=== PATIENT | male | born 1965 | race Caucasian/White ===

== ENCOUNTER 2018-03-02 22:14 | Emergency (ER) | payer OTHER ==
[~2018-03-02] VITALS: Ht 167.6 cm; Wt 72.7 kg
[~2018-03-02 22:14] MED LIST: BENZ1TAB10 PO; DIVA500T35 PO; GABA-533 PO; LEVO50 PO; RISPC50 IM
[2018-03-02] MEDS ORDERED: CALC-1035 PO (23:08)
[2018-03-02] MEDS ORDERED: BUSP15 PO (23:08)
[2018-03-02] MEDS ORDERED: DIVA500T52 PO (23:08)
[2018-03-02] MEDS ORDERED: ESCI10TA PO (23:12)
[2018-03-02] MEDS ORDERED: MELA3TAB66 PO (23:12)
[2018-03-02] MEDS ORDERED: QUET200T PO (23:12)
[2018-03-02] MEDS ORDERED: PROP20TA18 PO (23:12)
[2018-03-02] MEDS ORDERED: NALT50TA6 PO (23:12)
[2018-03-02] MEDS ORDERED: LAMO100 PO (23:12)
[2018-03-02] MEDS ORDERED: TRIH2TAB3 PO (23:13)
[2018-03-02] MEDS ORDERED: LEVO150 PO (23:13)
[2018-03-02] MEDS ORDERED: TRAZ-147 PO (23:13)
[2018-03-02 23:34] LABS: BASOPHILS % (AUTO) 0.9 % (0.0-2.0); HEMATOCRIT 43.6 % (41-53); HEMOGLOBIN 15.5 g/dL (13.5-17.5); LYMPHOCYTES # (AUTO) 1.4 K/uL (1.0-4.8); LYMPHOCYTES % (AUTO) 40.3 % (22.0-44.0); MEAN CORPUSCULAR HEMOGLOBIN 34.1 pg (26.0-34.0); MEAN CORPUSCULAR HGB CONC 35.5 G/dL (31.0-37.0); MEAN CORPUSCULAR VOLUME 96 fL (80-100); MONOCYTES # (AUTO) 0.5 K/uL (0.1-1.0); NEUTROPHILS # (AUTO) 1.4 K/uL (1.8-7.7); NEUTROPHILS % (AUTO) 39.8 % (40.0-70.0); PLATELET COUNT (AUTO) 136 K/uL (150-450); RED BLOOD CELL COUNT(AUTO) 4.55 MIL/uL (4.50-5.90); RED CELL DISTRIBUTION WIDTH 13.7 % (11.5-14.5)
[2018-03-02 23:47] LABS: ANION GAP 3 mmol/L (8-16); CALCIUM, TOTAL 8.6 mg/dL (8.8-10.5); CARBON DIOXIDE 32 mmol/L (22-29); CHLORIDE 104 mmol/L (98-107); CREATININE 0.89 mg/dL (0.60-1.30); GLOMERULAR FILTR. RATE CALC > 60 mL/min (>60); GLUCOSE,RANDOM 120 mg/dL (70-110); POTASSIUM 4.2 mmol/L (3.5-5.1); SODIUM SERUM 139 mmol/L (136-145); UREA NITROGEN, BLOOD 19 mg/dL (7-18)
[2018-03-02 23:52] LABS: ALANINE AMINOTRANSFERASE 23 U/L (12-78); ALBUMIN 3.2 g/dL (3.4-5.0); ALKALINE PHOSPHATASE 56 U/L (46-116); ASPARTATE AMINOTRANSFERASE 18 U/L (15-37); BILIRUBIN,TOTAL 0.3 mg/dL (0.1-1.0); TOTAL PROTEIN, SERUM 6.6 g/dL (6.4-8.2)
[2018-03-03 02:10] VITALS: BP 96/67
== END 2018-03-03 04:58 | disposition home or self-care (01) ==
LOC: EMS 22:15
DX: F25.9 Schizoaffective disorder, unspecified (principal); F31.9 Bipolar disorder, unspecified; E03.9 Hypothyroidism, unspecified
CPT/HCPCS: 36415; 80053; 85025; 99284; G0480

== ENCOUNTER 2018-12-11 20:35 | Emergency (ER) | payer OTHER ==
[~2018-12-11] VITALS: Ht 175.3 cm; Wt 72.7 kg
[~2018-12-11 20:35] MED LIST changes: -BENZ1TAB10 PO; +BUSP15 PO; +CALC-1035 PO; -DIVA500T35 PO; +DIVA500T52 PO; +ESCI10TA PO; -GABA-533 PO; +LAMO100 PO; +LEVO150 PO; -LEVO50 PO; +MELA3TAB66 PO; +NALT50TA6 PO; +PROP20TA18 PO; +QUET200T PO; -RISPC50 IM; +TRAZ-220 PO; +TRIH2TAB3 PO
[2018-12-11 21:26] LABS: EOSINOPHILS % (AUTO) 2.7 % (1.0-6.0); HEMATOCRIT 44.8 % (41-53); HEMOGLOBIN 15.3 g/dL (13.5-17.5); LYMPHOCYTES # (AUTO) 1.2 K/uL (1.0-4.8); LYMPHOCYTES % (AUTO) 33.1 % (22.0-44.0); MEAN CORPUSCULAR HEMOGLOBIN 33.2 pg (26.0-34.0); MEAN CORPUSCULAR HGB CONC 34.2 G/dL (31.0-37.0); MEAN CORPUSCULAR VOLUME 97 fL (80-100); MONOCYTES # (AUTO) 0.6 K/uL (0.1-1.0); MONOCYTES % (AUTO) 16.4 % (2.0-9.0); NEUTROPHILS # (AUTO) 1.7 K/uL (1.8-7.7); NEUTROPHILS % (AUTO) 46.8 % (40.0-70.0); PLATELET COUNT (AUTO) 141 K/uL (150-450); RED BLOOD CELL COUNT(AUTO) 4.62 MIL/uL (4.50-5.90)
[2018-12-11 21:33] LABS: APPEARANCE,URINE CLEAR (CLEAR); BILIRUBIN,URINE NEGATIVE (NEGATIVE); GLUCOSE, URINE (UA) NEGATIVE (NEGATIVE); KETONES,URINE NEGATIVE (NEGATIVE); LEUKOCYTE ESTERASE ,URINE NEGATIVE (NEGATIVE); NITRATE,URINE NEGATIVE (NEGATIVE); OCCULT BLOOD,URINE NEGATIVE (NEGATIVE); PROTEIN,URINE NEGATIVE (NEGATIVE); UROBILINOGEN,URINE 0.2 mg/dL (<=1.0)
[2018-12-11 21:35] LABS: ANION GAP 6 mmol/L (8-16); CALCIUM, TOTAL 8.7 mg/dL (8.8-10.5); CARBON DIOXIDE 30 mmol/L (22-29); CHLORIDE 105 mmol/L (98-107); CREATININE 0.84 mg/dL (0.60-1.30); GLOMERULAR FILTR. RATE CALC > 60 mL/min (>60); GLUCOSE,RANDOM 84 mg/dL (70-110); POTASSIUM 4.1 mmol/L (3.5-5.1); SODIUM SERUM 141 mmol/L (136-145); UREA NITROGEN, BLOOD 20 mg/dL (7-18)
[2018-12-11 21:41] LABS: ALANINE AMINOTRANSFERASE 22 U/L (12-78); ALBUMIN 3.5 g/dL (3.4-5.0); ALKALINE PHOSPHATASE 46 U/L (46-116); ASPARTATE AMINOTRANSFERASE 21 U/L (15-37); BILIRUBIN,TOTAL 0.3 mg/dL (0.1-1.0); TOTAL PROTEIN, SERUM 6.7 g/dL (6.4-8.2)
[2018-12-11 22:11] LABS: AMPHET/METH SCREEN,URINE NEGATIVE (NEGATIVE); BARBITURATE SCREEN, URINE NEGATIVE (NEGATIVE); BENZODIAZEPINES SCREEN,URINE NEGATIVE (NEGATIVE); CANNABINOID SCREEN,URINE NEGATIVE (NEGATIVE); COCAINE SCREEN,URINE NEGATIVE (NEGATIVE); METHADONE SCREEN, URINE NEGATIVE (NEGATIVE); OPIATE SCREEN,URINE NEGATIVE (NEGATIVE)
[2018-12-11 22:13] LABS: PHENCYCLIDINE SCREEN,URINE NEGATIVE (NEGATIVE)
[2018-12-11 23:48] VITALS: BP 102/61
== END 2018-12-11 23:49 | disposition home or self-care (01) ==
LOC: EMS 20:36
DX: F60.3 Borderline personality disorder (principal); F91.9 Conduct disorder, unspecified; F31.9 Bipolar disorder, unspecified; E03.9 Hypothyroidism, unspecified; Z79.899 Other long term (current) drug therapy
CPT/HCPCS: 36415; 80053; 80307; 81003; 85025; 99284; G0480

== ENCOUNTER 2019-02-11 20:12 | Emergency (ER) | payer OTHER ==
[~2019-02-11] VITALS: Ht 167.6 cm; Wt 72.7 kg
[2019-02-11] MEDS ORDERED: CHLO100T24 PO (22:19)
[2019-02-11] MEDS ORDERED: ZOLP5 PO (22:19)
[2019-02-11] MEDS ORDERED: LORA1TAB3 PO (22:19)
[2019-02-11 22:23] LABS: AMPHET/METH SCREEN,URINE NEGATIVE (NEGATIVE); BARBITURATE SCREEN, URINE NEGATIVE (NEGATIVE); BENZODIAZEPINES SCREEN,URINE NEGATIVE (NEGATIVE); CANNABINOID SCREEN,URINE NEGATIVE (NEGATIVE); METHADONE SCREEN, URINE NEGATIVE (NEGATIVE); OPIATE SCREEN,URINE NEGATIVE (NEGATIVE); PHENCYCLIDINE SCREEN,URINE NEGATIVE (NEGATIVE)
[2019-02-11 22:33] LABS: COCAINE SCREEN,URINE NEGATIVE (NEGATIVE)
[2019-02-11 23:03] LABS: EOSINOPHILS % (AUTO) 2.1 % (1.0-6.0); HEMATOCRIT 42.2 % (41-53); HEMOGLOBIN 14.4 g/dL (13.5-17.5); LYMPHOCYTES # (AUTO) 1.1 K/uL (1.0-4.8); LYMPHOCYTES % (AUTO) 29.4 % (22.0-44.0); MEAN CORPUSCULAR VOLUME 97 fL (80-100); MONOCYTES # (AUTO) 0.6 K/uL (0.1-1.0); MONOCYTES % (AUTO) 14.8 % (2.0-9.0); NEUTROPHILS % (AUTO) 52.7 % (40.0-70.0); PLATELET COUNT (AUTO) 126 K/uL (150-450); RED BLOOD CELL COUNT(AUTO) 4.36 MIL/uL (4.50-5.90); RED CELL DISTRIBUTION WIDTH 13.8 % (11.5-14.5)
[2019-02-11 23:13] LABS: ANION GAP 3 mmol/L (8-16); CALCIUM, TOTAL 8.8 mg/dL (8.8-10.5); CARBON DIOXIDE 35 mmol/L (22-29); CHLORIDE 107 mmol/L (98-107); CREATININE 0.98 mg/dL (0.60-1.30); GLOMERULAR FILTR. RATE CALC > 60 mL/min (>60); GLUCOSE,RANDOM 86 mg/dL (70-110); POTASSIUM 4.6 mmol/L (3.5-5.1); SODIUM SERUM 145 mmol/L (136-145); UREA NITROGEN, BLOOD 17 mg/dL (7-18)
[2019-02-11 23:19] LABS: ALANINE AMINOTRANSFERASE 24 U/L (12-78); ALBUMIN 3.1 g/dL (3.4-5.0); ALKALINE PHOSPHATASE 41 U/L (46-116); ASPARTATE AMINOTRANSFERASE 20 U/L (15-37); BILIRUBIN,TOTAL 0.3 mg/dL (0.1-1.0); TOTAL PROTEIN, SERUM 6.4 g/dL (6.4-8.2)
[2019-02-12 00:16] VITALS: BP 121/71
== END 2019-02-12 00:49 | disposition home or self-care (01) ==
LOC: EMS 20:14
DX: F91.8 Other conduct disorders (principal); F31.9 Bipolar disorder, unspecified; E03.9 Hypothyroidism, unspecified; Z88.8 Allergy status to other drugs, medicaments and biological substances; Z79.899 Other long term (current) drug therapy
CPT/HCPCS: 36415; 80053; 80307; 85025; 99284; G0480

== ENCOUNTER 2019-06-15 16:48 | Inpatient (IN) | payer OTHER, MEDICAID ==
[~2019-06-15] VITALS: Ht 167.6 cm; Wt 67.6 kg
[~2019-06-15 16:48] MED LIST changes: +CHLO100T24 PO; +LORA1TAB3 PO; +ZOLP5 PO
[2019-06-15 20:54] VITALS: BP 137/83
[2019-06-16] MEDS ORDERED: LEVOTHYROXINE SODIUM 100 MCG TABLET PO SCH (06:30)
[2019-06-16 06:45] VITALS: BP 128/79
[2019-06-16] MEDS: LORazepam 2 MG TABLET PO PRN ×3 (06:45→20:35)
[2019-06-16 08:00] VITALS: BP 131/70
[2019-06-16 08:06] LABS: BASOPHILS % (AUTO) 0.7 % (0.0-2.0); EOSINOPHILS % (AUTO) 4.3 % (1.0-6.0); HEMATOCRIT 43.9 % (41-53); HEMOGLOBIN 14.9 g/dL (13.5-17.5); LYMPHOCYTES # (AUTO) 1.3 K/uL (1.0-4.8); LYMPHOCYTES % (AUTO) 31.5 % (22.0-44.0); MEAN CORPUSCULAR HEMOGLOBIN 33.7 pg (26.0-34.0); MEAN CORPUSCULAR HGB CONC 33.9 G/dL (31.0-37.0); MEAN CORPUSCULAR VOLUME 100 fL (80-100); MONOCYTES # (AUTO) 0.7 K/uL (0.1-1.0); MONOCYTES % (AUTO) 16.6 % (2.0-9.0); NEUTROPHILS # (AUTO) 1.9 K/uL (1.8-7.7); NEUTROPHILS % (AUTO) 46.9 % (40.0-70.0); PLATELET COUNT (AUTO) 161 K/uL (150-450); RED BLOOD CELL COUNT(AUTO) 4.41 MIL/uL (4.50-5.90); RED CELL DISTRIBUTION WIDTH 13.6 % (11.5-14.5)
[2019-06-16 08:23] LABS: HEMOGLOBIN A1C 5.3 % (4.5-6.2)
[2019-06-16 08:37] LABS: ALANINE AMINOTRANSFERASE 26 U/L (12-78); ALBUMIN 3.1 g/dL (3.4-5.0); ALKALINE PHOSPHATASE 39 U/L (46-116); ANION GAP 6 mmol/L (8-16); ASPARTATE AMINOTRANSFERASE 29 U/L (15-37); BILIRUBIN,TOTAL 0.4 mg/dL (0.1-1.0); CALCIUM, TOTAL 9.1 mg/dL (8.8-10.5); CARBON DIOXIDE 31 mmol/L (22-29); CHLORIDE 110 mmol/L (98-107); CHOL/HDL RATIO 3.5 (4.2-7.3); CHOLESTEROL 198 mg/dL (131-200); CREATININE 0.84 mg/dL (0.60-1.30); FREE T4 (FREE THYROXINE) 0.93 ng/dL (0.76-1.46); GLOMERULAR FILTR. RATE CALC > 60 mL/min (>60); GLUCOSE,RANDOM 85 mg/dL (70-110); HDL CHOLESTEROL 57 mg/dL (40-60); LDL CHOL (CALC.) 125 mg/dL (0-130); POTASSIUM 4.5 mmol/L (3.5-5.1); SODIUM SERUM 147 mmol/L (136-145); THYROID STIMULATING HORMONE 0.98 uIU/mL (0.36-3.74); TOTAL PROTEIN, SERUM 5.8 g/dL (6.4-8.2); TRIGLYCERIDES 78 mg/dL (15-150); UREA NITROGEN, BLOOD -3 mg/dL (7-18)
[2019-06-16 16:03] VITALS: BP 119/75
[2019-06-16] MEDS: BusPIRone HCL 15 MG TABLET PO SCH (16:21)
[2019-06-16] MEDS: HALOPERIDOL 5 MG TABLET PO PRN (17:48)
[2019-06-16] MEDS: DIVALPROEX SODIUM 500 MG ER TABLET PO SCH (20:35)
[2019-06-16] MEDS: ZOLPIDEM TARTRATE 10 MG TABLET PO PRN (20:35)
[2019-06-16] MEDS: QUEtiapine FUMARATE 300 MG TABLET PO SCH (20:35)
[2019-06-17] MEDS: LEVOTHYROXINE SODIUM 125 MCG TABLET PO SCH (06:22)
[2019-06-17 06:23] VITALS: BP 115/78
[2019-06-17 08:22] VITALS: BP 118/74
[2019-06-17] MEDS: QUEtiapine FUMARATE 100 MG TABLET PO SCH (08:52)
[2019-06-17] MEDS: BusPIRone HCL 15 MG TABLET PO SCH ×3 (08:52→16:50)
[2019-06-17] MEDS: ESCITALOPRAM OXALATE 20 MG TABLET PO SCH (08:53)
[2019-06-17] MEDS: LORazepam 2 MG TABLET PO PRN ×3 (12:35→16:50)
[2019-06-17 16:10] VITALS: BP 121/78
[2019-06-17] MEDS: ChlorproMAZINE HCL 100 MG TABLET PO PRN (16:50)
[2019-06-17] MEDS: DIVALPROEX SODIUM 500 MG ER TABLET PO SCH (20:30)
[2019-06-17] MEDS: QUEtiapine FUMARATE 300 MG TABLET PO SCH (20:31)
[2019-06-17] MEDS: ZOLPIDEM TARTRATE 10 MG TABLET PO PRN (20:31)
[2019-06-18] MEDS: LEVOTHYROXINE SODIUM 125 MCG TABLET PO SCH (06:34)
[2019-06-18 06:54] VITALS: BP 105/66
[2019-06-18 08:00] VITALS: BP 112/60
[2019-06-18] MEDS: ESCITALOPRAM OXALATE 20 MG TABLET PO SCH (08:30)
[2019-06-18] MEDS: BusPIRone HCL 15 MG TABLET PO SCH ×3 (08:31→16:56)
[2019-06-18] MEDS: QUEtiapine FUMARATE 100 MG TABLET PO SCH (08:31)
[2019-06-18] MEDS: DOCUSATE SODIUM 250 MG CAPSULE PO SCH (10:41)
[2019-06-18] MEDS: ChlorproMAZINE HCL 100 MG TABLET PO PRN ×2 (12:21→20:33)
[2019-06-18 16:10] VITALS: BP 110/66
[2019-06-18] MEDS: DIVALPROEX SODIUM 500 MG ER TABLET PO SCH (20:33)
[2019-06-18] MEDS: QUEtiapine FUMARATE 200 MG TABLET PO SCH (20:33)
[2019-06-18] MEDS: ZOLPIDEM TARTRATE 10 MG TABLET PO PRN (20:33)
[2019-06-18] MEDS: LORazepam 2 MG TABLET PO PRN (21:59)
[2019-06-18] MEDS: HALOPERIDOL 5 MG TABLET PO PRN (21:59)
[2019-06-19 06:25] VITALS: BP 117/72
[2019-06-19] MEDS: LEVOTHYROXINE SODIUM 125 MCG TABLET PO SCH (06:56)
[2019-06-19] MEDS: ESCITALOPRAM OXALATE 20 MG TABLET PO SCH (08:26)
[2019-06-19] MEDS: DOCUSATE SODIUM 250 MG CAPSULE PO SCH (08:26)
[2019-06-19] MEDS: QUEtiapine FUMARATE 200 MG TABLET PO SCH ×2 (08:27→20:36)
[2019-06-19] MEDS: BusPIRone HCL 15 MG TABLET PO SCH ×3 (08:27→16:46)
[2019-06-19] MEDS: LORazepam 2 MG TABLET PO PRN (16:46)
[2019-06-19] MEDS: ChlorproMAZINE HCL 100 MG TABLET PO PRN (16:46)
[2019-06-19 17:14] VITALS: BP 108/68
[2019-06-19] MEDS: DIVALPROEX SODIUM 500 MG ER TABLET PO SCH (20:36)
[2019-06-19] MEDS: ZOLPIDEM TARTRATE 10 MG TABLET PO PRN (20:36)
[2019-06-20] MEDS: LEVOTHYROXINE SODIUM 125 MCG TABLET PO SCH (06:18)
[2019-06-20] MEDS: ESCITALOPRAM OXALATE 20 MG TABLET PO SCH (08:48)
[2019-06-20] MEDS: BusPIRone HCL 15 MG TABLET PO SCH ×3 (08:48→16:31)
[2019-06-20] MEDS: DOCUSATE SODIUM 250 MG CAPSULE PO SCH (08:48)
[2019-06-20] MEDS: QUEtiapine FUMARATE 200 MG TABLET PO SCH ×2 (08:49→20:56)
[2019-06-20 10:58] VITALS: BP 104/68
[2019-06-20] MEDS ORDERED: TUBERCULIN, PURIFIED PROTEIN DERIVATIVE 5 TU/0.1 ML SYRINGE ID ONE (13:30)
[2019-06-20 16:02] VITALS: BP 134/69
[2019-06-20] MEDS: ChlorproMAZINE HCL 100 MG TABLET PO PRN (16:31)
[2019-06-20] MEDS: LORazepam 2 MG TABLET PO PRN (16:31)
[2019-06-20] MEDS ORDERED: QUET200T PO (18:45)
[2019-06-20] MEDS ORDERED: ESCI20TA PO (18:45)
[2019-06-20] MEDS ORDERED: DOCU250C91 PO (18:47)
[2019-06-20] MEDS ORDERED: LEVO125 PO (18:47)
[2019-06-20] MEDS: DIVALPROEX SODIUM 500 MG ER TABLET PO SCH (20:56)
[2019-06-20] MEDS: HALOPERIDOL 5 MG TABLET PO PRN (21:15)
== END 2019-06-20 23:04 | disposition home or self-care (01) | DRG 885 ==
LOC: B3A 20:21
PROVIDERS: ADMIT Psychiatry & Neurology Psychiatry; ATTEND Psychiatry & Neurology Psychiatry
DX: F33.2 Major depressive disorder, recurrent severe without psychotic features (principal); R45.851 Suicidal ideations; F60.3 Borderline personality disorder; R45.87 Impulsiveness; F43.10 Post-traumatic stress disorder, unspecified; E03.9 Hypothyroidism, unspecified; Z79.899 Other long term (current) drug therapy; Z91.5 Personal history of self-harm
CPT/HCPCS: 83036; 84439; 84443

== ENCOUNTER 2019-06-24 08:10 | Inpatient (IN) | payer OTHER, MEDICAID ==
[~2019-06-24] VITALS: Ht 170.2 cm; Wt 79.6 kg
[~2019-06-24 08:10] MED LIST changes: -CALC-1035 PO; -CHLO100T24 PO; +DOCU-342 PO; -ESCI10TA PO; +ESCI20TA PO; -LAMO100 PO; +LEVO125 PO; -LEVO150 PO; -LORA1TAB3 PO; -MELA3TAB66 PO; -NALT50TA6 PO; -PROP20TA18 PO; -TRAZ-220 PO; -TRIH2TAB3 PO; -ZOLP5 PO
[2019-06-24] MEDS ORDERED: TRIH2TAB3 PO (08:34)
[2019-06-24] MEDS ORDERED: CHOL100018 PO (08:34)
[2019-06-24] MEDS ORDERED: SIME80 PO (08:34)
[2019-06-24] MEDS ORDERED: TRAZ150 PO (08:34)
[2019-06-24] MEDS ORDERED: MOM30 PO (08:34)
[2019-06-24] MEDS ORDERED: PSYL1PAC11 PO (08:34)
[2019-06-24] MEDS ORDERED: LAMO100 PO (08:34)
[2019-06-24 09:07] LABS: BASOPHILS % (AUTO) 0.9 % (0.0-2.0); EOSINOPHILS % (AUTO) 3.3 % (1.0-6.0); HEMATOCRIT 44.1 % (41-53); HEMOGLOBIN 15.1 g/dL (13.5-17.5); LYMPHOCYTES # (AUTO) 0.7 K/uL (1.0-4.8); LYMPHOCYTES % (AUTO) 17.1 % (22.0-44.0); MEAN CORPUSCULAR HEMOGLOBIN 33.4 pg (26.0-34.0); MEAN CORPUSCULAR HGB CONC 34.3 G/dL (31.0-37.0); MEAN CORPUSCULAR VOLUME 98 fL (80-100); MONOCYTES # (AUTO) 0.8 K/uL (0.1-1.0); MONOCYTES % (AUTO) 18.5 % (2.0-9.0); NEUTROPHILS # (AUTO) 2.6 K/uL (1.8-7.7); NEUTROPHILS % (AUTO) 60.2 % (40.0-70.0); PLATELET COUNT (AUTO) 185 K/uL (150-450); RED BLOOD CELL COUNT(AUTO) 4.52 MIL/uL (4.50-5.90); RED CELL DISTRIBUTION WIDTH 13.5 % (11.5-14.5)
[2019-06-24] MEDS ORDERED: LORazepam 2 MG TABLET PO ONE (09:15)
[2019-06-24 09:16] LABS: ANION GAP 4 mmol/L (8-16); CARBON DIOXIDE 35 mmol/L (22-29); CHLORIDE 101 mmol/L (98-107); CREATININE 0.89 mg/dL (0.60-1.30); GLUCOSE,RANDOM 80 mg/dL (70-110); SODIUM SERUM 140 mmol/L (136-145); UREA NITROGEN, BLOOD 16 mg/dL (7-18)
[2019-06-24 09:17] LABS: CALCIUM, TOTAL 9.1 mg/dL (8.8-10.5); GLOMERULAR FILTR. RATE CALC > 60 mL/min (>60)
[2019-06-24 09:23] LABS: ALANINE AMINOTRANSFERASE 28 U/L (12-78); ALBUMIN 3.6 g/dL (3.4-5.0); ALKALINE PHOSPHATASE 43 U/L (46-116); ASPARTATE AMINOTRANSFERASE 26 U/L (15-37); BILIRUBIN,TOTAL 0.3 mg/dL (0.1-1.0); TOTAL PROTEIN, SERUM 6.8 g/dL (6.4-8.2); VALPROIC ACID 85 mcg/mL (50-100)
[2019-06-24 09:28] LABS: AMPHET/METH SCREEN,URINE NEGATIVE (NEGATIVE); BARBITURATE SCREEN, URINE NEGATIVE (NEGATIVE); BENZODIAZEPINES SCREEN,URINE NEGATIVE (NEGATIVE); CANNABINOID SCREEN,URINE NEGATIVE (NEGATIVE); COCAINE SCREEN,URINE NEGATIVE (NEGATIVE); METHADONE SCREEN, URINE NEGATIVE (NEGATIVE); OPIATE SCREEN,URINE NEGATIVE (NEGATIVE)
[2019-06-24 09:30] LABS: PHENCYCLIDINE SCREEN,URINE NEGATIVE (NEGATIVE)
[2019-06-24] MEDS ORDERED: QUEtiapine FUMARATE 100 MG TABLET PO ONE (10:00)
[2019-06-24 13:15] VITALS: BP 121/74
[2019-06-24] MEDS ORDERED: INFLUENZA VIRUS VACCINE QVS 2019-20 (3YR+)/PF 60 MCG/0.5 ML SYRINGE IM ONE (13:15)
[2019-06-24] MEDS: BusPIRone HCL 15 MG TABLET PO SCH ×2 (14:45→16:05)
[2019-06-24] MEDS ORDERED: BusPIRone HCL 15 MG TABLET PO SCH (16:00)
[2019-06-24] MEDS ORDERED: HALOPERIDOL LACTATE 5 MG/ML VIAL IM ONE (16:45)
[2019-06-24] MEDS ORDERED: LORazepam 2 MG/ML VIAL IM ONE (16:45)
[2019-06-24] MEDS ORDERED: DiphenhydrAMINE HCL 50 MG/ML VIAL IM ONE (16:45)
[2019-06-24] MEDS ORDERED: LORazepam 2 MG/ML VIAL ONE (16:48)
[2019-06-24] MEDS ORDERED: DiphenhydrAMINE HCL 50 MG/ML VIAL ONE (16:48)
[2019-06-24] MEDS ORDERED: HALOPERIDOL LACTATE 5 MG/ML VIAL ONE (16:48)
[2019-06-24 17:30] VITALS: BP 108/65
[2019-06-24] MEDS ORDERED: DIVALPROEX SODIUM 500 MG ER TABLET PO SCH (21:00)
[2019-06-24] MEDS ORDERED: QUEtiapine FUMARATE 200 MG TABLET PO SCH ×2 (21:00)
[2019-06-24] MEDS: QUEtiapine FUMARATE 300 MG TABLET PO SCH (21:03)
[2019-06-24] MEDS: DIVALPROEX SODIUM 500 MG ER TABLET PO SCH (21:04)
[2019-06-25] MEDS: BusPIRone HCL 15 MG TABLET PO SCH ×3 (08:40→16:47)
[2019-06-25] MEDS: QUEtiapine FUMARATE 200 MG TABLET PO SCH (08:40)
[2019-06-25] MEDS: ESCITALOPRAM OXALATE 20 MG TABLET PO SCH (08:40)
[2019-06-25 09:00] VITALS: BP 105/61
[2019-06-25] MEDS ORDERED: QUEtiapine FUMARATE 200 MG TABLET PO SCH (09:00)
[2019-06-25] MEDS ORDERED: ESCITALOPRAM OXALATE 20 MG TABLET PO SCH (09:00)
[2019-06-25] MEDS: LamoTRIgine 25 MG TABLET PO SCH (14:57)
[2019-06-25 19:52] VITALS: BP 127/76
[2019-06-25] MEDS: ZOLPIDEM TARTRATE 10 MG TABLET PO PRN (20:43)
[2019-06-25] MEDS: DIVALPROEX SODIUM 500 MG ER TABLET PO SCH (20:43)
[2019-06-25] MEDS: QUEtiapine FUMARATE 300 MG TABLET PO SCH (20:43)
[2019-06-26] MEDS: LORazepam 2 MG TABLET PO PRN ×2 (03:55→20:03)
[2019-06-26] MEDS: BusPIRone HCL 15 MG TABLET PO SCH ×3 (09:04→17:04)
[2019-06-26] MEDS: QUEtiapine FUMARATE 200 MG TABLET PO SCH (09:04)
[2019-06-26] MEDS: LamoTRIgine 25 MG TABLET PO SCH (09:05)
[2019-06-26] MEDS: ESCITALOPRAM OXALATE 20 MG TABLET PO SCH (09:05)
[2019-06-26 09:06] VITALS: BP 120/75
[2019-06-26 16:11] VITALS: BP 120/78
[2019-06-26] MEDS: QUEtiapine FUMARATE 300 MG TABLET PO SCH (21:02)
[2019-06-26] MEDS: ZOLPIDEM TARTRATE 10 MG TABLET PO PRN (21:02)
[2019-06-26] MEDS: DIVALPROEX SODIUM 500 MG ER TABLET PO SCH (21:02)
[2019-06-27] MEDS: LEVOTHYROXINE SODIUM 125 MCG TABLET PO SCH (06:27)
[2019-06-27] MEDS ORDERED: DiphenhydrAMINE HCL 50 MG/ML VIAL ONE (09:03)
[2019-06-27] MEDS ORDERED: LORazepam 2 MG/ML VIAL ONE (09:03)
[2019-06-27] MEDS ORDERED: HALOPERIDOL LACTATE 5 MG/ML VIAL ONE (09:03)
[2019-06-27] MEDS: BusPIRone HCL 15 MG TABLET PO SCH ×3 (09:28→16:20)
[2019-06-27] MEDS: CHOLECALCIFEROL (VIT D3) 1,000 UNITS TABLET PO SCH (09:29)
[2019-06-27] MEDS: PSYLLIUM SEED ORANGE SF 5.8 GM/PACKET PO SCH ×2 (09:29→16:20)
[2019-06-27] MEDS: LamoTRIgine 25 MG TABLET PO SCH (09:29)
[2019-06-27] MEDS: ESCITALOPRAM OXALATE 20 MG TABLET PO SCH (09:29)
[2019-06-27] MEDS: QUEtiapine FUMARATE 200 MG TABLET PO SCH (09:29)
[2019-06-27] MEDS: DOCUSATE SODIUM 250 MG CAPSULE PO SCH (09:30)
[2019-06-27 13:13] VITALS: BP 122/79
[2019-06-27 16:30] VITALS: BP 111/77
[2019-06-27] MEDS: QUEtiapine FUMARATE 300 MG TABLET PO SCH (20:28)
[2019-06-27] MEDS: DIVALPROEX SODIUM 500 MG ER TABLET PO SCH (20:28)
[2019-06-28] MEDS: LORazepam 2 MG TABLET PO PRN ×3 (01:09→23:53)
[2019-06-28 01:10] VITALS: BP 105/65
[2019-06-28] MEDS: LEVOTHYROXINE SODIUM 125 MCG TABLET PO SCH (06:38)
[2019-06-28] MEDS: ESCITALOPRAM OXALATE 20 MG TABLET PO SCH (08:14)
[2019-06-28] MEDS: PSYLLIUM SEED ORANGE SF 5.8 GM/PACKET PO SCH ×2 (08:14→16:25)
[2019-06-28] MEDS: LamoTRIgine 25 MG TABLET PO SCH (08:14)
[2019-06-28] MEDS: QUEtiapine FUMARATE 200 MG TABLET PO SCH (08:15)
[2019-06-28] MEDS: BISACODYL 5 MG EC TABLET PO PRN (08:15)
[2019-06-28] MEDS: CHOLECALCIFEROL (VIT D3) 1,000 UNITS TABLET PO SCH (08:15)
[2019-06-28] MEDS: DOCUSATE SODIUM 250 MG CAPSULE PO SCH (08:15)
[2019-06-28] MEDS: BusPIRone HCL 15 MG TABLET PO SCH ×3 (08:15→16:24)
[2019-06-28 09:15] VITALS: BP 114/71
[2019-06-28 16:30] VITALS: BP 110/69
[2019-06-28] MEDS: DIVALPROEX SODIUM 500 MG ER TABLET PO SCH (20:24)
[2019-06-28] MEDS: QUEtiapine FUMARATE 300 MG TABLET PO SCH (20:24)
[2019-06-28] MEDS: ZOLPIDEM TARTRATE 10 MG TABLET PO PRN (20:24)
[2019-06-29] MEDS: LEVOTHYROXINE SODIUM 125 MCG TABLET PO SCH (06:58)
[2019-06-29 08:22] VITALS: BP 119/77
[2019-06-29] MEDS: LamoTRIgine 25 MG TABLET PO SCH (08:31)
[2019-06-29] MEDS: ESCITALOPRAM OXALATE 20 MG TABLET PO SCH (08:32)
[2019-06-29] MEDS: PSYLLIUM SEED ORANGE SF 5.8 GM/PACKET PO SCH ×2 (08:32→16:53)
[2019-06-29] MEDS: CHOLECALCIFEROL (VIT D3) 1,000 UNITS TABLET PO SCH (08:34)
[2019-06-29] MEDS: BusPIRone HCL 15 MG TABLET PO SCH ×3 (08:35→16:53)
[2019-06-29] MEDS: QUEtiapine FUMARATE 200 MG TABLET PO SCH (08:35)
[2019-06-29] MEDS: DOCUSATE SODIUM 250 MG CAPSULE PO SCH (08:35)
[2019-06-29] MEDS: LORazepam 2 MG TABLET PO PRN ×2 (09:42→23:41)
[2019-06-29] MEDS: BISACODYL 5 MG EC TABLET PO PRN (18:51)
[2019-06-29] MEDS: DIVALPROEX SODIUM 500 MG ER TABLET PO SCH (20:05)
[2019-06-29] MEDS: QUEtiapine FUMARATE 300 MG TABLET PO SCH (20:05)
[2019-06-29] MEDS: ZOLPIDEM TARTRATE 10 MG TABLET PO PRN (20:11)
[2019-06-29 20:29] VITALS: BP 116/79
[2019-06-30] MEDS: LEVOTHYROXINE SODIUM 125 MCG TABLET PO SCH (06:52)
[2019-06-30 08:00] VITALS: BP 138/76
[2019-06-30] MEDS: QUEtiapine FUMARATE 200 MG TABLET PO SCH (08:35)
[2019-06-30] MEDS: ESCITALOPRAM OXALATE 20 MG TABLET PO SCH (08:35)
[2019-06-30] MEDS: CHOLECALCIFEROL (VIT D3) 1,000 UNITS TABLET PO SCH (08:35)
[2019-06-30] MEDS: BusPIRone HCL 15 MG TABLET PO SCH ×3 (08:35→15:56)
[2019-06-30] MEDS: DOCUSATE SODIUM 250 MG CAPSULE PO SCH (08:35)
[2019-06-30] MEDS: LamoTRIgine 25 MG TABLET PO SCH (08:35)
[2019-06-30] MEDS: PSYLLIUM SEED ORANGE SF 5.8 GM/PACKET PO SCH ×2 (08:36→15:55)
[2019-06-30] MEDS: HALOPERIDOL 5 MG TABLET PO PRN (16:03)
[2019-06-30 20:06] VITALS: BP 125/78
[2019-06-30] MEDS: DIVALPROEX SODIUM 500 MG ER TABLET PO SCH (20:55)
[2019-06-30] MEDS: QUEtiapine FUMARATE 300 MG TABLET PO SCH (20:56)
[2019-06-30] MEDS: ZOLPIDEM TARTRATE 10 MG TABLET PO PRN (21:40)
[2019-07-01] MEDS: LEVOTHYROXINE SODIUM 125 MCG TABLET PO SCH (06:47)
[2019-07-01] MEDS: CHOLECALCIFEROL (VIT D3) 1,000 UNITS TABLET PO SCH (08:21)
[2019-07-01] MEDS: LamoTRIgine 25 MG TABLET PO SCH (08:21)
[2019-07-01] MEDS: BusPIRone HCL 15 MG TABLET PO SCH ×3 (08:21→16:18)
[2019-07-01] MEDS: ESCITALOPRAM OXALATE 20 MG TABLET PO SCH (08:22)
[2019-07-01] MEDS: QUEtiapine FUMARATE 200 MG TABLET PO SCH (08:22)
[2019-07-01] MEDS: DOCUSATE SODIUM 250 MG CAPSULE PO SCH (08:22)
[2019-07-01] MEDS: PSYLLIUM SEED ORANGE SF 5.8 GM/PACKET PO SCH ×2 (08:32→16:17)
[2019-07-01] MEDS ORDERED: TUBERCULIN, PURIFIED PROTEIN DERIVATIVE 5 TU/0.1 ML SYRINGE ID ONE (13:45)
[2019-07-01 17:14] VITALS: BP 122/74
[2019-07-01] MEDS: HALOPERIDOL 5 MG TABLET PO PRN (18:34)
[2019-07-01] MEDS: DIVALPROEX SODIUM 500 MG ER TABLET PO SCH (20:29)
[2019-07-01] MEDS: QUEtiapine FUMARATE 300 MG TABLET PO SCH (20:31)
[2019-07-01] MEDS: ZOLPIDEM TARTRATE 10 MG TABLET PO PRN (23:56)
[2019-07-02] MEDS: LEVOTHYROXINE SODIUM 125 MCG TABLET PO SCH (06:36)
[2019-07-02] MEDS: PSYLLIUM SEED ORANGE SF 5.8 GM/PACKET PO SCH ×2 (08:42→16:36)
[2019-07-02] MEDS: DOCUSATE SODIUM 250 MG CAPSULE PO SCH (08:42)
[2019-07-02] MEDS: BusPIRone HCL 15 MG TABLET PO SCH ×3 (08:42→16:36)
[2019-07-02] MEDS: QUEtiapine FUMARATE 200 MG TABLET PO SCH (08:42)
[2019-07-02] MEDS: LamoTRIgine 25 MG TABLET PO SCH (08:43)
[2019-07-02] MEDS: ESCITALOPRAM OXALATE 20 MG TABLET PO SCH (08:43)
[2019-07-02] MEDS: CHOLECALCIFEROL (VIT D3) 1,000 UNITS TABLET PO SCH (08:43)
[2019-07-02 08:53] VITALS: BP 114/63
[2019-07-02 16:55] VITALS: BP 119/77
[2019-07-02] MEDS: DIVALPROEX SODIUM 500 MG ER TABLET PO SCH (20:14)
[2019-07-02] MEDS: QUEtiapine FUMARATE 300 MG TABLET PO SCH (20:14)
[2019-07-02] MEDS: HALOPERIDOL 5 MG TABLET PO PRN (21:36)
[2019-07-02] MEDS: ZOLPIDEM TARTRATE 10 MG TABLET PO PRN (23:01)
[2019-07-03] MEDS: LORazepam 2 MG TABLET PO PRN (05:58)
[2019-07-03] MEDS: LEVOTHYROXINE SODIUM 125 MCG TABLET PO SCH (06:42)
[2019-07-03] MEDS: CHOLECALCIFEROL (VIT D3) 1,000 UNITS TABLET PO SCH (08:57)
[2019-07-03] MEDS: DOCUSATE SODIUM 250 MG CAPSULE PO SCH (08:57)
[2019-07-03] MEDS: BusPIRone HCL 15 MG TABLET PO SCH ×3 (08:57→16:21)
[2019-07-03] MEDS: QUEtiapine FUMARATE 200 MG TABLET PO SCH (08:57)
[2019-07-03 09:00] VITALS: BP 103/63
[2019-07-03] MEDS: ESCITALOPRAM OXALATE 20 MG TABLET PO SCH (09:02)
[2019-07-03] MEDS: LamoTRIgine 25 MG TABLET PO SCH (09:02)
[2019-07-03] MEDS: PSYLLIUM SEED ORANGE SF 5.8 GM/PACKET PO SCH ×2 (09:02→16:21)
[2019-07-03] MEDS: MAG HYDROX/AL HYDROX/SIMETH 30 ML SUSP UDCUP PO PRN (09:04)
[2019-07-03 16:30] VITALS: BP 115/71
[2019-07-03] MEDS: QUEtiapine FUMARATE 300 MG TABLET PO SCH (20:02)
[2019-07-03] MEDS: DIVALPROEX SODIUM 500 MG ER TABLET PO SCH (20:02)
[2019-07-04] MEDS: LEVOTHYROXINE SODIUM 125 MCG TABLET PO SCH (06:46)
[2019-07-04] MEDS: HALOPERIDOL 5 MG TABLET PO PRN (08:19)
[2019-07-04] MEDS: DOCUSATE SODIUM 250 MG CAPSULE PO SCH (08:20)
[2019-07-04] MEDS: CHOLECALCIFEROL (VIT D3) 1,000 UNITS TABLET PO SCH (08:20)
[2019-07-04] MEDS: QUEtiapine FUMARATE 200 MG TABLET PO SCH (08:20)
[2019-07-04] MEDS: LORazepam 2 MG TABLET PO PRN (08:21)
[2019-07-04] MEDS: BusPIRone HCL 15 MG TABLET PO SCH ×3 (08:21→16:40)
[2019-07-04] MEDS: ESCITALOPRAM OXALATE 20 MG TABLET PO SCH (09:41)
[2019-07-04] MEDS: LamoTRIgine 25 MG TABLET PO SCH (09:41)
[2019-07-04] MEDS: PSYLLIUM SEED ORANGE SF 5.8 GM/PACKET PO SCH ×2 (09:42→16:40)
[2019-07-04 11:53] VITALS: BP 114/79
[2019-07-04 16:00] VITALS: BP 121/78
[2019-07-04] MEDS: DIVALPROEX SODIUM 500 MG ER TABLET PO SCH (20:58)
[2019-07-04] MEDS: QUEtiapine FUMARATE 300 MG TABLET PO SCH (20:58)
[2019-07-05] MEDS: LEVOTHYROXINE SODIUM 125 MCG TABLET PO SCH (06:40)
[2019-07-05 08:23] VITALS: BP 100/63
[2019-07-05] MEDS: DOCUSATE SODIUM 250 MG CAPSULE PO SCH (08:46)
[2019-07-05] MEDS: BusPIRone HCL 15 MG TABLET PO SCH ×3 (08:46→16:22)
[2019-07-05] MEDS: CHOLECALCIFEROL (VIT D3) 1,000 UNITS TABLET PO SCH (08:46)
[2019-07-05] MEDS: LamoTRIgine 25 MG TABLET PO SCH (08:46)
[2019-07-05] MEDS: ESCITALOPRAM OXALATE 20 MG TABLET PO SCH (08:46)
[2019-07-05] MEDS: QUEtiapine FUMARATE 200 MG TABLET PO SCH (08:46)
[2019-07-05] MEDS: PSYLLIUM SEED ORANGE SF 5.8 GM/PACKET PO SCH ×2 (08:49→16:21)
[2019-07-05] MEDS: HALOPERIDOL 5 MG TABLET PO PRN ×2 (16:22→21:15)
[2019-07-05 19:02] VITALS: BP 110/78
[2019-07-05] MEDS: QUEtiapine FUMARATE 300 MG TABLET PO SCH (19:59)
[2019-07-05] MEDS: DIVALPROEX SODIUM 500 MG ER TABLET PO SCH (19:59)
[2019-07-06] MEDS: ZOLPIDEM TARTRATE 10 MG TABLET PO PRN ×2 (00:38→22:34)
[2019-07-06] MEDS: LORazepam 2 MG TABLET PO PRN ×2 (00:39→08:20)
[2019-07-06 00:40] VITALS: BP 109/78
[2019-07-06] MEDS: LEVOTHYROXINE SODIUM 125 MCG TABLET PO SCH (06:49)
[2019-07-06 08:00] VITALS: BP 147/84
[2019-07-06] MEDS: HALOPERIDOL 5 MG TABLET PO PRN ×2 (08:20→09:15)
[2019-07-06] MEDS: CHOLECALCIFEROL (VIT D3) 1,000 UNITS TABLET PO SCH (09:15)
[2019-07-06] MEDS: LamoTRIgine 25 MG TABLET PO SCH (09:15)
[2019-07-06] MEDS: ESCITALOPRAM OXALATE 20 MG TABLET PO SCH (09:16)
[2019-07-06] MEDS: PSYLLIUM SEED ORANGE SF 5.8 GM/PACKET PO SCH ×2 (09:16→17:48)
[2019-07-06] MEDS: QUEtiapine FUMARATE 200 MG TABLET PO SCH (09:16)
[2019-07-06] MEDS: DOCUSATE SODIUM 250 MG CAPSULE PO SCH (09:17)
[2019-07-06] MEDS: BusPIRone HCL 15 MG TABLET PO SCH ×3 (09:18→17:48)
[2019-07-06] MEDS: QUEtiapine FUMARATE 300 MG TABLET PO SCH (20:39)
[2019-07-06] MEDS: DIVALPROEX SODIUM 500 MG ER TABLET PO SCH (20:40)
[2019-07-07 01:24] VITALS: BP 117/80
[2019-07-07] MEDS: LEVOTHYROXINE SODIUM 125 MCG TABLET PO SCH (06:58)
[2019-07-07 08:00] VITALS: BP 117/82
[2019-07-07] MEDS: BusPIRone HCL 15 MG TABLET PO SCH ×3 (08:57→16:20)
[2019-07-07] MEDS: DOCUSATE SODIUM 250 MG CAPSULE PO SCH (08:57)
[2019-07-07] MEDS: QUEtiapine FUMARATE 200 MG TABLET PO SCH (08:58)
[2019-07-07] MEDS: CHOLECALCIFEROL (VIT D3) 1,000 UNITS TABLET PO SCH (08:59)
[2019-07-07] MEDS: PSYLLIUM SEED ORANGE SF 5.8 GM/PACKET PO SCH ×2 (08:59→16:20)
[2019-07-07] MEDS: ESCITALOPRAM OXALATE 20 MG TABLET PO SCH (09:00)
[2019-07-07] MEDS: LamoTRIgine 25 MG TABLET PO SCH (09:02)
[2019-07-07] MEDS: LORazepam 2 MG TABLET PO PRN (09:03)
[2019-07-07] MEDS: HALOPERIDOL 5 MG TABLET PO PRN (09:04)
[2019-07-07 16:30] VITALS: BP 98/64
[2019-07-07] MEDS: DIVALPROEX SODIUM 500 MG ER TABLET PO SCH (20:15)
[2019-07-07] MEDS: QUEtiapine FUMARATE 300 MG TABLET PO SCH (20:15)
[2019-07-07] MEDS: ZOLPIDEM TARTRATE 10 MG TABLET PO PRN (22:07)
[2019-07-08] MEDS: LEVOTHYROXINE SODIUM 125 MCG TABLET PO SCH (06:50)
[2019-07-08] MEDS: QUEtiapine FUMARATE 200 MG TABLET PO SCH (07:39)
[2019-07-08] MEDS: ESCITALOPRAM OXALATE 20 MG TABLET PO SCH (07:39)
[2019-07-08] MEDS: PSYLLIUM SEED ORANGE SF 5.8 GM/PACKET PO SCH ×2 (07:39→16:34)
[2019-07-08] MEDS: HALOPERIDOL 5 MG TABLET PO PRN (07:39)
[2019-07-08] MEDS: LamoTRIgine 25 MG TABLET PO SCH (07:39)
[2019-07-08] MEDS: CHOLECALCIFEROL (VIT D3) 1,000 UNITS TABLET PO SCH (07:39)
[2019-07-08] MEDS: BusPIRone HCL 15 MG TABLET PO SCH ×3 (07:39→16:32)
[2019-07-08] MEDS: DOCUSATE SODIUM 250 MG CAPSULE PO SCH (07:39)
[2019-07-08] MEDS: LORazepam 2 MG TABLET PO PRN (07:39)
[2019-07-08 10:03] VITALS: BP 111/53
[2019-07-08 16:00] VITALS: BP 108/69
[2019-07-08] MEDS: DIVALPROEX SODIUM 500 MG ER TABLET PO SCH (20:12)
[2019-07-08] MEDS: QUEtiapine FUMARATE 300 MG TABLET PO SCH (20:12)
[2019-07-08] MEDS: ZOLPIDEM TARTRATE 10 MG TABLET PO PRN (21:58)
[2019-07-09] MEDS: LORazepam 2 MG TABLET PO PRN ×3 (00:34→16:43)
[2019-07-09] MEDS: HALOPERIDOL 5 MG TABLET PO PRN ×3 (02:20→16:43)
[2019-07-09] MEDS: LEVOTHYROXINE SODIUM 125 MCG TABLET PO SCH (06:31)
[2019-07-09] MEDS: CHOLECALCIFEROL (VIT D3) 1,000 UNITS TABLET PO SCH (08:18)
[2019-07-09] MEDS: ESCITALOPRAM OXALATE 20 MG TABLET PO SCH (08:18)
[2019-07-09] MEDS: LamoTRIgine 25 MG TABLET PO SCH (08:18)
[2019-07-09] MEDS: PSYLLIUM SEED ORANGE SF 5.8 GM/PACKET PO SCH ×2 (08:18→16:43)
[2019-07-09] MEDS: QUEtiapine FUMARATE 200 MG TABLET PO SCH (08:19)
[2019-07-09] MEDS: DOCUSATE SODIUM 250 MG CAPSULE PO SCH (08:19)
[2019-07-09] MEDS: BusPIRone HCL 15 MG TABLET PO SCH ×3 (08:19→16:43)
[2019-07-09 09:52] VITALS: BP 135/71
[2019-07-09] MEDS: DIVALPROEX SODIUM 500 MG ER TABLET PO SCH (20:18)
[2019-07-09] MEDS: ZOLPIDEM TARTRATE 10 MG TABLET PO PRN (20:20)
[2019-07-09] MEDS: QUEtiapine FUMARATE 300 MG TABLET PO SCH (20:20)
[2019-07-10] MEDS: LEVOTHYROXINE SODIUM 125 MCG TABLET PO SCH (06:41)
[2019-07-10 08:00] VITALS: BP 129/78
[2019-07-10] MEDS: CHOLECALCIFEROL (VIT D3) 1,000 UNITS TABLET PO SCH (08:58)
[2019-07-10] MEDS: ESCITALOPRAM OXALATE 20 MG TABLET PO SCH (08:58)
[2019-07-10] MEDS: BusPIRone HCL 15 MG TABLET PO SCH ×3 (08:58→17:11)
[2019-07-10] MEDS: QUEtiapine FUMARATE 200 MG TABLET PO SCH (08:58)
[2019-07-10] MEDS: LamoTRIgine 25 MG TABLET PO SCH (08:58)
[2019-07-10] MEDS: DOCUSATE SODIUM 250 MG CAPSULE PO SCH (08:59)
[2019-07-10] MEDS: PSYLLIUM SEED ORANGE SF 5.8 GM/PACKET PO SCH ×2 (08:59→17:11)
[2019-07-10 16:05] VITALS: BP 115/77
[2019-07-10] MEDS: DIVALPROEX SODIUM 500 MG ER TABLET PO SCH (21:16)
[2019-07-10] MEDS: ZOLPIDEM TARTRATE 10 MG TABLET PO PRN (21:16)
[2019-07-10] MEDS: QUEtiapine FUMARATE 300 MG TABLET PO SCH (21:16)
[2019-07-10] MEDS: LORazepam 2 MG TABLET PO PRN (22:15)
[2019-07-10] MEDS: HALOPERIDOL 5 MG TABLET PO PRN (22:15)
[2019-07-11] MEDS: LEVOTHYROXINE SODIUM 125 MCG TABLET PO SCH (07:07)
[2019-07-11] MEDS: DOCUSATE SODIUM 250 MG CAPSULE PO SCH (07:55)
[2019-07-11] MEDS: ESCITALOPRAM OXALATE 20 MG TABLET PO SCH (07:55)
[2019-07-11] MEDS: PSYLLIUM SEED ORANGE SF 5.8 GM/PACKET PO SCH ×2 (07:55→17:08)
[2019-07-11] MEDS: BusPIRone HCL 15 MG TABLET PO SCH ×3 (07:55→17:08)
[2019-07-11] MEDS: QUEtiapine FUMARATE 200 MG TABLET PO SCH (07:55)
[2019-07-11] MEDS: CHOLECALCIFEROL (VIT D3) 1,000 UNITS TABLET PO SCH (07:55)
[2019-07-11] MEDS: LamoTRIgine 25 MG TABLET PO SCH (07:55)
[2019-07-11 08:55] VITALS: BP 120/86
[2019-07-11] MEDS: MAG HYDROX/AL HYDROX/SIMETH 30 ML SUSP UDCUP PO PRN (09:10)
[2019-07-11] MEDS: DIVALPROEX SODIUM 500 MG ER TABLET PO SCH (20:13)
[2019-07-11] MEDS: QUEtiapine FUMARATE 300 MG TABLET PO SCH (20:13)
[2019-07-11] MEDS: ZOLPIDEM TARTRATE 10 MG TABLET PO PRN (20:17)
[2019-07-11] MEDS: LORazepam 2 MG TABLET PO PRN (22:10)
[2019-07-11] MEDS: HALOPERIDOL 5 MG TABLET PO PRN (22:10)
[2019-07-12 00:40] VITALS: BP 106/76
[2019-07-12] MEDS: LEVOTHYROXINE SODIUM 125 MCG TABLET PO SCH (06:58)
[2019-07-12] MEDS: ESCITALOPRAM OXALATE 20 MG TABLET PO SCH (08:07)
[2019-07-12] MEDS: CHOLECALCIFEROL (VIT D3) 1,000 UNITS TABLET PO SCH (08:07)
[2019-07-12] MEDS: BusPIRone HCL 15 MG TABLET PO SCH ×3 (08:07→17:19)
[2019-07-12] MEDS: DOCUSATE SODIUM 250 MG CAPSULE PO SCH (08:08)
[2019-07-12] MEDS: QUEtiapine FUMARATE 200 MG TABLET PO SCH (08:08)
[2019-07-12] MEDS: PSYLLIUM SEED ORANGE SF 5.8 GM/PACKET PO SCH ×2 (08:08→17:19)
[2019-07-12] MEDS: LamoTRIgine 25 MG TABLET PO SCH (08:08)
[2019-07-12] MEDS: MAG HYDROX/AL HYDROX/SIMETH 30 ML SUSP UDCUP PO PRN (10:14)
[2019-07-12 10:32] VITALS: BP 127/76
[2019-07-12 16:30] VITALS: BP 116/72
[2019-07-12] MEDS: ZOLPIDEM TARTRATE 10 MG TABLET PO PRN (20:16)
[2019-07-12] MEDS: QUEtiapine FUMARATE 300 MG TABLET PO SCH (20:16)
[2019-07-12] MEDS: DIVALPROEX SODIUM 500 MG ER TABLET PO SCH (20:16)
[2019-07-12] MEDS: LORazepam 2 MG TABLET PO PRN (22:09)
[2019-07-12] MEDS: HALOPERIDOL 5 MG TABLET PO PRN (22:09)
[2019-07-13] MEDS: LEVOTHYROXINE SODIUM 125 MCG TABLET PO SCH (06:58)
[2019-07-13 08:07] VITALS: BP 114/79
[2019-07-13] MEDS: DOCUSATE SODIUM 250 MG CAPSULE PO SCH (08:22)
[2019-07-13] MEDS: ESCITALOPRAM OXALATE 20 MG TABLET PO SCH (08:22)
[2019-07-13] MEDS: QUEtiapine FUMARATE 200 MG TABLET PO SCH (08:22)
[2019-07-13] MEDS: BusPIRone HCL 15 MG TABLET PO SCH ×3 (08:22→16:20)
[2019-07-13] MEDS: CHOLECALCIFEROL (VIT D3) 1,000 UNITS TABLET PO SCH (08:22)
[2019-07-13] MEDS: LamoTRIgine 25 MG TABLET PO SCH (08:23)
[2019-07-13] MEDS: PSYLLIUM SEED ORANGE SF 5.8 GM/PACKET PO SCH ×2 (08:23→16:21)
[2019-07-13] MEDS: MAG HYDROX/AL HYDROX/SIMETH 30 ML SUSP UDCUP PO PRN (10:20)
[2019-07-13] MEDS: QUEtiapine FUMARATE 300 MG TABLET PO SCH (20:50)
[2019-07-13] MEDS: ZOLPIDEM TARTRATE 10 MG TABLET PO PRN (20:50)
[2019-07-13] MEDS: DIVALPROEX SODIUM 500 MG ER TABLET PO SCH (20:50)
[2019-07-14] MEDS: LORazepam 2 MG TABLET PO PRN ×2 (04:54→22:08)
[2019-07-14] MEDS: HALOPERIDOL 5 MG TABLET PO PRN ×2 (04:54→22:08)
[2019-07-14] MEDS: LEVOTHYROXINE SODIUM 125 MCG TABLET PO SCH (06:32)
[2019-07-14 09:23] VITALS: BP 140/78
[2019-07-14] MEDS: ESCITALOPRAM OXALATE 20 MG TABLET PO SCH (09:32)
[2019-07-14] MEDS: BusPIRone HCL 15 MG TABLET PO SCH ×3 (09:32→17:42)
[2019-07-14] MEDS: QUEtiapine FUMARATE 200 MG TABLET PO SCH (09:33)
[2019-07-14] MEDS: CHOLECALCIFEROL (VIT D3) 1,000 UNITS TABLET PO SCH (09:33)
[2019-07-14] MEDS: DOCUSATE SODIUM 250 MG CAPSULE PO SCH (09:33)
[2019-07-14] MEDS: LamoTRIgine 25 MG TABLET PO SCH (09:33)
[2019-07-14] MEDS: PSYLLIUM SEED ORANGE SF 5.8 GM/PACKET PO SCH ×2 (09:34→17:42)
[2019-07-14 16:30] VITALS: BP 104/70
[2019-07-14] MEDS: QUEtiapine FUMARATE 300 MG TABLET PO SCH (20:43)
[2019-07-14] MEDS: DIVALPROEX SODIUM 500 MG ER TABLET PO SCH (20:44)
[2019-07-15] MEDS: ZOLPIDEM TARTRATE 10 MG TABLET PO PRN ×2 (00:40→20:32)
[2019-07-15] MEDS: LEVOTHYROXINE SODIUM 125 MCG TABLET PO SCH (06:37)
[2019-07-15 08:00] VITALS: BP 132/73
[2019-07-15] MEDS: QUEtiapine FUMARATE 200 MG TABLET PO SCH (08:16)
[2019-07-15] MEDS: DOCUSATE SODIUM 250 MG CAPSULE PO SCH (08:16)
[2019-07-15] MEDS: CHOLECALCIFEROL (VIT D3) 1,000 UNITS TABLET PO SCH (08:16)
[2019-07-15] MEDS: PSYLLIUM SEED ORANGE SF 5.8 GM/PACKET PO SCH ×2 (08:16→16:48)
[2019-07-15] MEDS: BusPIRone HCL 15 MG TABLET PO SCH ×3 (08:17→16:47)
[2019-07-15] MEDS: LamoTRIgine 25 MG TABLET PO SCH (08:17)
[2019-07-15] MEDS: ESCITALOPRAM OXALATE 20 MG TABLET PO SCH (08:17)
[2019-07-15] MEDS: MAG HYDROX/AL HYDROX/SIMETH 30 ML SUSP UDCUP PO PRN (09:39)
[2019-07-15] MEDS: BISACODYL 5 MG EC TABLET PO PRN (11:51)
[2019-07-15 16:00] VITALS: BP 128/74
[2019-07-15] MEDS: DIVALPROEX SODIUM 500 MG ER TABLET PO SCH (20:32)
[2019-07-15] MEDS: QUEtiapine FUMARATE 300 MG TABLET PO SCH (20:32)
[2019-07-15] MEDS: LORazepam 2 MG TABLET PO PRN (23:43)
[2019-07-15] MEDS: HALOPERIDOL 5 MG TABLET PO PRN (23:43)
[2019-07-16] MEDS: LEVOTHYROXINE SODIUM 125 MCG TABLET PO SCH (06:49)
[2019-07-16] MEDS: QUEtiapine FUMARATE 200 MG TABLET PO SCH (08:10)
[2019-07-16] MEDS: DOCUSATE SODIUM 250 MG CAPSULE PO SCH (08:10)
[2019-07-16] MEDS: ESCITALOPRAM OXALATE 20 MG TABLET PO SCH (08:10)
[2019-07-16] MEDS: BusPIRone HCL 15 MG TABLET PO SCH ×3 (08:10→16:21)
[2019-07-16] MEDS: LamoTRIgine 25 MG TABLET PO SCH (08:10)
[2019-07-16] MEDS: PSYLLIUM SEED ORANGE SF 5.8 GM/PACKET PO SCH ×2 (08:10→16:21)
[2019-07-16] MEDS: CHOLECALCIFEROL (VIT D3) 1,000 UNITS TABLET PO SCH (08:10)
[2019-07-16 09:21] VITALS: BP 121/76
[2019-07-16 16:44] VITALS: BP 118/64
[2019-07-16] MEDS: DIVALPROEX SODIUM 500 MG ER TABLET PO SCH (20:13)
[2019-07-16] MEDS: QUEtiapine FUMARATE 300 MG TABLET PO SCH (20:14)
[2019-07-16] MEDS: ZOLPIDEM TARTRATE 10 MG TABLET PO PRN (21:10)
[2019-07-16] MEDS: HALOPERIDOL 5 MG TABLET PO PRN (22:48)
[2019-07-16] MEDS: LORazepam 2 MG TABLET PO PRN (22:48)
[2019-07-17 04:55] VITALS: BP 110/77
[2019-07-17] MEDS: LORazepam 2 MG TABLET PO PRN (04:57)
[2019-07-17] MEDS: LEVOTHYROXINE SODIUM 125 MCG TABLET PO SCH (07:06)
[2019-07-17] MEDS: CHOLECALCIFEROL (VIT D3) 1,000 UNITS TABLET PO SCH (08:38)
[2019-07-17] MEDS: ESCITALOPRAM OXALATE 20 MG TABLET PO SCH (08:38)
[2019-07-17] MEDS: BusPIRone HCL 15 MG TABLET PO SCH ×3 (08:38→17:34)
[2019-07-17] MEDS: QUEtiapine FUMARATE 200 MG TABLET PO SCH (08:38)
[2019-07-17] MEDS: DOCUSATE SODIUM 250 MG CAPSULE PO SCH (08:38)
[2019-07-17] MEDS: PSYLLIUM SEED ORANGE SF 5.8 GM/PACKET PO SCH ×2 (08:39→17:39)
[2019-07-17] MEDS: LamoTRIgine 25 MG TABLET PO SCH (08:39)
[2019-07-17] MEDS: DIVALPROEX SODIUM 500 MG ER TABLET PO SCH (20:13)
[2019-07-17] MEDS: QUEtiapine FUMARATE 300 MG TABLET PO SCH (20:14)
[2019-07-17] MEDS: ZOLPIDEM TARTRATE 10 MG TABLET PO PRN (20:18)
[2019-07-18 01:22] VITALS: BP 112/71
[2019-07-18] MEDS: LORazepam 2 MG TABLET PO PRN (01:26)
[2019-07-18] MEDS: HALOPERIDOL 5 MG TABLET PO PRN (01:26)
[2019-07-18] MEDS: LEVOTHYROXINE SODIUM 125 MCG TABLET PO SCH (07:08)
[2019-07-18] MEDS: BusPIRone HCL 15 MG TABLET PO SCH ×3 (08:52→17:00)
[2019-07-18] MEDS: QUEtiapine FUMARATE 200 MG TABLET PO SCH (08:52)
[2019-07-18] MEDS: CHOLECALCIFEROL (VIT D3) 1,000 UNITS TABLET PO SCH (08:52)
[2019-07-18] MEDS: DOCUSATE SODIUM 250 MG CAPSULE PO SCH (08:52)
[2019-07-18] MEDS: LamoTRIgine 25 MG TABLET PO SCH (08:53)
[2019-07-18] MEDS: PSYLLIUM SEED ORANGE SF 5.8 GM/PACKET PO SCH ×2 (08:53→17:00)
[2019-07-18] MEDS: ESCITALOPRAM OXALATE 20 MG TABLET PO SCH (08:53)
[2019-07-18 09:00] VITALS: BP 101/78
[2019-07-18 18:06] VITALS: BP 108/72
[2019-07-18] MEDS: QUEtiapine FUMARATE 300 MG TABLET PO SCH (20:35)
[2019-07-18] MEDS: DIVALPROEX SODIUM 500 MG ER TABLET PO SCH (20:35)
[2019-07-18] MEDS: ZOLPIDEM TARTRATE 10 MG TABLET PO PRN (20:35)
[2019-07-19 00:05] VITALS: BP 111/82
[2019-07-19] MEDS: LORazepam 2 MG TABLET PO PRN ×2 (00:10→13:24)
[2019-07-19] MEDS: HALOPERIDOL 5 MG TABLET PO PRN (00:32)
[2019-07-19] MEDS: LEVOTHYROXINE SODIUM 125 MCG TABLET PO SCH (06:46)
[2019-07-19] MEDS: CHOLECALCIFEROL (VIT D3) 1,000 UNITS TABLET PO SCH (07:57)
[2019-07-19] MEDS: QUEtiapine FUMARATE 200 MG TABLET PO SCH (07:57)
[2019-07-19] MEDS: BusPIRone HCL 15 MG TABLET PO SCH ×3 (07:57→16:24)
[2019-07-19] MEDS: DOCUSATE SODIUM 250 MG CAPSULE PO SCH (07:57)
[2019-07-19] MEDS: PSYLLIUM SEED ORANGE SF 5.8 GM/PACKET PO SCH ×2 (07:58→16:23)
[2019-07-19] MEDS: ESCITALOPRAM OXALATE 20 MG TABLET PO SCH (07:58)
[2019-07-19] MEDS: LamoTRIgine 25 MG TABLET PO SCH (07:58)
[2019-07-19 08:45] VITALS: BP 100/65
[2019-07-19] MEDS: QUEtiapine FUMARATE 300 MG TABLET PO SCH (20:50)
[2019-07-19] MEDS: ZOLPIDEM TARTRATE 10 MG TABLET PO PRN (20:50)
[2019-07-19] MEDS: DIVALPROEX SODIUM 500 MG ER TABLET PO SCH (20:50)
[2019-07-20 00:15] VITALS: BP 112/75
[2019-07-20] MEDS: LORazepam 2 MG TABLET PO PRN ×3 (00:21→22:51)
[2019-07-20] MEDS: HALOPERIDOL 5 MG TABLET PO PRN ×2 (00:45→22:51)
[2019-07-20] MEDS: LEVOTHYROXINE SODIUM 125 MCG TABLET PO SCH (06:55)
[2019-07-20] MEDS: BusPIRone HCL 15 MG TABLET PO SCH ×3 (08:30→17:01)
[2019-07-20] MEDS: LamoTRIgine 25 MG TABLET PO SCH (08:30)
[2019-07-20] MEDS: DOCUSATE SODIUM 250 MG CAPSULE PO SCH (08:30)
[2019-07-20] MEDS: CHOLECALCIFEROL (VIT D3) 1,000 UNITS TABLET PO SCH (08:31)
[2019-07-20] MEDS: ESCITALOPRAM OXALATE 20 MG TABLET PO SCH (08:31)
[2019-07-20] MEDS: PSYLLIUM SEED ORANGE SF 5.8 GM/PACKET PO SCH ×2 (08:31→17:01)
[2019-07-20] MEDS: QUEtiapine FUMARATE 200 MG TABLET PO SCH (08:31)
[2019-07-20 08:54] VITALS: BP 106/72
[2019-07-20] MEDS: MAG HYDROX/AL HYDROX/SIMETH 30 ML SUSP UDCUP PO PRN (15:57)
[2019-07-20 18:05] VITALS: BP 128/78
[2019-07-20] MEDS: ZOLPIDEM TARTRATE 10 MG TABLET PO PRN (21:30)
[2019-07-20] MEDS: QUEtiapine FUMARATE 300 MG TABLET PO SCH (21:30)
[2019-07-20] MEDS: DIVALPROEX SODIUM 500 MG ER TABLET PO SCH (21:30)
[2019-07-21] MEDS: LEVOTHYROXINE SODIUM 125 MCG TABLET PO SCH (07:01)
[2019-07-21] MEDS: CHOLECALCIFEROL (VIT D3) 1,000 UNITS TABLET PO SCH (08:25)
[2019-07-21] MEDS: DOCUSATE SODIUM 250 MG CAPSULE PO SCH (08:26)
[2019-07-21] MEDS: QUEtiapine FUMARATE 200 MG TABLET PO SCH (08:26)
[2019-07-21] MEDS: BusPIRone HCL 15 MG TABLET PO SCH ×3 (08:26→16:09)
[2019-07-21] MEDS: LamoTRIgine 25 MG TABLET PO SCH (08:28)
[2019-07-21] MEDS: ESCITALOPRAM OXALATE 20 MG TABLET PO SCH (08:29)
[2019-07-21] MEDS: PSYLLIUM SEED ORANGE SF 5.8 GM/PACKET PO SCH ×2 (08:29→16:09)
[2019-07-21 10:00] VITALS: BP 114/74
[2019-07-21] MEDS: MAG HYDROX/AL HYDROX/SIMETH 30 ML SUSP UDCUP PO PRN (11:08)
[2019-07-21] MEDS: LORazepam 2 MG TABLET PO PRN ×2 (12:01→23:09)
[2019-07-21 16:37] VITALS: BP 114/76
[2019-07-21] MEDS: DIVALPROEX SODIUM 500 MG ER TABLET PO SCH (22:23)
[2019-07-21] MEDS: QUEtiapine FUMARATE 300 MG TABLET PO SCH (22:23)
[2019-07-21] MEDS: HALOPERIDOL 5 MG TABLET PO PRN (23:09)
[2019-07-22] MEDS: LEVOTHYROXINE SODIUM 125 MCG TABLET PO SCH (07:01)
[2019-07-22 08:10] VITALS: BP 103/64
[2019-07-22] MEDS: PSYLLIUM SEED ORANGE SF 5.8 GM/PACKET PO SCH ×2 (08:21→16:32)
[2019-07-22] MEDS: ESCITALOPRAM OXALATE 20 MG TABLET PO SCH (08:21)
[2019-07-22] MEDS: CHOLECALCIFEROL (VIT D3) 1,000 UNITS TABLET PO SCH (08:21)
[2019-07-22] MEDS: QUEtiapine FUMARATE 200 MG TABLET PO SCH (08:21)
[2019-07-22] MEDS: DOCUSATE SODIUM 250 MG CAPSULE PO SCH (08:21)
[2019-07-22] MEDS: BusPIRone HCL 15 MG TABLET PO SCH ×3 (08:21→16:33)
[2019-07-22] MEDS: LamoTRIgine 25 MG TABLET PO SCH (08:21)
[2019-07-22] MEDS: MAG HYDROX/AL HYDROX/SIMETH 30 ML SUSP UDCUP PO PRN (09:31)
[2019-07-22] MEDS: PANTOPRAZOLE SODIUM 40 MG DR TABLET PO SCH (10:38)
[2019-07-22 16:45] VITALS: BP 121/74
[2019-07-22] MEDS: HALOPERIDOL 5 MG TABLET PO PRN (18:02)
[2019-07-22] MEDS: LORazepam 2 MG TABLET PO PRN (18:02)
[2019-07-22] MEDS: DIVALPROEX SODIUM 500 MG ER TABLET PO SCH (20:38)
[2019-07-22] MEDS: ZOLPIDEM TARTRATE 10 MG TABLET PO PRN (20:38)
[2019-07-22] MEDS: QUEtiapine FUMARATE 300 MG TABLET PO SCH (20:38)
[2019-07-23] MEDS: LEVOTHYROXINE SODIUM 125 MCG TABLET PO SCH (06:37)
[2019-07-23] MEDS: DOCUSATE SODIUM 250 MG CAPSULE PO SCH (08:16)
[2019-07-23] MEDS: QUEtiapine FUMARATE 200 MG TABLET PO SCH (08:16)
[2019-07-23] MEDS: BusPIRone HCL 15 MG TABLET PO SCH ×3 (08:16→16:16)
[2019-07-23] MEDS: CHOLECALCIFEROL (VIT D3) 1,000 UNITS TABLET PO SCH (08:16)
[2019-07-23] MEDS: PANTOPRAZOLE SODIUM 40 MG DR TABLET PO SCH (08:16)
[2019-07-23] MEDS: ESCITALOPRAM OXALATE 20 MG TABLET PO SCH (08:17)
[2019-07-23] MEDS: LamoTRIgine 25 MG TABLET PO SCH (08:17)
[2019-07-23] MEDS: PSYLLIUM SEED ORANGE SF 5.8 GM/PACKET PO SCH ×2 (08:17→16:16)
[2019-07-23 09:37] VITALS: BP 115/84
[2019-07-23 16:24] VITALS: BP 119/72
[2019-07-23] MEDS: HALOPERIDOL 5 MG TABLET PO PRN (17:39)
[2019-07-23] MEDS: LORazepam 2 MG TABLET PO PRN (17:39)
[2019-07-23] MEDS: DIVALPROEX SODIUM 500 MG ER TABLET PO SCH (20:45)
[2019-07-23] MEDS: QUEtiapine FUMARATE 300 MG TABLET PO SCH (20:45)
[2019-07-23] MEDS: ZOLPIDEM TARTRATE 10 MG TABLET PO PRN (20:46)
[2019-07-24] MEDS: LEVOTHYROXINE SODIUM 125 MCG TABLET PO SCH (07:00)
[2019-07-24 08:15] VITALS: BP 114/93
[2019-07-24] MEDS: QUEtiapine FUMARATE 200 MG TABLET PO SCH (09:03)
[2019-07-24] MEDS: LamoTRIgine 25 MG TABLET PO SCH (09:03)
[2019-07-24] MEDS: PANTOPRAZOLE SODIUM 40 MG DR TABLET PO SCH (09:03)
[2019-07-24] MEDS: ESCITALOPRAM OXALATE 20 MG TABLET PO SCH (09:03)
[2019-07-24] MEDS: DOCUSATE SODIUM 250 MG CAPSULE PO SCH (09:03)
[2019-07-24] MEDS: BusPIRone HCL 15 MG TABLET PO SCH ×3 (09:03→16:03)
[2019-07-24] MEDS: CHOLECALCIFEROL (VIT D3) 1,000 UNITS TABLET PO SCH (09:04)
[2019-07-24] MEDS: PSYLLIUM SEED ORANGE SF 5.8 GM/PACKET PO SCH ×2 (09:04→16:03)
[2019-07-24 16:00] VITALS: BP 103/73
[2019-07-24] MEDS: QUEtiapine FUMARATE 300 MG TABLET PO SCH (20:12)
[2019-07-24] MEDS: ZOLPIDEM TARTRATE 10 MG TABLET PO PRN (20:12)
[2019-07-24] MEDS: DIVALPROEX SODIUM 500 MG ER TABLET PO SCH (20:12)
[2019-07-24] MEDS: LORazepam 2 MG TABLET PO PRN (21:52)
[2019-07-24] MEDS: HALOPERIDOL 5 MG TABLET PO PRN (21:52)
[2019-07-25] MEDS: BISACODYL 5 MG EC TABLET PO PRN (06:29)
[2019-07-25] MEDS: LEVOTHYROXINE SODIUM 125 MCG TABLET PO SCH (06:52)
[2019-07-25 08:38] VITALS: BP 125/86
[2019-07-25] MEDS: LORazepam 2 MG TABLET PO PRN (08:49)
[2019-07-25] MEDS: PANTOPRAZOLE SODIUM 40 MG DR TABLET PO SCH (08:49)
[2019-07-25] MEDS: LamoTRIgine 25 MG TABLET PO SCH (08:49)
[2019-07-25] MEDS: QUEtiapine FUMARATE 200 MG TABLET PO SCH (08:49)
[2019-07-25] MEDS: DOCUSATE SODIUM 250 MG CAPSULE PO SCH (08:49)
[2019-07-25] MEDS: CHOLECALCIFEROL (VIT D3) 1,000 UNITS TABLET PO SCH (08:49)
[2019-07-25] MEDS: ESCITALOPRAM OXALATE 20 MG TABLET PO SCH (08:49)
[2019-07-25] MEDS: BusPIRone HCL 15 MG TABLET PO SCH ×3 (08:49→16:23)
[2019-07-25] MEDS: HALOPERIDOL 5 MG TABLET PO PRN (08:49)
[2019-07-25] MEDS: PSYLLIUM SEED ORANGE SF 5.8 GM/PACKET PO SCH ×2 (08:50→16:23)
[2019-07-25] MEDS: ZOLPIDEM TARTRATE 10 MG TABLET PO PRN (20:02)
[2019-07-25] MEDS: DIVALPROEX SODIUM 500 MG ER TABLET PO SCH (20:02)
[2019-07-25] MEDS: QUEtiapine FUMARATE 300 MG TABLET PO SCH (20:02)
[2019-07-26] MEDS: LEVOTHYROXINE SODIUM 125 MCG TABLET PO SCH (06:44)
[2019-07-26] MEDS: LamoTRIgine 25 MG TABLET PO SCH (09:02)
[2019-07-26] MEDS: ESCITALOPRAM OXALATE 20 MG TABLET PO SCH (09:02)
[2019-07-26] MEDS: PSYLLIUM SEED ORANGE SF 5.8 GM/PACKET PO SCH ×2 (09:02→17:17)
[2019-07-26] MEDS: BusPIRone HCL 15 MG TABLET PO SCH ×3 (09:06→17:17)
[2019-07-26] MEDS: PANTOPRAZOLE SODIUM 40 MG DR TABLET PO SCH (09:06)
[2019-07-26] MEDS: CHOLECALCIFEROL (VIT D3) 1,000 UNITS TABLET PO SCH (09:06)
[2019-07-26] MEDS: DOCUSATE SODIUM 250 MG CAPSULE PO SCH (09:06)
[2019-07-26] MEDS: QUEtiapine FUMARATE 200 MG TABLET PO SCH (09:06)
[2019-07-26 09:33] VITALS: BP 120/82
[2019-07-26] MEDS: LORazepam 2 MG TABLET PO PRN (14:32)
[2019-07-26] MEDS: HALOPERIDOL 5 MG TABLET PO PRN (14:32)
[2019-07-26 16:49] VITALS: BP 104/81
[2019-07-26] MEDS: DIVALPROEX SODIUM 500 MG ER TABLET PO SCH (20:08)
[2019-07-26] MEDS: QUEtiapine FUMARATE 300 MG TABLET PO SCH (20:08)
[2019-07-26] MEDS: ZOLPIDEM TARTRATE 10 MG TABLET PO PRN (20:28)
[2019-07-27] MEDS: LORazepam 2 MG TABLET PO PRN ×2 (02:51→21:16)
[2019-07-27] MEDS: HALOPERIDOL 5 MG TABLET PO PRN ×2 (02:51→21:16)
[2019-07-27] MEDS: LEVOTHYROXINE SODIUM 125 MCG TABLET PO SCH (06:38)
[2019-07-27] MEDS: ESCITALOPRAM OXALATE 20 MG TABLET PO SCH (09:48)
[2019-07-27] MEDS: QUEtiapine FUMARATE 200 MG TABLET PO SCH (09:48)
[2019-07-27] MEDS: LamoTRIgine 25 MG TABLET PO SCH (09:48)
[2019-07-27] MEDS: BusPIRone HCL 15 MG TABLET PO SCH ×4 (09:48→17:04)
[2019-07-27] MEDS: PANTOPRAZOLE SODIUM 40 MG DR TABLET PO SCH (09:48)
[2019-07-27] MEDS: DOCUSATE SODIUM 250 MG CAPSULE PO SCH (09:48)
[2019-07-27] MEDS: PSYLLIUM SEED ORANGE SF 5.8 GM/PACKET PO SCH ×2 (09:48→17:04)
[2019-07-27] MEDS: CHOLECALCIFEROL (VIT D3) 1,000 UNITS TABLET PO SCH (09:49)
[2019-07-27 10:25] VITALS: BP 119/77
[2019-07-27 16:00] VITALS: BP 111/60
[2019-07-27] MEDS: QUEtiapine FUMARATE 300 MG TABLET PO SCH (20:32)
[2019-07-27] MEDS: DIVALPROEX SODIUM 500 MG ER TABLET PO SCH (20:32)
[2019-07-27] MEDS: ZOLPIDEM TARTRATE 10 MG TABLET PO PRN (20:32)
[2019-07-28] MEDS: LORazepam 2 MG TABLET PO PRN ×2 (02:39→17:51)
[2019-07-28] MEDS: HALOPERIDOL 5 MG TABLET PO PRN ×2 (02:40→17:51)
[2019-07-28] MEDS: LEVOTHYROXINE SODIUM 125 MCG TABLET PO SCH (06:58)
[2019-07-28 08:00] VITALS: BP 109/63
[2019-07-28] MEDS: ESCITALOPRAM OXALATE 20 MG TABLET PO SCH (09:06)
[2019-07-28] MEDS: BusPIRone HCL 15 MG TABLET PO SCH ×3 (09:06→16:05)
[2019-07-28] MEDS: PANTOPRAZOLE SODIUM 40 MG DR TABLET PO SCH (09:06)
[2019-07-28] MEDS: DOCUSATE SODIUM 250 MG CAPSULE PO SCH (09:06)
[2019-07-28] MEDS: QUEtiapine FUMARATE 200 MG TABLET PO SCH (09:06)
[2019-07-28] MEDS: CHOLECALCIFEROL (VIT D3) 1,000 UNITS TABLET PO SCH (09:06)
[2019-07-28] MEDS: PSYLLIUM SEED ORANGE SF 5.8 GM/PACKET PO SCH ×2 (09:06→16:05)
[2019-07-28] MEDS: LamoTRIgine 25 MG TABLET PO SCH (09:06)
[2019-07-28] MEDS: QUEtiapine FUMARATE 300 MG TABLET PO SCH (20:04)
[2019-07-28] MEDS: ZOLPIDEM TARTRATE 10 MG TABLET PO PRN (20:04)
[2019-07-28] MEDS: DIVALPROEX SODIUM 500 MG ER TABLET PO SCH (20:04)
[2019-07-28 20:56] VITALS: BP 146/75
[2019-07-29] MEDS: LEVOTHYROXINE SODIUM 125 MCG TABLET PO SCH (06:36)
[2019-07-29] MEDS: DOCUSATE SODIUM 250 MG CAPSULE PO SCH (08:15)
[2019-07-29] MEDS: BusPIRone HCL 15 MG TABLET PO SCH ×3 (08:15→15:58)
[2019-07-29] MEDS: PANTOPRAZOLE SODIUM 40 MG DR TABLET PO SCH (08:15)
[2019-07-29] MEDS: PSYLLIUM SEED ORANGE SF 5.8 GM/PACKET PO SCH ×2 (08:15→15:58)
[2019-07-29] MEDS: ESCITALOPRAM OXALATE 20 MG TABLET PO SCH (08:15)
[2019-07-29] MEDS: CHOLECALCIFEROL (VIT D3) 1,000 UNITS TABLET PO SCH (08:15)
[2019-07-29] MEDS: QUEtiapine FUMARATE 200 MG TABLET PO SCH (08:15)
[2019-07-29] MEDS: LamoTRIgine 25 MG TABLET PO SCH (08:16)
[2019-07-29 13:28] VITALS: BP 113/92
[2019-07-29] MEDS: BISACODYL 5 MG EC TABLET PO PRN (16:13)
[2019-07-29 16:14] VITALS: BP 123/78
[2019-07-29] MEDS: HALOPERIDOL 5 MG TABLET PO PRN (16:54)
[2019-07-29] MEDS: LORazepam 2 MG TABLET PO PRN (16:54)
[2019-07-29] MEDS: QUEtiapine FUMARATE 300 MG TABLET PO SCH (20:17)
[2019-07-29] MEDS: DIVALPROEX SODIUM 500 MG ER TABLET PO SCH (20:17)
[2019-07-29] MEDS: ZOLPIDEM TARTRATE 10 MG TABLET PO PRN (20:26)
[2019-07-30] MEDS: LEVOTHYROXINE SODIUM 125 MCG TABLET PO SCH (06:46)
[2019-07-30] MEDS: PANTOPRAZOLE SODIUM 40 MG DR TABLET PO SCH (08:02)
[2019-07-30] MEDS: QUEtiapine FUMARATE 200 MG TABLET PO SCH (08:02)
[2019-07-30] MEDS: CHOLECALCIFEROL (VIT D3) 1,000 UNITS TABLET PO SCH (08:02)
[2019-07-30] MEDS: ESCITALOPRAM OXALATE 20 MG TABLET PO SCH (08:02)
[2019-07-30] MEDS: BusPIRone HCL 15 MG TABLET PO SCH ×3 (08:02→16:35)
[2019-07-30] MEDS: DOCUSATE SODIUM 250 MG CAPSULE PO SCH (08:02)
[2019-07-30] MEDS: PSYLLIUM SEED ORANGE SF 5.8 GM/PACKET PO SCH ×2 (08:02→16:35)
[2019-07-30] MEDS: LamoTRIgine 25 MG TABLET PO SCH (08:03)
[2019-07-30 08:26] VITALS: BP 108/73
[2019-07-30 17:00] VITALS: BP 110/77
[2019-07-30] MEDS: QUEtiapine FUMARATE 300 MG TABLET PO SCH (20:18)
[2019-07-30] MEDS: DIVALPROEX SODIUM 500 MG ER TABLET PO SCH (20:18)
[2019-07-30] MEDS: ZOLPIDEM TARTRATE 10 MG TABLET PO PRN (22:07)
[2019-07-31] MEDS: LORazepam 2 MG TABLET PO PRN (03:59)
[2019-07-31] MEDS: HALOPERIDOL 5 MG TABLET PO PRN (04:00)
[2019-07-31] MEDS: LEVOTHYROXINE SODIUM 125 MCG TABLET PO SCH (06:56)
[2019-07-31 08:00] VITALS: BP 126/81
[2019-07-31] MEDS: CHOLECALCIFEROL (VIT D3) 1,000 UNITS TABLET PO SCH (09:14)
[2019-07-31] MEDS: LamoTRIgine 25 MG TABLET PO SCH (09:14)
[2019-07-31] MEDS: QUEtiapine FUMARATE 200 MG TABLET PO SCH (09:14)
[2019-07-31] MEDS: ESCITALOPRAM OXALATE 20 MG TABLET PO SCH (09:14)
[2019-07-31] MEDS: PSYLLIUM SEED ORANGE SF 5.8 GM/PACKET PO SCH ×2 (09:14→16:34)
[2019-07-31] MEDS: BusPIRone HCL 15 MG TABLET PO SCH ×3 (09:15→16:34)
[2019-07-31] MEDS: DOCUSATE SODIUM 250 MG CAPSULE PO SCH (09:15)
[2019-07-31] MEDS: PANTOPRAZOLE SODIUM 40 MG DR TABLET PO SCH (09:15)
[2019-07-31 19:00] VITALS: BP 121/73
[2019-07-31] MEDS: QUEtiapine FUMARATE 300 MG TABLET PO SCH (20:26)
[2019-07-31] MEDS: DIVALPROEX SODIUM 500 MG ER TABLET PO SCH (20:26)
[2019-07-31] MEDS: ZOLPIDEM TARTRATE 10 MG TABLET PO PRN (22:06)
[2019-08-01] MEDS: LORazepam 2 MG TABLET PO PRN ×2 (01:41→22:15)
[2019-08-01] MEDS: HALOPERIDOL 5 MG TABLET PO PRN ×2 (01:41→22:15)
[2019-08-01] MEDS: LEVOTHYROXINE SODIUM 125 MCG TABLET PO SCH (06:49)
[2019-08-01 10:40] VITALS: BP 114/81
[2019-08-01] MEDS: DOCUSATE SODIUM 250 MG CAPSULE PO SCH (10:50)
[2019-08-01] MEDS: CHOLECALCIFEROL (VIT D3) 1,000 UNITS TABLET PO SCH (10:50)
[2019-08-01] MEDS: ESCITALOPRAM OXALATE 20 MG TABLET PO SCH (10:50)
[2019-08-01] MEDS: PANTOPRAZOLE SODIUM 40 MG DR TABLET PO SCH (10:50)
[2019-08-01] MEDS: PSYLLIUM SEED ORANGE SF 5.8 GM/PACKET PO SCH ×2 (10:50→17:42)
[2019-08-01] MEDS: QUEtiapine FUMARATE 200 MG TABLET PO SCH (10:50)
[2019-08-01] MEDS: LamoTRIgine 25 MG TABLET PO SCH (10:50)
[2019-08-01] MEDS: BusPIRone HCL 15 MG TABLET PO SCH ×3 (10:50→17:42)
[2019-08-01] MEDS: DIVALPROEX SODIUM 500 MG ER TABLET PO SCH (20:09)
[2019-08-01] MEDS: QUEtiapine FUMARATE 300 MG TABLET PO SCH (20:09)
[2019-08-01] MEDS: ZOLPIDEM TARTRATE 10 MG TABLET PO PRN (20:10)
[2019-08-02] MEDS: LEVOTHYROXINE SODIUM 125 MCG TABLET PO SCH (06:38)
[2019-08-02 08:00] VITALS: BP 129/73
[2019-08-02] MEDS: DOCUSATE SODIUM 250 MG CAPSULE PO SCH (08:28)
[2019-08-02] MEDS: QUEtiapine FUMARATE 200 MG TABLET PO SCH (08:29)
[2019-08-02] MEDS: LamoTRIgine 25 MG TABLET PO SCH (08:29)
[2019-08-02] MEDS: BusPIRone HCL 15 MG TABLET PO SCH ×3 (08:29→17:10)
[2019-08-02] MEDS: CHOLECALCIFEROL (VIT D3) 1,000 UNITS TABLET PO SCH (08:29)
[2019-08-02] MEDS: ESCITALOPRAM OXALATE 20 MG TABLET PO SCH (08:29)
[2019-08-02] MEDS: PANTOPRAZOLE SODIUM 40 MG DR TABLET PO SCH (08:29)
[2019-08-02] MEDS: PSYLLIUM SEED ORANGE SF 5.8 GM/PACKET PO SCH ×2 (08:29→17:10)
[2019-08-02] MEDS: ZOLPIDEM TARTRATE 10 MG TABLET PO PRN (20:35)
[2019-08-02] MEDS: QUEtiapine FUMARATE 300 MG TABLET PO SCH (20:35)
[2019-08-02] MEDS: DIVALPROEX SODIUM 500 MG ER TABLET PO SCH (20:35)
[2019-08-02] MEDS: HALOPERIDOL 5 MG TABLET PO PRN (21:30)
[2019-08-02] MEDS: LORazepam 2 MG TABLET PO PRN (21:30)
[2019-08-03] MEDS: LEVOTHYROXINE SODIUM 125 MCG TABLET PO SCH (07:02)
[2019-08-03 08:10] VITALS: BP 197/82
[2019-08-03] MEDS: PANTOPRAZOLE SODIUM 40 MG DR TABLET PO SCH (08:26)
[2019-08-03] MEDS: LamoTRIgine 25 MG TABLET PO SCH (08:26)
[2019-08-03] MEDS: ESCITALOPRAM OXALATE 20 MG TABLET PO SCH (08:26)
[2019-08-03] MEDS: PSYLLIUM SEED ORANGE SF 5.8 GM/PACKET PO SCH ×2 (08:26→16:28)
[2019-08-03] MEDS: CHOLECALCIFEROL (VIT D3) 1,000 UNITS TABLET PO SCH (08:26)
[2019-08-03] MEDS: DOCUSATE SODIUM 250 MG CAPSULE PO SCH (08:26)
[2019-08-03] MEDS: BusPIRone HCL 15 MG TABLET PO SCH ×3 (08:26→16:28)
[2019-08-03] MEDS: QUEtiapine FUMARATE 200 MG TABLET PO SCH (08:26)
[2019-08-03 17:12] VITALS: BP 127/93
[2019-08-03] MEDS: DIVALPROEX SODIUM 500 MG ER TABLET PO SCH (20:06)
[2019-08-03] MEDS: QUEtiapine FUMARATE 300 MG TABLET PO SCH (20:07)
[2019-08-03] MEDS: ZOLPIDEM TARTRATE 10 MG TABLET PO PRN (21:53)
[2019-08-04 00:08] VITALS: BP 122/85
[2019-08-04] MEDS: LORazepam 2 MG TABLET PO PRN ×2 (00:09→22:20)
[2019-08-04] MEDS: HALOPERIDOL 5 MG TABLET PO PRN ×2 (00:10→22:21)
[2019-08-04] MEDS: LEVOTHYROXINE SODIUM 125 MCG TABLET PO SCH (06:53)
[2019-08-04] MEDS: PSYLLIUM SEED ORANGE SF 5.8 GM/PACKET PO SCH ×2 (09:32→16:45)
[2019-08-04] MEDS: LamoTRIgine 25 MG TABLET PO SCH (09:32)
[2019-08-04] MEDS: ESCITALOPRAM OXALATE 20 MG TABLET PO SCH (09:32)
[2019-08-04] MEDS: QUEtiapine FUMARATE 200 MG TABLET PO SCH (09:35)
[2019-08-04] MEDS: BusPIRone HCL 15 MG TABLET PO SCH ×3 (09:35→16:44)
[2019-08-04] MEDS: CHOLECALCIFEROL (VIT D3) 1,000 UNITS TABLET PO SCH (09:35)
[2019-08-04] MEDS: PANTOPRAZOLE SODIUM 40 MG DR TABLET PO SCH (09:35)
[2019-08-04] MEDS: DOCUSATE SODIUM 250 MG CAPSULE PO SCH (09:35)
[2019-08-04 16:43] VITALS: BP 116/88
[2019-08-04] MEDS: DIVALPROEX SODIUM 500 MG ER TABLET PO SCH (20:11)
[2019-08-04] MEDS: ZOLPIDEM TARTRATE 10 MG TABLET PO PRN (20:11)
[2019-08-04] MEDS: QUEtiapine FUMARATE 300 MG TABLET PO SCH (20:11)
[2019-08-05] MEDS: LEVOTHYROXINE SODIUM 125 MCG TABLET PO SCH (06:33)
[2019-08-05 08:00] VITALS: BP 116/96
[2019-08-05] MEDS: LamoTRIgine 25 MG TABLET PO SCH (08:05)
[2019-08-05] MEDS: BusPIRone HCL 15 MG TABLET PO SCH ×3 (08:05→17:06)
[2019-08-05] MEDS: DOCUSATE SODIUM 250 MG CAPSULE PO SCH (08:05)
[2019-08-05] MEDS: CHOLECALCIFEROL (VIT D3) 1,000 UNITS TABLET PO SCH (08:05)
[2019-08-05] MEDS: ESCITALOPRAM OXALATE 20 MG TABLET PO SCH (08:05)
[2019-08-05] MEDS: QUEtiapine FUMARATE 200 MG TABLET PO SCH (08:05)
[2019-08-05] MEDS: PANTOPRAZOLE SODIUM 40 MG DR TABLET PO SCH (08:05)
[2019-08-05] MEDS: PSYLLIUM SEED ORANGE SF 5.8 GM/PACKET PO SCH ×2 (08:06→17:06)
[2019-08-05 16:00] VITALS: BP 104/85
[2019-08-05] MEDS: HALOPERIDOL 5 MG TABLET PO PRN (20:06)
[2019-08-05] MEDS: LORazepam 2 MG TABLET PO PRN (20:06)
[2019-08-05] MEDS: QUEtiapine FUMARATE 300 MG TABLET PO SCH (20:37)
[2019-08-05] MEDS: DIVALPROEX SODIUM 500 MG ER TABLET PO SCH (20:37)
[2019-08-05] MEDS: ZOLPIDEM TARTRATE 10 MG TABLET PO PRN (20:37)
[2019-08-06] MEDS: LEVOTHYROXINE SODIUM 125 MCG TABLET PO SCH (07:07)
[2019-08-06 08:51] VITALS: BP 120/83
[2019-08-06] MEDS: CHOLECALCIFEROL (VIT D3) 1,000 UNITS TABLET PO SCH (08:53)
[2019-08-06] MEDS: PSYLLIUM SEED ORANGE SF 5.8 GM/PACKET PO SCH ×2 (08:53→16:54)
[2019-08-06] MEDS: ESCITALOPRAM OXALATE 20 MG TABLET PO SCH (08:54)
[2019-08-06] MEDS: LamoTRIgine 25 MG TABLET PO SCH (08:54)
[2019-08-06] MEDS: DOCUSATE SODIUM 250 MG CAPSULE PO SCH (08:54)
[2019-08-06] MEDS: PANTOPRAZOLE SODIUM 40 MG DR TABLET PO SCH (08:54)
[2019-08-06] MEDS: QUEtiapine FUMARATE 200 MG TABLET PO SCH (08:54)
[2019-08-06] MEDS: BusPIRone HCL 15 MG TABLET PO SCH ×3 (08:54→16:54)
[2019-08-06 16:00] VITALS: BP 133/75
[2019-08-06] MEDS: ZOLPIDEM TARTRATE 10 MG TABLET PO PRN (20:30)
[2019-08-06] MEDS: DIVALPROEX SODIUM 500 MG ER TABLET PO SCH (20:30)
[2019-08-06] MEDS: QUEtiapine FUMARATE 300 MG TABLET PO SCH (20:30)
[2019-08-06] MEDS: LORazepam 2 MG TABLET PO PRN (21:35)
[2019-08-06] MEDS: HALOPERIDOL 5 MG TABLET PO PRN (21:35)
[2019-08-07] MEDS: LEVOTHYROXINE SODIUM 125 MCG TABLET PO SCH (06:29)
[2019-08-07 08:00] VITALS: BP 121/91
[2019-08-07] MEDS: LamoTRIgine 25 MG TABLET PO SCH (09:23)
[2019-08-07] MEDS: PSYLLIUM SEED ORANGE SF 5.8 GM/PACKET PO SCH ×2 (09:23→16:39)
[2019-08-07] MEDS: DOCUSATE SODIUM 250 MG CAPSULE PO SCH (09:23)
[2019-08-07] MEDS: PANTOPRAZOLE SODIUM 40 MG DR TABLET PO SCH (09:23)
[2019-08-07] MEDS: ESCITALOPRAM OXALATE 20 MG TABLET PO SCH (09:23)
[2019-08-07] MEDS: BusPIRone HCL 15 MG TABLET PO SCH ×3 (09:23→16:39)
[2019-08-07] MEDS: QUEtiapine FUMARATE 200 MG TABLET PO SCH (09:23)
[2019-08-07] MEDS: CHOLECALCIFEROL (VIT D3) 1,000 UNITS TABLET PO SCH (09:24)
[2019-08-07 18:10] VITALS: BP 124/82
[2019-08-07] MEDS: DIVALPROEX SODIUM 500 MG ER TABLET PO SCH (20:30)
[2019-08-07] MEDS: QUEtiapine FUMARATE 300 MG TABLET PO SCH (20:30)
[2019-08-07] MEDS: ZOLPIDEM TARTRATE 10 MG TABLET PO PRN (20:30)
[2019-08-07] MEDS: LORazepam 2 MG TABLET PO PRN (21:30)
[2019-08-07] MEDS: HALOPERIDOL 5 MG TABLET PO PRN (21:30)
[2019-08-08] MEDS: LEVOTHYROXINE SODIUM 125 MCG TABLET PO SCH (07:04)
[2019-08-08 08:00] VITALS: BP 133/76
[2019-08-08] MEDS: ESCITALOPRAM OXALATE 20 MG TABLET PO SCH (10:04)
[2019-08-08] MEDS: LamoTRIgine 25 MG TABLET PO SCH (10:04)
[2019-08-08] MEDS: CHOLECALCIFEROL (VIT D3) 1,000 UNITS TABLET PO SCH (10:06)
[2019-08-08] MEDS: PANTOPRAZOLE SODIUM 40 MG DR TABLET PO SCH (10:06)
[2019-08-08] MEDS: DOCUSATE SODIUM 250 MG CAPSULE PO SCH (10:06)
[2019-08-08] MEDS: QUEtiapine FUMARATE 200 MG TABLET PO SCH (10:06)
[2019-08-08] MEDS: BusPIRone HCL 15 MG TABLET PO SCH ×3 (10:06→17:44)
[2019-08-08] MEDS: PSYLLIUM SEED ORANGE SF 5.8 GM/PACKET PO SCH ×2 (10:07→17:44)
[2019-08-08 16:00] VITALS: BP 109/82
[2019-08-08] MEDS: ZOLPIDEM TARTRATE 10 MG TABLET PO PRN (20:25)
[2019-08-08] MEDS: DIVALPROEX SODIUM 500 MG ER TABLET PO SCH (20:25)
[2019-08-08] MEDS: QUEtiapine FUMARATE 300 MG TABLET PO SCH (20:25)
[2019-08-08] MEDS: HALOPERIDOL 5 MG TABLET PO PRN (21:50)
[2019-08-08] MEDS: LORazepam 2 MG TABLET PO PRN (21:50)
[2019-08-09] MEDS: LEVOTHYROXINE SODIUM 125 MCG TABLET PO SCH (07:07)
[2019-08-09 08:00] VITALS: BP 119/75
[2019-08-09] MEDS: PSYLLIUM SEED ORANGE SF 5.8 GM/PACKET PO SCH ×2 (08:57→16:25)
[2019-08-09] MEDS: LamoTRIgine 25 MG TABLET PO SCH (08:58)
[2019-08-09] MEDS: ESCITALOPRAM OXALATE 20 MG TABLET PO SCH (08:58)
[2019-08-09] MEDS: DOCUSATE SODIUM 250 MG CAPSULE PO SCH (09:00)
[2019-08-09] MEDS: PANTOPRAZOLE SODIUM 40 MG DR TABLET PO SCH (09:00)
[2019-08-09] MEDS: QUEtiapine FUMARATE 200 MG TABLET PO SCH (09:00)
[2019-08-09] MEDS: BusPIRone HCL 15 MG TABLET PO SCH ×3 (09:00→16:25)
[2019-08-09] MEDS: CHOLECALCIFEROL (VIT D3) 1,000 UNITS TABLET PO SCH (09:01)
[2019-08-09] MEDS: QUEtiapine FUMARATE 300 MG TABLET PO SCH (20:30)
[2019-08-09] MEDS: ZOLPIDEM TARTRATE 10 MG TABLET PO PRN (20:30)
[2019-08-09] MEDS: DIVALPROEX SODIUM 500 MG ER TABLET PO SCH (20:30)
[2019-08-09] MEDS: HALOPERIDOL 5 MG TABLET PO PRN (21:45)
[2019-08-09] MEDS: LORazepam 2 MG TABLET PO PRN (21:45)
[2019-08-10] MEDS: LEVOTHYROXINE SODIUM 125 MCG TABLET PO SCH (06:51)
[2019-08-10 08:00] VITALS: BP 115/72
[2019-08-10] MEDS: QUEtiapine FUMARATE 200 MG TABLET PO SCH (08:51)
[2019-08-10] MEDS: BusPIRone HCL 15 MG TABLET PO SCH ×3 (08:51→16:19)
[2019-08-10] MEDS: PSYLLIUM SEED ORANGE SF 5.8 GM/PACKET PO SCH ×2 (08:51→16:52)
[2019-08-10] MEDS: LamoTRIgine 100 MG TABLET PO SCH (08:51)
[2019-08-10] MEDS: PANTOPRAZOLE SODIUM 40 MG DR TABLET PO SCH (08:51)
[2019-08-10] MEDS: ESCITALOPRAM OXALATE 20 MG TABLET PO SCH (08:51)
[2019-08-10] MEDS: CHOLECALCIFEROL (VIT D3) 1,000 UNITS TABLET PO SCH (08:51)
[2019-08-10] MEDS: DOCUSATE SODIUM 250 MG CAPSULE PO SCH (08:51)
[2019-08-10] MEDS: HALOPERIDOL 5 MG TABLET PO PRN (16:54)
[2019-08-10] MEDS: LORazepam 2 MG TABLET PO PRN (16:54)
[2019-08-10] MEDS: DIVALPROEX SODIUM 500 MG ER TABLET PO SCH (19:54)
[2019-08-10] MEDS: QUEtiapine FUMARATE 300 MG TABLET PO SCH (19:54)
[2019-08-11] MEDS: LORazepam 2 MG TABLET PO PRN ×2 (02:22→21:07)
[2019-08-11] MEDS: ZOLPIDEM TARTRATE 10 MG TABLET PO PRN (02:22)
[2019-08-11] MEDS: LEVOTHYROXINE SODIUM 125 MCG TABLET PO SCH (06:45)
[2019-08-11 08:38] VITALS: BP 120/91
[2019-08-11] MEDS: BusPIRone HCL 15 MG TABLET PO SCH ×3 (09:16→16:42)
[2019-08-11] MEDS: PSYLLIUM SEED ORANGE SF 5.8 GM/PACKET PO SCH ×2 (09:16→16:43)
[2019-08-11] MEDS: ESCITALOPRAM OXALATE 20 MG TABLET PO SCH (09:16)
[2019-08-11] MEDS: QUEtiapine FUMARATE 200 MG TABLET PO SCH (09:16)
[2019-08-11] MEDS: LamoTRIgine 100 MG TABLET PO SCH (09:16)
[2019-08-11] MEDS: PANTOPRAZOLE SODIUM 40 MG DR TABLET PO SCH (09:16)
[2019-08-11] MEDS: CHOLECALCIFEROL (VIT D3) 1,000 UNITS TABLET PO SCH (09:16)
[2019-08-11] MEDS: DOCUSATE SODIUM 250 MG CAPSULE PO SCH (09:17)
[2019-08-11 16:22] VITALS: BP 135/81
[2019-08-11] MEDS: QUEtiapine FUMARATE 300 MG TABLET PO SCH (20:07)
[2019-08-11] MEDS: DIVALPROEX SODIUM 500 MG ER TABLET PO SCH (20:07)
[2019-08-11] MEDS: HALOPERIDOL 5 MG TABLET PO PRN (21:07)
[2019-08-12] MEDS: LEVOTHYROXINE SODIUM 125 MCG TABLET PO SCH (06:55)
[2019-08-12] MEDS: PANTOPRAZOLE SODIUM 40 MG DR TABLET PO SCH (08:23)
[2019-08-12] MEDS: PSYLLIUM SEED ORANGE SF 5.8 GM/PACKET PO SCH ×2 (08:23→17:02)
[2019-08-12] MEDS: QUEtiapine FUMARATE 200 MG TABLET PO SCH (08:23)
[2019-08-12] MEDS: BusPIRone HCL 15 MG TABLET PO SCH ×3 (08:23→17:02)
[2019-08-12] MEDS: ESCITALOPRAM OXALATE 20 MG TABLET PO SCH (08:23)
[2019-08-12] MEDS: DOCUSATE SODIUM 250 MG CAPSULE PO SCH (08:23)
[2019-08-12] MEDS: LamoTRIgine 100 MG TABLET PO SCH (08:24)
[2019-08-12] MEDS: CHOLECALCIFEROL (VIT D3) 1,000 UNITS TABLET PO SCH (08:25)
[2019-08-12 10:16] VITALS: BP 118/79
[2019-08-12 16:36] VITALS: BP 125/78
[2019-08-12] MEDS: DIVALPROEX SODIUM 500 MG ER TABLET PO SCH (20:30)
[2019-08-12] MEDS: QUEtiapine FUMARATE 300 MG TABLET PO SCH (20:30)
[2019-08-12] MEDS: LORazepam 2 MG TABLET PO PRN (20:51)
[2019-08-12] MEDS: HALOPERIDOL 5 MG TABLET PO PRN (20:51)
[2019-08-13] MEDS: LEVOTHYROXINE SODIUM 125 MCG TABLET PO SCH (07:05)
[2019-08-13 08:00] VITALS: BP 112/79
[2019-08-13] MEDS: DOCUSATE SODIUM 250 MG CAPSULE PO SCH (08:32)
[2019-08-13] MEDS: BusPIRone HCL 15 MG TABLET PO SCH ×3 (08:32→17:10)
[2019-08-13] MEDS: PSYLLIUM SEED ORANGE SF 5.8 GM/PACKET PO SCH ×2 (08:32→17:10)
[2019-08-13] MEDS: CHOLECALCIFEROL (VIT D3) 1,000 UNITS TABLET PO SCH (08:33)
[2019-08-13] MEDS: PANTOPRAZOLE SODIUM 40 MG DR TABLET PO SCH (08:43)
[2019-08-13] MEDS: ESCITALOPRAM OXALATE 20 MG TABLET PO SCH (08:44)
[2019-08-13] MEDS: LamoTRIgine 100 MG TABLET PO SCH (08:44)
[2019-08-13] MEDS: QUEtiapine FUMARATE 200 MG TABLET PO SCH (08:44)
[2019-08-13 16:10] VITALS: BP 114/75
[2019-08-13 16:28] VITALS: BP 114/75
[2019-08-13] MEDS: HALOPERIDOL 5 MG TABLET PO PRN (20:44)
[2019-08-13] MEDS: LORazepam 2 MG TABLET PO PRN (20:44)
[2019-08-13] MEDS: QUEtiapine FUMARATE 300 MG TABLET PO SCH (20:45)
[2019-08-13] MEDS: DIVALPROEX SODIUM 500 MG ER TABLET PO SCH (20:45)
[2019-08-14] MEDS: LORazepam 2 MG TABLET PO PRN ×2 (04:24→21:04)
[2019-08-14] MEDS: HALOPERIDOL 5 MG TABLET PO PRN ×2 (04:24→21:04)
[2019-08-14 05:14] VITALS: BP 130/82
[2019-08-14] MEDS: LEVOTHYROXINE SODIUM 125 MCG TABLET PO SCH (06:52)
[2019-08-14 08:00] VITALS: BP 143/92
[2019-08-14] MEDS: BusPIRone HCL 15 MG TABLET PO SCH ×3 (08:00→16:22)
[2019-08-14] MEDS: DOCUSATE SODIUM 250 MG CAPSULE PO SCH (08:00)
[2019-08-14] MEDS: PSYLLIUM SEED ORANGE SF 5.8 GM/PACKET PO SCH ×2 (08:01→16:22)
[2019-08-14] MEDS: LamoTRIgine 100 MG TABLET PO SCH (08:01)
[2019-08-14] MEDS: PANTOPRAZOLE SODIUM 40 MG DR TABLET PO SCH (08:01)
[2019-08-14] MEDS: CHOLECALCIFEROL (VIT D3) 1,000 UNITS TABLET PO SCH (08:01)
[2019-08-14] MEDS: ESCITALOPRAM OXALATE 20 MG TABLET PO SCH (08:01)
[2019-08-14] MEDS: QUEtiapine FUMARATE 200 MG TABLET PO SCH (08:01)
[2019-08-14 16:00] VITALS: BP 110/45
[2019-08-14] MEDS: MAG HYDROX/AL HYDROX/SIMETH 30 ML SUSP UDCUP PO PRN (18:00)
[2019-08-14] MEDS: QUEtiapine FUMARATE 300 MG TABLET PO SCH (20:05)
[2019-08-14] MEDS: DIVALPROEX SODIUM 500 MG ER TABLET PO SCH (20:05)
[2019-08-15] MEDS: ZOLPIDEM TARTRATE 10 MG TABLET PO PRN ×2 (02:31→23:57)
[2019-08-15] MEDS: LEVOTHYROXINE SODIUM 125 MCG TABLET PO SCH (06:36)
[2019-08-15 07:55] VITALS: BP 130/84
[2019-08-15] MEDS: DOCUSATE SODIUM 250 MG CAPSULE PO SCH (08:37)
[2019-08-15] MEDS: BusPIRone HCL 15 MG TABLET PO SCH ×3 (08:37→16:29)
[2019-08-15] MEDS: QUEtiapine FUMARATE 200 MG TABLET PO SCH (08:37)
[2019-08-15] MEDS: ESCITALOPRAM OXALATE 20 MG TABLET PO SCH (08:38)
[2019-08-15] MEDS: PANTOPRAZOLE SODIUM 40 MG DR TABLET PO SCH (08:38)
[2019-08-15] MEDS: CHOLECALCIFEROL (VIT D3) 1,000 UNITS TABLET PO SCH (08:38)
[2019-08-15] MEDS: PSYLLIUM SEED ORANGE SF 5.8 GM/PACKET PO SCH ×2 (08:38→16:29)
[2019-08-15] MEDS: LamoTRIgine 100 MG TABLET PO SCH (08:38)
[2019-08-15 13:53] VITALS: BP 130/84
[2019-08-15 16:00] VITALS: BP 124/77
[2019-08-15] MEDS: QUEtiapine FUMARATE 300 MG TABLET PO SCH (20:29)
[2019-08-15] MEDS: DIVALPROEX SODIUM 500 MG ER TABLET PO SCH (20:29)
[2019-08-15] MEDS: HALOPERIDOL 5 MG TABLET PO PRN (20:29)
[2019-08-15] MEDS: LORazepam 2 MG TABLET PO PRN (21:55)
[2019-08-16] MEDS: HALOPERIDOL 5 MG TABLET PO PRN ×2 (02:17→20:20)
[2019-08-16] MEDS: LORazepam 2 MG TABLET PO PRN (02:17)
[2019-08-16 03:11] VITALS: BP 114/83
[2019-08-16] MEDS: LEVOTHYROXINE SODIUM 125 MCG TABLET PO SCH (06:34)
[2019-08-16 08:00] VITALS: BP 115/79
[2019-08-16] MEDS: DOCUSATE SODIUM 250 MG CAPSULE PO SCH (08:24)
[2019-08-16] MEDS: LamoTRIgine 100 MG TABLET PO SCH (08:24)
[2019-08-16] MEDS: ESCITALOPRAM OXALATE 20 MG TABLET PO SCH (08:24)
[2019-08-16] MEDS: PANTOPRAZOLE SODIUM 40 MG DR TABLET PO SCH (08:24)
[2019-08-16] MEDS: PSYLLIUM SEED ORANGE SF 5.8 GM/PACKET PO SCH ×2 (08:24→17:34)
[2019-08-16] MEDS: CHOLECALCIFEROL (VIT D3) 1,000 UNITS TABLET PO SCH (08:24)
[2019-08-16] MEDS: BusPIRone HCL 15 MG TABLET PO SCH ×3 (08:24→17:34)
[2019-08-16] MEDS: QUEtiapine FUMARATE 200 MG TABLET PO SCH (08:24)
[2019-08-16 16:55] VITALS: BP 110/82
[2019-08-16] MEDS: DIVALPROEX SODIUM 500 MG ER TABLET PO SCH (20:18)
[2019-08-16] MEDS: QUEtiapine FUMARATE 300 MG TABLET PO SCH (20:19)
[2019-08-16] MEDS: BISACODYL 5 MG EC TABLET PO PRN (20:23)
[2019-08-17] MEDS: LEVOTHYROXINE SODIUM 125 MCG TABLET PO SCH (06:46)
[2019-08-17 08:00] VITALS: BP 127/87
[2019-08-17] MEDS: BusPIRone HCL 15 MG TABLET PO SCH ×3 (08:09→16:47)
[2019-08-17] MEDS: DOCUSATE SODIUM 250 MG CAPSULE PO SCH (08:09)
[2019-08-17] MEDS: QUEtiapine FUMARATE 200 MG TABLET PO SCH (08:09)
[2019-08-17] MEDS: PSYLLIUM SEED ORANGE SF 5.8 GM/PACKET PO SCH ×2 (08:09→16:47)
[2019-08-17] MEDS: PANTOPRAZOLE SODIUM 40 MG DR TABLET PO SCH (08:09)
[2019-08-17] MEDS: LamoTRIgine 100 MG TABLET PO SCH (08:09)
[2019-08-17] MEDS: CHOLECALCIFEROL (VIT D3) 1,000 UNITS TABLET PO SCH (08:09)
[2019-08-17] MEDS: ESCITALOPRAM OXALATE 20 MG TABLET PO SCH (08:09)
[2019-08-17] MEDS: HALOPERIDOL 5 MG TABLET PO PRN ×2 (15:05→20:41)
[2019-08-17] MEDS: LORazepam 2 MG TABLET PO PRN ×2 (15:05→20:41)
[2019-08-17 16:05] VITALS: BP 116/81
[2019-08-17] MEDS: DIVALPROEX SODIUM 500 MG ER TABLET PO SCH (20:41)
[2019-08-17] MEDS: QUEtiapine FUMARATE 300 MG TABLET PO SCH (20:41)
[2019-08-18] MEDS: LEVOTHYROXINE SODIUM 125 MCG TABLET PO SCH (06:42)
[2019-08-18 09:06] VITALS: BP 128/66
[2019-08-18] MEDS: CHOLECALCIFEROL (VIT D3) 1,000 UNITS TABLET PO SCH (10:40)
[2019-08-18] MEDS: QUEtiapine FUMARATE 200 MG TABLET PO SCH (10:40)
[2019-08-18] MEDS: BusPIRone HCL 15 MG TABLET PO SCH ×3 (10:40→16:53)
[2019-08-18] MEDS: LamoTRIgine 100 MG TABLET PO SCH (10:41)
[2019-08-18] MEDS: PSYLLIUM SEED ORANGE SF 5.8 GM/PACKET PO SCH ×2 (10:41→16:53)
[2019-08-18] MEDS: ESCITALOPRAM OXALATE 20 MG TABLET PO SCH (10:41)
[2019-08-18] MEDS: DOCUSATE SODIUM 250 MG CAPSULE PO SCH (10:41)
[2019-08-18] MEDS: PANTOPRAZOLE SODIUM 40 MG DR TABLET PO SCH (10:42)
[2019-08-18] MEDS ORDERED: ACETAMINOPHEN 325 MG TABLET PO PRN (13:15)
[2019-08-18] MEDS ORDERED: IBUPROFEN 600 MG TABLET PO PRN (13:15)
[2019-08-18 16:56] VITALS: BP 122/74
[2019-08-18 19:30] VITALS: BP 128/68
[2019-08-18] MEDS: HALOPERIDOL 5 MG TABLET PO PRN (19:47)
[2019-08-18] MEDS: QUEtiapine FUMARATE 300 MG TABLET PO SCH (20:11)
[2019-08-18] MEDS: DIVALPROEX SODIUM 500 MG ER TABLET PO SCH (20:11)
[2019-08-18] MEDS: LORazepam 2 MG TABLET PO PRN (20:42)
[2019-08-19] MEDS: ZOLPIDEM TARTRATE 10 MG TABLET PO PRN (03:02)
[2019-08-19] MEDS: LORazepam 2 MG TABLET PO PRN ×2 (03:02→20:46)
[2019-08-19] MEDS: LEVOTHYROXINE SODIUM 125 MCG TABLET PO SCH (06:37)
[2019-08-19] MEDS: QUEtiapine FUMARATE 200 MG TABLET PO SCH (09:04)
[2019-08-19] MEDS: PSYLLIUM SEED ORANGE SF 5.8 GM/PACKET PO SCH ×2 (09:04→16:43)
[2019-08-19] MEDS: CHOLECALCIFEROL (VIT D3) 1,000 UNITS TABLET PO SCH (09:04)
[2019-08-19] MEDS: DOCUSATE SODIUM 250 MG CAPSULE PO SCH (09:04)
[2019-08-19] MEDS: PANTOPRAZOLE SODIUM 40 MG DR TABLET PO SCH (09:04)
[2019-08-19] MEDS: BusPIRone HCL 15 MG TABLET PO SCH ×3 (09:04→16:43)
[2019-08-19] MEDS: ESCITALOPRAM OXALATE 20 MG TABLET PO SCH (09:04)
[2019-08-19] MEDS: LamoTRIgine 100 MG TABLET PO SCH (09:05)
[2019-08-19 09:09] VITALS: BP 129/80
[2019-08-19 16:00] VITALS: BP_SYST 124; BP_SYST 129; BP_DIAS 76; BP_DIAS 80
[2019-08-19] MEDS: QUEtiapine FUMARATE 300 MG TABLET PO SCH (20:37)
[2019-08-19] MEDS: DIVALPROEX SODIUM 500 MG ER TABLET PO SCH (20:37)
[2019-08-19] MEDS: HALOPERIDOL 5 MG TABLET PO PRN (20:46)
[2019-08-20] MEDS: ZOLPIDEM TARTRATE 10 MG TABLET PO PRN (00:44)
[2019-08-20] MEDS: HALOPERIDOL 5 MG TABLET PO PRN ×2 (02:28→20:22)
[2019-08-20] MEDS: LORazepam 2 MG TABLET PO PRN ×2 (02:28→20:22)
[2019-08-20] MEDS: LEVOTHYROXINE SODIUM 125 MCG TABLET PO SCH (06:43)
[2019-08-20 08:00] VITALS: BP 129/81
[2019-08-20] MEDS: CHOLECALCIFEROL (VIT D3) 1,000 UNITS TABLET PO SCH (09:34)
[2019-08-20] MEDS: BusPIRone HCL 15 MG TABLET PO SCH ×3 (09:34→17:03)
[2019-08-20] MEDS: PANTOPRAZOLE SODIUM 40 MG DR TABLET PO SCH (09:34)
[2019-08-20] MEDS: ESCITALOPRAM OXALATE 20 MG TABLET PO SCH (09:34)
[2019-08-20] MEDS: LamoTRIgine 100 MG TABLET PO SCH (09:34)
[2019-08-20] MEDS: PSYLLIUM SEED ORANGE SF 5.8 GM/PACKET PO SCH ×2 (09:34→17:03)
[2019-08-20] MEDS: QUEtiapine FUMARATE 200 MG TABLET PO SCH (09:35)
[2019-08-20] MEDS: DOCUSATE SODIUM 250 MG CAPSULE PO SCH (09:35)
[2019-08-20 16:16] VITALS: BP 118/73
[2019-08-20] MEDS: QUEtiapine FUMARATE 300 MG TABLET PO SCH (20:18)
[2019-08-20] MEDS: DIVALPROEX SODIUM 500 MG ER TABLET PO SCH (20:18)
[2019-08-21] MEDS: LORazepam 2 MG TABLET PO PRN ×2 (02:03→21:34)
[2019-08-21] MEDS: HALOPERIDOL 5 MG TABLET PO PRN ×2 (02:04→21:34)
[2019-08-21] MEDS: LEVOTHYROXINE SODIUM 125 MCG TABLET PO SCH (06:06)
[2019-08-21] MEDS: PSYLLIUM SEED ORANGE SF 5.8 GM/PACKET PO SCH ×2 (08:05→17:27)
[2019-08-21] MEDS: BusPIRone HCL 15 MG TABLET PO SCH ×3 (08:05→17:27)
[2019-08-21] MEDS: LamoTRIgine 100 MG TABLET PO SCH (08:05)
[2019-08-21] MEDS: CHOLECALCIFEROL (VIT D3) 1,000 UNITS TABLET PO SCH (08:05)
[2019-08-21] MEDS: PANTOPRAZOLE SODIUM 40 MG DR TABLET PO SCH (08:05)
[2019-08-21] MEDS: DOCUSATE SODIUM 250 MG CAPSULE PO SCH (08:05)
[2019-08-21] MEDS: QUEtiapine FUMARATE 200 MG TABLET PO SCH (08:05)
[2019-08-21] MEDS: ESCITALOPRAM OXALATE 20 MG TABLET PO SCH (08:06)
[2019-08-21 08:37] VITALS: BP 125/83
[2019-08-21 17:01] VITALS: BP 117/85
[2019-08-21] MEDS: DIVALPROEX SODIUM 500 MG ER TABLET PO SCH (20:25)
[2019-08-21] MEDS: QUEtiapine FUMARATE 300 MG TABLET PO SCH (20:26)
[2019-08-21 21:33] VITALS: BP 134/76
[2019-08-22] MEDS: ZOLPIDEM TARTRATE 10 MG TABLET PO PRN (02:07)
[2019-08-22] MEDS: HALOPERIDOL 5 MG TABLET PO PRN ×2 (02:07→20:31)
[2019-08-22] MEDS: LEVOTHYROXINE SODIUM 125 MCG TABLET PO SCH (06:41)
[2019-08-22 08:29] VITALS: BP 153/72
[2019-08-22] MEDS: PSYLLIUM SEED ORANGE SF 5.8 GM/PACKET PO SCH ×2 (09:34→17:35)
[2019-08-22] MEDS: CHOLECALCIFEROL (VIT D3) 1,000 UNITS TABLET PO SCH (09:34)
[2019-08-22] MEDS: LamoTRIgine 100 MG TABLET PO SCH (09:34)
[2019-08-22] MEDS: QUEtiapine FUMARATE 200 MG TABLET PO SCH (09:34)
[2019-08-22] MEDS: PANTOPRAZOLE SODIUM 40 MG DR TABLET PO SCH (09:34)
[2019-08-22] MEDS: BusPIRone HCL 15 MG TABLET PO SCH ×3 (09:34→17:35)
[2019-08-22] MEDS: DOCUSATE SODIUM 250 MG CAPSULE PO SCH (09:34)
[2019-08-22] MEDS: ESCITALOPRAM OXALATE 20 MG TABLET PO SCH (09:35)
[2019-08-22 16:31] VITALS: BP 137/88
[2019-08-22] MEDS: QUEtiapine FUMARATE 300 MG TABLET PO SCH (20:29)
[2019-08-22] MEDS: DIVALPROEX SODIUM 500 MG ER TABLET PO SCH (20:29)
[2019-08-22] MEDS: LORazepam 2 MG TABLET PO PRN (20:31)
[2019-08-23] MEDS: LEVOTHYROXINE SODIUM 125 MCG TABLET PO SCH (06:44)
[2019-08-23 08:09] VITALS: BP 114/77
[2019-08-23] MEDS: DOCUSATE SODIUM 250 MG CAPSULE PO SCH (08:43)
[2019-08-23] MEDS: QUEtiapine FUMARATE 200 MG TABLET PO SCH (08:44)
[2019-08-23] MEDS: BusPIRone HCL 15 MG TABLET PO SCH ×3 (08:44→17:51)
[2019-08-23] MEDS: PANTOPRAZOLE SODIUM 40 MG DR TABLET PO SCH (08:44)
[2019-08-23] MEDS: LamoTRIgine 100 MG TABLET PO SCH (08:45)
[2019-08-23] MEDS: ESCITALOPRAM OXALATE 20 MG TABLET PO SCH (08:45)
[2019-08-23] MEDS: PSYLLIUM SEED ORANGE SF 5.8 GM/PACKET PO SCH ×2 (08:45→17:51)
[2019-08-23] MEDS: CHOLECALCIFEROL (VIT D3) 1,000 UNITS TABLET PO SCH (08:45)
[2019-08-23 16:35] VITALS: BP 137/87
[2019-08-23] MEDS: QUEtiapine FUMARATE 300 MG TABLET PO SCH (20:02)
[2019-08-23] MEDS: DIVALPROEX SODIUM 500 MG ER TABLET PO SCH (20:02)
[2019-08-23] MEDS: HALOPERIDOL 5 MG TABLET PO PRN (20:02)
[2019-08-23] MEDS: LORazepam 2 MG TABLET PO PRN (20:03)
[2019-08-23 20:13] VITALS: BP 137/83
[2019-08-24] MEDS: LEVOTHYROXINE SODIUM 125 MCG TABLET PO SCH (06:38)
[2019-08-24] MEDS: PANTOPRAZOLE SODIUM 40 MG DR TABLET PO SCH (09:21)
[2019-08-24] MEDS: CHOLECALCIFEROL (VIT D3) 1,000 UNITS TABLET PO SCH (09:21)
[2019-08-24] MEDS: PSYLLIUM SEED ORANGE SF 5.8 GM/PACKET PO SCH ×2 (09:21→17:11)
[2019-08-24] MEDS: QUEtiapine FUMARATE 200 MG TABLET PO SCH (09:21)
[2019-08-24] MEDS: DOCUSATE SODIUM 250 MG CAPSULE PO SCH (09:21)
[2019-08-24] MEDS: LamoTRIgine 100 MG TABLET PO SCH (09:21)
[2019-08-24] MEDS: ESCITALOPRAM OXALATE 20 MG TABLET PO SCH (09:21)
[2019-08-24] MEDS: BusPIRone HCL 15 MG TABLET PO SCH ×3 (09:21→17:11)
[2019-08-24 10:18] VITALS: BP 129/93
[2019-08-24 16:20] VITALS: BP 120/70
[2019-08-24] MEDS: DIVALPROEX SODIUM 500 MG ER TABLET PO SCH (20:20)
[2019-08-24] MEDS: QUEtiapine FUMARATE 300 MG TABLET PO SCH (20:20)
[2019-08-24] MEDS: LORazepam 2 MG TABLET PO PRN (21:22)
[2019-08-24] MEDS: HALOPERIDOL 5 MG TABLET PO PRN (21:22)
[2019-08-25] MEDS: LEVOTHYROXINE SODIUM 125 MCG TABLET PO SCH (06:35)
[2019-08-25] MEDS: LamoTRIgine 100 MG TABLET PO SCH (07:56)
[2019-08-25] MEDS: DOCUSATE SODIUM 250 MG CAPSULE PO SCH (07:57)
[2019-08-25] MEDS: PANTOPRAZOLE SODIUM 40 MG DR TABLET PO SCH (07:57)
[2019-08-25] MEDS: BusPIRone HCL 15 MG TABLET PO SCH ×3 (07:57→16:26)
[2019-08-25] MEDS: PSYLLIUM SEED ORANGE SF 5.8 GM/PACKET PO SCH ×2 (07:57→16:27)
[2019-08-25] MEDS: QUEtiapine FUMARATE 200 MG TABLET PO SCH (07:57)
[2019-08-25] MEDS: ESCITALOPRAM OXALATE 20 MG TABLET PO SCH (07:57)
[2019-08-25] MEDS: CHOLECALCIFEROL (VIT D3) 1,000 UNITS TABLET PO SCH (07:57)
[2019-08-25 08:00] VITALS: BP 134/77
[2019-08-25 16:08] VITALS: BP 110/77
[2019-08-25] MEDS: QUEtiapine FUMARATE 300 MG TABLET PO SCH (20:10)
[2019-08-25] MEDS: DIVALPROEX SODIUM 500 MG ER TABLET PO SCH (20:10)
[2019-08-25] MEDS: LORazepam 2 MG TABLET PO PRN (21:00)
[2019-08-25] MEDS: HALOPERIDOL 5 MG TABLET PO PRN (21:00)
[2019-08-26] MEDS: LEVOTHYROXINE SODIUM 125 MCG TABLET PO SCH (06:30)
[2019-08-26] MEDS: PSYLLIUM SEED ORANGE SF 5.8 GM/PACKET PO SCH ×2 (07:55→16:11)
[2019-08-26] MEDS: PANTOPRAZOLE SODIUM 40 MG DR TABLET PO SCH (07:55)
[2019-08-26] MEDS: DOCUSATE SODIUM 250 MG CAPSULE PO SCH (07:55)
[2019-08-26] MEDS: CHOLECALCIFEROL (VIT D3) 1,000 UNITS TABLET PO SCH (07:55)
[2019-08-26] MEDS: QUEtiapine FUMARATE 200 MG TABLET PO SCH (07:55)
[2019-08-26] MEDS: BusPIRone HCL 15 MG TABLET PO SCH ×3 (07:55→16:11)
[2019-08-26] MEDS: ESCITALOPRAM OXALATE 20 MG TABLET PO SCH (07:56)
[2019-08-26] MEDS: LamoTRIgine 100 MG TABLET PO SCH (07:56)
[2019-08-26 08:01] VITALS: BP 123/66
[2019-08-26 16:51] VITALS: BP 110/82
[2019-08-26] MEDS: DIVALPROEX SODIUM 500 MG ER TABLET PO SCH (20:10)
[2019-08-26] MEDS: QUEtiapine FUMARATE 300 MG TABLET PO SCH (20:11)
[2019-08-26] MEDS: LORazepam 2 MG TABLET PO PRN (20:14)
[2019-08-26] MEDS: HALOPERIDOL 5 MG TABLET PO PRN (20:14)
[2019-08-26] MEDS: ZOLPIDEM TARTRATE 10 MG TABLET PO PRN (22:05)
[2019-08-27] MEDS: LEVOTHYROXINE SODIUM 125 MCG TABLET PO SCH (06:42)
[2019-08-27] MEDS: PANTOPRAZOLE SODIUM 40 MG DR TABLET PO SCH (08:00)
[2019-08-27] MEDS: BusPIRone HCL 15 MG TABLET PO SCH ×3 (08:01→16:55)
[2019-08-27] MEDS: PSYLLIUM SEED ORANGE SF 5.8 GM/PACKET PO SCH ×2 (08:01→16:54)
[2019-08-27] MEDS: ESCITALOPRAM OXALATE 20 MG TABLET PO SCH (08:01)
[2019-08-27] MEDS: CHOLECALCIFEROL (VIT D3) 1,000 UNITS TABLET PO SCH (08:01)
[2019-08-27] MEDS: DOCUSATE SODIUM 250 MG CAPSULE PO SCH (08:01)
[2019-08-27] MEDS: QUEtiapine FUMARATE 200 MG TABLET PO SCH (08:01)
[2019-08-27] MEDS: LamoTRIgine 100 MG TABLET PO SCH (08:01)
[2019-08-27 08:05] VITALS: BP 113/74
[2019-08-27] MEDS: LORazepam 2 MG TABLET PO PRN ×2 (09:29→22:00)
[2019-08-27] MEDS: HALOPERIDOL 5 MG TABLET PO PRN ×2 (09:29→22:00)
[2019-08-27 17:20] VITALS: BP 114/76
[2019-08-27] MEDS: QUEtiapine FUMARATE 300 MG TABLET PO SCH (20:01)
[2019-08-27] MEDS: DIVALPROEX SODIUM 500 MG ER TABLET PO SCH (20:01)
[2019-08-27] MEDS: ZOLPIDEM TARTRATE 10 MG TABLET PO PRN (20:47)
[2019-08-27 21:39] VITALS: BP 114/77
[2019-08-28] MEDS: LEVOTHYROXINE SODIUM 125 MCG TABLET PO SCH (06:57)
[2019-08-28] MEDS: PSYLLIUM SEED ORANGE SF 5.8 GM/PACKET PO SCH ×2 (07:46→17:35)
[2019-08-28] MEDS: BusPIRone HCL 15 MG TABLET PO SCH ×3 (07:46→17:35)
[2019-08-28] MEDS: CHOLECALCIFEROL (VIT D3) 1,000 UNITS TABLET PO SCH (07:46)
[2019-08-28] MEDS: ESCITALOPRAM OXALATE 20 MG TABLET PO SCH (07:46)
[2019-08-28] MEDS: QUEtiapine FUMARATE 200 MG TABLET PO SCH (07:46)
[2019-08-28] MEDS: DOCUSATE SODIUM 250 MG CAPSULE PO SCH (07:46)
[2019-08-28] MEDS: LamoTRIgine 100 MG TABLET PO SCH (07:46)
[2019-08-28] MEDS: PANTOPRAZOLE SODIUM 40 MG DR TABLET PO SCH (07:47)
[2019-08-28 08:00] VITALS: BP 109/74
[2019-08-28] MEDS: LORazepam 2 MG TABLET PO PRN ×2 (15:38→20:51)
[2019-08-28] MEDS: HALOPERIDOL 5 MG TABLET PO PRN ×2 (15:38→20:51)
[2019-08-28 16:36] VITALS: BP 126/76
[2019-08-28] MEDS: DIVALPROEX SODIUM 500 MG ER TABLET PO SCH (20:04)
[2019-08-28] MEDS: QUEtiapine FUMARATE 300 MG TABLET PO SCH (20:05)
[2019-08-28] MEDS: ZOLPIDEM TARTRATE 10 MG TABLET PO PRN (23:07)
[2019-08-29 02:14] VITALS: BP 125/87
[2019-08-29] MEDS: LEVOTHYROXINE SODIUM 125 MCG TABLET PO SCH (07:14)
[2019-08-29] MEDS: CHOLECALCIFEROL (VIT D3) 1,000 UNITS TABLET PO SCH (08:31)
[2019-08-29] MEDS: QUEtiapine FUMARATE 200 MG TABLET PO SCH (08:31)
[2019-08-29] MEDS: ESCITALOPRAM OXALATE 20 MG TABLET PO SCH (08:31)
[2019-08-29] MEDS: PANTOPRAZOLE SODIUM 40 MG DR TABLET PO SCH (08:31)
[2019-08-29] MEDS: BusPIRone HCL 15 MG TABLET PO SCH ×3 (08:31→17:06)
[2019-08-29] MEDS: DOCUSATE SODIUM 250 MG CAPSULE PO SCH (08:31)
[2019-08-29] MEDS: LamoTRIgine 100 MG TABLET PO SCH (08:35)
[2019-08-29] MEDS: PSYLLIUM SEED ORANGE SF 5.8 GM/PACKET PO SCH ×2 (08:35→17:06)
[2019-08-29 09:13] VITALS: BP 140/90
[2019-08-29 09:19] VITALS: BP 140/92
[2019-08-29 17:20] VITALS: BP 115/72
[2019-08-29] MEDS: QUEtiapine FUMARATE 300 MG TABLET PO SCH (20:13)
[2019-08-29] MEDS: LORazepam 2 MG TABLET PO PRN (20:14)
[2019-08-29] MEDS: HALOPERIDOL 5 MG TABLET PO PRN (20:14)
[2019-08-29] MEDS: DIVALPROEX SODIUM 500 MG ER TABLET PO SCH (20:14)
[2019-08-29] MEDS: ZOLPIDEM TARTRATE 10 MG TABLET PO PRN (21:48)
[2019-08-30] MEDS: LEVOTHYROXINE SODIUM 125 MCG TABLET PO SCH (07:00)
[2019-08-30 08:05] VITALS: BP 118/80
[2019-08-30] MEDS: LamoTRIgine 100 MG TABLET PO SCH (08:11)
[2019-08-30] MEDS: QUEtiapine FUMARATE 200 MG TABLET PO SCH (08:11)
[2019-08-30] MEDS: PSYLLIUM SEED ORANGE SF 5.8 GM/PACKET PO SCH ×2 (08:11→16:05)
[2019-08-30] MEDS: BusPIRone HCL 15 MG TABLET PO SCH ×3 (08:11→16:05)
[2019-08-30] MEDS: CHOLECALCIFEROL (VIT D3) 1,000 UNITS TABLET PO SCH (08:11)
[2019-08-30] MEDS: PANTOPRAZOLE SODIUM 40 MG DR TABLET PO SCH (08:11)
[2019-08-30] MEDS: DOCUSATE SODIUM 250 MG CAPSULE PO SCH (08:11)
[2019-08-30] MEDS: ESCITALOPRAM OXALATE 20 MG TABLET PO SCH (08:11)
[2019-08-30] MEDS: LORazepam 2 MG TABLET PO PRN ×2 (09:52→19:12)
[2019-08-30] MEDS: HALOPERIDOL 5 MG TABLET PO PRN ×2 (09:52→19:12)
[2019-08-30 16:19] VITALS: BP 130/90
[2019-08-30] MEDS: DIVALPROEX SODIUM 500 MG ER TABLET PO SCH (19:57)
[2019-08-30] MEDS: QUEtiapine FUMARATE 300 MG TABLET PO SCH (19:57)
[2019-08-30] MEDS: ZOLPIDEM TARTRATE 10 MG TABLET PO PRN (20:36)
[2019-08-31] MEDS: LEVOTHYROXINE SODIUM 125 MCG TABLET PO SCH (07:07)
[2019-08-31 08:08] VITALS: BP 136/84
[2019-08-31] MEDS: ESCITALOPRAM OXALATE 20 MG TABLET PO SCH (09:03)
[2019-08-31] MEDS: BusPIRone HCL 15 MG TABLET PO SCH ×3 (09:03→18:03)
[2019-08-31] MEDS: QUEtiapine FUMARATE 200 MG TABLET PO SCH (09:03)
[2019-08-31] MEDS: CHOLECALCIFEROL (VIT D3) 1,000 UNITS TABLET PO SCH (09:03)
[2019-08-31] MEDS: PANTOPRAZOLE SODIUM 40 MG DR TABLET PO SCH (09:03)
[2019-08-31] MEDS: DOCUSATE SODIUM 250 MG CAPSULE PO SCH (09:03)
[2019-08-31] MEDS: PSYLLIUM SEED ORANGE SF 5.8 GM/PACKET PO SCH ×2 (09:04→18:03)
[2019-08-31] MEDS: LamoTRIgine 100 MG TABLET PO SCH (09:04)
[2019-08-31 17:26] VITALS: BP 109/71
[2019-08-31 19:40] VITALS: BP 124/88
[2019-08-31] MEDS: LORazepam 2 MG TABLET PO PRN (19:41)
[2019-08-31] MEDS: HALOPERIDOL 5 MG TABLET PO PRN (19:41)
[2019-08-31] MEDS: DIVALPROEX SODIUM 500 MG ER TABLET PO SCH (20:47)
[2019-08-31] MEDS: QUEtiapine FUMARATE 300 MG TABLET PO SCH (20:47)
[2019-09-01] MEDS: LORazepam 2 MG TABLET PO PRN ×2 (04:19→21:08)
[2019-09-01 04:23] VITALS: BP 123/88
[2019-09-01] MEDS: LEVOTHYROXINE SODIUM 125 MCG TABLET PO SCH (06:51)
[2019-09-01 08:10] VITALS: BP 128/64
[2019-09-01] MEDS: LamoTRIgine 100 MG TABLET PO SCH (08:24)
[2019-09-01] MEDS: DOCUSATE SODIUM 250 MG CAPSULE PO SCH (08:25)
[2019-09-01] MEDS: QUEtiapine FUMARATE 200 MG TABLET PO SCH (08:25)
[2019-09-01] MEDS: BusPIRone HCL 15 MG TABLET PO SCH ×3 (08:25→17:19)
[2019-09-01] MEDS: ESCITALOPRAM OXALATE 20 MG TABLET PO SCH (08:25)
[2019-09-01] MEDS: PSYLLIUM SEED ORANGE SF 5.8 GM/PACKET PO SCH ×2 (08:25→17:19)
[2019-09-01] MEDS: CHOLECALCIFEROL (VIT D3) 1,000 UNITS TABLET PO SCH (08:25)
[2019-09-01] MEDS: PANTOPRAZOLE SODIUM 40 MG DR TABLET PO SCH (08:25)
[2019-09-01 18:01] VITALS: BP 122/78
[2019-09-01] MEDS: QUEtiapine FUMARATE 300 MG TABLET PO SCH (21:08)
[2019-09-01] MEDS: HALOPERIDOL 5 MG TABLET PO PRN (21:08)
[2019-09-01] MEDS: DIVALPROEX SODIUM 500 MG ER TABLET PO SCH (21:09)
[2019-09-01] MEDS: ZOLPIDEM TARTRATE 10 MG TABLET PO PRN (22:25)
[2019-09-02] MEDS: LEVOTHYROXINE SODIUM 125 MCG TABLET PO SCH (06:52)
[2019-09-02 08:40] VITALS: BP 124/69
[2019-09-02] MEDS: QUEtiapine FUMARATE 200 MG TABLET PO SCH (09:18)
[2019-09-02] MEDS: CHOLECALCIFEROL (VIT D3) 1,000 UNITS TABLET PO SCH (09:18)
[2019-09-02] MEDS: PSYLLIUM SEED ORANGE SF 5.8 GM/PACKET PO SCH ×2 (09:18→16:10)
[2019-09-02] MEDS: DOCUSATE SODIUM 250 MG CAPSULE PO SCH (09:18)
[2019-09-02] MEDS: BusPIRone HCL 15 MG TABLET PO SCH ×3 (09:18→16:10)
[2019-09-02] MEDS: PANTOPRAZOLE SODIUM 40 MG DR TABLET PO SCH (09:18)
[2019-09-02] MEDS: LamoTRIgine 100 MG TABLET PO SCH (09:20)
[2019-09-02] MEDS: ESCITALOPRAM OXALATE 20 MG TABLET PO SCH (09:20)
[2019-09-02] MEDS: LORazepam 2 MG TABLET PO PRN (16:10)
[2019-09-02] MEDS: HALOPERIDOL 5 MG TABLET PO PRN ×2 (16:11→22:06)
[2019-09-02 19:42] VITALS: BP 134/79
[2019-09-02] MEDS: DIVALPROEX SODIUM 500 MG ER TABLET PO SCH (20:54)
[2019-09-02] MEDS: QUEtiapine FUMARATE 300 MG TABLET PO SCH (20:55)
[2019-09-02] MEDS: ZOLPIDEM TARTRATE 10 MG TABLET PO PRN (22:06)
[2019-09-03] MEDS: LORazepam 2 MG TABLET PO PRN ×2 (00:03→21:05)
[2019-09-03] MEDS: HALOPERIDOL 5 MG TABLET PO PRN ×2 (02:28→21:05)
[2019-09-03] MEDS: LEVOTHYROXINE SODIUM 125 MCG TABLET PO SCH (06:50)
[2019-09-03] MEDS: PANTOPRAZOLE SODIUM 40 MG DR TABLET PO SCH (07:50)
[2019-09-03] MEDS: QUEtiapine FUMARATE 200 MG TABLET PO SCH (07:50)
[2019-09-03] MEDS: CHOLECALCIFEROL (VIT D3) 1,000 UNITS TABLET PO SCH (07:51)
[2019-09-03] MEDS: PSYLLIUM SEED ORANGE SF 5.8 GM/PACKET PO SCH ×2 (07:51→16:18)
[2019-09-03] MEDS: LamoTRIgine 100 MG TABLET PO SCH (07:51)
[2019-09-03] MEDS: DOCUSATE SODIUM 250 MG CAPSULE PO SCH (07:51)
[2019-09-03] MEDS: ESCITALOPRAM OXALATE 20 MG TABLET PO SCH (07:55)
[2019-09-03] MEDS: BusPIRone HCL 15 MG TABLET PO SCH ×3 (07:56→16:18)
[2019-09-03 08:00] VITALS: BP 113/75
[2019-09-03 16:00] VITALS: BP 123/82
[2019-09-03] MEDS: DIVALPROEX SODIUM 500 MG ER TABLET PO SCH (21:05)
[2019-09-03] MEDS: QUEtiapine FUMARATE 300 MG TABLET PO SCH (21:05)
[2019-09-03] MEDS: ZOLPIDEM TARTRATE 10 MG TABLET PO PRN (22:30)
[2019-09-04] MEDS: LEVOTHYROXINE SODIUM 125 MCG TABLET PO SCH (06:44)
[2019-09-04] MEDS: CHOLECALCIFEROL (VIT D3) 1,000 UNITS TABLET PO SCH (09:24)
[2019-09-04] MEDS: QUEtiapine FUMARATE 200 MG TABLET PO SCH (09:24)
[2019-09-04] MEDS: ESCITALOPRAM OXALATE 20 MG TABLET PO SCH (09:24)
[2019-09-04] MEDS: DOCUSATE SODIUM 250 MG CAPSULE PO SCH (09:24)
[2019-09-04] MEDS: BusPIRone HCL 15 MG TABLET PO SCH ×3 (09:24→17:29)
[2019-09-04] MEDS: PSYLLIUM SEED ORANGE SF 5.8 GM/PACKET PO SCH ×2 (09:24→17:30)
[2019-09-04] MEDS: PANTOPRAZOLE SODIUM 40 MG DR TABLET PO SCH (09:24)
[2019-09-04] MEDS: LamoTRIgine 100 MG TABLET PO SCH (09:24)
[2019-09-04 10:22] VITALS: BP 118/77
[2019-09-04 16:39] VITALS: BP 128/84
[2019-09-04] MEDS: HALOPERIDOL 5 MG TABLET PO PRN (17:31)
[2019-09-04] MEDS: LORazepam 2 MG TABLET PO PRN (17:31)
[2019-09-04] MEDS: DIVALPROEX SODIUM 500 MG ER TABLET PO SCH (21:15)
[2019-09-04] MEDS: QUEtiapine FUMARATE 300 MG TABLET PO SCH (21:15)
[2019-09-04] MEDS: ZOLPIDEM TARTRATE 10 MG TABLET PO PRN (23:04)
[2019-09-05 04:29] VITALS: BP 124/88
[2019-09-05] MEDS: HALOPERIDOL 5 MG TABLET PO PRN ×3 (04:31→23:14)
[2019-09-05] MEDS: LORazepam 2 MG TABLET PO PRN ×3 (04:31→23:14)
[2019-09-05] MEDS: LEVOTHYROXINE SODIUM 125 MCG TABLET PO SCH (06:55)
[2019-09-05] MEDS: DOCUSATE SODIUM 250 MG CAPSULE PO SCH (07:59)
[2019-09-05] MEDS: PSYLLIUM SEED ORANGE SF 5.8 GM/PACKET PO SCH ×2 (07:59→17:41)
[2019-09-05] MEDS: CHOLECALCIFEROL (VIT D3) 1,000 UNITS TABLET PO SCH (07:59)
[2019-09-05] MEDS: PANTOPRAZOLE SODIUM 40 MG DR TABLET PO SCH (07:59)
[2019-09-05] MEDS: BusPIRone HCL 15 MG TABLET PO SCH ×3 (07:59→17:41)
[2019-09-05] MEDS: QUEtiapine FUMARATE 200 MG TABLET PO SCH (07:59)
[2019-09-05] MEDS: ESCITALOPRAM OXALATE 20 MG TABLET PO SCH (08:00)
[2019-09-05] MEDS: LamoTRIgine 100 MG TABLET PO SCH (08:00)
[2019-09-05 08:05] VITALS: BP 104/86
[2019-09-05 17:23] VITALS: BP 120/91
[2019-09-05] MEDS: DIVALPROEX SODIUM 500 MG ER TABLET PO SCH (21:06)
[2019-09-05] MEDS: QUEtiapine FUMARATE 300 MG TABLET PO SCH (21:07)
[2019-09-05 23:14] VITALS: BP 120/74
[2019-09-06 00:20] VITALS: BP 126/80
[2019-09-06] MEDS: ZOLPIDEM TARTRATE 10 MG TABLET PO PRN ×2 (00:23→21:50)
[2019-09-06] MEDS: LEVOTHYROXINE SODIUM 125 MCG TABLET PO SCH (06:50)
[2019-09-06 08:05] VITALS: BP 113/85
[2019-09-06] MEDS: DOCUSATE SODIUM 250 MG CAPSULE PO SCH (08:07)
[2019-09-06] MEDS: LamoTRIgine 100 MG TABLET PO SCH (08:07)
[2019-09-06] MEDS: ESCITALOPRAM OXALATE 20 MG TABLET PO SCH (08:07)
[2019-09-06] MEDS: PANTOPRAZOLE SODIUM 40 MG DR TABLET PO SCH (08:07)
[2019-09-06] MEDS: CHOLECALCIFEROL (VIT D3) 1,000 UNITS TABLET PO SCH (08:07)
[2019-09-06] MEDS: QUEtiapine FUMARATE 200 MG TABLET PO SCH (08:07)
[2019-09-06] MEDS: BusPIRone HCL 15 MG TABLET PO SCH ×3 (08:07→16:17)
[2019-09-06] MEDS: PSYLLIUM SEED ORANGE SF 5.8 GM/PACKET PO SCH ×2 (08:08→16:17)
[2019-09-06] MEDS ORDERED: LACTULOSE 20 GM/30 ML SOLUTION UDCUP PO PRN (12:00)
[2019-09-06 17:28] VITALS: BP 122/82
[2019-09-06] MEDS: DIVALPROEX SODIUM 500 MG ER TABLET PO SCH (20:04)
[2019-09-06] MEDS: QUEtiapine FUMARATE 300 MG TABLET PO SCH (20:04)
[2019-09-06] MEDS: LORazepam 2 MG TABLET PO PRN (21:20)
[2019-09-06] MEDS: HALOPERIDOL 5 MG TABLET PO PRN (21:20)
[2019-09-07] MEDS: LORazepam 2 MG TABLET PO PRN ×2 (02:52→23:30)
[2019-09-07] MEDS: HALOPERIDOL 5 MG TABLET PO PRN ×2 (02:52→23:30)
[2019-09-07] MEDS: LEVOTHYROXINE SODIUM 125 MCG TABLET PO SCH (06:51)
[2019-09-07 07:18] LABS: HEMATOCRIT 44.5 % (41-53); HEMOGLOBIN 15.4 g/dL (13.5-17.5); MEAN CORPUSCULAR HEMOGLOBIN 33.2 pg (26.0-34.0); MEAN CORPUSCULAR HGB CONC 34.7 G/dL (31.0-37.0); MEAN CORPUSCULAR VOLUME 96 fL (80-100); PLATELET COUNT (AUTO) 161 K/uL (150-450); RED BLOOD CELL COUNT(AUTO) 4.64 MIL/uL (4.50-5.90); RED CELL DISTRIBUTION WIDTH 13.9 % (11.5-14.5)
[2019-09-07 07:30] LABS: BAND NEUTROPHILS % (MANUAL) 0 % (0-5)
[2019-09-07 07:58] LABS: EOSINOPHILS % (MANUAL) 2 % (1-6); LYMPHOCYTES % (MANUAL) 60 % (22-44); MONOCYTES % (MANUAL) 10 % (2-9); SEGMENTED NEUTROPHILS % 28 % (40-70)
[2019-09-07 08:06] VITALS: BP 124/68
[2019-09-07 08:16] LABS: ALANINE AMINOTRANSFERASE 14 U/L (12-78); ALBUMIN 2.9 g/dL (3.4-5.0); ALKALINE PHOSPHATASE 44 U/L (46-116); ANION GAP 4 mmol/L (8-16); ASPARTATE AMINOTRANSFERASE 13 U/L (15-37); BILIRUBIN,TOTAL 0.2 mg/dL (0.1-1.0); CALCIUM, TOTAL 8.5 mg/dL (8.8-10.5); CARBON DIOXIDE 31 mmol/L (22-29); CHLORIDE 106 mmol/L (98-107); CHOL/HDL RATIO 5.1 (4.2-7.3); CHOLESTEROL 193 mg/dL (131-200); CREATINE KINASE, TOTAL ONLY 49 U/L (39-308); CREATININE 1.14 mg/dL (0.60-1.30); FREE T4 (FREE THYROXINE) 0.66 ng/dL (0.76-1.46); GLOMERULAR FILTR. RATE CALC > 60 mL/min (>60); GLUCOSE,RANDOM 84 mg/dL (70-110); HDL CHOLESTEROL 38 mg/dL (40-60); LDL CHOL (CALC.) 130 mg/dL (0-130); POTASSIUM 4.2 mmol/L (3.5-5.1); SODIUM SERUM 141 mmol/L (136-145); THYROID STIMULATING HORMONE 9.89 uIU/mL (0.36-3.74); TOTAL PROTEIN, SERUM 6.1 g/dL (6.4-8.2); TRIGLYCERIDES 124 mg/dL (15-150); UREA NITROGEN, BLOOD 17 mg/dL (7-18)
[2019-09-07] MEDS: BusPIRone HCL 15 MG TABLET PO SCH ×3 (09:13→17:59)
[2019-09-07] MEDS: QUEtiapine FUMARATE 200 MG TABLET PO SCH (09:13)
[2019-09-07] MEDS: PANTOPRAZOLE SODIUM 40 MG DR TABLET PO SCH (09:14)
[2019-09-07] MEDS: DOCUSATE SODIUM 250 MG CAPSULE PO SCH (09:14)
[2019-09-07] MEDS: PSYLLIUM SEED ORANGE SF 5.8 GM/PACKET PO SCH ×2 (09:14→17:59)
[2019-09-07] MEDS: ESCITALOPRAM OXALATE 20 MG TABLET PO SCH (09:14)
[2019-09-07] MEDS: CHOLECALCIFEROL (VIT D3) 1,000 UNITS TABLET PO SCH (09:14)
[2019-09-07] MEDS: LamoTRIgine 100 MG TABLET PO SCH (09:41)
[2019-09-07 16:15] VITALS: BP 122/69
[2019-09-07] MEDS: QUEtiapine FUMARATE 300 MG TABLET PO SCH (21:04)
[2019-09-07] MEDS: DIVALPROEX SODIUM 500 MG ER TABLET PO SCH (21:04)
[2019-09-07] MEDS: ZOLPIDEM TARTRATE 10 MG TABLET PO PRN (22:07)
[2019-09-08] MEDS: HALOPERIDOL 5 MG TABLET PO PRN ×2 (04:56→20:44)
[2019-09-08] MEDS: LORazepam 2 MG TABLET PO PRN ×2 (04:56→20:44)
[2019-09-08] MEDS: LEVOTHYROXINE SODIUM 125 MCG TABLET PO SCH (06:45)
[2019-09-08 07:29] LABS: BASOPHILS % (AUTO) 1.1 % (0.0-2.0); EOSINOPHILS % (AUTO) 6.2 % (1.0-6.0); HEMATOCRIT 46.9 % (41-53); LYMPHOCYTES # (AUTO) 1.6 K/uL (1.0-4.8); LYMPHOCYTES % (AUTO) 47.3 % (22.0-44.0); MEAN CORPUSCULAR HEMOGLOBIN 33.1 pg (26.0-34.0); MEAN CORPUSCULAR VOLUME 97 fL (80-100); MONOCYTES # (AUTO) 0.7 K/uL (0.1-1.0); MONOCYTES % (AUTO) 19.3 % (2.0-9.0); NEUTROPHILS # (AUTO) 0.9 K/uL (1.8-7.7); NEUTROPHILS % (AUTO) 26.1 % (40.0-70.0); PLATELET COUNT (AUTO) 163 K/uL (150-450); RED BLOOD CELL COUNT(AUTO) 4.82 MIL/uL (4.50-5.90); RED CELL DISTRIBUTION WIDTH 13.6 % (11.5-14.5)
[2019-09-08] MEDS: MAGNESIUM OXIDE 400 MG TABLET PO SCH (08:23)
[2019-09-08] MEDS: BusPIRone HCL 15 MG TABLET PO SCH ×3 (08:23→16:11)
[2019-09-08] MEDS: PANTOPRAZOLE SODIUM 40 MG DR TABLET PO SCH (08:23)
[2019-09-08] MEDS: QUEtiapine FUMARATE 200 MG TABLET PO SCH (08:23)
[2019-09-08] MEDS: DOCUSATE SODIUM 250 MG CAPSULE PO SCH (08:23)
[2019-09-08] MEDS: SENNA 187 MG TABLET PO SCH (08:24)
[2019-09-08] MEDS: CHOLECALCIFEROL (VIT D3) 1,000 UNITS TABLET PO SCH (08:24)
[2019-09-08] MEDS: PSYLLIUM SEED ORANGE SF 5.8 GM/PACKET PO SCH ×2 (08:25→16:11)
[2019-09-08] MEDS: LamoTRIgine 100 MG TABLET PO SCH (08:25)
[2019-09-08] MEDS: ESCITALOPRAM OXALATE 20 MG TABLET PO SCH (08:25)
[2019-09-08] MEDS: LACTULOSE 20 GM/30 ML SOLUTION UDCUP PO SCH (08:33)
[2019-09-08 08:45] VITALS: BP 115/79
[2019-09-08 18:39] VITALS: BP 124/78
[2019-09-08] MEDS: DIVALPROEX SODIUM 500 MG ER TABLET PO SCH (20:18)
[2019-09-08] MEDS: QUEtiapine FUMARATE 300 MG TABLET PO SCH (20:18)
[2019-09-08] MEDS: ZOLPIDEM TARTRATE 10 MG TABLET PO PRN (22:15)
[2019-09-09] MEDS: LEVOTHYROXINE SODIUM 150 MCG TABLET PO SCH (06:50)
[2019-09-09 08:02] VITALS: BP 117/67
[2019-09-09] MEDS: LACTULOSE 20 GM/30 ML SOLUTION UDCUP PO SCH (08:04)
[2019-09-09] MEDS: PSYLLIUM SEED ORANGE SF 5.8 GM/PACKET PO SCH ×2 (08:05→17:05)
[2019-09-09] MEDS: CHOLECALCIFEROL (VIT D3) 1,000 UNITS TABLET PO SCH (08:05)
[2019-09-09] MEDS: PANTOPRAZOLE SODIUM 40 MG DR TABLET PO SCH (08:05)
[2019-09-09] MEDS: LamoTRIgine 100 MG TABLET PO SCH (08:06)
[2019-09-09] MEDS: MAGNESIUM OXIDE 400 MG TABLET PO SCH (08:06)
[2019-09-09] MEDS: ESCITALOPRAM OXALATE 20 MG TABLET PO SCH (08:06)
[2019-09-09] MEDS: BusPIRone HCL 15 MG TABLET PO SCH (08:07)
[2019-09-09] MEDS: QUEtiapine FUMARATE 200 MG TABLET PO SCH (08:07)
[2019-09-09] MEDS: SENNA 187 MG TABLET PO SCH (08:08)
[2019-09-09] MEDS: DOCUSATE SODIUM 250 MG CAPSULE PO SCH (09:00)
[2019-09-09] MEDS: HALOPERIDOL 5 MG TABLET PO PRN ×2 (10:47→22:38)
[2019-09-09] MEDS: LORazepam 2 MG TABLET PO PRN ×2 (10:47→22:38)
[2019-09-09 11:04] LABS: BASOPHILS % (AUTO) 1.5 % (0.0-2.0); EOSINOPHILS % (AUTO) 6.4 % (1.0-6.0); HEMATOCRIT 47.1 % (41-53); HEMOGLOBIN 16.1 g/dL (13.5-17.5); LYMPHOCYTES # (AUTO) 1.1 K/uL (1.0-4.8); LYMPHOCYTES % (AUTO) 34.9 % (22.0-44.0); MEAN CORPUSCULAR HEMOGLOBIN 32.8 pg (26.0-34.0); MEAN CORPUSCULAR HGB CONC 34.1 G/dL (31.0-37.0); MEAN CORPUSCULAR VOLUME 96 fL (80-100); MONOCYTES # (AUTO) 0.7 K/uL (0.1-1.0); MONOCYTES % (AUTO) 22.6 % (2.0-9.0); NEUTROPHILS # (AUTO) 1.1 K/uL (1.8-7.7); NEUTROPHILS % (AUTO) 34.6 % (40.0-70.0); PLATELET COUNT (AUTO) 148 K/uL (150-450); RED CELL DISTRIBUTION WIDTH 13.8 % (11.5-14.5)
[2019-09-09] MEDS: BusPIRone HCL 10 MG TABLET PO SCH ×2 (13:06→17:05)
[2019-09-09 16:12] VITALS: BP 121/82
[2019-09-09] MEDS: DIVALPROEX SODIUM 500 MG ER TABLET PO SCH (21:27)
[2019-09-09] MEDS: QUEtiapine FUMARATE 300 MG TABLET PO SCH (21:28)
[2019-09-09 22:33] VITALS: BP 122/78
[2019-09-10 00:02] VITALS: BP 148/98
[2019-09-10] MEDS: ZOLPIDEM TARTRATE 10 MG TABLET PO PRN (00:04)
[2019-09-10] MEDS: LEVOTHYROXINE SODIUM 150 MCG TABLET PO SCH (06:24)
[2019-09-10 08:10] VITALS: BP 124/76
[2019-09-10] MEDS: DOCUSATE SODIUM 250 MG CAPSULE PO SCH (08:15)
[2019-09-10] MEDS: PANTOPRAZOLE SODIUM 40 MG DR TABLET PO SCH (08:15)
[2019-09-10] MEDS: CHOLECALCIFEROL (VIT D3) 1,000 UNITS TABLET PO SCH (08:15)
[2019-09-10] MEDS: PSYLLIUM SEED ORANGE SF 5.8 GM/PACKET PO SCH ×2 (08:15→16:44)
[2019-09-10] MEDS: LACTULOSE 20 GM/30 ML SOLUTION UDCUP PO SCH (08:15)
[2019-09-10] MEDS: MAGNESIUM OXIDE 400 MG TABLET PO SCH (08:15)
[2019-09-10] MEDS: BusPIRone HCL 10 MG TABLET PO SCH ×3 (08:15→16:44)
[2019-09-10] MEDS: QUEtiapine FUMARATE 200 MG TABLET PO SCH (08:15)
[2019-09-10] MEDS: LamoTRIgine 100 MG TABLET PO SCH (08:16)
[2019-09-10] MEDS: SENNA 187 MG TABLET PO SCH (08:16)
[2019-09-10] MEDS: ESCITALOPRAM OXALATE 20 MG TABLET PO SCH (08:16)
[2019-09-10 17:14] VITALS: BP 109/83
[2019-09-10] MEDS: DIVALPROEX SODIUM 500 MG ER TABLET PO SCH (20:32)
[2019-09-10] MEDS: QUEtiapine FUMARATE 300 MG TABLET PO SCH (20:32)
[2019-09-11] MEDS: LORazepam 2 MG TABLET PO PRN ×3 (00:13→20:26)
[2019-09-11] MEDS: HALOPERIDOL 5 MG TABLET PO PRN ×3 (00:13→20:26)
[2019-09-11] MEDS: LEVOTHYROXINE SODIUM 150 MCG TABLET PO SCH (06:21)
[2019-09-11 08:05] LABS: ALANINE AMINOTRANSFERASE 18 U/L (12-78); ALKALINE PHOSPHATASE 45 U/L (46-116); ANION GAP 7 mmol/L (8-16); ASPARTATE AMINOTRANSFERASE 14 U/L (15-37); BILIRUBIN,TOTAL 0.3 mg/dL (0.1-1.0); CALCIUM, TOTAL 8.7 mg/dL (8.8-10.5); CARBON DIOXIDE 29 mmol/L (22-29); CHLORIDE 104 mmol/L (98-107); CREATININE 1.12 mg/dL (0.60-1.30); GLOMERULAR FILTR. RATE CALC > 60 mL/min (>60); GLUCOSE,RANDOM 87 mg/dL (70-110); POTASSIUM 4.2 mmol/L (3.5-5.1); SODIUM SERUM 140 mmol/L (136-145); TOTAL PROTEIN, SERUM 6.3 g/dL (6.4-8.2); UREA NITROGEN, BLOOD 15 mg/dL (7-18)
[2019-09-11] MEDS: BusPIRone HCL 10 MG TABLET PO SCH ×3 (08:28→16:05)
[2019-09-11] MEDS: QUEtiapine FUMARATE 200 MG TABLET PO SCH (08:28)
[2019-09-11] MEDS: CHOLECALCIFEROL (VIT D3) 1,000 UNITS TABLET PO SCH (08:28)
[2019-09-11] MEDS: MAGNESIUM OXIDE 400 MG TABLET PO SCH ×2 (08:28→16:05)
[2019-09-11] MEDS: LamoTRIgine 100 MG TABLET PO SCH (08:28)
[2019-09-11] MEDS: DOCUSATE SODIUM 250 MG CAPSULE PO SCH (08:28)
[2019-09-11] MEDS: ESCITALOPRAM OXALATE 20 MG TABLET PO SCH (08:28)
[2019-09-11] MEDS: PSYLLIUM SEED ORANGE SF 5.8 GM/PACKET PO SCH ×2 (08:28→16:06)
[2019-09-11] MEDS: LACTULOSE 20 GM/30 ML SOLUTION UDCUP PO SCH (08:29)
[2019-09-11] MEDS: SENNA 187 MG TABLET PO SCH (08:31)
[2019-09-11] MEDS: PANTOPRAZOLE SODIUM 40 MG DR TABLET PO SCH (08:32)
[2019-09-11 10:02] VITALS: BP 121/79
[2019-09-11 17:03] VITALS: BP 125/91
[2019-09-11] MEDS: QUEtiapine FUMARATE 300 MG TABLET PO SCH (20:23)
[2019-09-11] MEDS: DIVALPROEX SODIUM 500 MG ER TABLET PO SCH (20:23)
[2019-09-11] MEDS: ZOLPIDEM TARTRATE 10 MG TABLET PO PRN (22:07)
[2019-09-12] MEDS: LEVOTHYROXINE SODIUM 150 MCG TABLET PO SCH (06:39)
[2019-09-12 08:27] VITALS: BP 121/64
[2019-09-12] MEDS: CHOLECALCIFEROL (VIT D3) 1,000 UNITS TABLET PO SCH (09:25)
[2019-09-12] MEDS: PANTOPRAZOLE SODIUM 40 MG DR TABLET PO SCH (09:26)
[2019-09-12] MEDS: QUEtiapine FUMARATE 200 MG TABLET PO SCH (09:26)
[2019-09-12] MEDS: MAGNESIUM OXIDE 400 MG TABLET PO SCH ×2 (09:26→16:28)
[2019-09-12] MEDS: BusPIRone HCL 10 MG TABLET PO SCH ×3 (09:26→16:28)
[2019-09-12] MEDS: PSYLLIUM SEED ORANGE SF 5.8 GM/PACKET PO SCH ×2 (09:27→16:28)
[2019-09-12] MEDS: SENNA 187 MG TABLET PO SCH (09:27)
[2019-09-12] MEDS: LamoTRIgine 100 MG TABLET PO SCH (09:28)
[2019-09-12] MEDS: ESCITALOPRAM OXALATE 20 MG TABLET PO SCH (09:28)
[2019-09-12] MEDS: DOCUSATE SODIUM 250 MG CAPSULE PO SCH (09:31)
[2019-09-12] MEDS: LACTULOSE 20 GM/30 ML SOLUTION UDCUP PO SCH (09:31)
[2019-09-12 18:40] VITALS: BP 119/78
[2019-09-12] MEDS: QUEtiapine FUMARATE 300 MG TABLET PO SCH (21:02)
[2019-09-12] MEDS: DIVALPROEX SODIUM 500 MG ER TABLET PO SCH (21:02)
[2019-09-12 21:46] VITALS: BP 143/99
[2019-09-12] MEDS: HALOPERIDOL 5 MG TABLET PO PRN (22:10)
[2019-09-12] MEDS: LORazepam 2 MG TABLET PO PRN (22:10)
[2019-09-13] MEDS: LEVOTHYROXINE SODIUM 150 MCG TABLET PO SCH (06:26)
[2019-09-13] MEDS: PSYLLIUM SEED ORANGE SF 5.8 GM/PACKET PO SCH ×2 (09:09→16:16)
[2019-09-13] MEDS: CHOLECALCIFEROL (VIT D3) 1,000 UNITS TABLET PO SCH (09:09)
[2019-09-13] MEDS: QUEtiapine FUMARATE 200 MG TABLET PO SCH (09:10)
[2019-09-13] MEDS: SENNA 187 MG TABLET PO SCH (09:10)
[2019-09-13] MEDS: LamoTRIgine 100 MG TABLET PO SCH (09:10)
[2019-09-13] MEDS: ESCITALOPRAM OXALATE 20 MG TABLET PO SCH (09:10)
[2019-09-13] MEDS: PANTOPRAZOLE SODIUM 40 MG DR TABLET PO SCH (09:10)
[2019-09-13] MEDS: BusPIRone HCL 10 MG TABLET PO SCH ×3 (09:10→16:16)
[2019-09-13] MEDS: DOCUSATE SODIUM 250 MG CAPSULE PO SCH (09:10)
[2019-09-13] MEDS: MAGNESIUM OXIDE 400 MG TABLET PO SCH ×2 (09:10→16:16)
[2019-09-13] MEDS: LACTULOSE 20 GM/30 ML SOLUTION UDCUP PO SCH (09:10)
[2019-09-13 10:51] VITALS: BP 138/76
[2019-09-13 16:16] VITALS: BP 134/74
[2019-09-13] MEDS: QUEtiapine FUMARATE 300 MG TABLET PO SCH (20:14)
[2019-09-13] MEDS: DIVALPROEX SODIUM 500 MG ER TABLET PO SCH (20:15)
[2019-09-13] MEDS: LORazepam 2 MG TABLET PO PRN (21:00)
[2019-09-13] MEDS: HALOPERIDOL 5 MG TABLET PO PRN (21:00)
[2019-09-13] MEDS: ZOLPIDEM TARTRATE 10 MG TABLET PO PRN ×2 (22:12→22:13)
[2019-09-14] MEDS: LEVOTHYROXINE SODIUM 150 MCG TABLET PO SCH (06:51)
[2019-09-14 09:25] VITALS: BP 121/76
[2019-09-14] MEDS: PSYLLIUM SEED ORANGE SF 5.8 GM/PACKET PO SCH ×2 (09:46→16:39)
[2019-09-14] MEDS: LACTULOSE 20 GM/30 ML SOLUTION UDCUP PO SCH (09:48)
[2019-09-14] MEDS: SENNA 187 MG TABLET PO SCH (09:48)
[2019-09-14] MEDS: QUEtiapine FUMARATE 200 MG TABLET PO SCH (09:48)
[2019-09-14] MEDS: LamoTRIgine 100 MG TABLET PO SCH (09:48)
[2019-09-14] MEDS: CHOLECALCIFEROL (VIT D3) 1,000 UNITS TABLET PO SCH (09:48)
[2019-09-14] MEDS: DOCUSATE SODIUM 250 MG CAPSULE PO SCH (09:48)
[2019-09-14] MEDS: ESCITALOPRAM OXALATE 20 MG TABLET PO SCH (09:48)
[2019-09-14] MEDS: BusPIRone HCL 10 MG TABLET PO SCH ×3 (09:48→16:40)
[2019-09-14] MEDS: MAGNESIUM OXIDE 400 MG TABLET PO SCH ×2 (09:48→16:40)
[2019-09-14] MEDS: PANTOPRAZOLE SODIUM 40 MG DR TABLET PO SCH (09:48)
[2019-09-14] MEDS ORDERED: HYPROMELLOSE 0.5% 15 ML OPHTHALMIC SOLUTION OU PRN (15:45)
[2019-09-14 16:49] VITALS: BP 130/87
[2019-09-14] MEDS: QUEtiapine FUMARATE 300 MG TABLET PO SCH (20:29)
[2019-09-14] MEDS: DIVALPROEX SODIUM 500 MG ER TABLET PO SCH (20:29)
[2019-09-14] MEDS: HALOPERIDOL 5 MG TABLET PO PRN (20:53)
[2019-09-14] MEDS: LORazepam 2 MG TABLET PO PRN (20:53)
[2019-09-14] MEDS: ZOLPIDEM TARTRATE 10 MG TABLET PO PRN (22:04)
[2019-09-15] MEDS: LEVOTHYROXINE SODIUM 150 MCG TABLET PO SCH (06:59)
[2019-09-15 08:07] LABS: ALANINE AMINOTRANSFERASE 21 U/L (12-78); ALBUMIN 3.5 g/dL (3.4-5.0); ALKALINE PHOSPHATASE 53 U/L (46-116); ANION GAP 3 mmol/L (8-16); ASPARTATE AMINOTRANSFERASE 19 U/L (15-37); BILIRUBIN,TOTAL 0.3 mg/dL (0.1-1.0); CALCIUM, TOTAL 8.7 mg/dL (8.8-10.5); CARBON DIOXIDE 34 mmol/L (22-29); CHLORIDE 103 mmol/L (98-107); CREATINE KINASE, TOTAL ONLY 108 U/L (39-308); CREATININE 1.16 mg/dL (0.60-1.30); GLOMERULAR FILTR. RATE CALC > 60 mL/min (>60); GLUCOSE,RANDOM 82 mg/dL (70-110); POTASSIUM 3.8 mmol/L (3.5-5.1); SODIUM SERUM 140 mmol/L (136-145); UREA NITROGEN, BLOOD 15 mg/dL (7-18)
[2019-09-15 08:30] VITALS: BP 108/73
[2019-09-15] MEDS: PANTOPRAZOLE SODIUM 40 MG DR TABLET PO SCH (08:42)
[2019-09-15] MEDS: CHOLECALCIFEROL (VIT D3) 1,000 UNITS TABLET PO SCH (08:42)
[2019-09-15] MEDS: QUEtiapine FUMARATE 200 MG TABLET PO SCH (08:42)
[2019-09-15] MEDS: BusPIRone HCL 10 MG TABLET PO SCH ×3 (08:43→16:28)
[2019-09-15] MEDS: DOCUSATE SODIUM 250 MG CAPSULE PO SCH (08:43)
[2019-09-15] MEDS: SENNA 187 MG TABLET PO SCH (08:43)
[2019-09-15] MEDS: ESCITALOPRAM OXALATE 20 MG TABLET PO SCH (08:44)
[2019-09-15] MEDS: MAGNESIUM OXIDE 400 MG TABLET PO SCH ×2 (08:44→16:28)
[2019-09-15] MEDS: LamoTRIgine 100 MG TABLET PO SCH (08:44)
[2019-09-15] MEDS: LACTULOSE 20 GM/30 ML SOLUTION UDCUP PO SCH (08:44)
[2019-09-15] MEDS: PSYLLIUM SEED ORANGE SF 5.8 GM/PACKET PO SCH ×2 (08:45→16:27)
[2019-09-15 17:03] VITALS: BP 120/82
[2019-09-15] MEDS: DIVALPROEX SODIUM 500 MG ER TABLET PO SCH (20:20)
[2019-09-15] MEDS: QUEtiapine FUMARATE 300 MG TABLET PO SCH (20:20)
[2019-09-15 21:19] VITALS: BP 139/88
[2019-09-15] MEDS: LORazepam 2 MG TABLET PO PRN (21:20)
[2019-09-15] MEDS: HALOPERIDOL 5 MG TABLET PO PRN (21:20)
[2019-09-16 06:00] VITALS: BP 111/82
[2019-09-16] MEDS: HALOPERIDOL 5 MG TABLET PO PRN ×2 (06:07→21:20)
[2019-09-16] MEDS: LORazepam 2 MG TABLET PO PRN ×2 (06:07→21:20)
[2019-09-16] MEDS: LEVOTHYROXINE SODIUM 150 MCG TABLET PO SCH (06:52)
[2019-09-16 08:26] VITALS: BP 121/75
[2019-09-16] MEDS: BusPIRone HCL 10 MG TABLET PO SCH ×3 (08:52→16:51)
[2019-09-16] MEDS: QUEtiapine FUMARATE 200 MG TABLET PO SCH (08:52)
[2019-09-16] MEDS: CHOLECALCIFEROL (VIT D3) 1,000 UNITS TABLET PO SCH (08:52)
[2019-09-16] MEDS: DOCUSATE SODIUM 250 MG CAPSULE PO SCH (08:52)
[2019-09-16] MEDS: SENNA 187 MG TABLET PO SCH (08:53)
[2019-09-16] MEDS: PANTOPRAZOLE SODIUM 40 MG DR TABLET PO SCH (08:53)
[2019-09-16] MEDS: ESCITALOPRAM OXALATE 20 MG TABLET PO SCH (08:53)
[2019-09-16] MEDS: MAGNESIUM OXIDE 400 MG TABLET PO SCH ×2 (08:53→16:53)
[2019-09-16] MEDS: LamoTRIgine 100 MG TABLET PO SCH (08:54)
[2019-09-16] MEDS: PSYLLIUM SEED ORANGE SF 5.8 GM/PACKET PO SCH ×2 (08:54→16:52)
[2019-09-16] MEDS: MAG HYDROX/AL HYDROX/SIMETH 30 ML SUSP UDCUP PO PRN (08:55)
[2019-09-16] MEDS: LACTULOSE 20 GM/30 ML SOLUTION UDCUP PO SCH (08:57)
[2019-09-16 18:24] VITALS: BP 125/81
[2019-09-16] MEDS: DIVALPROEX SODIUM 500 MG ER TABLET PO SCH (20:21)
[2019-09-16] MEDS: QUEtiapine FUMARATE 300 MG TABLET PO SCH (20:21)
[2019-09-16 21:15] VITALS: BP 130/85
[2019-09-16 21:17] VITALS: BP 130/85
[2019-09-16] MEDS: ZOLPIDEM TARTRATE 10 MG TABLET PO PRN (22:58)
[2019-09-17 04:26] VITALS: BP 117/78
[2019-09-17] MEDS: HALOPERIDOL 5 MG TABLET PO PRN ×2 (04:26→21:36)
[2019-09-17] MEDS: LEVOTHYROXINE SODIUM 150 MCG TABLET PO SCH (06:58)
[2019-09-17 08:20] VITALS: BP 112/82
[2019-09-17] MEDS: ESCITALOPRAM OXALATE 20 MG TABLET PO SCH (09:53)
[2019-09-17] MEDS: PSYLLIUM SEED ORANGE SF 5.8 GM/PACKET PO SCH ×2 (09:53→16:23)
[2019-09-17] MEDS: LamoTRIgine 100 MG TABLET PO SCH (09:53)
[2019-09-17] MEDS: LACTULOSE 20 GM/30 ML SOLUTION UDCUP PO SCH (09:53)
[2019-09-17] MEDS: CHOLECALCIFEROL (VIT D3) 1,000 UNITS TABLET PO SCH (09:53)
[2019-09-17] MEDS: PANTOPRAZOLE SODIUM 40 MG DR TABLET PO SCH (09:54)
[2019-09-17] MEDS: QUEtiapine FUMARATE 200 MG TABLET PO SCH (09:54)
[2019-09-17] MEDS: SENNA 187 MG TABLET PO SCH (09:54)
[2019-09-17] MEDS: BusPIRone HCL 10 MG TABLET PO SCH ×3 (09:54→16:23)
[2019-09-17] MEDS: MAGNESIUM OXIDE 400 MG TABLET PO SCH ×2 (09:54→16:23)
[2019-09-17] MEDS: DOCUSATE SODIUM 250 MG CAPSULE PO SCH (09:55)
[2019-09-17 19:24] VITALS: BP 128/98
[2019-09-17] MEDS: QUEtiapine FUMARATE 300 MG TABLET PO SCH (20:32)
[2019-09-17] MEDS: DIVALPROEX SODIUM 500 MG ER TABLET PO SCH (20:33)
[2019-09-17] MEDS: LORazepam 2 MG TABLET PO PRN (21:36)
[2019-09-17] MEDS: ZOLPIDEM TARTRATE 10 MG TABLET PO PRN (22:42)
[2019-09-18] MEDS: LEVOTHYROXINE SODIUM 150 MCG TABLET PO SCH (06:28)
[2019-09-18 07:47] LABS: ALANINE AMINOTRANSFERASE 16 U/L (12-78); ALBUMIN 3.1 g/dL (3.4-5.0); ALKALINE PHOSPHATASE 45 U/L (46-116); ANION GAP 2 mmol/L (8-16); ASPARTATE AMINOTRANSFERASE 17 U/L (15-37); BILIRUBIN,TOTAL 0.3 mg/dL (0.1-1.0); CARBON DIOXIDE 34 mmol/L (22-29); CHLORIDE 104 mmol/L (98-107); CREATININE 1.09 mg/dL (0.60-1.30); GLOMERULAR FILTR. RATE CALC > 60 mL/min (>60); GLUCOSE,RANDOM 83 mg/dL (70-110); POTASSIUM 4.5 mmol/L (3.5-5.1); SODIUM SERUM 140 mmol/L (136-145); TOTAL PROTEIN, SERUM 6.5 g/dL (6.4-8.2); UREA NITROGEN, BLOOD 17 mg/dL (7-18)
[2019-09-18 08:00] VITALS: BP 134/94
[2019-09-18 08:15] LABS: CREATINE KINASE, TOTAL ONLY 70 U/L (39-308)
[2019-09-18] MEDS: MAGNESIUM OXIDE 400 MG TABLET PO SCH ×2 (09:06→16:46)
[2019-09-18] MEDS: LamoTRIgine 100 MG TABLET PO SCH (09:06)
[2019-09-18] MEDS: CHOLECALCIFEROL (VIT D3) 1,000 UNITS TABLET PO SCH (09:06)
[2019-09-18] MEDS: DOCUSATE SODIUM 250 MG CAPSULE PO SCH (09:06)
[2019-09-18] MEDS: PANTOPRAZOLE SODIUM 40 MG DR TABLET PO SCH (09:06)
[2019-09-18] MEDS: QUEtiapine FUMARATE 200 MG TABLET PO SCH (09:06)
[2019-09-18] MEDS: ESCITALOPRAM OXALATE 20 MG TABLET PO SCH (09:06)
[2019-09-18] MEDS: BusPIRone HCL 10 MG TABLET PO SCH ×3 (09:06→16:47)
[2019-09-18] MEDS: SENNA 187 MG TABLET PO SCH (09:06)
[2019-09-18] MEDS: PSYLLIUM SEED ORANGE SF 5.8 GM/PACKET PO SCH ×2 (09:07→16:47)
[2019-09-18] MEDS: LACTULOSE 20 GM/30 ML SOLUTION UDCUP PO SCH (09:08)
[2019-09-18 16:00] VITALS: BP 99/75
[2019-09-18 17:14] VITALS: BP 99/75
[2019-09-18] MEDS: HALOPERIDOL 5 MG TABLET PO PRN (20:45)
[2019-09-18] MEDS: QUEtiapine FUMARATE 300 MG TABLET PO SCH (20:45)
[2019-09-18] MEDS: LORazepam 2 MG TABLET PO PRN (20:45)
[2019-09-18] MEDS: DIVALPROEX SODIUM 500 MG ER TABLET PO SCH (20:45)
[2019-09-18] MEDS: ZOLPIDEM TARTRATE 10 MG TABLET PO PRN (21:33)
[2019-09-19] MEDS: LEVOTHYROXINE SODIUM 150 MCG TABLET PO SCH (07:09)
[2019-09-19 08:42] VITALS: BP 150/77
[2019-09-19 08:45] VITALS: BP 116/71
[2019-09-19] MEDS: PSYLLIUM SEED ORANGE SF 5.8 GM/PACKET PO SCH ×2 (08:59→16:39)
[2019-09-19] MEDS: LamoTRIgine 100 MG TABLET PO SCH (08:59)
[2019-09-19] MEDS: BusPIRone HCL 10 MG TABLET PO SCH ×3 (08:59→12:41)
[2019-09-19] MEDS: SENNA 187 MG TABLET PO SCH (08:59)
[2019-09-19] MEDS: PANTOPRAZOLE SODIUM 40 MG DR TABLET PO SCH (08:59)
[2019-09-19] MEDS: DOCUSATE SODIUM 250 MG CAPSULE PO SCH (08:59)
[2019-09-19] MEDS: MAGNESIUM OXIDE 400 MG TABLET PO SCH ×2 (08:59→16:39)
[2019-09-19] MEDS: CHOLECALCIFEROL (VIT D3) 1,000 UNITS TABLET PO SCH (08:59)
[2019-09-19] MEDS: QUEtiapine FUMARATE 200 MG TABLET PO SCH (08:59)
[2019-09-19] MEDS: ESCITALOPRAM OXALATE 20 MG TABLET PO SCH (08:59)
[2019-09-19] MEDS: LACTULOSE 20 GM/30 ML SOLUTION UDCUP PO SCH (09:00)
[2019-09-19] MEDS: MAG HYDROX/AL HYDROX/SIMETH 30 ML SUSP UDCUP PO PRN (09:30)
[2019-09-19 17:06] VITALS: BP 110/83
[2019-09-19] MEDS: DIVALPROEX SODIUM 500 MG ER TABLET PO SCH (20:34)
[2019-09-19] MEDS: QUEtiapine FUMARATE 300 MG TABLET PO SCH (20:34)
[2019-09-19] MEDS: HALOPERIDOL 5 MG TABLET PO PRN (21:30)
[2019-09-19] MEDS: LORazepam 2 MG TABLET PO PRN (21:30)
[2019-09-20] MEDS: LEVOTHYROXINE SODIUM 150 MCG TABLET PO SCH (07:02)
[2019-09-20 08:15] VITALS: BP 126/72
[2019-09-20] MEDS: PANTOPRAZOLE SODIUM 40 MG DR TABLET PO SCH (08:26)
[2019-09-20] MEDS: DOCUSATE SODIUM 250 MG CAPSULE PO SCH (08:26)
[2019-09-20] MEDS: QUEtiapine FUMARATE 200 MG TABLET PO SCH (08:27)
[2019-09-20] MEDS: BusPIRone HCL 10 MG TABLET PO SCH ×3 (08:27→16:31)
[2019-09-20] MEDS: CHOLECALCIFEROL (VIT D3) 1,000 UNITS TABLET PO SCH (08:28)
[2019-09-20] MEDS: MAGNESIUM OXIDE 400 MG TABLET PO SCH ×2 (08:29→16:32)
[2019-09-20] MEDS: LACTULOSE 20 GM/30 ML SOLUTION UDCUP PO SCH (08:30)
[2019-09-20] MEDS: SENNA 187 MG TABLET PO SCH (08:38)
[2019-09-20] MEDS: ESCITALOPRAM OXALATE 20 MG TABLET PO SCH (08:50)
[2019-09-20] MEDS: LamoTRIgine 100 MG TABLET PO SCH (08:50)
[2019-09-20] MEDS: PSYLLIUM SEED ORANGE SF 5.8 GM/PACKET PO SCH ×2 (08:53→16:32)
[2019-09-20 16:50] VITALS: BP 134/75
[2019-09-20] MEDS: QUEtiapine FUMARATE 300 MG TABLET PO SCH (20:15)
[2019-09-20] MEDS: DIVALPROEX SODIUM 500 MG ER TABLET PO SCH (20:15)
[2019-09-20 21:16] VITALS: BP 118/82
[2019-09-20] MEDS: LORazepam 2 MG TABLET PO PRN (21:21)
[2019-09-20] MEDS: HALOPERIDOL 5 MG TABLET PO PRN (21:21)
[2019-09-20] MEDS: ZOLPIDEM TARTRATE 10 MG TABLET PO PRN (22:23)
[2019-09-21] MEDS: LEVOTHYROXINE SODIUM 150 MCG TABLET PO SCH (07:01)
[2019-09-21 07:47] LABS: ALANINE AMINOTRANSFERASE 18 U/L (12-78); ALBUMIN 2.9 g/dL (3.4-5.0); ALKALINE PHOSPHATASE 47 U/L (46-116); ANION GAP 3 mmol/L (8-16); ASPARTATE AMINOTRANSFERASE 14 U/L (15-37); BILIRUBIN,TOTAL 0.2 mg/dL (0.1-1.0); CALCIUM, TOTAL 8.7 mg/dL (8.8-10.5); CARBON DIOXIDE 32 mmol/L (22-29); CHLORIDE 104 mmol/L (98-107); CREATININE 1.08 mg/dL (0.60-1.30); GLOMERULAR FILTR. RATE CALC > 60 mL/min (>60); GLUCOSE,RANDOM 85 mg/dL (70-110); POTASSIUM 3.9 mmol/L (3.5-5.1); SODIUM SERUM 139 mmol/L (136-145); TOTAL PROTEIN, SERUM 6.1 g/dL (6.4-8.2); UREA NITROGEN, BLOOD 20 mg/dL (7-18)
[2019-09-21 08:15] LABS: CREATINE KINASE, TOTAL ONLY 73 U/L (39-308)
[2019-09-21 08:17] VITALS: BP 113/79
[2019-09-21] MEDS: QUEtiapine FUMARATE 200 MG TABLET PO SCH (09:09)
[2019-09-21] MEDS: PANTOPRAZOLE SODIUM 40 MG DR TABLET PO SCH (09:09)
[2019-09-21] MEDS: DOCUSATE SODIUM 250 MG CAPSULE PO SCH (09:09)
[2019-09-21] MEDS: BusPIRone HCL 10 MG TABLET PO SCH ×3 (09:09→16:52)
[2019-09-21] MEDS: MAGNESIUM OXIDE 400 MG TABLET PO SCH ×2 (09:10→16:52)
[2019-09-21] MEDS: CHOLECALCIFEROL (VIT D3) 1,000 UNITS TABLET PO SCH (09:11)
[2019-09-21] MEDS: LamoTRIgine 100 MG TABLET PO SCH (09:11)
[2019-09-21] MEDS: ESCITALOPRAM OXALATE 20 MG TABLET PO SCH (09:11)
[2019-09-21] MEDS: LACTULOSE 20 GM/30 ML SOLUTION UDCUP PO SCH (09:11)
[2019-09-21] MEDS: PSYLLIUM SEED ORANGE SF 5.8 GM/PACKET PO SCH ×2 (09:12→16:52)
[2019-09-21] MEDS: SENNA 187 MG TABLET PO SCH (09:12)
[2019-09-21 16:00] VITALS: BP 106/74
[2019-09-21] MEDS: DIVALPROEX SODIUM 500 MG ER TABLET PO SCH (20:21)
[2019-09-21] MEDS: QUEtiapine FUMARATE 300 MG TABLET PO SCH (20:22)
[2019-09-21 21:45] VITALS: BP 133/78
[2019-09-21] MEDS: LORazepam 2 MG TABLET PO PRN (21:46)
[2019-09-21] MEDS: HALOPERIDOL 5 MG TABLET PO PRN (21:46)
[2019-09-21] MEDS: ZOLPIDEM TARTRATE 10 MG TABLET PO PRN (23:24)
[2019-09-22] MEDS: LEVOTHYROXINE SODIUM 150 MCG TABLET PO SCH (06:57)
[2019-09-22 08:06] VITALS: BP 126/90
[2019-09-22] MEDS: QUEtiapine FUMARATE 200 MG TABLET PO SCH (08:28)
[2019-09-22] MEDS: BusPIRone HCL 10 MG TABLET PO SCH ×3 (08:28→16:33)
[2019-09-22] MEDS: DOCUSATE SODIUM 250 MG CAPSULE PO SCH (08:29)
[2019-09-22] MEDS: ESCITALOPRAM OXALATE 20 MG TABLET PO SCH (08:29)
[2019-09-22] MEDS: PANTOPRAZOLE SODIUM 40 MG DR TABLET PO SCH (08:29)
[2019-09-22] MEDS: MAGNESIUM OXIDE 400 MG TABLET PO SCH ×2 (08:29→16:33)
[2019-09-22] MEDS: PSYLLIUM SEED ORANGE SF 5.8 GM/PACKET PO SCH ×2 (08:29→16:33)
[2019-09-22] MEDS: LamoTRIgine 100 MG TABLET PO SCH (08:29)
[2019-09-22] MEDS: SENNA 187 MG TABLET PO SCH (08:29)
[2019-09-22] MEDS: CHOLECALCIFEROL (VIT D3) 1,000 UNITS TABLET PO SCH (08:29)
[2019-09-22] MEDS: LACTULOSE 20 GM/30 ML SOLUTION UDCUP PO PRN (08:35)
[2019-09-22 16:14] VITALS: BP 123/69
[2019-09-22] MEDS: QUEtiapine FUMARATE 300 MG TABLET PO SCH (20:08)
[2019-09-22] MEDS: DIVALPROEX SODIUM 500 MG ER TABLET PO SCH (20:08)
[2019-09-22] MEDS: HALOPERIDOL 5 MG TABLET PO PRN (21:01)
[2019-09-22] MEDS: LORazepam 2 MG TABLET PO PRN (21:01)
[2019-09-22] MEDS: ZOLPIDEM TARTRATE 10 MG TABLET PO PRN (22:01)
[2019-09-23] MEDS: LEVOTHYROXINE SODIUM 150 MCG TABLET PO SCH (07:06)
[2019-09-23 08:34] VITALS: BP 120/60
[2019-09-23] MEDS: DOCUSATE SODIUM 250 MG CAPSULE PO SCH (08:47)
[2019-09-23] MEDS: LACTULOSE 20 GM/30 ML SOLUTION UDCUP PO PRN ×2 (08:47→12:13)
[2019-09-23] MEDS: CHOLECALCIFEROL (VIT D3) 1,000 UNITS TABLET PO SCH (08:48)
[2019-09-23] MEDS: SENNA 187 MG TABLET PO SCH (08:48)
[2019-09-23] MEDS: BusPIRone HCL 10 MG TABLET PO SCH ×3 (08:48→17:04)
[2019-09-23] MEDS: QUEtiapine FUMARATE 200 MG TABLET PO SCH (08:48)
[2019-09-23] MEDS: LamoTRIgine 100 MG TABLET PO SCH (08:48)
[2019-09-23] MEDS: PANTOPRAZOLE SODIUM 40 MG DR TABLET PO SCH (08:48)
[2019-09-23] MEDS: MAGNESIUM OXIDE 400 MG TABLET PO SCH ×2 (08:48→17:04)
[2019-09-23] MEDS: PSYLLIUM SEED ORANGE SF 5.8 GM/PACKET PO SCH ×2 (08:49→17:03)
[2019-09-23] MEDS: ESCITALOPRAM OXALATE 20 MG TABLET PO SCH (08:49)
[2019-09-23 16:22] VITALS: BP 113/74
[2019-09-23] MEDS: DIVALPROEX SODIUM 500 MG ER TABLET PO SCH (20:46)
[2019-09-23] MEDS: QUEtiapine FUMARATE 300 MG TABLET PO SCH (20:46)
[2019-09-23] MEDS: LORazepam 2 MG TABLET PO PRN (21:33)
[2019-09-23] MEDS: HALOPERIDOL 5 MG TABLET PO PRN (21:33)
[2019-09-23] MEDS: ZOLPIDEM TARTRATE 10 MG TABLET PO PRN (22:50)
[2019-09-24] MEDS: LEVOTHYROXINE SODIUM 150 MCG TABLET PO SCH (07:04)
[2019-09-24] MEDS: MAGNESIUM OXIDE 400 MG TABLET PO SCH ×2 (08:29→16:35)
[2019-09-24] MEDS: CHOLECALCIFEROL (VIT D3) 1,000 UNITS TABLET PO SCH (08:29)
[2019-09-24] MEDS: PANTOPRAZOLE SODIUM 40 MG DR TABLET PO SCH (08:29)
[2019-09-24] MEDS: BusPIRone HCL 10 MG TABLET PO SCH ×3 (08:30→16:34)
[2019-09-24] MEDS: QUEtiapine FUMARATE 200 MG TABLET PO SCH (08:30)
[2019-09-24] MEDS: DOCUSATE SODIUM 250 MG CAPSULE PO SCH (08:30)
[2019-09-24] MEDS: LamoTRIgine 100 MG TABLET PO SCH (08:30)
[2019-09-24] MEDS: PSYLLIUM SEED ORANGE SF 5.8 GM/PACKET PO SCH ×2 (08:31→16:35)
[2019-09-24] MEDS: ESCITALOPRAM OXALATE 20 MG TABLET PO SCH (08:31)
[2019-09-24] MEDS: SENNA 187 MG TABLET PO SCH (08:31)
[2019-09-24 08:53] VITALS: BP 122/66
[2019-09-24] MEDS: LACTULOSE 20 GM/30 ML SOLUTION UDCUP PO PRN (11:54)
[2019-09-24 16:12] VITALS: BP 118/68
[2019-09-24] MEDS: QUEtiapine FUMARATE 300 MG TABLET PO SCH (20:29)
[2019-09-24] MEDS: DIVALPROEX SODIUM 500 MG ER TABLET PO SCH (20:29)
[2019-09-24] MEDS: LORazepam 2 MG TABLET PO PRN (22:20)
[2019-09-24] MEDS: HALOPERIDOL 5 MG TABLET PO PRN (22:20)
[2019-09-25] MEDS: LORazepam 2 MG TABLET PO PRN ×2 (03:29→22:42)
[2019-09-25 03:47] VITALS: BP 121/74
[2019-09-25] MEDS: LEVOTHYROXINE SODIUM 150 MCG TABLET PO SCH (06:38)
[2019-09-25 07:43] LABS: ALANINE AMINOTRANSFERASE 15 U/L (12-78); ALKALINE PHOSPHATASE 47 U/L (46-116); ANION GAP 1 mmol/L (8-16); ASPARTATE AMINOTRANSFERASE 16 U/L (15-37); BILIRUBIN,TOTAL 0.3 mg/dL (0.1-1.0); CALCIUM, TOTAL 8.9 mg/dL (8.8-10.5); CARBON DIOXIDE 35 mmol/L (22-29); CHLORIDE 103 mmol/L (98-107); CREATINE KINASE, TOTAL ONLY 302 U/L (39-308); CREATININE 1.17 mg/dL (0.60-1.30); GLOMERULAR FILTR. RATE CALC > 60 mL/min (>60); GLUCOSE,RANDOM 85 mg/dL (70-110); POTASSIUM 4.2 mmol/L (3.5-5.1); SODIUM SERUM 139 mmol/L (136-145); TOTAL PROTEIN, SERUM 6.4 g/dL (6.4-8.2); UREA NITROGEN, BLOOD 16 mg/dL (7-18)
[2019-09-25] MEDS: QUEtiapine FUMARATE 200 MG TABLET PO SCH (08:49)
[2019-09-25] MEDS: PANTOPRAZOLE SODIUM 40 MG DR TABLET PO SCH (08:49)
[2019-09-25] MEDS: DOCUSATE SODIUM 250 MG CAPSULE PO SCH (08:49)
[2019-09-25] MEDS: BusPIRone HCL 10 MG TABLET PO SCH ×3 (08:50→16:32)
[2019-09-25] MEDS: LamoTRIgine 100 MG TABLET PO SCH (08:50)
[2019-09-25] MEDS: CHOLECALCIFEROL (VIT D3) 1,000 UNITS TABLET PO SCH (08:50)
[2019-09-25] MEDS: PSYLLIUM SEED ORANGE SF 5.8 GM/PACKET PO SCH ×2 (08:50→16:31)
[2019-09-25] MEDS: SENNA 187 MG TABLET PO SCH (08:50)
[2019-09-25] MEDS: ESCITALOPRAM OXALATE 20 MG TABLET PO SCH (08:50)
[2019-09-25] MEDS: MAGNESIUM OXIDE 400 MG TABLET PO SCH ×2 (08:50→16:32)
[2019-09-25 09:41] VITALS: BP 131/89
[2019-09-25] MEDS: LACTULOSE 20 GM/30 ML SOLUTION UDCUP PO PRN (12:26)
[2019-09-25 16:34] VITALS: BP 130/73
[2019-09-25] MEDS: DIVALPROEX SODIUM 500 MG ER TABLET PO SCH (20:47)
[2019-09-25] MEDS: DiphenhydrAMINE HCL 25 MG CAPSULE PO SCH (20:48)
[2019-09-25] MEDS: QUEtiapine FUMARATE 300 MG TABLET PO SCH (20:48)
[2019-09-25] MEDS: HALOPERIDOL 5 MG TABLET PO PRN (22:42)
[2019-09-25] MEDS: ZOLPIDEM TARTRATE 10 MG TABLET PO PRN (23:49)
[2019-09-26] MEDS: LEVOTHYROXINE SODIUM 150 MCG TABLET PO SCH (07:16)
[2019-09-26 08:30] VITALS: BP 103/77
[2019-09-26] MEDS: ESCITALOPRAM OXALATE 20 MG TABLET PO SCH (09:07)
[2019-09-26] MEDS: DOCUSATE SODIUM 250 MG CAPSULE PO SCH (09:07)
[2019-09-26] MEDS: SENNA 187 MG TABLET PO SCH (09:07)
[2019-09-26] MEDS: QUEtiapine FUMARATE 200 MG TABLET PO SCH (09:07)
[2019-09-26] MEDS: LamoTRIgine 100 MG TABLET PO SCH (09:07)
[2019-09-26] MEDS: CHOLECALCIFEROL (VIT D3) 1,000 UNITS TABLET PO SCH (09:07)
[2019-09-26] MEDS: BusPIRone HCL 10 MG TABLET PO SCH ×3 (09:07→17:11)
[2019-09-26] MEDS: MAGNESIUM OXIDE 400 MG TABLET PO SCH ×2 (09:07→17:11)
[2019-09-26] MEDS: PANTOPRAZOLE SODIUM 40 MG DR TABLET PO SCH (09:07)
[2019-09-26] MEDS: PSYLLIUM SEED ORANGE SF 5.8 GM/PACKET PO SCH ×2 (09:08→17:11)
[2019-09-26] MEDS: LACTULOSE 20 GM/30 ML SOLUTION UDCUP PO PRN (11:33)
[2019-09-26 16:00] VITALS: BP 105/68
[2019-09-26] MEDS: DIVALPROEX SODIUM 500 MG ER TABLET PO SCH (20:22)
[2019-09-26] MEDS: DiphenhydrAMINE HCL 25 MG CAPSULE PO SCH (20:23)
[2019-09-26] MEDS: QUEtiapine FUMARATE 300 MG TABLET PO SCH (20:23)
[2019-09-26] MEDS: LORazepam 2 MG TABLET PO PRN (21:20)
[2019-09-26] MEDS: HALOPERIDOL 5 MG TABLET PO PRN (21:20)
[2019-09-26] MEDS: ZOLPIDEM TARTRATE 10 MG TABLET PO PRN (22:58)
[2019-09-27] MEDS: LEVOTHYROXINE SODIUM 150 MCG TABLET PO SCH (06:57)
[2019-09-27 08:00] VITALS: BP 115/67
[2019-09-27] MEDS: CHOLECALCIFEROL (VIT D3) 1,000 UNITS TABLET PO SCH (09:37)
[2019-09-27] MEDS: ESCITALOPRAM OXALATE 20 MG TABLET PO SCH (09:37)
[2019-09-27] MEDS: PANTOPRAZOLE SODIUM 40 MG DR TABLET PO SCH (09:37)
[2019-09-27] MEDS: PSYLLIUM SEED ORANGE SF 5.8 GM/PACKET PO SCH ×2 (09:37→16:33)
[2019-09-27] MEDS: QUEtiapine FUMARATE 200 MG TABLET PO SCH (09:37)
[2019-09-27] MEDS: SENNA 187 MG TABLET PO SCH (09:37)
[2019-09-27] MEDS: LamoTRIgine 100 MG TABLET PO SCH (09:38)
[2019-09-27] MEDS: DOCUSATE SODIUM 250 MG CAPSULE PO SCH (09:38)
[2019-09-27] MEDS: BusPIRone HCL 10 MG TABLET PO SCH ×3 (09:38→16:32)
[2019-09-27] MEDS: MAGNESIUM OXIDE 400 MG TABLET PO SCH ×2 (09:39→16:32)
[2019-09-27] MEDS: LACTULOSE 20 GM/30 ML SOLUTION UDCUP PO PRN (10:58)
[2019-09-27 16:34] VITALS: BP 125/76
[2019-09-27 16:35] VITALS: BP 125/76
[2019-09-27] MEDS: DiphenhydrAMINE HCL 25 MG CAPSULE PO SCH (20:12)
[2019-09-27] MEDS: QUEtiapine FUMARATE 300 MG TABLET PO SCH (20:12)
[2019-09-27] MEDS: DIVALPROEX SODIUM 500 MG ER TABLET PO SCH (20:12)
[2019-09-27] MEDS: HALOPERIDOL 5 MG TABLET PO PRN (21:38)
[2019-09-27] MEDS: LORazepam 2 MG TABLET PO PRN (21:38)
[2019-09-27] MEDS: ZOLPIDEM TARTRATE 10 MG TABLET PO PRN (22:18)
[2019-09-28] MEDS: LEVOTHYROXINE SODIUM 150 MCG TABLET PO SCH (06:46)
[2019-09-28] MEDS: MAGNESIUM OXIDE 400 MG TABLET PO SCH ×2 (09:07→16:33)
[2019-09-28] MEDS: PANTOPRAZOLE SODIUM 40 MG DR TABLET PO SCH (09:07)
[2019-09-28] MEDS: BusPIRone HCL 10 MG TABLET PO SCH ×3 (09:07→16:33)
[2019-09-28] MEDS: ESCITALOPRAM OXALATE 20 MG TABLET PO SCH (09:07)
[2019-09-28] MEDS: PSYLLIUM SEED ORANGE SF 5.8 GM/PACKET PO SCH ×2 (09:07→16:33)
[2019-09-28] MEDS: QUEtiapine FUMARATE 200 MG TABLET PO SCH (09:08)
[2019-09-28] MEDS: DOCUSATE SODIUM 250 MG CAPSULE PO SCH (09:08)
[2019-09-28] MEDS: SENNA 187 MG TABLET PO SCH (09:08)
[2019-09-28] MEDS: CHOLECALCIFEROL (VIT D3) 1,000 UNITS TABLET PO SCH (09:08)
[2019-09-28] MEDS: LamoTRIgine 100 MG TABLET PO SCH (09:08)
[2019-09-28 09:52] VITALS: BP 101/60
[2019-09-28] MEDS: LACTULOSE 20 GM/30 ML SOLUTION UDCUP PO PRN (16:03)
[2019-09-28 16:51] VITALS: BP 137/79
[2019-09-28] MEDS: QUEtiapine FUMARATE 300 MG TABLET PO SCH (20:33)
[2019-09-28] MEDS: DiphenhydrAMINE HCL 25 MG CAPSULE PO SCH (20:33)
[2019-09-28] MEDS: DIVALPROEX SODIUM 500 MG ER TABLET PO SCH (20:33)
[2019-09-28] MEDS: HALOPERIDOL 5 MG TABLET PO PRN (21:14)
[2019-09-28] MEDS: LORazepam 2 MG TABLET PO PRN (21:14)
[2019-09-28] MEDS: ZOLPIDEM TARTRATE 10 MG TABLET PO PRN (23:37)
[2019-09-29] MEDS: LEVOTHYROXINE SODIUM 150 MCG TABLET PO SCH (06:49)
[2019-09-29 08:00] VITALS: BP 120/79
[2019-09-29] MEDS: LACTULOSE 20 GM/30 ML SOLUTION UDCUP PO PRN (09:32)
[2019-09-29] MEDS: PSYLLIUM SEED ORANGE SF 5.8 GM/PACKET PO SCH ×2 (09:33→16:04)
[2019-09-29] MEDS: PANTOPRAZOLE SODIUM 40 MG DR TABLET PO SCH (09:33)
[2019-09-29] MEDS: SENNA 187 MG TABLET PO SCH (09:33)
[2019-09-29] MEDS: BusPIRone HCL 10 MG TABLET PO SCH ×3 (09:33→16:03)
[2019-09-29] MEDS: CHOLECALCIFEROL (VIT D3) 1,000 UNITS TABLET PO SCH (09:33)
[2019-09-29] MEDS: LamoTRIgine 100 MG TABLET PO SCH (09:33)
[2019-09-29] MEDS: DOCUSATE SODIUM 250 MG CAPSULE PO SCH (09:34)
[2019-09-29] MEDS: ESCITALOPRAM OXALATE 20 MG TABLET PO SCH (09:34)
[2019-09-29] MEDS: QUEtiapine FUMARATE 200 MG TABLET PO SCH (09:34)
[2019-09-29] MEDS: MAGNESIUM OXIDE 400 MG TABLET PO SCH ×2 (09:34→16:03)
[2019-09-29 16:52] VITALS: BP 133/84
[2019-09-29] MEDS: QUEtiapine FUMARATE 300 MG TABLET PO SCH (20:06)
[2019-09-29] MEDS: DiphenhydrAMINE HCL 25 MG CAPSULE PO SCH (20:06)
[2019-09-29] MEDS: DIVALPROEX SODIUM 500 MG ER TABLET PO SCH (20:06)
[2019-09-29] MEDS: HALOPERIDOL 5 MG TABLET PO PRN (20:59)
[2019-09-29] MEDS: LORazepam 2 MG TABLET PO PRN (20:59)
[2019-09-29] MEDS: ZOLPIDEM TARTRATE 10 MG TABLET PO PRN (21:45)
[2019-09-30] MEDS: LEVOTHYROXINE SODIUM 150 MCG TABLET PO SCH (06:50)
[2019-09-30 08:00] VITALS: BP 119/85
[2019-09-30] MEDS: CHOLECALCIFEROL (VIT D3) 1,000 UNITS TABLET PO SCH (08:25)
[2019-09-30] MEDS: PANTOPRAZOLE SODIUM 40 MG DR TABLET PO SCH (08:25)
[2019-09-30] MEDS: SENNA 187 MG TABLET PO SCH (08:25)
[2019-09-30] MEDS: QUEtiapine FUMARATE 200 MG TABLET PO SCH (08:25)
[2019-09-30] MEDS: MAGNESIUM OXIDE 400 MG TABLET PO SCH ×2 (08:25→16:59)
[2019-09-30] MEDS: LamoTRIgine 100 MG TABLET PO SCH (08:25)
[2019-09-30] MEDS: ESCITALOPRAM OXALATE 20 MG TABLET PO SCH (08:25)
[2019-09-30] MEDS: PSYLLIUM SEED ORANGE SF 5.8 GM/PACKET PO SCH ×2 (08:25→16:58)
[2019-09-30] MEDS: BusPIRone HCL 10 MG TABLET PO SCH ×3 (08:25→16:59)
[2019-09-30] MEDS: DOCUSATE SODIUM 250 MG CAPSULE PO SCH (08:41)
[2019-09-30] MEDS: LACTULOSE 20 GM/30 ML SOLUTION UDCUP PO PRN (10:37)
[2019-09-30 18:12] VITALS: BP 124/74
[2019-09-30] MEDS: DiphenhydrAMINE HCL 25 MG CAPSULE PO SCH (20:22)
[2019-09-30] MEDS: QUEtiapine FUMARATE 300 MG TABLET PO SCH (20:23)
[2019-09-30] MEDS: DIVALPROEX SODIUM 500 MG ER TABLET PO SCH (20:23)
[2019-09-30] MEDS: LORazepam 2 MG TABLET PO PRN (21:11)
[2019-09-30] MEDS: HALOPERIDOL 5 MG TABLET PO PRN (21:11)
[2019-10-01] MEDS: LEVOTHYROXINE SODIUM 150 MCG TABLET PO SCH (06:55)
[2019-10-01 08:00] VITALS: BP 125/80
[2019-10-01] MEDS: QUEtiapine FUMARATE 200 MG TABLET PO SCH (09:00)
[2019-10-01] MEDS: BusPIRone HCL 10 MG TABLET PO SCH ×3 (09:00→16:39)
[2019-10-01] MEDS: ESCITALOPRAM OXALATE 20 MG TABLET PO SCH (09:00)
[2019-10-01] MEDS: LamoTRIgine 100 MG TABLET PO SCH (09:00)
[2019-10-01] MEDS: PANTOPRAZOLE SODIUM 40 MG DR TABLET PO SCH (09:00)
[2019-10-01] MEDS: CHOLECALCIFEROL (VIT D3) 1,000 UNITS TABLET PO SCH (09:00)
[2019-10-01] MEDS: SENNA 187 MG TABLET PO SCH (09:00)
[2019-10-01] MEDS: MAGNESIUM OXIDE 400 MG TABLET PO SCH ×2 (09:00→16:39)
[2019-10-01] MEDS: DOCUSATE SODIUM 250 MG CAPSULE PO SCH (09:00)
[2019-10-01] MEDS: PSYLLIUM SEED ORANGE SF 5.8 GM/PACKET PO SCH ×2 (09:01→16:39)
[2019-10-01] MEDS: LACTULOSE 20 GM/30 ML SOLUTION UDCUP PO PRN (11:27)
[2019-10-01 16:13] VITALS: BP 128/77
[2019-10-01] MEDS: QUEtiapine FUMARATE 300 MG TABLET PO SCH (20:35)
[2019-10-01] MEDS: DiphenhydrAMINE HCL 25 MG CAPSULE PO SCH (20:35)
[2019-10-01] MEDS: DIVALPROEX SODIUM 500 MG ER TABLET PO SCH (20:35)
[2019-10-01] MEDS: HALOPERIDOL 5 MG TABLET PO PRN (20:36)
[2019-10-01] MEDS: LORazepam 2 MG TABLET PO PRN (20:36)
[2019-10-02] MEDS: LEVOTHYROXINE SODIUM 150 MCG TABLET PO SCH (07:04)
[2019-10-02 08:00] VITALS: BP 124/78
[2019-10-02] MEDS: ESCITALOPRAM OXALATE 20 MG TABLET PO SCH (08:13)
[2019-10-02] MEDS: CHOLECALCIFEROL (VIT D3) 1,000 UNITS TABLET PO SCH (08:13)
[2019-10-02] MEDS: PANTOPRAZOLE SODIUM 40 MG DR TABLET PO SCH (08:13)
[2019-10-02] MEDS: PSYLLIUM SEED ORANGE SF 5.8 GM/PACKET PO SCH ×2 (08:13→16:56)
[2019-10-02] MEDS: QUEtiapine FUMARATE 200 MG TABLET PO SCH (08:13)
[2019-10-02] MEDS: LamoTRIgine 100 MG TABLET PO SCH (08:14)
[2019-10-02] MEDS: MAGNESIUM OXIDE 400 MG TABLET PO SCH ×2 (08:14→16:55)
[2019-10-02] MEDS: SENNA 187 MG TABLET PO SCH (08:14)
[2019-10-02] MEDS: DOCUSATE SODIUM 250 MG CAPSULE PO SCH (08:14)
[2019-10-02] MEDS: BusPIRone HCL 10 MG TABLET PO SCH ×3 (08:14→16:55)
[2019-10-02] MEDS: LORazepam 2 MG TABLET PO PRN ×2 (12:14→21:38)
[2019-10-02] MEDS: HALOPERIDOL 5 MG TABLET PO PRN ×2 (12:14→21:38)
[2019-10-02 17:52] VITALS: BP 155/95
[2019-10-02] MEDS: DIVALPROEX SODIUM 500 MG ER TABLET PO SCH (20:30)
[2019-10-02] MEDS: QUEtiapine FUMARATE 300 MG TABLET PO SCH (20:31)
[2019-10-02] MEDS: DiphenhydrAMINE HCL 25 MG CAPSULE PO SCH (20:31)
[2019-10-03] MEDS: LEVOTHYROXINE SODIUM 150 MCG TABLET PO SCH (06:42)
[2019-10-03 07:38] LABS: ALANINE AMINOTRANSFERASE 20 U/L (12-78); ALBUMIN 3.4 g/dL (3.4-5.0); ALKALINE PHOSPHATASE 55 U/L (46-116); ANION GAP 4 mmol/L (8-16); ASPARTATE AMINOTRANSFERASE 15 U/L (15-37); BILIRUBIN,TOTAL 0.2 mg/dL (0.1-1.0); CALCIUM, TOTAL 8.9 mg/dL (8.8-10.5); CARBON DIOXIDE 33 mmol/L (22-29); CHLORIDE 103 mmol/L (98-107); CREATININE 1.18 mg/dL (0.60-1.30); GLOMERULAR FILTR. RATE CALC > 60 mL/min (>60); GLUCOSE,RANDOM 96 mg/dL (70-110); POTASSIUM 4.4 mmol/L (3.5-5.1); SODIUM SERUM 140 mmol/L (136-145); TOTAL PROTEIN, SERUM 6.7 g/dL (6.4-8.2); UREA NITROGEN, BLOOD 15 mg/dL (7-18)
[2019-10-03 08:43] VITALS: BP 105/73
[2019-10-03] MEDS: ESCITALOPRAM OXALATE 20 MG TABLET PO SCH (09:00)
[2019-10-03] MEDS: LamoTRIgine 100 MG TABLET PO SCH (09:00)
[2019-10-03] MEDS: SENNA 187 MG TABLET PO SCH (09:00)
[2019-10-03] MEDS: PSYLLIUM SEED ORANGE SF 5.8 GM/PACKET PO SCH ×2 (09:00→16:23)
[2019-10-03] MEDS: LACTULOSE 20 GM/30 ML SOLUTION UDCUP PO PRN (09:05)
[2019-10-03] MEDS: MAGNESIUM OXIDE 400 MG TABLET PO SCH ×2 (09:05→16:23)
[2019-10-03] MEDS: PANTOPRAZOLE SODIUM 40 MG DR TABLET PO SCH (09:05)
[2019-10-03] MEDS: QUEtiapine FUMARATE 200 MG TABLET PO SCH (09:05)
[2019-10-03] MEDS: DOCUSATE SODIUM 250 MG CAPSULE PO SCH (09:05)
[2019-10-03] MEDS: CHOLECALCIFEROL (VIT D3) 1,000 UNITS TABLET PO SCH (09:05)
[2019-10-03] MEDS: BusPIRone HCL 10 MG TABLET PO SCH ×3 (09:05→16:22)
[2019-10-03 16:58] VITALS: BP 122/76
[2019-10-03] MEDS: DiphenhydrAMINE HCL 25 MG CAPSULE PO SCH (20:14)
[2019-10-03] MEDS: QUEtiapine FUMARATE 300 MG TABLET PO SCH (20:14)
[2019-10-03] MEDS: DIVALPROEX SODIUM 500 MG ER TABLET PO SCH (20:14)
[2019-10-03] MEDS: HALOPERIDOL 5 MG TABLET PO PRN (22:04)
[2019-10-03] MEDS: LORazepam 2 MG TABLET PO PRN (22:04)
[2019-10-04] MEDS: LEVOTHYROXINE SODIUM 150 MCG TABLET PO SCH (06:43)
[2019-10-04 08:00] VITALS: BP 109/62
[2019-10-04] MEDS: SENNA 187 MG TABLET PO SCH (08:31)
[2019-10-04] MEDS: PANTOPRAZOLE SODIUM 40 MG DR TABLET PO SCH (08:31)
[2019-10-04] MEDS: MAGNESIUM OXIDE 400 MG TABLET PO SCH ×2 (08:31→16:37)
[2019-10-04] MEDS: LACTULOSE 20 GM/30 ML SOLUTION UDCUP PO PRN (08:31)
[2019-10-04] MEDS: LamoTRIgine 100 MG TABLET PO SCH (08:31)
[2019-10-04] MEDS: CHOLECALCIFEROL (VIT D3) 1,000 UNITS TABLET PO SCH (08:31)
[2019-10-04] MEDS: DOCUSATE SODIUM 250 MG CAPSULE PO SCH (08:32)
[2019-10-04] MEDS: BusPIRone HCL 10 MG TABLET PO SCH ×3 (08:32→16:37)
[2019-10-04] MEDS: ESCITALOPRAM OXALATE 20 MG TABLET PO SCH (08:32)
[2019-10-04] MEDS: PSYLLIUM SEED ORANGE SF 5.8 GM/PACKET PO SCH ×2 (08:32→16:37)
[2019-10-04] MEDS: QUEtiapine FUMARATE 200 MG TABLET PO SCH (08:33)
[2019-10-04 16:50] VITALS: BP 114/85
[2019-10-04] MEDS: DiphenhydrAMINE HCL 25 MG CAPSULE PO SCH (20:06)
[2019-10-04] MEDS: QUEtiapine FUMARATE 300 MG TABLET PO SCH (20:06)
[2019-10-04] MEDS: DIVALPROEX SODIUM 500 MG ER TABLET PO SCH (20:07)
[2019-10-04] MEDS: LORazepam 2 MG TABLET PO PRN (21:28)
[2019-10-04] MEDS: HALOPERIDOL 5 MG TABLET PO PRN (21:28)
[2019-10-05] MEDS: LEVOTHYROXINE SODIUM 150 MCG TABLET PO SCH (06:58)
[2019-10-05 08:00] VITALS: BP 116/65
[2019-10-05] MEDS: BusPIRone HCL 10 MG TABLET PO SCH ×3 (09:14→17:13)
[2019-10-05] MEDS: LACTULOSE 20 GM/30 ML SOLUTION UDCUP PO PRN (09:14)
[2019-10-05] MEDS: LamoTRIgine 100 MG TABLET PO SCH (09:15)
[2019-10-05] MEDS: CHOLECALCIFEROL (VIT D3) 1,000 UNITS TABLET PO SCH (09:15)
[2019-10-05] MEDS: QUEtiapine FUMARATE 200 MG TABLET PO SCH (09:15)
[2019-10-05] MEDS: PANTOPRAZOLE SODIUM 40 MG DR TABLET PO SCH (09:15)
[2019-10-05] MEDS: MAGNESIUM OXIDE 400 MG TABLET PO SCH ×2 (09:15→17:12)
[2019-10-05] MEDS: ESCITALOPRAM OXALATE 20 MG TABLET PO SCH (09:15)
[2019-10-05] MEDS: DOCUSATE SODIUM 250 MG CAPSULE PO SCH (09:15)
[2019-10-05] MEDS: SENNA 187 MG TABLET PO SCH (09:16)
[2019-10-05] MEDS: PSYLLIUM SEED ORANGE SF 5.8 GM/PACKET PO SCH ×2 (09:16→17:12)
[2019-10-05] MEDS: LORazepam 2 MG TABLET PO PRN (09:28)
[2019-10-05] MEDS: HALOPERIDOL 5 MG TABLET PO PRN (09:28)
[2019-10-05 19:01] VITALS: BP 118/70
[2019-10-05] MEDS: DIVALPROEX SODIUM 500 MG ER TABLET PO SCH (20:33)
[2019-10-05] MEDS: DiphenhydrAMINE HCL 25 MG CAPSULE PO SCH (20:33)
[2019-10-05] MEDS: QUEtiapine FUMARATE 300 MG TABLET PO SCH (20:34)
[2019-10-05] MEDS: ZOLPIDEM TARTRATE 10 MG TABLET PO PRN (22:14)
[2019-10-06] MEDS: LEVOTHYROXINE SODIUM 150 MCG TABLET PO SCH (06:47)
[2019-10-06 08:00] VITALS: BP 130/100
[2019-10-06] MEDS: PSYLLIUM SEED ORANGE SF 5.8 GM/PACKET PO SCH ×2 (08:33→17:12)
[2019-10-06] MEDS: MAGNESIUM OXIDE 400 MG TABLET PO SCH ×2 (08:34→17:11)
[2019-10-06] MEDS: CHOLECALCIFEROL (VIT D3) 1,000 UNITS TABLET PO SCH (08:34)
[2019-10-06] MEDS: LACTULOSE 20 GM/30 ML SOLUTION UDCUP PO PRN (08:34)
[2019-10-06] MEDS: LamoTRIgine 100 MG TABLET PO SCH (08:34)
[2019-10-06] MEDS: HALOPERIDOL 5 MG TABLET PO PRN (08:34)
[2019-10-06] MEDS: LORazepam 2 MG TABLET PO PRN (08:34)
[2019-10-06] MEDS: SENNA 187 MG TABLET PO SCH (08:34)
[2019-10-06] MEDS: BusPIRone HCL 10 MG TABLET PO SCH ×3 (08:34→17:11)
[2019-10-06] MEDS: DOCUSATE SODIUM 250 MG CAPSULE PO SCH (08:34)
[2019-10-06] MEDS: ESCITALOPRAM OXALATE 20 MG TABLET PO SCH (08:34)
[2019-10-06] MEDS: QUEtiapine FUMARATE 200 MG TABLET PO SCH (08:34)
[2019-10-06] MEDS: PANTOPRAZOLE SODIUM 40 MG DR TABLET PO SCH (08:35)
[2019-10-06 17:04] VITALS: BP 102/58
[2019-10-06] MEDS: DIVALPROEX SODIUM 500 MG ER TABLET PO SCH (20:18)
[2019-10-06] MEDS: DiphenhydrAMINE HCL 25 MG CAPSULE PO SCH (20:18)
[2019-10-06] MEDS: QUEtiapine FUMARATE 300 MG TABLET PO SCH (20:18)
[2019-10-07] MEDS: LEVOTHYROXINE SODIUM 150 MCG TABLET PO SCH (07:09)
[2019-10-07] MEDS: QUEtiapine FUMARATE 200 MG TABLET PO SCH (08:01)
[2019-10-07] MEDS: PANTOPRAZOLE SODIUM 40 MG DR TABLET PO SCH (08:01)
[2019-10-07] MEDS: MAGNESIUM OXIDE 400 MG TABLET PO SCH ×2 (08:01→16:39)
[2019-10-07] MEDS: LACTULOSE 20 GM/30 ML SOLUTION UDCUP PO PRN (08:01)
[2019-10-07] MEDS: SENNA 187 MG TABLET PO SCH (08:01)
[2019-10-07] MEDS: BusPIRone HCL 10 MG TABLET PO SCH ×3 (08:02→16:39)
[2019-10-07] MEDS: CHOLECALCIFEROL (VIT D3) 1,000 UNITS TABLET PO SCH (08:02)
[2019-10-07] MEDS: LamoTRIgine 100 MG TABLET PO SCH (08:02)
[2019-10-07] MEDS: DOCUSATE SODIUM 250 MG CAPSULE PO SCH (08:02)
[2019-10-07] MEDS: ESCITALOPRAM OXALATE 20 MG TABLET PO SCH (08:02)
[2019-10-07] MEDS: PSYLLIUM SEED ORANGE SF 5.8 GM/PACKET PO SCH ×2 (08:03→16:39)
[2019-10-07 10:00] VITALS: BP 122/82
[2019-10-07] MEDS: QUEtiapine FUMARATE 300 MG TABLET PO SCH (20:29)
[2019-10-07] MEDS: DIVALPROEX SODIUM 500 MG ER TABLET PO SCH (20:29)
[2019-10-07] MEDS: DiphenhydrAMINE HCL 25 MG CAPSULE PO SCH (20:29)
[2019-10-07] MEDS: ZOLPIDEM TARTRATE 10 MG TABLET PO PRN (21:39)
[2019-10-08] MEDS: LORazepam 2 MG TABLET PO PRN ×2 (01:50→13:07)
[2019-10-08] MEDS: LEVOTHYROXINE SODIUM 150 MCG TABLET PO SCH (06:44)
[2019-10-08] MEDS: BusPIRone HCL 10 MG TABLET PO SCH ×3 (08:03→16:36)
[2019-10-08] MEDS: DOCUSATE SODIUM 250 MG CAPSULE PO SCH (08:03)
[2019-10-08] MEDS: CHOLECALCIFEROL (VIT D3) 1,000 UNITS TABLET PO SCH (08:03)
[2019-10-08] MEDS: QUEtiapine FUMARATE 200 MG TABLET PO SCH (08:03)
[2019-10-08] MEDS: PANTOPRAZOLE SODIUM 40 MG DR TABLET PO SCH (08:03)
[2019-10-08] MEDS: MAGNESIUM OXIDE 400 MG TABLET PO SCH ×2 (08:03→16:36)
[2019-10-08] MEDS: ESCITALOPRAM OXALATE 20 MG TABLET PO SCH (08:03)
[2019-10-08] MEDS: SENNA 187 MG TABLET PO SCH (08:03)
[2019-10-08] MEDS: LamoTRIgine 100 MG TABLET PO SCH (08:03)
[2019-10-08] MEDS: PSYLLIUM SEED ORANGE SF 5.8 GM/PACKET PO SCH ×2 (08:04→16:36)
[2019-10-08 08:10] VITALS: BP 109/80
[2019-10-08] MEDS: LACTULOSE 20 GM/30 ML SOLUTION UDCUP PO PRN (11:31)
[2019-10-08] MEDS: HALOPERIDOL 5 MG TABLET PO PRN (13:07)
[2019-10-08 16:58] VITALS: BP 118/78
[2019-10-08] MEDS: DiphenhydrAMINE HCL 25 MG CAPSULE PO SCH (20:30)
[2019-10-08] MEDS: DIVALPROEX SODIUM 500 MG ER TABLET PO SCH (20:31)
[2019-10-08] MEDS: QUEtiapine FUMARATE 300 MG TABLET PO SCH (20:31)
[2019-10-08] MEDS: ZOLPIDEM TARTRATE 10 MG TABLET PO PRN (21:35)
[2019-10-09 02:20] VITALS: BP 118/85
[2019-10-09] MEDS: HALOPERIDOL 5 MG TABLET PO PRN (02:28)
[2019-10-09] MEDS: LORazepam 2 MG TABLET PO PRN (02:28)
[2019-10-09] MEDS: LEVOTHYROXINE SODIUM 150 MCG TABLET PO SCH (06:57)
[2019-10-09] MEDS: PANTOPRAZOLE SODIUM 40 MG DR TABLET PO SCH (08:46)
[2019-10-09] MEDS: CHOLECALCIFEROL (VIT D3) 1,000 UNITS TABLET PO SCH (08:46)
[2019-10-09] MEDS: DOCUSATE SODIUM 250 MG CAPSULE PO SCH (08:47)
[2019-10-09] MEDS: MAGNESIUM OXIDE 400 MG TABLET PO SCH ×2 (08:47→16:29)
[2019-10-09] MEDS: ESCITALOPRAM OXALATE 20 MG TABLET PO SCH (08:48)
[2019-10-09] MEDS: QUEtiapine FUMARATE 200 MG TABLET PO SCH (08:48)
[2019-10-09] MEDS: BusPIRone HCL 10 MG TABLET PO SCH ×3 (08:48→16:29)
[2019-10-09] MEDS: LamoTRIgine 100 MG TABLET PO SCH (08:48)
[2019-10-09] MEDS: SENNA 187 MG TABLET PO SCH (08:49)
[2019-10-09] MEDS: PSYLLIUM SEED ORANGE SF 5.8 GM/PACKET PO SCH ×2 (08:50→16:28)
[2019-10-09 09:20] VITALS: BP 116/79
[2019-10-09] MEDS: LACTULOSE 20 GM/30 ML SOLUTION UDCUP PO PRN (10:17)
[2019-10-09 16:15] VITALS: BP 135/81
[2019-10-09] MEDS: DiphenhydrAMINE HCL 25 MG CAPSULE PO SCH (20:00)
[2019-10-09] MEDS: QUEtiapine FUMARATE 300 MG TABLET PO SCH (20:00)
[2019-10-09] MEDS: DIVALPROEX SODIUM 500 MG ER TABLET PO SCH (20:00)
[2019-10-09] MEDS: ZOLPIDEM TARTRATE 10 MG TABLET PO PRN (21:39)
[2019-10-10] MEDS: HALOPERIDOL 5 MG TABLET PO PRN ×2 (01:50→17:50)
[2019-10-10] MEDS: LEVOTHYROXINE SODIUM 150 MCG TABLET PO SCH (06:34)
[2019-10-10] MEDS: LACTULOSE 20 GM/30 ML SOLUTION UDCUP PO PRN (08:05)
[2019-10-10] MEDS: DOCUSATE SODIUM 250 MG CAPSULE PO SCH (08:06)
[2019-10-10] MEDS: MAGNESIUM OXIDE 400 MG TABLET PO SCH ×2 (08:06→16:08)
[2019-10-10] MEDS: PANTOPRAZOLE SODIUM 40 MG DR TABLET PO SCH (08:06)
[2019-10-10] MEDS: QUEtiapine FUMARATE 200 MG TABLET PO SCH (08:06)
[2019-10-10] MEDS: CHOLECALCIFEROL (VIT D3) 1,000 UNITS TABLET PO SCH (08:07)
[2019-10-10] MEDS: BusPIRone HCL 10 MG TABLET PO SCH ×3 (08:07→16:08)
[2019-10-10] MEDS: ESCITALOPRAM OXALATE 20 MG TABLET PO SCH (08:08)
[2019-10-10] MEDS: LamoTRIgine 100 MG TABLET PO SCH (08:08)
[2019-10-10] MEDS: PSYLLIUM SEED ORANGE SF 5.8 GM/PACKET PO SCH ×2 (08:08→16:08)
[2019-10-10] MEDS: SENNA 187 MG TABLET PO SCH (08:08)
[2019-10-10 08:26] LABS: ALANINE AMINOTRANSFERASE 28 U/L (12-78); ALBUMIN 3.3 g/dL (3.4-5.0); ALKALINE PHOSPHATASE 52 U/L (46-116); ANION GAP 6 mmol/L (8-16); ASPARTATE AMINOTRANSFERASE 14 U/L (15-37); BILIRUBIN,TOTAL 0.3 mg/dL (0.1-1.0); CALCIUM, TOTAL 9.1 mg/dL (8.8-10.5); CARBON DIOXIDE 31 mmol/L (22-29); CHLORIDE 105 mmol/L (98-107); CREATININE 1.07 mg/dL (0.60-1.30); FREE T4 (FREE THYROXINE) 0.68 ng/dL (0.76-1.46); GLOMERULAR FILTR. RATE CALC > 60 mL/min (>60); GLUCOSE,RANDOM 85 mg/dL (70-110); POTASSIUM 4.3 mmol/L (3.5-5.1); SODIUM SERUM 142 mmol/L (136-145); THYROID STIMULATING HORMONE 7.26 uIU/mL (0.36-3.74); UREA NITROGEN, BLOOD 17 mg/dL (7-18)
[2019-10-10 11:05] VITALS: BP 120/73
[2019-10-10 16:30] VITALS: BP 108/71
[2019-10-10] MEDS: LORazepam 2 MG TABLET PO PRN (17:50)
[2019-10-10] MEDS: DiphenhydrAMINE HCL 25 MG CAPSULE PO SCH (20:20)
[2019-10-10] MEDS: QUEtiapine FUMARATE 300 MG TABLET PO SCH (20:20)
[2019-10-10] MEDS: DIVALPROEX SODIUM 500 MG ER TABLET PO SCH (20:20)
[2019-10-10] MEDS: ZOLPIDEM TARTRATE 10 MG TABLET PO PRN (20:22)
[2019-10-11] MEDS: LEVOTHYROXINE SODIUM 50 MCG TABLET PO SCH (06:49)
[2019-10-11 08:00] VITALS: BP 122/81
[2019-10-11] MEDS: PANTOPRAZOLE SODIUM 40 MG DR TABLET PO SCH (08:48)
[2019-10-11] MEDS: BusPIRone HCL 10 MG TABLET PO SCH ×3 (08:48→17:05)
[2019-10-11] MEDS: MAGNESIUM OXIDE 400 MG TABLET PO SCH ×2 (08:48→17:05)
[2019-10-11] MEDS: DOCUSATE SODIUM 250 MG CAPSULE PO SCH (08:48)
[2019-10-11] MEDS: QUEtiapine FUMARATE 200 MG TABLET PO SCH (08:49)
[2019-10-11] MEDS: CHOLECALCIFEROL (VIT D3) 1,000 UNITS TABLET PO SCH (08:49)
[2019-10-11] MEDS: SENNA 187 MG TABLET PO SCH (08:49)
[2019-10-11] MEDS: ESCITALOPRAM OXALATE 20 MG TABLET PO SCH (08:50)
[2019-10-11] MEDS: LamoTRIgine 100 MG TABLET PO SCH (08:50)
[2019-10-11] MEDS: PSYLLIUM SEED ORANGE SF 5.8 GM/PACKET PO SCH ×2 (08:50→17:05)
[2019-10-11] MEDS: LACTULOSE 20 GM/30 ML SOLUTION UDCUP PO PRN (12:11)
[2019-10-11] MEDS: LORazepam 2 MG TABLET PO PRN (12:40)
[2019-10-11] MEDS: HALOPERIDOL 5 MG TABLET PO PRN (12:40)
[2019-10-11 18:15] VITALS: BP 120/87
[2019-10-11] MEDS: QUEtiapine FUMARATE 300 MG TABLET PO SCH (20:32)
[2019-10-11] MEDS: DiphenhydrAMINE HCL 25 MG CAPSULE PO SCH (20:32)
[2019-10-11] MEDS: DIVALPROEX SODIUM 500 MG ER TABLET PO SCH (20:32)
[2019-10-11] MEDS: ZOLPIDEM TARTRATE 10 MG TABLET PO PRN (21:50)
[2019-10-12] MEDS: LEVOTHYROXINE SODIUM 50 MCG TABLET PO SCH (06:49)
[2019-10-12] MEDS: CHOLECALCIFEROL (VIT D3) 1,000 UNITS TABLET PO SCH (08:01)
[2019-10-12] MEDS: DOCUSATE SODIUM 250 MG CAPSULE PO SCH (08:02)
[2019-10-12] MEDS: BusPIRone HCL 10 MG TABLET PO SCH ×3 (08:02→16:43)
[2019-10-12] MEDS: QUEtiapine FUMARATE 200 MG TABLET PO SCH (08:02)
[2019-10-12] MEDS: ESCITALOPRAM OXALATE 20 MG TABLET PO SCH (08:02)
[2019-10-12] MEDS: PANTOPRAZOLE SODIUM 40 MG DR TABLET PO SCH (08:02)
[2019-10-12] MEDS: MAGNESIUM OXIDE 400 MG TABLET PO SCH ×2 (08:02→16:43)
[2019-10-12] MEDS: LamoTRIgine 100 MG TABLET PO SCH (08:03)
[2019-10-12] MEDS: PSYLLIUM SEED ORANGE SF 5.8 GM/PACKET PO SCH ×2 (08:03→16:43)
[2019-10-12] MEDS: SENNA 187 MG TABLET PO SCH (08:03)
[2019-10-12 11:04] VITALS: BP 115/79
[2019-10-12] MEDS: LACTULOSE 20 GM/30 ML SOLUTION UDCUP PO PRN (17:50)
[2019-10-12 18:07] VITALS: BP 127/88
[2019-10-12] MEDS: DiphenhydrAMINE HCL 25 MG CAPSULE PO SCH (20:03)
[2019-10-12] MEDS: QUEtiapine FUMARATE 300 MG TABLET PO SCH (20:03)
[2019-10-12] MEDS: DIVALPROEX SODIUM 500 MG ER TABLET PO SCH (20:03)
[2019-10-12] MEDS: ZOLPIDEM TARTRATE 10 MG TABLET PO PRN (21:02)
[2019-10-12] MEDS: LORazepam 2 MG TABLET PO PRN (22:10)
[2019-10-12] MEDS: HALOPERIDOL 5 MG TABLET PO PRN (22:10)
[2019-10-13] MEDS: LEVOTHYROXINE SODIUM 50 MCG TABLET PO SCH (06:38)
[2019-10-13] MEDS: PANTOPRAZOLE SODIUM 40 MG DR TABLET PO SCH (07:53)
[2019-10-13] MEDS: MAGNESIUM OXIDE 400 MG TABLET PO SCH ×2 (07:53→16:14)
[2019-10-13] MEDS: QUEtiapine FUMARATE 200 MG TABLET PO SCH (07:53)
[2019-10-13] MEDS: PSYLLIUM SEED ORANGE SF 5.8 GM/PACKET PO SCH ×2 (07:54→16:13)
[2019-10-13] MEDS: BusPIRone HCL 10 MG TABLET PO SCH ×3 (07:54→16:14)
[2019-10-13] MEDS: LamoTRIgine 100 MG TABLET PO SCH (07:54)
[2019-10-13] MEDS: LACTULOSE 20 GM/30 ML SOLUTION UDCUP PO PRN (07:54)
[2019-10-13] MEDS: CHOLECALCIFEROL (VIT D3) 1,000 UNITS TABLET PO SCH (07:54)
[2019-10-13] MEDS: SENNA 187 MG TABLET PO SCH (07:54)
[2019-10-13] MEDS: DOCUSATE SODIUM 250 MG CAPSULE PO SCH (07:54)
[2019-10-13] MEDS: ESCITALOPRAM OXALATE 20 MG TABLET PO SCH (07:54)
[2019-10-13 10:10] VITALS: BP 113/68
[2019-10-13 17:29] VITALS: BP 119/75
[2019-10-13] MEDS: QUEtiapine FUMARATE 300 MG TABLET PO SCH (20:15)
[2019-10-13] MEDS: DiphenhydrAMINE HCL 25 MG CAPSULE PO SCH (20:15)
[2019-10-13] MEDS: DIVALPROEX SODIUM 500 MG ER TABLET PO SCH (20:15)
[2019-10-13] MEDS: LORazepam 2 MG TABLET PO PRN (21:38)
[2019-10-13] MEDS: HALOPERIDOL 5 MG TABLET PO PRN (21:38)
[2019-10-14] MEDS: LEVOTHYROXINE SODIUM 50 MCG TABLET PO SCH (07:07)
[2019-10-14] MEDS: CHOLECALCIFEROL (VIT D3) 1,000 UNITS TABLET PO SCH (09:06)
[2019-10-14] MEDS: BusPIRone HCL 10 MG TABLET PO SCH ×3 (09:06→17:10)
[2019-10-14] MEDS: PANTOPRAZOLE SODIUM 40 MG DR TABLET PO SCH (09:06)
[2019-10-14] MEDS: QUEtiapine FUMARATE 200 MG TABLET PO SCH (09:06)
[2019-10-14] MEDS: LamoTRIgine 100 MG TABLET PO SCH (09:06)
[2019-10-14] MEDS: MAGNESIUM OXIDE 400 MG TABLET PO SCH ×2 (09:06→17:10)
[2019-10-14] MEDS: DOCUSATE SODIUM 250 MG CAPSULE PO SCH (09:06)
[2019-10-14] MEDS: PSYLLIUM SEED ORANGE SF 5.8 GM/PACKET PO SCH ×2 (09:08→17:10)
[2019-10-14] MEDS: ESCITALOPRAM OXALATE 20 MG TABLET PO SCH (09:08)
[2019-10-14] MEDS: SENNA 187 MG TABLET PO SCH (09:09)
[2019-10-14 11:36] VITALS: BP 118/67
[2019-10-14] MEDS: LACTULOSE 20 GM/30 ML SOLUTION UDCUP PO PRN (13:18)
[2019-10-14] MEDS: DIVALPROEX SODIUM 500 MG ER TABLET PO SCH (20:07)
[2019-10-14] MEDS: DiphenhydrAMINE HCL 25 MG CAPSULE PO SCH (20:07)
[2019-10-14] MEDS: QUEtiapine FUMARATE 300 MG TABLET PO SCH (20:07)
[2019-10-14] MEDS: ZOLPIDEM TARTRATE 10 MG TABLET PO PRN (21:40)
[2019-10-15] MEDS: LEVOTHYROXINE SODIUM 50 MCG TABLET PO SCH (06:51)
[2019-10-15 08:00] VITALS: BP 114/79
[2019-10-15] MEDS: LamoTRIgine 100 MG TABLET PO SCH (08:20)
[2019-10-15] MEDS: PSYLLIUM SEED ORANGE SF 5.8 GM/PACKET PO SCH ×2 (08:20→17:29)
[2019-10-15] MEDS: BusPIRone HCL 10 MG TABLET PO SCH ×3 (08:20→17:29)
[2019-10-15] MEDS: ESCITALOPRAM OXALATE 20 MG TABLET PO SCH (08:20)
[2019-10-15] MEDS: LACTULOSE 20 GM/30 ML SOLUTION UDCUP PO PRN (08:20)
[2019-10-15] MEDS: CHOLECALCIFEROL (VIT D3) 1,000 UNITS TABLET PO SCH (08:20)
[2019-10-15] MEDS: QUEtiapine FUMARATE 200 MG TABLET PO SCH (08:20)
[2019-10-15] MEDS: PANTOPRAZOLE SODIUM 40 MG DR TABLET PO SCH (08:20)
[2019-10-15] MEDS: MAGNESIUM OXIDE 400 MG TABLET PO SCH ×2 (08:25→17:29)
[2019-10-15] MEDS: SENNA 187 MG TABLET PO SCH (08:25)
[2019-10-15] MEDS: DOCUSATE SODIUM 250 MG CAPSULE PO SCH (08:25)
[2019-10-15] MEDS: HALOPERIDOL 5 MG TABLET PO PRN (10:00)
[2019-10-15] MEDS: LORazepam 2 MG TABLET PO PRN ×2 (10:00→20:57)
[2019-10-15 16:21] VITALS: BP 116/81
[2019-10-15] MEDS: DiphenhydrAMINE HCL 25 MG CAPSULE PO SCH (19:54)
[2019-10-15] MEDS: DIVALPROEX SODIUM 500 MG ER TABLET PO SCH (19:54)
[2019-10-15] MEDS: QUEtiapine FUMARATE 300 MG TABLET PO SCH (19:55)
[2019-10-15] MEDS: ZOLPIDEM TARTRATE 10 MG TABLET PO PRN (19:58)
[2019-10-16] MEDS: LEVOTHYROXINE SODIUM 50 MCG TABLET PO SCH (06:58)
[2019-10-16] MEDS: DOCUSATE SODIUM 250 MG CAPSULE PO SCH (08:22)
[2019-10-16] MEDS: CHOLECALCIFEROL (VIT D3) 1,000 UNITS TABLET PO SCH (08:22)
[2019-10-16] MEDS: MAGNESIUM OXIDE 400 MG TABLET PO SCH ×2 (08:22→16:24)
[2019-10-16] MEDS: PANTOPRAZOLE SODIUM 40 MG DR TABLET PO SCH (08:22)
[2019-10-16] MEDS: SENNA 187 MG TABLET PO SCH (08:23)
[2019-10-16] MEDS: ESCITALOPRAM OXALATE 20 MG TABLET PO SCH (08:23)
[2019-10-16] MEDS: LamoTRIgine 100 MG TABLET PO SCH (08:23)
[2019-10-16] MEDS: PSYLLIUM SEED ORANGE SF 5.8 GM/PACKET PO SCH ×2 (08:24→16:24)
[2019-10-16] MEDS: BusPIRone HCL 10 MG TABLET PO SCH ×3 (08:26→16:24)
[2019-10-16] MEDS: QUEtiapine FUMARATE 200 MG TABLET PO SCH (08:27)
[2019-10-16 09:29] VITALS: BP 109/76
[2019-10-16] MEDS: LORazepam 2 MG TABLET PO PRN (11:00)
[2019-10-16] MEDS: HALOPERIDOL 5 MG TABLET PO PRN (11:00)
[2019-10-16 16:43] VITALS: BP 126/77
[2019-10-16] MEDS: QUEtiapine FUMARATE 300 MG TABLET PO SCH (20:39)
[2019-10-16] MEDS: DiphenhydrAMINE HCL 25 MG CAPSULE PO SCH (20:39)
[2019-10-16] MEDS: DIVALPROEX SODIUM 500 MG ER TABLET PO SCH (20:39)
[2019-10-16] MEDS: ZOLPIDEM TARTRATE 10 MG TABLET PO PRN (21:43)
[2019-10-17] MEDS: LEVOTHYROXINE SODIUM 50 MCG TABLET PO SCH (06:54)
[2019-10-17] MEDS: CHOLECALCIFEROL (VIT D3) 1,000 UNITS TABLET PO SCH (08:04)
[2019-10-17] MEDS: ESCITALOPRAM OXALATE 20 MG TABLET PO SCH (08:05)
[2019-10-17] MEDS: BusPIRone HCL 10 MG TABLET PO SCH ×3 (08:05→16:18)
[2019-10-17] MEDS: DOCUSATE SODIUM 250 MG CAPSULE PO SCH (08:05)
[2019-10-17] MEDS: PANTOPRAZOLE SODIUM 40 MG DR TABLET PO SCH (08:05)
[2019-10-17] MEDS: QUEtiapine FUMARATE 200 MG TABLET PO SCH (08:05)
[2019-10-17] MEDS: MAGNESIUM OXIDE 400 MG TABLET PO SCH ×2 (08:05→16:17)
[2019-10-17] MEDS: SENNA 187 MG TABLET PO SCH (08:05)
[2019-10-17] MEDS: PSYLLIUM SEED ORANGE SF 5.8 GM/PACKET PO SCH ×2 (08:06→16:17)
[2019-10-17] MEDS: LamoTRIgine 100 MG TABLET PO SCH (08:06)
[2019-10-17 08:52] VITALS: BP 121/68
[2019-10-17] MEDS: LACTULOSE 20 GM/30 ML SOLUTION UDCUP PO PRN (08:56)
[2019-10-17] MEDS: LORazepam 2 MG TABLET PO PRN (12:13)
[2019-10-17] MEDS: HALOPERIDOL 5 MG TABLET PO PRN (12:13)
[2019-10-17 16:17] VITALS: BP 118/65
[2019-10-17] MEDS: DIVALPROEX SODIUM 500 MG ER TABLET PO SCH (20:21)
[2019-10-17] MEDS: DiphenhydrAMINE HCL 25 MG CAPSULE PO SCH (20:21)
[2019-10-17] MEDS: QUEtiapine FUMARATE 300 MG TABLET PO SCH (20:22)
[2019-10-17] MEDS: ZOLPIDEM TARTRATE 10 MG TABLET PO PRN (21:14)
[2019-10-18] MEDS: LEVOTHYROXINE SODIUM 50 MCG TABLET PO SCH (06:18)
[2019-10-18] MEDS: PANTOPRAZOLE SODIUM 40 MG DR TABLET PO SCH (08:29)
[2019-10-18] MEDS: MAGNESIUM OXIDE 400 MG TABLET PO SCH ×2 (08:29→16:44)
[2019-10-18] MEDS: SENNA 187 MG TABLET PO SCH (08:29)
[2019-10-18] MEDS: DOCUSATE SODIUM 250 MG CAPSULE PO SCH (08:29)
[2019-10-18] MEDS: ESCITALOPRAM OXALATE 20 MG TABLET PO SCH (08:29)
[2019-10-18] MEDS: QUEtiapine FUMARATE 200 MG TABLET PO SCH (08:30)
[2019-10-18] MEDS: PSYLLIUM SEED ORANGE SF 5.8 GM/PACKET PO SCH ×2 (08:30→16:44)
[2019-10-18] MEDS: LamoTRIgine 100 MG TABLET PO SCH (08:30)
[2019-10-18] MEDS: BusPIRone HCL 10 MG TABLET PO SCH ×3 (08:30→16:44)
[2019-10-18] MEDS: CHOLECALCIFEROL (VIT D3) 1,000 UNITS TABLET PO SCH (08:31)
[2019-10-18] MEDS: LACTULOSE 20 GM/30 ML SOLUTION UDCUP PO PRN (08:38)
[2019-10-18 09:24] LABS: MAGNESIUM 1.6 mg/dL (1.80-2.40)
[2019-10-18] MEDS: LORazepam 2 MG TABLET PO PRN (12:17)
[2019-10-18] MEDS: HALOPERIDOL 5 MG TABLET PO PRN (12:18)
[2019-10-18 13:18] VITALS: BP 111/68
[2019-10-18 16:24] VITALS: BP 103/78
[2019-10-18] MEDS: DiphenhydrAMINE HCL 25 MG CAPSULE PO SCH (20:21)
[2019-10-18] MEDS: DIVALPROEX SODIUM 500 MG ER TABLET PO SCH (20:21)
[2019-10-18] MEDS: QUEtiapine FUMARATE 300 MG TABLET PO SCH (20:21)
[2019-10-19] MEDS: LEVOTHYROXINE SODIUM 50 MCG TABLET PO SCH (06:38)
[2019-10-19 08:38] VITALS: BP 121/83
[2019-10-19] MEDS: CHOLECALCIFEROL (VIT D3) 1,000 UNITS TABLET PO SCH (08:46)
[2019-10-19] MEDS: QUEtiapine FUMARATE 200 MG TABLET PO SCH (08:46)
[2019-10-19] MEDS: LACTULOSE 20 GM/30 ML SOLUTION UDCUP PO PRN (08:46)
[2019-10-19] MEDS: PSYLLIUM SEED ORANGE SF 5.8 GM/PACKET PO SCH ×2 (08:46→16:33)
[2019-10-19] MEDS: ESCITALOPRAM OXALATE 20 MG TABLET PO SCH (08:46)
[2019-10-19] MEDS: LamoTRIgine 100 MG TABLET PO SCH (08:46)
[2019-10-19] MEDS: BusPIRone HCL 10 MG TABLET PO SCH ×3 (08:46→16:34)
[2019-10-19] MEDS: MAGNESIUM OXIDE 400 MG TABLET PO SCH ×2 (08:46→16:34)
[2019-10-19] MEDS: DOCUSATE SODIUM 250 MG CAPSULE PO SCH (08:47)
[2019-10-19] MEDS: PANTOPRAZOLE SODIUM 40 MG DR TABLET PO SCH (08:47)
[2019-10-19] MEDS: LORazepam 2 MG TABLET PO PRN (09:04)
[2019-10-19] MEDS: HALOPERIDOL 5 MG TABLET PO PRN (09:04)
[2019-10-19] MEDS: SENNA 187 MG TABLET PO SCH (09:17)
[2019-10-19 17:03] VITALS: BP 110/74
[2019-10-19] MEDS: DIVALPROEX SODIUM 500 MG ER TABLET PO SCH (21:16)
[2019-10-19] MEDS: QUEtiapine FUMARATE 300 MG TABLET PO SCH (21:16)
[2019-10-19] MEDS: DiphenhydrAMINE HCL 25 MG CAPSULE PO SCH (21:16)
[2019-10-19] MEDS: ZOLPIDEM TARTRATE 10 MG TABLET PO PRN (22:26)
[2019-10-20] MEDS: LEVOTHYROXINE SODIUM 50 MCG TABLET PO SCH (06:39)
[2019-10-20] MEDS: HALOPERIDOL 5 MG TABLET PO PRN (08:35)
[2019-10-20] MEDS: CHOLECALCIFEROL (VIT D3) 1,000 UNITS TABLET PO SCH (08:35)
[2019-10-20] MEDS: LamoTRIgine 100 MG TABLET PO SCH (08:35)
[2019-10-20] MEDS: LORazepam 2 MG TABLET PO PRN (08:35)
[2019-10-20] MEDS: LACTULOSE 20 GM/30 ML SOLUTION UDCUP PO PRN (08:36)
[2019-10-20] MEDS: PANTOPRAZOLE SODIUM 40 MG DR TABLET PO SCH (08:36)
[2019-10-20] MEDS: DOCUSATE SODIUM 250 MG CAPSULE PO SCH (08:36)
[2019-10-20] MEDS: MAGNESIUM OXIDE 400 MG TABLET PO SCH ×2 (08:36→17:16)
[2019-10-20] MEDS: QUEtiapine FUMARATE 200 MG TABLET PO SCH (08:36)
[2019-10-20] MEDS: PSYLLIUM SEED ORANGE SF 5.8 GM/PACKET PO SCH ×2 (08:36→17:16)
[2019-10-20] MEDS: BusPIRone HCL 10 MG TABLET PO SCH ×3 (08:36→17:16)
[2019-10-20] MEDS: ESCITALOPRAM OXALATE 20 MG TABLET PO SCH (09:15)
[2019-10-20 09:34] VITALS: BP 108/76
[2019-10-20] MEDS: SENNA 187 MG TABLET PO SCH (10:17)
[2019-10-20 16:00] VITALS: BP 116/81
[2019-10-20] MEDS: DiphenhydrAMINE HCL 25 MG CAPSULE PO SCH (20:42)
[2019-10-20] MEDS: DIVALPROEX SODIUM 500 MG ER TABLET PO SCH (20:43)
[2019-10-20] MEDS: QUEtiapine FUMARATE 300 MG TABLET PO SCH (20:43)
[2019-10-20] MEDS: ZOLPIDEM TARTRATE 10 MG TABLET PO PRN (21:16)
[2019-10-21] MEDS: HALOPERIDOL 5 MG TABLET PO PRN (00:21)
[2019-10-21] MEDS: LORazepam 2 MG TABLET PO PRN (00:22)
[2019-10-21] MEDS: LEVOTHYROXINE SODIUM 50 MCG TABLET PO SCH (06:36)
[2019-10-21] MEDS: LACTULOSE 20 GM/30 ML SOLUTION UDCUP PO PRN (08:06)
[2019-10-21] MEDS: PSYLLIUM SEED ORANGE SF 5.8 GM/PACKET PO SCH ×2 (08:06→16:15)
[2019-10-21] MEDS: LamoTRIgine 100 MG TABLET PO SCH (08:06)
[2019-10-21] MEDS: CHOLECALCIFEROL (VIT D3) 1,000 UNITS TABLET PO SCH (08:06)
[2019-10-21] MEDS: SENNA 187 MG TABLET PO SCH (08:07)
[2019-10-21] MEDS: ESCITALOPRAM OXALATE 20 MG TABLET PO SCH (08:07)
[2019-10-21] MEDS: BusPIRone HCL 10 MG TABLET PO SCH ×3 (08:07→16:15)
[2019-10-21] MEDS: PANTOPRAZOLE SODIUM 40 MG DR TABLET PO SCH (08:07)
[2019-10-21] MEDS: MAGNESIUM OXIDE 400 MG TABLET PO SCH ×2 (08:07→16:15)
[2019-10-21] MEDS: DOCUSATE SODIUM 250 MG CAPSULE PO SCH (08:07)
[2019-10-21] MEDS: QUEtiapine FUMARATE 200 MG TABLET PO SCH (08:08)
[2019-10-21 08:18] VITALS: BP 115/75
[2019-10-21 16:08] VITALS: BP 114/72
[2019-10-21] MEDS: DiphenhydrAMINE HCL 25 MG CAPSULE PO SCH (20:24)
[2019-10-21] MEDS: QUEtiapine FUMARATE 300 MG TABLET PO SCH (20:24)
[2019-10-21] MEDS: DIVALPROEX SODIUM 500 MG ER TABLET PO SCH (20:24)
[2019-10-21] MEDS: ZOLPIDEM TARTRATE 10 MG TABLET PO PRN (21:09)
[2019-10-22] MEDS: LORazepam 2 MG TABLET PO PRN ×2 (01:26→08:39)
[2019-10-22] MEDS: LEVOTHYROXINE SODIUM 50 MCG TABLET PO SCH (06:37)
[2019-10-22] MEDS: PANTOPRAZOLE SODIUM 40 MG DR TABLET PO SCH (08:03)
[2019-10-22] MEDS: QUEtiapine FUMARATE 200 MG TABLET PO SCH (08:03)
[2019-10-22] MEDS: CHOLECALCIFEROL (VIT D3) 1,000 UNITS TABLET PO SCH (08:03)
[2019-10-22] MEDS: BusPIRone HCL 10 MG TABLET PO SCH ×3 (08:03→16:16)
[2019-10-22] MEDS: DOCUSATE SODIUM 250 MG CAPSULE PO SCH (08:03)
[2019-10-22] MEDS: MAGNESIUM OXIDE 400 MG TABLET PO SCH ×2 (08:03→16:16)
[2019-10-22] MEDS: LamoTRIgine 100 MG TABLET PO SCH (08:04)
[2019-10-22] MEDS: PSYLLIUM SEED ORANGE SF 5.8 GM/PACKET PO SCH ×2 (08:04→16:17)
[2019-10-22] MEDS: ESCITALOPRAM OXALATE 20 MG TABLET PO SCH (08:04)
[2019-10-22] MEDS: SENNA 187 MG TABLET PO SCH (08:04)
[2019-10-22] MEDS: HALOPERIDOL 5 MG TABLET PO PRN (08:39)
[2019-10-22 13:14] VITALS: BP 118/78
[2019-10-22 19:15] VITALS: BP 109/61
[2019-10-22] MEDS: DIVALPROEX SODIUM 500 MG ER TABLET PO SCH (20:26)
[2019-10-22] MEDS: QUEtiapine FUMARATE 300 MG TABLET PO SCH (20:26)
[2019-10-22] MEDS: DiphenhydrAMINE HCL 25 MG CAPSULE PO SCH (20:26)
[2019-10-22] MEDS: ZOLPIDEM TARTRATE 10 MG TABLET PO PRN (21:34)
[2019-10-23] MEDS: LORazepam 2 MG TABLET PO PRN (03:54)
[2019-10-23] MEDS: HALOPERIDOL 5 MG TABLET PO PRN ×2 (03:54→08:55)
[2019-10-23] MEDS: LEVOTHYROXINE SODIUM 50 MCG TABLET PO SCH (06:34)
[2019-10-23 08:43] LABS: BASOPHILS % (AUTO) 0.5 % (0.0-2.0); EOSINOPHILS % (AUTO) 1.9 % (1.0-6.0); HEMATOCRIT 44.7 % (41-53); HEMOGLOBIN 15.7 g/dL (13.5-17.5); LYMPHOCYTES # (AUTO) 0.8 K/uL (1.0-4.8); LYMPHOCYTES % (AUTO) 8.4 % (22.0-44.0); MEAN CORPUSCULAR HEMOGLOBIN 33.3 pg (26.0-34.0); MEAN CORPUSCULAR VOLUME 95 fL (80-100); MONOCYTES # (AUTO) 1.1 K/uL (0.1-1.0); MONOCYTES % (AUTO) 12.3 % (2.0-9.0); NEUTROPHILS # (AUTO) 7.1 K/uL (1.8-7.7); NEUTROPHILS % (AUTO) 76.9 % (40.0-70.0); PLATELET COUNT (AUTO) 170 K/uL (150-450); RED CELL DISTRIBUTION WIDTH 13.8 % (11.5-14.5)
[2019-10-23] MEDS: PANTOPRAZOLE SODIUM 40 MG DR TABLET PO SCH (08:53)
[2019-10-23] MEDS: BusPIRone HCL 10 MG TABLET PO SCH ×3 (08:53→16:34)
[2019-10-23] MEDS: MAGNESIUM OXIDE 400 MG TABLET PO SCH ×2 (08:53→16:34)
[2019-10-23] MEDS: CHOLECALCIFEROL (VIT D3) 1,000 UNITS TABLET PO SCH (08:53)
[2019-10-23] MEDS: PSYLLIUM SEED ORANGE SF 5.8 GM/PACKET PO SCH ×2 (08:53→16:34)
[2019-10-23] MEDS: DOCUSATE SODIUM 250 MG CAPSULE PO SCH (08:53)
[2019-10-23] MEDS: QUEtiapine FUMARATE 200 MG TABLET PO SCH (08:53)
[2019-10-23] MEDS: LamoTRIgine 100 MG TABLET PO SCH (08:54)
[2019-10-23] MEDS: ESCITALOPRAM OXALATE 20 MG TABLET PO SCH (08:54)
[2019-10-23] MEDS: SENNA 187 MG TABLET PO SCH (08:54)
[2019-10-23 08:55] VITALS: BP 119/74
[2019-10-23 08:56] LABS: ALANINE AMINOTRANSFERASE 21 U/L (12-78); ALBUMIN 3.1 g/dL (3.4-5.0); ALKALINE PHOSPHATASE 49 U/L (46-116); ANION GAP 5 mmol/L (8-16); ASPARTATE AMINOTRANSFERASE 15 U/L (15-37); BILIRUBIN,TOTAL 0.3 mg/dL (0.1-1.0); CALCIUM, TOTAL 8.4 mg/dL (8.8-10.5); CARBON DIOXIDE 29 mmol/L (22-29); CHLORIDE 104 mmol/L (98-107); CREATINE KINASE, TOTAL ONLY 50 U/L (39-308); CREATININE 1.17 mg/dL (0.60-1.30); GLOMERULAR FILTR. RATE CALC > 60 mL/min (>60); GLUCOSE,RANDOM 116 mg/dL (70-110); POTASSIUM 4.5 mmol/L (3.5-5.1); SODIUM SERUM 138 mmol/L (136-145); TOTAL PROTEIN, SERUM 6.5 g/dL (6.4-8.2); UREA NITROGEN, BLOOD 15 mg/dL (7-18)
[2019-10-23] MEDS ORDERED: LORazepam 2 MG/ML VIAL ONE (10:32)
[2019-10-23] MEDS ORDERED: DiphenhydrAMINE HCL 50 MG/ML VIAL ONE (10:32)
[2019-10-23] MEDS ORDERED: HALOPERIDOL LACTATE 5 MG/ML VIAL ONE (10:32)
[2019-10-23] MEDS ORDERED: DiphenhydrAMINE HCL 50 MG/ML VIAL IM ONE (10:35)
[2019-10-23] MEDS ORDERED: LORazepam 2 MG/ML VIAL IM ONE (10:35)
[2019-10-23] MEDS ORDERED: HALOPERIDOL LACTATE 5 MG/ML VIAL IM ONE (10:35)
[2019-10-23] MEDS: QUEtiapine FUMARATE 300 MG TABLET PO SCH (20:35)
[2019-10-23] MEDS: DIVALPROEX SODIUM 500 MG ER TABLET PO SCH (20:35)
[2019-10-23] MEDS: DiphenhydrAMINE HCL 25 MG CAPSULE PO SCH (20:35)
[2019-10-23] MEDS: ZOLPIDEM TARTRATE 10 MG TABLET PO PRN (21:08)
[2019-10-24] MEDS: LEVOTHYROXINE SODIUM 50 MCG TABLET PO SCH (06:53)
[2019-10-24] MEDS: LACTULOSE 20 GM/30 ML SOLUTION UDCUP PO PRN (07:43)
[2019-10-24] MEDS: CHOLECALCIFEROL (VIT D3) 1,000 UNITS TABLET PO SCH (07:43)
[2019-10-24] MEDS: ESCITALOPRAM OXALATE 20 MG TABLET PO SCH (07:43)
[2019-10-24] MEDS: PANTOPRAZOLE SODIUM 40 MG DR TABLET PO SCH (07:43)
[2019-10-24] MEDS: LamoTRIgine 100 MG TABLET PO SCH (07:43)
[2019-10-24] MEDS: SENNA 187 MG TABLET PO SCH (07:44)
[2019-10-24] MEDS: MAGNESIUM OXIDE 400 MG TABLET PO SCH ×3 (07:44→16:03)
[2019-10-24] MEDS: QUEtiapine FUMARATE 200 MG TABLET PO SCH (07:44)
[2019-10-24] MEDS: BusPIRone HCL 10 MG TABLET PO SCH ×3 (07:44→16:03)
[2019-10-24] MEDS: PSYLLIUM SEED ORANGE SF 5.8 GM/PACKET PO SCH ×2 (07:45→16:03)
[2019-10-24] MEDS: DOCUSATE SODIUM 250 MG CAPSULE PO SCH (07:45)
[2019-10-24 10:12] VITALS: BP 127/87
[2019-10-24 16:19] VITALS: BP 118/77
[2019-10-24] MEDS: DiphenhydrAMINE HCL 25 MG CAPSULE PO SCH (20:01)
[2019-10-24] MEDS: DIVALPROEX SODIUM 500 MG ER TABLET PO SCH (20:02)
[2019-10-24] MEDS: QUEtiapine FUMARATE 300 MG TABLET PO SCH (20:02)
[2019-10-24] MEDS: ZOLPIDEM TARTRATE 10 MG TABLET PO PRN (21:15)
[2019-10-25] MEDS: LORazepam 2 MG TABLET PO PRN (04:11)
[2019-10-25] MEDS: LEVOTHYROXINE SODIUM 50 MCG TABLET PO SCH (06:49)
[2019-10-25 08:33] VITALS: BP 141/77
[2019-10-25] MEDS: CHOLECALCIFEROL (VIT D3) 1,000 UNITS TABLET PO SCH (08:44)
[2019-10-25] MEDS: PANTOPRAZOLE SODIUM 40 MG DR TABLET PO SCH (08:44)
[2019-10-25] MEDS: ESCITALOPRAM OXALATE 20 MG TABLET PO SCH (08:44)
[2019-10-25] MEDS: MAGNESIUM OXIDE 400 MG TABLET PO SCH ×3 (08:45→17:45)
[2019-10-25] MEDS: BusPIRone HCL 10 MG TABLET PO SCH ×3 (08:45→17:45)
[2019-10-25] MEDS: SENNA 187 MG TABLET PO SCH (08:45)
[2019-10-25] MEDS: QUEtiapine FUMARATE 200 MG TABLET PO SCH (08:45)
[2019-10-25] MEDS: LamoTRIgine 100 MG TABLET PO SCH (08:45)
[2019-10-25] MEDS: PSYLLIUM SEED ORANGE SF 5.8 GM/PACKET PO SCH ×2 (08:45→17:45)
[2019-10-25] MEDS: LACTULOSE 20 GM/30 ML SOLUTION UDCUP PO PRN (08:46)
[2019-10-25] MEDS: DOCUSATE SODIUM 250 MG CAPSULE PO SCH (08:46)
[2019-10-25 16:07] VITALS: BP 121/65
[2019-10-25] MEDS: DiphenhydrAMINE HCL 25 MG CAPSULE PO SCH (20:39)
[2019-10-25] MEDS: DIVALPROEX SODIUM 500 MG ER TABLET PO SCH (20:39)
[2019-10-25] MEDS: QUEtiapine FUMARATE 300 MG TABLET PO SCH (20:39)
[2019-10-25] MEDS: ZOLPIDEM TARTRATE 10 MG TABLET PO PRN (21:20)
[2019-10-26] MEDS: HALOPERIDOL 5 MG TABLET PO PRN (03:07)
[2019-10-26] MEDS: LEVOTHYROXINE SODIUM 50 MCG TABLET PO SCH (07:01)
[2019-10-26 08:14] VITALS: BP 108/75
[2019-10-26] MEDS: PANTOPRAZOLE SODIUM 40 MG DR TABLET PO SCH (08:28)
[2019-10-26] MEDS: QUEtiapine FUMARATE 200 MG TABLET PO SCH (08:29)
[2019-10-26] MEDS: ESCITALOPRAM OXALATE 20 MG TABLET PO SCH (08:29)
[2019-10-26] MEDS: MAGNESIUM OXIDE 400 MG TABLET PO SCH ×3 (08:29→16:49)
[2019-10-26] MEDS: CHOLECALCIFEROL (VIT D3) 1,000 UNITS TABLET PO SCH (08:29)
[2019-10-26] MEDS: BusPIRone HCL 10 MG TABLET PO SCH ×3 (08:29→16:50)
[2019-10-26] MEDS: DOCUSATE SODIUM 250 MG CAPSULE PO SCH (08:29)
[2019-10-26] MEDS: LamoTRIgine 100 MG TABLET PO SCH (08:30)
[2019-10-26] MEDS: SENNA 187 MG TABLET PO SCH (08:30)
[2019-10-26] MEDS: PSYLLIUM SEED ORANGE SF 5.8 GM/PACKET PO SCH ×2 (08:30→16:49)
[2019-10-26 16:14] VITALS: BP 128/83
[2019-10-26] MEDS: DiphenhydrAMINE HCL 25 MG CAPSULE PO SCH (20:18)
[2019-10-26] MEDS: DIVALPROEX SODIUM 500 MG ER TABLET PO SCH (20:18)
[2019-10-26] MEDS: QUEtiapine FUMARATE 300 MG TABLET PO SCH (20:18)
[2019-10-26] MEDS: ZOLPIDEM TARTRATE 10 MG TABLET PO PRN (21:36)
[2019-10-27] MEDS: LORazepam 2 MG TABLET PO PRN (01:48)
[2019-10-27] MEDS: HALOPERIDOL 5 MG TABLET PO PRN (01:48)
[2019-10-27 01:58] VITALS: BP 124/79
[2019-10-27] MEDS: LEVOTHYROXINE SODIUM 50 MCG TABLET PO SCH (06:33)
[2019-10-27] MEDS: SENNA 187 MG TABLET PO SCH (07:47)
[2019-10-27] MEDS: LamoTRIgine 100 MG TABLET PO SCH (07:47)
[2019-10-27] MEDS: ESCITALOPRAM OXALATE 20 MG TABLET PO SCH (07:47)
[2019-10-27] MEDS: PSYLLIUM SEED ORANGE SF 5.8 GM/PACKET PO SCH ×2 (07:47→17:40)
[2019-10-27] MEDS: CHOLECALCIFEROL (VIT D3) 1,000 UNITS TABLET PO SCH (08:05)
[2019-10-27] MEDS: BusPIRone HCL 10 MG TABLET PO SCH ×3 (08:05→17:40)
[2019-10-27] MEDS: MAGNESIUM OXIDE 400 MG TABLET PO SCH ×3 (08:05→17:40)
[2019-10-27] MEDS: LACTULOSE 20 GM/30 ML SOLUTION UDCUP PO PRN (08:05)
[2019-10-27] MEDS: DOCUSATE SODIUM 250 MG CAPSULE PO SCH (08:05)
[2019-10-27] MEDS: QUEtiapine FUMARATE 200 MG TABLET PO SCH (08:05)
[2019-10-27] MEDS: PANTOPRAZOLE SODIUM 40 MG DR TABLET PO SCH (08:05)
[2019-10-27 10:20] VITALS: BP 127/71
[2019-10-27 16:21] VITALS: BP 122/90
[2019-10-27] MEDS: DIVALPROEX SODIUM 500 MG ER TABLET PO SCH (20:30)
[2019-10-27] MEDS: QUEtiapine FUMARATE 300 MG TABLET PO SCH (20:31)
[2019-10-27] MEDS: DiphenhydrAMINE HCL 25 MG CAPSULE PO SCH (20:31)
[2019-10-27] MEDS: ZOLPIDEM TARTRATE 10 MG TABLET PO PRN (21:19)
[2019-10-28] MEDS: HALOPERIDOL 5 MG TABLET PO PRN (00:41)
[2019-10-28] MEDS: LORazepam 2 MG TABLET PO PRN (00:41)
[2019-10-28 00:45] VITALS: BP 126/80
[2019-10-28] MEDS: LEVOTHYROXINE SODIUM 50 MCG TABLET PO SCH (06:31)
[2019-10-28 08:37] VITALS: BP 104/66
[2019-10-28] MEDS: MAGNESIUM OXIDE 400 MG TABLET PO SCH ×3 (08:37→16:51)
[2019-10-28] MEDS: PSYLLIUM SEED ORANGE SF 5.8 GM/PACKET PO SCH ×2 (08:37→16:53)
[2019-10-28] MEDS: BusPIRone HCL 10 MG TABLET PO SCH ×3 (08:37→16:51)
[2019-10-28] MEDS: ESCITALOPRAM OXALATE 20 MG TABLET PO SCH (08:37)
[2019-10-28] MEDS: QUEtiapine FUMARATE 200 MG TABLET PO SCH (08:37)
[2019-10-28] MEDS: LamoTRIgine 100 MG TABLET PO SCH (08:37)
[2019-10-28] MEDS: PANTOPRAZOLE SODIUM 40 MG DR TABLET PO SCH (08:37)
[2019-10-28] MEDS: SENNA 187 MG TABLET PO SCH (08:37)
[2019-10-28] MEDS: CHOLECALCIFEROL (VIT D3) 1,000 UNITS TABLET PO SCH (08:37)
[2019-10-28] MEDS: DOCUSATE SODIUM 250 MG CAPSULE PO SCH (08:38)
[2019-10-28] MEDS: LACTULOSE 20 GM/30 ML SOLUTION UDCUP PO PRN (08:45)
[2019-10-28 16:46] VITALS: BP 125/77
[2019-10-28] MEDS: DiphenhydrAMINE HCL 25 MG CAPSULE PO SCH (20:03)
[2019-10-28] MEDS: QUEtiapine FUMARATE 300 MG TABLET PO SCH (20:03)
[2019-10-28] MEDS: DIVALPROEX SODIUM 500 MG ER TABLET PO SCH (20:03)
[2019-10-28] MEDS: ZOLPIDEM TARTRATE 10 MG TABLET PO PRN (22:54)
[2019-10-29] MEDS: LORazepam 2 MG TABLET PO PRN (04:19)
[2019-10-29] MEDS: HALOPERIDOL 5 MG TABLET PO PRN (04:20)
[2019-10-29] MEDS: LEVOTHYROXINE SODIUM 50 MCG TABLET PO SCH (06:36)
[2019-10-29] MEDS: BENZONATATE 100 MG CAPSULE PO PRN (06:37)
[2019-10-29] MEDS: MAGNESIUM OXIDE 400 MG TABLET PO SCH ×3 (08:27→16:45)
[2019-10-29] MEDS: ESCITALOPRAM OXALATE 20 MG TABLET PO SCH (08:28)
[2019-10-29] MEDS: LamoTRIgine 100 MG TABLET PO SCH (08:28)
[2019-10-29] MEDS: DOCUSATE SODIUM 250 MG CAPSULE PO SCH (08:28)
[2019-10-29] MEDS: PSYLLIUM SEED ORANGE SF 5.8 GM/PACKET PO SCH ×2 (08:28→16:36)
[2019-10-29] MEDS: SENNA 187 MG TABLET PO SCH (08:28)
[2019-10-29] MEDS: BusPIRone HCL 10 MG TABLET PO SCH ×3 (08:28→16:36)
[2019-10-29] MEDS: CHOLECALCIFEROL (VIT D3) 1,000 UNITS TABLET PO SCH (08:28)
[2019-10-29] MEDS: PANTOPRAZOLE SODIUM 40 MG DR TABLET PO SCH (08:28)
[2019-10-29] MEDS: QUEtiapine FUMARATE 200 MG TABLET PO SCH (08:29)
[2019-10-29] MEDS: LACTULOSE 20 GM/30 ML SOLUTION UDCUP PO PRN (08:35)
[2019-10-29 12:50] VITALS: BP 132/71
[2019-10-29 16:10] VITALS: BP 105/63
[2019-10-29] MEDS: DIVALPROEX SODIUM 500 MG ER TABLET PO SCH (20:03)
[2019-10-29] MEDS: QUEtiapine FUMARATE 300 MG TABLET PO SCH (20:03)
[2019-10-29] MEDS: DiphenhydrAMINE HCL 25 MG CAPSULE PO SCH (20:03)
[2019-10-29] MEDS: ZOLPIDEM TARTRATE 10 MG TABLET PO PRN (20:56)
[2019-10-30] MEDS: LORazepam 2 MG TABLET PO PRN (02:48)
[2019-10-30] MEDS: HALOPERIDOL 5 MG TABLET PO PRN (02:48)
[2019-10-30] MEDS: LEVOTHYROXINE SODIUM 50 MCG TABLET PO SCH (06:19)
[2019-10-30] MEDS: CHOLECALCIFEROL (VIT D3) 1,000 UNITS TABLET PO SCH (08:00)
[2019-10-30] MEDS: MAGNESIUM OXIDE 400 MG TABLET PO SCH ×3 (08:00→16:32)
[2019-10-30] MEDS: PSYLLIUM SEED ORANGE SF 5.8 GM/PACKET PO SCH ×2 (08:00→16:32)
[2019-10-30] MEDS: LamoTRIgine 100 MG TABLET PO SCH (08:01)
[2019-10-30] MEDS: ESCITALOPRAM OXALATE 20 MG TABLET PO SCH (08:01)
[2019-10-30] MEDS: SENNA 187 MG TABLET PO SCH (08:01)
[2019-10-30] MEDS: BusPIRone HCL 10 MG TABLET PO SCH ×3 (08:01→16:33)
[2019-10-30] MEDS: DOCUSATE SODIUM 250 MG CAPSULE PO SCH (08:01)
[2019-10-30] MEDS: PANTOPRAZOLE SODIUM 40 MG DR TABLET PO SCH (08:02)
[2019-10-30] MEDS: QUEtiapine FUMARATE 200 MG TABLET PO SCH (08:02)
[2019-10-30 10:03] VITALS: BP 120/65
[2019-10-30 16:59] VITALS: BP 122/87
[2019-10-30] MEDS: QUEtiapine FUMARATE 300 MG TABLET PO SCH (20:20)
[2019-10-30] MEDS: DiphenhydrAMINE HCL 25 MG CAPSULE PO SCH (20:20)
[2019-10-30] MEDS: DIVALPROEX SODIUM 500 MG ER TABLET PO SCH (20:20)
[2019-10-30] MEDS: ZOLPIDEM TARTRATE 10 MG TABLET PO PRN (21:20)
[2019-10-31 01:36] VITALS: BP 128/67
[2019-10-31] MEDS: LORazepam 2 MG TABLET PO PRN (01:36)
[2019-10-31] MEDS: HALOPERIDOL 5 MG TABLET PO PRN (01:36)
[2019-10-31] MEDS: LEVOTHYROXINE SODIUM 50 MCG TABLET PO SCH (07:06)
[2019-10-31] MEDS: SENNA 187 MG TABLET PO SCH (07:37)
[2019-10-31] MEDS: MAGNESIUM OXIDE 400 MG TABLET PO SCH ×3 (07:37→16:01)
[2019-10-31] MEDS: LamoTRIgine 100 MG TABLET PO SCH (07:37)
[2019-10-31] MEDS: LACTULOSE 20 GM/30 ML SOLUTION UDCUP PO PRN (07:37)
[2019-10-31] MEDS: QUEtiapine FUMARATE 200 MG TABLET PO SCH (07:38)
[2019-10-31] MEDS: CHOLECALCIFEROL (VIT D3) 1,000 UNITS TABLET PO SCH (07:38)
[2019-10-31] MEDS: PANTOPRAZOLE SODIUM 40 MG DR TABLET PO SCH (07:38)
[2019-10-31] MEDS: BusPIRone HCL 10 MG TABLET PO SCH ×3 (07:38→16:01)
[2019-10-31] MEDS: ESCITALOPRAM OXALATE 20 MG TABLET PO SCH (07:39)
[2019-10-31] MEDS: DOCUSATE SODIUM 250 MG CAPSULE PO SCH (07:40)
[2019-10-31] MEDS: PSYLLIUM SEED ORANGE SF 5.8 GM/PACKET PO SCH ×2 (07:40→16:01)
[2019-10-31 07:56] LABS: FREE T4 (FREE THYROXINE) 0.85 ng/dL (0.76-1.46); MAGNESIUM 1.6 mg/dL (1.80-2.40); THYROID STIMULATING HORMONE 2.06 uIU/mL (0.36-3.74)
[2019-10-31 08:42] VITALS: BP 117/84
[2019-10-31 16:48] VITALS: BP 122/81
[2019-10-31] MEDS: DiphenhydrAMINE HCL 25 MG CAPSULE PO SCH (20:10)
[2019-10-31] MEDS: QUEtiapine FUMARATE 300 MG TABLET PO SCH (20:10)
[2019-10-31] MEDS: DIVALPROEX SODIUM 500 MG ER TABLET PO SCH (20:10)
[2019-10-31] MEDS: ZOLPIDEM TARTRATE 10 MG TABLET PO PRN (21:04)
[2019-11-01] MEDS: LORazepam 2 MG TABLET PO PRN (01:26)
[2019-11-01] MEDS: HALOPERIDOL 5 MG TABLET PO PRN (01:26)
[2019-11-01] MEDS: LEVOTHYROXINE SODIUM 50 MCG TABLET PO SCH (07:01)
[2019-11-01 08:15] VITALS: BP 113/77
[2019-11-01] MEDS: SENNA 187 MG TABLET PO SCH (09:11)
[2019-11-01] MEDS: LamoTRIgine 100 MG TABLET PO SCH (09:11)
[2019-11-01] MEDS: BusPIRone HCL 10 MG TABLET PO SCH ×3 (09:11→16:26)
[2019-11-01] MEDS: ESCITALOPRAM OXALATE 20 MG TABLET PO SCH (09:11)
[2019-11-01] MEDS: QUEtiapine FUMARATE 200 MG TABLET PO SCH (09:11)
[2019-11-01] MEDS: CHOLECALCIFEROL (VIT D3) 1,000 UNITS TABLET PO SCH (09:11)
[2019-11-01] MEDS: PANTOPRAZOLE SODIUM 40 MG DR TABLET PO SCH (09:11)
[2019-11-01] MEDS: MAGNESIUM OXIDE 400 MG TABLET PO SCH ×3 (09:12→16:26)
[2019-11-01] MEDS: PSYLLIUM SEED ORANGE SF 5.8 GM/PACKET PO SCH ×2 (09:12→16:26)
[2019-11-01] MEDS: LACTULOSE 20 GM/30 ML SOLUTION UDCUP PO PRN (09:13)
[2019-11-01] MEDS: DOCUSATE SODIUM 250 MG CAPSULE PO SCH (09:13)
[2019-11-01 16:58] VITALS: BP 136/64
[2019-11-01] MEDS: DIVALPROEX SODIUM 500 MG ER TABLET PO SCH (20:16)
[2019-11-01] MEDS: QUEtiapine FUMARATE 300 MG TABLET PO SCH (20:17)
[2019-11-01] MEDS: DiphenhydrAMINE HCL 50 MG CAPSULE PO SCH (20:17)
[2019-11-01] MEDS: ZOLPIDEM TARTRATE 10 MG TABLET PO PRN (21:04)
[2019-11-02] MEDS: LEVOTHYROXINE SODIUM 50 MCG TABLET PO SCH (07:07)
[2019-11-02] MEDS: BusPIRone HCL 10 MG TABLET PO SCH ×3 (08:18→16:56)
[2019-11-02] MEDS: DOCUSATE SODIUM 250 MG CAPSULE PO SCH (08:19)
[2019-11-02] MEDS: PANTOPRAZOLE SODIUM 40 MG DR TABLET PO SCH (08:19)
[2019-11-02] MEDS: CHOLECALCIFEROL (VIT D3) 1,000 UNITS TABLET PO SCH (08:19)
[2019-11-02] MEDS: DiphenhydrAMINE HCL 50 MG CAPSULE PO SCH ×2 (08:19→20:12)
[2019-11-02] MEDS: MAGNESIUM OXIDE 400 MG TABLET PO SCH ×3 (08:19→16:56)
[2019-11-02] MEDS: LamoTRIgine 100 MG TABLET PO SCH (08:20)
[2019-11-02] MEDS: QUEtiapine FUMARATE 200 MG TABLET PO SCH (08:20)
[2019-11-02] MEDS: SENNA 187 MG TABLET PO SCH (08:20)
[2019-11-02] MEDS: PSYLLIUM SEED ORANGE SF 5.8 GM/PACKET PO SCH ×2 (08:21→16:56)
[2019-11-02] MEDS: ESCITALOPRAM OXALATE 20 MG TABLET PO SCH (08:21)
[2019-11-02 08:47] VITALS: BP 121/75
[2019-11-02] MEDS: LACTULOSE 20 GM/30 ML SOLUTION UDCUP PO PRN (08:53)
[2019-11-02 18:52] VITALS: BP 132/73
[2019-11-02] MEDS: QUEtiapine FUMARATE 300 MG TABLET PO SCH (20:12)
[2019-11-02] MEDS: DIVALPROEX SODIUM 500 MG ER TABLET PO SCH (20:12)
[2019-11-02] MEDS: ZOLPIDEM TARTRATE 10 MG TABLET PO PRN (21:32)
[2019-11-03] MEDS: LEVOTHYROXINE SODIUM 50 MCG TABLET PO SCH (06:05)
[2019-11-03] MEDS: LACTULOSE 20 GM/30 ML SOLUTION UDCUP PO PRN (08:01)
[2019-11-03] MEDS: DOCUSATE SODIUM 250 MG CAPSULE PO SCH (08:01)
[2019-11-03] MEDS: CHOLECALCIFEROL (VIT D3) 1,000 UNITS TABLET PO SCH (08:01)
[2019-11-03] MEDS: QUEtiapine FUMARATE 200 MG TABLET PO SCH (08:01)
[2019-11-03] MEDS: PANTOPRAZOLE SODIUM 40 MG DR TABLET PO SCH (08:01)
[2019-11-03] MEDS: SENNA 187 MG TABLET PO SCH (08:02)
[2019-11-03] MEDS: BusPIRone HCL 10 MG TABLET PO SCH ×3 (08:02→16:37)
[2019-11-03] MEDS: MAGNESIUM OXIDE 400 MG TABLET PO SCH ×3 (08:02→16:37)
[2019-11-03] MEDS: PSYLLIUM SEED ORANGE SF 5.8 GM/PACKET PO SCH ×2 (08:03→16:37)
[2019-11-03] MEDS: DiphenhydrAMINE HCL 50 MG CAPSULE PO SCH ×2 (08:03→20:05)
[2019-11-03] MEDS: LamoTRIgine 100 MG TABLET PO SCH (08:03)
[2019-11-03] MEDS: ESCITALOPRAM OXALATE 20 MG TABLET PO SCH (08:03)
[2019-11-03] MEDS: HALOPERIDOL 5 MG TABLET PO PRN ×2 (08:55→21:51)
[2019-11-03] MEDS: LORazepam 2 MG TABLET PO PRN ×2 (08:55→21:51)
[2019-11-03 09:38] VITALS: BP 132/84
[2019-11-03 16:57] VITALS: BP 133/71
[2019-11-03] MEDS: DIVALPROEX SODIUM 500 MG ER TABLET PO SCH (20:05)
[2019-11-03] MEDS: QUEtiapine FUMARATE 300 MG TABLET PO SCH (20:05)
[2019-11-03] MEDS ORDERED: LORazepam 2 MG TABLET PO PRN (23:15)
[2019-11-04] MEDS: LEVOTHYROXINE SODIUM 50 MCG TABLET PO SCH (07:00)
[2019-11-04] MEDS: SENNA 187 MG TABLET PO SCH (08:23)
[2019-11-04] MEDS: ESCITALOPRAM OXALATE 20 MG TABLET PO SCH (08:30)
[2019-11-04] MEDS: CHOLECALCIFEROL (VIT D3) 1,000 UNITS TABLET PO SCH (08:30)
[2019-11-04] MEDS: DiphenhydrAMINE HCL 50 MG CAPSULE PO SCH ×2 (08:30→20:07)
[2019-11-04] MEDS: DOCUSATE SODIUM 250 MG CAPSULE PO SCH (08:30)
[2019-11-04] MEDS: MAGNESIUM OXIDE 400 MG TABLET PO SCH ×3 (08:30→16:21)
[2019-11-04] MEDS: BusPIRone HCL 10 MG TABLET PO SCH ×3 (08:30→16:21)
[2019-11-04] MEDS: PANTOPRAZOLE SODIUM 40 MG DR TABLET PO SCH (08:30)
[2019-11-04] MEDS: LamoTRIgine 100 MG TABLET PO SCH (08:31)
[2019-11-04] MEDS: QUEtiapine FUMARATE 200 MG TABLET PO SCH (08:31)
[2019-11-04] MEDS: PSYLLIUM SEED ORANGE SF 5.8 GM/PACKET PO SCH ×2 (08:32→16:21)
[2019-11-04 08:34] VITALS: BP 128/82
[2019-11-04 16:00] VITALS: BP 125/82
[2019-11-04] MEDS: DIVALPROEX SODIUM 500 MG ER TABLET PO SCH (20:06)
[2019-11-04] MEDS: QUEtiapine FUMARATE 300 MG TABLET PO SCH (20:07)
[2019-11-04] MEDS: ZOLPIDEM TARTRATE 10 MG TABLET PO PRN (21:08)
[2019-11-05] MEDS: HALOPERIDOL 5 MG TABLET PO PRN ×2 (02:32→13:07)
[2019-11-05] MEDS: LEVOTHYROXINE SODIUM 50 MCG TABLET PO SCH (06:49)
[2019-11-05] MEDS: PANTOPRAZOLE SODIUM 40 MG DR TABLET PO SCH (08:06)
[2019-11-05] MEDS: DOCUSATE SODIUM 250 MG CAPSULE PO SCH (08:06)
[2019-11-05] MEDS: MAGNESIUM OXIDE 400 MG TABLET PO SCH ×3 (08:06→16:28)
[2019-11-05] MEDS: CHOLECALCIFEROL (VIT D3) 1,000 UNITS TABLET PO SCH (08:06)
[2019-11-05] MEDS: QUEtiapine FUMARATE 200 MG TABLET PO SCH (08:06)
[2019-11-05] MEDS: BusPIRone HCL 10 MG TABLET PO SCH ×3 (08:06→16:28)
[2019-11-05] MEDS: PSYLLIUM SEED ORANGE SF 5.8 GM/PACKET PO SCH ×2 (08:06→16:28)
[2019-11-05] MEDS: SENNA 187 MG TABLET PO SCH (08:07)
[2019-11-05] MEDS: DiphenhydrAMINE HCL 50 MG CAPSULE PO SCH ×2 (08:07→20:05)
[2019-11-05] MEDS: ESCITALOPRAM OXALATE 20 MG TABLET PO SCH (08:07)
[2019-11-05] MEDS: LamoTRIgine 100 MG TABLET PO SCH (08:07)
[2019-11-05 09:15] VITALS: BP 116/62
[2019-11-05] MEDS: LORazepam 2 MG TABLET PO PRN (13:07)
[2019-11-05 16:39] VITALS: BP 121/91
[2019-11-05] MEDS: QUEtiapine FUMARATE 300 MG TABLET PO SCH (20:05)
[2019-11-05] MEDS: DIVALPROEX SODIUM 500 MG ER TABLET PO SCH (20:05)
[2019-11-05] MEDS: ZOLPIDEM TARTRATE 10 MG TABLET PO PRN (21:08)
[2019-11-06] MEDS: LEVOTHYROXINE SODIUM 50 MCG TABLET PO SCH (07:05)
[2019-11-06] MEDS: PSYLLIUM SEED ORANGE SF 5.8 GM/PACKET PO SCH ×2 (08:20→16:02)
[2019-11-06] MEDS: SENNA 187 MG TABLET PO SCH (08:20)
[2019-11-06] MEDS: MAGNESIUM OXIDE 400 MG TABLET PO SCH ×3 (08:20→16:02)
[2019-11-06] MEDS: PANTOPRAZOLE SODIUM 40 MG DR TABLET PO SCH (08:20)
[2019-11-06] MEDS: QUEtiapine FUMARATE 200 MG TABLET PO SCH (08:20)
[2019-11-06] MEDS: BusPIRone HCL 10 MG TABLET PO SCH ×3 (08:20→16:02)
[2019-11-06] MEDS: ESCITALOPRAM OXALATE 20 MG TABLET PO SCH (08:20)
[2019-11-06] MEDS: DiphenhydrAMINE HCL 50 MG CAPSULE PO SCH ×2 (08:20→20:12)
[2019-11-06] MEDS: CHOLECALCIFEROL (VIT D3) 1,000 UNITS TABLET PO SCH (08:20)
[2019-11-06] MEDS: LamoTRIgine 100 MG TABLET PO SCH (08:20)
[2019-11-06] MEDS: DOCUSATE SODIUM 250 MG CAPSULE PO SCH (08:21)
[2019-11-06] MEDS: LACTULOSE 20 GM/30 ML SOLUTION UDCUP PO PRN (08:30)
[2019-11-06 13:00] VITALS: BP 134/71
[2019-11-06 17:05] VITALS: BP 131/81
[2019-11-06] MEDS: QUEtiapine FUMARATE 300 MG TABLET PO SCH (20:12)
[2019-11-06] MEDS: DIVALPROEX SODIUM 500 MG ER TABLET PO SCH (20:12)
[2019-11-07] MEDS: ZOLPIDEM TARTRATE 10 MG TABLET PO PRN ×2 (00:47→20:11)
[2019-11-07] MEDS: LORazepam 2 MG TABLET PO PRN ×2 (00:47→23:13)
[2019-11-07] MEDS: LEVOTHYROXINE SODIUM 50 MCG TABLET PO SCH (07:09)
[2019-11-07] MEDS: LACTULOSE 20 GM/30 ML SOLUTION UDCUP PO PRN (08:44)
[2019-11-07] MEDS: CHOLECALCIFEROL (VIT D3) 1,000 UNITS TABLET PO SCH (08:44)
[2019-11-07] MEDS: DOCUSATE SODIUM 250 MG CAPSULE PO SCH (08:44)
[2019-11-07] MEDS: DiphenhydrAMINE HCL 50 MG CAPSULE PO SCH (08:44)
[2019-11-07] MEDS: QUEtiapine FUMARATE 200 MG TABLET PO SCH (08:44)
[2019-11-07] MEDS: SENNA 187 MG TABLET PO SCH (08:45)
[2019-11-07] MEDS: BusPIRone HCL 10 MG TABLET PO SCH ×3 (08:45→16:39)
[2019-11-07] MEDS: MAGNESIUM OXIDE 400 MG TABLET PO SCH ×3 (08:45→16:39)
[2019-11-07] MEDS: ESCITALOPRAM OXALATE 20 MG TABLET PO SCH (08:45)
[2019-11-07] MEDS: PANTOPRAZOLE SODIUM 40 MG DR TABLET PO SCH (08:45)
[2019-11-07] MEDS: LamoTRIgine 100 MG TABLET PO SCH (08:46)
[2019-11-07] MEDS: PSYLLIUM SEED ORANGE SF 5.8 GM/PACKET PO SCH ×2 (08:46→16:39)
[2019-11-07 09:49] VITALS: BP 123/89
[2019-11-07 16:05] VITALS: BP 105/66
[2019-11-07] MEDS: DIVALPROEX SODIUM 500 MG ER TABLET PO SCH (20:07)
[2019-11-07] MEDS: QUEtiapine FUMARATE 300 MG TABLET PO SCH (20:07)
[2019-11-07 21:15] VITALS: BP 105/66
[2019-11-07] MEDS: HALOPERIDOL 5 MG TABLET PO PRN (23:13)
[2019-11-08] MEDS: HALOPERIDOL 5 MG TABLET PO PRN ×2 (03:38→08:34)
[2019-11-08] MEDS: LORazepam 2 MG TABLET PO PRN ×2 (03:38→08:33)
[2019-11-08] MEDS: LEVOTHYROXINE SODIUM 50 MCG TABLET PO SCH (06:03)
[2019-11-08 08:15] VITALS: BP 106/72
[2019-11-08] MEDS: LACTULOSE 20 GM/30 ML SOLUTION UDCUP PO PRN (08:17)
[2019-11-08] MEDS: PANTOPRAZOLE SODIUM 40 MG DR TABLET PO SCH (08:18)
[2019-11-08] MEDS: QUEtiapine FUMARATE 200 MG TABLET PO SCH (08:18)
[2019-11-08] MEDS: MAGNESIUM OXIDE 400 MG TABLET PO SCH ×3 (08:18→16:36)
[2019-11-08] MEDS: TRIHEXYPHENIDYL HCL 5 MG TABLET PO SCH ×3 (08:21→16:36)
[2019-11-08] MEDS: PROPRANOLOL HCL 10 MG TABLET PO SCH ×3 (08:21→16:37)
[2019-11-08] MEDS: CHOLECALCIFEROL (VIT D3) 1,000 UNITS TABLET PO SCH (08:21)
[2019-11-08] MEDS: DOCUSATE SODIUM 250 MG CAPSULE PO SCH (08:21)
[2019-11-08] MEDS: LamoTRIgine 100 MG TABLET PO SCH (08:22)
[2019-11-08] MEDS: ESCITALOPRAM OXALATE 20 MG TABLET PO SCH (08:22)
[2019-11-08] MEDS: SENNA 187 MG TABLET PO SCH (08:23)
[2019-11-08] MEDS: PSYLLIUM SEED ORANGE SF 5.8 GM/PACKET PO SCH ×2 (08:23→16:36)
[2019-11-08] MEDS: BusPIRone HCL 10 MG TABLET PO SCH ×3 (08:25→16:37)
[2019-11-08 18:38] VITALS: BP 115/78
[2019-11-08] MEDS: QUEtiapine FUMARATE 300 MG TABLET PO SCH (20:11)
[2019-11-08] MEDS: DIVALPROEX SODIUM 500 MG ER TABLET PO SCH (20:11)
[2019-11-09] MEDS: LORazepam 2 MG TABLET PO PRN ×2 (03:22→18:59)
[2019-11-09] MEDS: HALOPERIDOL 5 MG TABLET PO PRN ×2 (03:22→18:59)
[2019-11-09] MEDS: LEVOTHYROXINE SODIUM 50 MCG TABLET PO SCH (06:49)
[2019-11-09] MEDS: LACTULOSE 20 GM/30 ML SOLUTION UDCUP PO PRN (08:28)
[2019-11-09] MEDS: CHOLECALCIFEROL (VIT D3) 1,000 UNITS TABLET PO SCH (08:28)
[2019-11-09] MEDS: TRIHEXYPHENIDYL HCL 5 MG TABLET PO SCH ×3 (08:28→16:40)
[2019-11-09] MEDS: MAGNESIUM OXIDE 400 MG TABLET PO SCH ×3 (08:28→16:41)
[2019-11-09] MEDS: PSYLLIUM SEED ORANGE SF 5.8 GM/PACKET PO SCH ×2 (08:28→16:42)
[2019-11-09] MEDS: PROPRANOLOL HCL 10 MG TABLET PO SCH ×3 (08:29→16:41)
[2019-11-09] MEDS: PANTOPRAZOLE SODIUM 40 MG DR TABLET PO SCH (08:29)
[2019-11-09] MEDS: QUEtiapine FUMARATE 200 MG TABLET PO SCH (08:29)
[2019-11-09] MEDS: SENNA 187 MG TABLET PO SCH (08:29)
[2019-11-09] MEDS: ESCITALOPRAM OXALATE 20 MG TABLET PO SCH (08:29)
[2019-11-09] MEDS: LamoTRIgine 100 MG TABLET PO SCH (08:29)
[2019-11-09] MEDS: DOCUSATE SODIUM 250 MG CAPSULE PO SCH (08:29)
[2019-11-09] MEDS: BusPIRone HCL 10 MG TABLET PO SCH ×3 (08:30→16:41)
[2019-11-09 08:47] VITALS: BP 118/62
[2019-11-09] MEDS: DIVALPROEX SODIUM 250 MG ER TABLET PO SCH (20:04)
[2019-11-09] MEDS: QUEtiapine FUMARATE 300 MG TABLET PO SCH (20:05)
[2019-11-09 20:31] VITALS: BP 109/63
[2019-11-10] MEDS: LEVOTHYROXINE SODIUM 50 MCG TABLET PO SCH (06:25)
[2019-11-10] MEDS: LACTULOSE 20 GM/30 ML SOLUTION UDCUP PO PRN (08:16)
[2019-11-10] MEDS: PSYLLIUM SEED ORANGE SF 5.8 GM/PACKET PO SCH ×2 (08:16→17:04)
[2019-11-10] MEDS: TRIHEXYPHENIDYL HCL 5 MG TABLET PO SCH ×3 (08:17→17:04)
[2019-11-10] MEDS: PANTOPRAZOLE SODIUM 40 MG DR TABLET PO SCH (08:17)
[2019-11-10] MEDS: DOCUSATE SODIUM 250 MG CAPSULE PO SCH (08:17)
[2019-11-10] MEDS: MAGNESIUM OXIDE 400 MG TABLET PO SCH ×3 (08:18→17:04)
[2019-11-10] MEDS: QUEtiapine FUMARATE 100 MG TABLET PO SCH (08:18)
[2019-11-10] MEDS: PROPRANOLOL HCL 10 MG TABLET PO SCH ×3 (08:18→17:05)
[2019-11-10] MEDS: CHOLECALCIFEROL (VIT D3) 1,000 UNITS TABLET PO SCH (08:18)
[2019-11-10] MEDS: BusPIRone HCL 10 MG TABLET PO SCH ×3 (08:18→17:05)
[2019-11-10] MEDS: SENNA 187 MG TABLET PO SCH (08:19)
[2019-11-10] MEDS: ESCITALOPRAM OXALATE 20 MG TABLET PO SCH (08:19)
[2019-11-10] MEDS: LamoTRIgine 100 MG TABLET PO SCH (08:19)
[2019-11-10 09:54] VITALS: BP 102/61
[2019-11-10 19:30] VITALS: BP 110/69
[2019-11-10] MEDS: QUEtiapine FUMARATE 300 MG TABLET PO SCH (20:05)
[2019-11-10] MEDS: DIVALPROEX SODIUM 250 MG ER TABLET PO SCH (20:05)
[2019-11-10] MEDS: ZOLPIDEM TARTRATE 10 MG TABLET PO PRN (21:50)
[2019-11-11] MEDS: HALOPERIDOL 5 MG TABLET PO PRN (03:49)
[2019-11-11] MEDS: LEVOTHYROXINE SODIUM 50 MCG TABLET PO SCH (06:57)
[2019-11-11] MEDS: QUEtiapine FUMARATE 100 MG TABLET PO SCH (08:58)
[2019-11-11] MEDS: PANTOPRAZOLE SODIUM 40 MG DR TABLET PO SCH (08:58)
[2019-11-11] MEDS: BusPIRone HCL 10 MG TABLET PO SCH ×3 (08:58→17:10)
[2019-11-11] MEDS: DOCUSATE SODIUM 250 MG CAPSULE PO SCH (08:58)
[2019-11-11] MEDS: MAGNESIUM OXIDE 400 MG TABLET PO SCH ×3 (08:58→17:11)
[2019-11-11] MEDS: SENNA 187 MG TABLET PO SCH (08:59)
[2019-11-11] MEDS: TRIHEXYPHENIDYL HCL 5 MG TABLET PO SCH ×3 (08:59→17:10)
[2019-11-11] MEDS: LamoTRIgine 100 MG TABLET PO SCH (08:59)
[2019-11-11] MEDS: CHOLECALCIFEROL (VIT D3) 1,000 UNITS TABLET PO SCH (08:59)
[2019-11-11] MEDS: PSYLLIUM SEED ORANGE SF 5.8 GM/PACKET PO SCH ×2 (09:00→17:11)
[2019-11-11] MEDS: ESCITALOPRAM OXALATE 20 MG TABLET PO SCH (09:00)
[2019-11-11] MEDS: PROPRANOLOL HCL 10 MG TABLET PO SCH ×3 (09:01→17:10)
[2019-11-11 13:45] VITALS: BP 128/72
[2019-11-11 16:52] VITALS: BP 127/82
[2019-11-11] MEDS: DIVALPROEX SODIUM 250 MG ER TABLET PO SCH (21:23)
[2019-11-11] MEDS: QUEtiapine FUMARATE 300 MG TABLET PO SCH (21:23)
[2019-11-12] MEDS: ZOLPIDEM TARTRATE 10 MG TABLET PO PRN ×2 (00:12→20:51)
[2019-11-12] MEDS: HALOPERIDOL 5 MG TABLET PO PRN (00:12)
[2019-11-12] MEDS: LEVOTHYROXINE SODIUM 50 MCG TABLET PO SCH (06:56)
[2019-11-12] MEDS: TRIHEXYPHENIDYL HCL 5 MG TABLET PO SCH ×3 (09:32→16:57)
[2019-11-12] MEDS: PROPRANOLOL HCL 10 MG TABLET PO SCH ×3 (09:32→16:57)
[2019-11-12] MEDS: DOCUSATE SODIUM 250 MG CAPSULE PO SCH (09:32)
[2019-11-12] MEDS: CHOLECALCIFEROL (VIT D3) 1,000 UNITS TABLET PO SCH (09:32)
[2019-11-12] MEDS: SENNA 187 MG TABLET PO SCH (09:32)
[2019-11-12] MEDS: PANTOPRAZOLE SODIUM 40 MG DR TABLET PO SCH (09:33)
[2019-11-12] MEDS: QUEtiapine FUMARATE 100 MG TABLET PO SCH (09:33)
[2019-11-12] MEDS: ESCITALOPRAM OXALATE 20 MG TABLET PO SCH (09:33)
[2019-11-12] MEDS: PSYLLIUM SEED ORANGE SF 5.8 GM/PACKET PO SCH ×2 (09:33→16:57)
[2019-11-12] MEDS: MAGNESIUM OXIDE 400 MG TABLET PO SCH ×3 (09:33→16:57)
[2019-11-12] MEDS: LamoTRIgine 100 MG TABLET PO SCH (09:33)
[2019-11-12] MEDS: BusPIRone HCL 10 MG TABLET PO SCH ×3 (09:33→16:57)
[2019-11-12 10:01] VITALS: BP 110/79
[2019-11-12 16:55] VITALS: BP 125/83
[2019-11-12] MEDS: LACTULOSE 20 GM/30 ML SOLUTION UDCUP PO PRN (16:58)
[2019-11-12] MEDS: DIVALPROEX SODIUM 250 MG ER TABLET PO SCH (20:53)
[2019-11-12] MEDS: QUEtiapine FUMARATE 300 MG TABLET PO SCH (20:53)
[2019-11-13] MEDS: LORazepam 2 MG TABLET PO PRN (04:23)
[2019-11-13] MEDS: LEVOTHYROXINE SODIUM 50 MCG TABLET PO SCH (07:02)
[2019-11-13 08:00] VITALS: BP 108/75
[2019-11-13] MEDS: ESCITALOPRAM OXALATE 20 MG TABLET PO SCH (08:04)
[2019-11-13] MEDS: CHOLECALCIFEROL (VIT D3) 1,000 UNITS TABLET PO SCH (08:04)
[2019-11-13] MEDS: MAGNESIUM OXIDE 400 MG TABLET PO SCH ×3 (08:05→16:41)
[2019-11-13] MEDS: TRIHEXYPHENIDYL HCL 5 MG TABLET PO SCH ×3 (08:05→16:41)
[2019-11-13] MEDS: DOCUSATE SODIUM 250 MG CAPSULE PO SCH (08:05)
[2019-11-13] MEDS: PANTOPRAZOLE SODIUM 40 MG DR TABLET PO SCH (08:05)
[2019-11-13] MEDS: QUEtiapine FUMARATE 100 MG TABLET PO SCH (08:05)
[2019-11-13] MEDS: SENNA 187 MG TABLET PO SCH (08:05)
[2019-11-13] MEDS: BusPIRone HCL 10 MG TABLET PO SCH ×3 (08:05→16:41)
[2019-11-13] MEDS: LamoTRIgine 100 MG TABLET PO SCH (08:05)
[2019-11-13] MEDS: PSYLLIUM SEED ORANGE SF 5.8 GM/PACKET PO SCH ×2 (08:06→16:40)
[2019-11-13] MEDS: PROPRANOLOL HCL 10 MG TABLET PO SCH ×3 (08:07→16:41)
[2019-11-13] MEDS: BENZONATATE 100 MG CAPSULE PO PRN (09:49)
[2019-11-13] MEDS ORDERED: GuaiFENesin/D-METHORPHAN [SUGAR-FREE] 200-20MG/10 ML SYRUP UDCUP PO PRN (10:00)
[2019-11-13 16:38] VITALS: BP 114/68
[2019-11-13] MEDS: DIVALPROEX SODIUM 250 MG ER TABLET PO SCH (20:28)
[2019-11-13] MEDS: QUEtiapine FUMARATE 300 MG TABLET PO SCH (20:29)
[2019-11-13] MEDS: ZOLPIDEM TARTRATE 10 MG TABLET PO PRN (21:34)
[2019-11-14 03:10] VITALS: BP 104/66
[2019-11-14] MEDS: LORazepam 2 MG TABLET PO PRN ×2 (03:13→14:34)
[2019-11-14] MEDS: HALOPERIDOL 5 MG TABLET PO PRN (03:13)
[2019-11-14] MEDS: LEVOTHYROXINE SODIUM 50 MCG TABLET PO SCH (06:47)
[2019-11-14] MEDS: QUEtiapine FUMARATE 100 MG TABLET PO SCH (08:06)
[2019-11-14] MEDS: BusPIRone HCL 10 MG TABLET PO SCH ×2 (08:06→12:23)
[2019-11-14] MEDS: PROPRANOLOL HCL 10 MG TABLET PO SCH ×2 (08:06→12:23)
[2019-11-14] MEDS: DOCUSATE SODIUM 250 MG CAPSULE PO SCH (08:07)
[2019-11-14] MEDS: CHOLECALCIFEROL (VIT D3) 1,000 UNITS TABLET PO SCH (08:07)
[2019-11-14] MEDS: PANTOPRAZOLE SODIUM 40 MG DR TABLET PO SCH (08:07)
[2019-11-14] MEDS: ESCITALOPRAM OXALATE 20 MG TABLET PO SCH (08:08)
[2019-11-14] MEDS: TRIHEXYPHENIDYL HCL 5 MG TABLET PO SCH ×2 (08:08→12:23)
[2019-11-14] MEDS: MAGNESIUM OXIDE 400 MG TABLET PO SCH ×2 (08:08→12:23)
[2019-11-14] MEDS: LamoTRIgine 100 MG TABLET PO SCH (08:08)
[2019-11-14] MEDS: SENNA 187 MG TABLET PO SCH (08:09)
[2019-11-14] MEDS: PSYLLIUM SEED ORANGE SF 5.8 GM/PACKET PO SCH (08:09)
[2019-11-14] MEDS: MAG HYDROX/AL HYDROX/SIMETH 30 ML SUSP UDCUP PO PRN (08:11)
[2019-11-14] MEDS: LACTULOSE 20 GM/30 ML SOLUTION UDCUP PO PRN (08:26)
[2019-11-14 08:30] VITALS: BP 133/89
[2019-11-14 14:57] LABS: GLUCOMETER DEV NAME(LOC) 3E.C; GLUCOSE,POINT OF CARE 104 MG/DL (70-110)
[2019-11-14 15:29] LABS: ABG A-A DIFF O2 47.1 mmHg (10-20.0); ABG BASE EXCESS -4.3 mmol/L (-2.0-3.0); ABG CARBOXYHEMOGLOBIN 0.5 % (0.0-1.5); ABG HCO3 21.6 mmol/L (22.0-26.0); ABG METHEMOGLOBIN 0.3 % (0.0-1.5); ABG OXYGEN CONTENT 21.5 mL/dL (15.0-23.0); ABG OXYGEN SATURATION 92.8 % (95.0-98.0); ABG OXYHEMOGLOBIN 92.1 % (94.0-100.0); ABG PCO2 34 mmHg (35-45); ABG PH 7.403 (7.35-7.450); ABG TOTAL HEMOGLOBIN 16.6 G/dL (12.0-18.0); PO2, ARTERIAL BG 62.7 mmHg (84.0-92.0); SOURCE, BLOOD GAS ARTERIAL
[2019-11-14 15:30] LABS: SITE, BLOOD GAS LFT RADIAL
== END 2019-11-14 15:50 | disposition short-term general hospital (02) | DRG 885 ==
LOC: EMS 08:15 → 3EC 12:19
PROVIDERS: ADMIT Psychiatry & Neurology Psychiatry; ATTEND Psychiatry & Neurology Psychiatry
DX: F33.2 Major depressive disorder, recurrent severe without psychotic features (principal); R45.851 Suicidal ideations; F43.10 Post-traumatic stress disorder, unspecified; E03.9 Hypothyroidism, unspecified; K59.00 Constipation, unspecified; D72.819 Decreased white blood cell count, unspecified; D69.6 Thrombocytopenia, unspecified; E83.42 Hypomagnesemia; D72.829 Elevated white blood cell count, unspecified; E88.09 Other disorders of plasma-protein metabolism, not elsewhere classified; G89.29 Other chronic pain; K21.9 Gastro-esophageal reflux disease without esophagitis; M79.7 Fibromyalgia; Z79.899 Other long term (current) drug therapy; Z91.5 Personal history of self-harm
CPT/HCPCS: 70450; 82805; 83735; 84439; 84443; 87081; G0480; J1200; J1630; J2060

== ENCOUNTER 2019-11-14 16:27 | Inpatient (IN) | payer OTHER ==
[~2019-11-14 16:27] MED LIST changes: +CHOL100018 PO; +LAMO100 PO; +MOM30 PO; +PSYL1PAC11 PO; +SIME80 PO; +TRAZ150 PO; +TRIH2TAB3 PO
[2019-11-14 18:27] VITALS: BP 103/68
[2019-11-14] MEDS ORDERED: ALBUTEROL SULFATE 2.5 MG/0.5 ML NEB SOLUTION NEB PRN ×2 (18:30→20:30)
[2019-11-14] MEDS ORDERED: INFLUENZA VIRUS VACCINE QVS 2019-20 (3YR+)/PF 60 MCG/0.5 ML SYRINGE IM ONE (19:15)
[2019-11-14] MEDS ORDERED: BENZONATATE 100 MG CAPSULE PO PRN (19:45)
[2019-11-14] MEDS ORDERED: MAGNESIUM HYDROXIDE SUSPENSION 30 ML UDCUP PO PRN (20:30)
[2019-11-14] MEDS ORDERED: ZOLPIDEM TARTRATE 5 MG TABLET PO PRN (20:30)
[2019-11-14] MEDS ORDERED: IPRATROPIUM BROMIDE 0.5 MG/2.5 ML NEB SOLUTION NEB PRN (20:30)
[2019-11-14] MEDS ORDERED: ONDANSETRON HCL 4 MG/2 ML VIAL IVP PRN (20:30)
[2019-11-14] MEDS ORDERED: HYDROCODONE/ACETAMINOPHEN 5-325 MG TABLET PO PRN (20:30)
[2019-11-14] MEDS ORDERED: MORPHINE SULFATE 2 MG/ML SYRINGE IVP PRN (20:30)
[2019-11-14] MEDS ORDERED: BISACODYL 10 MG RECTAL RECTAL SUPPOSITORY PR PRN (20:30)
[2019-11-14] MEDS ORDERED: ACETAMINOPHEN 325 MG TABLET PO PRN (20:30)
[2019-11-14 20:45] VITALS: BP 121/70
[2019-11-14] MEDS: DOCUSATE SODIUM 100 MG CAPSULE PO SCH (21:00)
[2019-11-14] MEDS ORDERED: PROPRANOLOL HCL 10 MG TABLET PO SCH (21:00)
[2019-11-14] MEDS: TRIHEXYPHENIDYL HCL 5 MG TABLET PO SCH (21:20)
[2019-11-14] MEDS: PSYLLIUM SEED ORANGE SF 5.8 GM/PACKET PO SCH (21:20)
[2019-11-14] MEDS: DIVALPROEX SODIUM 250 MG ER TABLET PO SCH (21:20)
[2019-11-14] MEDS: MAGNESIUM OXIDE 400 MG TABLET PO SCH (21:20)
[2019-11-14] MEDS: QUEtiapine FUMARATE 300 MG TABLET PO SCH (21:20)
[2019-11-14] MEDS: BusPIRone HCL 10 MG TABLET PO SCH (21:20)
[2019-11-14 22:18] LABS: BASOPHILS % (AUTO) 0.3 % (0.0-2.0); EOSINOPHILS % (AUTO) 0.4 % (1.0-6.0); HEMATOCRIT 42.3 % (41-53); HEMOGLOBIN 14.6 g/dL (13.5-17.5); LYMPHOCYTES % (AUTO) 9.3 % (22.0-44.0); MEAN CORPUSCULAR HEMOGLOBIN 32.9 pg (26.0-34.0); MEAN CORPUSCULAR HGB CONC 34.5 G/dL (31.0-37.0); MEAN CORPUSCULAR VOLUME 96 fL (80-100); MONOCYTES # (AUTO) 1.5 K/uL (0.1-1.0); MONOCYTES % (AUTO) 13.6 % (2.0-9.0); NEUTROPHILS # (AUTO) 8.4 K/uL (1.8-7.7); NEUTROPHILS % (AUTO) 76.4 % (40.0-70.0); PLATELET COUNT (AUTO) 190 K/uL (150-450); RED BLOOD CELL COUNT(AUTO) 4.43 MIL/uL (4.50-5.90); RED CELL DISTRIBUTION WIDTH 14.1 % (11.5-14.5)
[2019-11-14 22:27] LABS: CALCIUM, TOTAL 9.3 mg/dL (8.8-10.5); CREATININE 1.28 mg/dL (0.60-1.30); POTASSIUM 4.3 mmol/L (3.5-5.1)
[2019-11-15 01:05] VITALS: BP 99/51
[2019-11-15 05:19] VITALS: BP 98/61
[2019-11-15] MEDS: LEVOTHYROXINE SODIUM 50 MCG TABLET PO SCH (06:11)
[2019-11-15] MEDS: HEPARIN SODIUM,PORCINE 5,000 UNITS/ML VIAL SQ SCH ×3 (08:00→16:00)
[2019-11-15] MEDS ORDERED: ESCITALOPRAM OXALATE 20 MG TABLET PO SCH (09:00)
[2019-11-15] MEDS ORDERED: DOCUSATE SODIUM 250 MG CAPSULE PO SCH (09:00)
[2019-11-15] MEDS: DOCUSATE SODIUM 100 MG CAPSULE PO SCH ×2 (09:00→20:06)
[2019-11-15] MEDS ORDERED: PANTOPRAZOLE SODIUM 40 MG DR TABLET PO SCH (09:00)
[2019-11-15 09:30] VITALS: BP 126/69
[2019-11-15 09:36] LABS: ABG A-A DIFF O2 37.5 mmHg (10-20.0); ABG BASE EXCESS 4.2 mmol/L (-2.0-3.0); ABG CARBOXYHEMOGLOBIN 1.1 % (0.0-1.5); ABG HCO3 27.7 mmol/L (22.0-26.0); ABG METHEMOGLOBIN 0.3 % (0.0-1.5); ABG OXYGEN CONTENT 19.6 mL/dL (15.0-23.0); ABG OXYHEMOGLOBIN 91.7 % (94.0-100.0); ABG PCO2 42 mmHg (35-45); ABG PH 7.446 (7.35-7.450); ABG TOTAL HEMOGLOBIN 15.2 G/dL (12.0-18.0); PO2, ARTERIAL BG 61.9 mmHg (84.0-92.0); SOURCE, BLOOD GAS ARTERIAL; TEMPERATURE, FAHRENHEIT, BG 98.6 FAHREN (96.0-98.6)
[2019-11-15 09:37] LABS: O2 DEVICE,BLOOD GAS ROOM AIR (ROOM AIR); SITE, BLOOD GAS LFT RADIAL
[2019-11-15] MEDS: TRIHEXYPHENIDYL HCL 5 MG TABLET PO SCH ×2 (09:41→16:24)
[2019-11-15] MEDS: PSYLLIUM SEED ORANGE SF 5.8 GM/PACKET PO SCH ×2 (09:42→20:01)
[2019-11-15] MEDS: BusPIRone HCL 10 MG TABLET PO SCH ×3 (09:42→20:00)
[2019-11-15] MEDS: LamoTRIgine 100 MG TABLET PO SCH (09:44)
[2019-11-15] MEDS: QUEtiapine FUMARATE 100 MG TABLET PO SCH (09:46)
[2019-11-15] MEDS: CHOLECALCIFEROL (VIT D3) 1,000 UNITS TABLET PO SCH (09:47)
[2019-11-15] MEDS: PANTOPRAZOLE SODIUM 40 MG DR TABLET PO SCH (09:48)
[2019-11-15] MEDS: MAGNESIUM OXIDE 400 MG TABLET PO SCH ×3 (09:49→20:01)
[2019-11-15] MEDS: SENNA 187 MG TABLET PO SCH (09:50)
[2019-11-15 12:00] VITALS: BP 110/72
[2019-11-15 13:25] LABS: THYROID STIMULATING HORMONE 3.3 uIU/mL (0.36-3.74)
[2019-11-15 16:19] VITALS: BP 114/75
[2019-11-15 19:45] VITALS: BP 112/80
[2019-11-15] MEDS: QUEtiapine FUMARATE 300 MG TABLET PO SCH (20:00)
[2019-11-15] MEDS: DIVALPROEX SODIUM 250 MG ER TABLET PO SCH (20:01)
[2019-11-16 00:08] VITALS: BP 121/80
[2019-11-16 04:39] VITALS: BP 118/69
[2019-11-16] MEDS: LEVOTHYROXINE SODIUM 50 MCG TABLET PO SCH (05:53)
[2019-11-16 07:20] VITALS: BP 104/63
[2019-11-16] MEDS: HEPARIN SODIUM,PORCINE 5,000 UNITS/ML VIAL SQ SCH ×3 (08:00→16:00)
[2019-11-16] MEDS: PSYLLIUM SEED ORANGE SF 5.8 GM/PACKET PO SCH ×2 (10:12→20:28)
[2019-11-16] MEDS: MAGNESIUM OXIDE 400 MG TABLET PO SCH ×3 (10:13→20:27)
[2019-11-16] MEDS: BusPIRone HCL 10 MG TABLET PO SCH ×3 (10:13→20:27)
[2019-11-16] MEDS: PANTOPRAZOLE SODIUM 40 MG DR TABLET PO SCH (10:15)
[2019-11-16] MEDS: CHOLECALCIFEROL (VIT D3) 1,000 UNITS TABLET PO SCH (10:15)
[2019-11-16] MEDS: SENNA 187 MG TABLET PO SCH (10:15)
[2019-11-16] MEDS: QUEtiapine FUMARATE 100 MG TABLET PO SCH (10:16)
[2019-11-16] MEDS: LamoTRIgine 100 MG TABLET PO SCH (10:17)
[2019-11-16] MEDS: DOCUSATE SODIUM 100 MG CAPSULE PO SCH ×2 (10:17→20:27)
[2019-11-16 11:27] VITALS: BP 147/87
[2019-11-16 15:25] VITALS: BP 117/72
[2019-11-16] MEDS: QUEtiapine FUMARATE 300 MG TABLET PO SCH (20:26)
[2019-11-16] MEDS: DIVALPROEX SODIUM 250 MG ER TABLET PO SCH (20:27)
[2019-11-17] MEDS ORDERED: CHOL100018 PO (11:08)
== END 2019-11-16 23:15 | DRG 189 ==
LOC: 5N 16:27
PROVIDERS: ADMIT Internal Medicine; ATTEND Internal Medicine
DX: J96.01 Acute respiratory failure with hypoxia (principal); F41.0 Panic disorder [episodic paroxysmal anxiety]; E03.9 Hypothyroidism, unspecified; F32.9 Major depressive disorder, single episode, unspecified
CPT/HCPCS: 36600; 82805; 84443; J1644

== ENCOUNTER 2019-11-16 23:15 | Inpatient (IN) | payer OTHER, MEDICAID ==
[~2019-11-16] VITALS: Ht 167.6 cm; Wt 72.8 kg
[~2019-11-16 23:15] MED LIST changes: +DIVA-80 PO; -DIVA500T52 PO; -DOCU-342 PO; +DOCU-350 PO; -ESCI20TA PO; +ESCI20TA87 PO
[2019-11-17] MEDS ORDERED: INFLUENZA VIRUS VACCINE QVS 2019-20 (3YR+)/PF 60 MCG/0.5 ML SYRINGE IM ONE (01:45)
[2019-11-17 01:49] VITALS: BP 138/88
[2019-11-17] MEDS ORDERED: IBUPROFEN 600 MG TABLET PO PRN (02:00)
[2019-11-17] MEDS ORDERED: IPRATROPIUM BROMIDE 0.5 MG/2.5 ML NEB SOLUTION NEB PRN (02:00)
[2019-11-17] MEDS ORDERED: BISACODYL 10 MG RECTAL RECTAL SUPPOSITORY PR PRN (02:00)
[2019-11-17] MEDS ORDERED: ALBUTEROL SULFATE 2.5 MG/0.5 ML NEB SOLUTION NEB PRN (02:00)
[2019-11-17] MEDS ORDERED: MAG HYDROX/AL HYDROX/SIMETH 30 ML SUSP UDCUP PO PRN (02:00)
[2019-11-17] MEDS ORDERED: MAGNESIUM HYDROXIDE SUSPENSION 30 ML UDCUP PO PRN ×3 (02:00→14:45)
[2019-11-17] MEDS ORDERED: ACETAMINOPHEN 325 MG TABLET PO PRN ×2 (02:00→14:45)
[2019-11-17] MEDS ORDERED: GuaiFENesin/D-METHORPHAN [SUGAR-FREE] 200-20MG/10 ML SYRUP UDCUP PO PRN (02:30)
[2019-11-17] MEDS: LORazepam 2 MG TABLET PO PRN (04:52)
[2019-11-17] MEDS: OLANZapine 5 MG TABLET PO PRN (04:52)
[2019-11-17] MEDS ORDERED: LEVOTHYROXINE SODIUM 50 MCG TABLET PO SCH (07:00)
[2019-11-17] MEDS: PANTOPRAZOLE SODIUM 40 MG DR TABLET PO SCH (07:31)
[2019-11-17] MEDS: PSYLLIUM SEED ORANGE SF 5.8 GM/PACKET PO SCH ×2 (07:31→16:10)
[2019-11-17] MEDS: MAGNESIUM OXIDE 400 MG TABLET PO SCH ×3 (07:31→16:10)
[2019-11-17] MEDS: SENNA 187 MG TABLET PO SCH (07:31)
[2019-11-17] MEDS: CHOLECALCIFEROL (VIT D3) 1,000 UNITS [25 MCG] TABLET PO SCH (07:31)
[2019-11-17] MEDS: DOCUSATE SODIUM 250 MG CAPSULE PO SCH (07:31)
[2019-11-17 10:39] VITALS: BP 127/83
[2019-11-17] MEDS ORDERED: CHOL100018 PO (11:08)
[2019-11-17] MEDS: BusPIRone HCL 10 MG TABLET PO SCH ×2 (13:41→16:10)
[2019-11-17] MEDS ORDERED: ONDANSETRON HCL 4 MG TABLET PO PRN (14:45)
[2019-11-17] MEDS ORDERED: NICOTINE 14 MG/24 HOUR PATCH TD PRN (14:45)
[2019-11-17] MEDS ORDERED: LOPERAMIDE HCL 2 MG CAPSULE PO PRN (14:45)
[2019-11-17] MEDS ORDERED: CloNIDine HCL 0.1 MG TABLET PO PRN (14:45)
[2019-11-17] MEDS ORDERED: ALBUTEROL SULFATE HFA 90 MCG/PUFF 8 GM INHALER IH PRN (14:45)
[2019-11-17 16:27] VITALS: BP 121/86
[2019-11-17] MEDS: QUEtiapine FUMARATE 300 MG TABLET PO SCH (20:02)
[2019-11-17] MEDS: DIVALPROEX SODIUM 250 MG ER TABLET PO SCH (20:02)
[2019-11-17] MEDS: ZOLPIDEM TARTRATE 10 MG TABLET PO PRN (21:23)
[2019-11-17 22:18] LABS: APPEARANCE,URINE CLEAR (CLEAR); BILIRUBIN,URINE NEGATIVE (NEGATIVE); GLUCOSE, URINE (UA) NEGATIVE (NEGATIVE); KETONES,URINE NEGATIVE (NEGATIVE); LEUKOCYTE ESTERASE ,URINE NEGATIVE (NEGATIVE); NITRATE,URINE NEGATIVE (NEGATIVE); OCCULT BLOOD,URINE NEGATIVE (NEGATIVE); PH,URINE 7.5 (5.0-8.0); PROTEIN,URINE NEGATIVE (NEGATIVE); UROBILINOGEN,URINE 0.2 mg/dL (<=1.0)
[2019-11-18] MEDS: LEVOTHYROXINE SODIUM 125 MCG TABLET PO SCH (06:56)
[2019-11-18 07:49] LABS: BASOPHILS % (AUTO) 0.7 % (0.0-2.0); EOSINOPHILS % (AUTO) 3.1 % (1.0-6.0); HEMATOCRIT 42.7 % (41-53); HEMOGLOBIN 14.7 g/dL (13.5-17.5); LYMPHOCYTES # (AUTO) 1.2 K/uL (1.0-4.8); LYMPHOCYTES % (AUTO) 16.8 % (22.0-44.0); MEAN CORPUSCULAR HEMOGLOBIN 33.2 pg (26.0-34.0); MEAN CORPUSCULAR HGB CONC 34.4 G/dL (31.0-37.0); MEAN CORPUSCULAR VOLUME 96 fL (80-100); MONOCYTES % (AUTO) 13.4 % (2.0-9.0); NEUTROPHILS # (AUTO) 4.8 K/uL (1.8-7.7); PLATELET COUNT (AUTO) 216 K/uL (150-450); RED BLOOD CELL COUNT(AUTO) 4.43 MIL/uL (4.50-5.90); RED CELL DISTRIBUTION WIDTH 13.9 % (11.5-14.5)
[2019-11-18 08:04] LABS: ALANINE AMINOTRANSFERASE 21 U/L (12-78); ALBUMIN 3.1 g/dL (3.4-5.0); ALKALINE PHOSPHATASE 50 U/L (46-116); ANION GAP 8 mmol/L (8-16); ASPARTATE AMINOTRANSFERASE 12 U/L (15-37); BILIRUBIN,TOTAL 0.3 mg/dL (0.1-1.0); CALCIUM, TOTAL 9.2 mg/dL (8.8-10.5); CARBON DIOXIDE 29 mmol/L (22-29); CHLORIDE 103 mmol/L (98-107); CHOLESTEROL 193 mg/dL (131-200); CREATININE 1.09 mg/dL (0.60-1.30); GLOMERULAR FILTR. RATE CALC > 60 mL/min (>60); GLUCOSE,RANDOM 90 mg/dL (70-110); HDL CHOLESTEROL 32 mg/dL (40-60); LDL CHOL (CALC.) 130 mg/dL (0-130); POTASSIUM 4.5 mmol/L (3.5-5.1); SODIUM SERUM 140 mmol/L (136-145); TOTAL PROTEIN, SERUM 6.4 g/dL (6.4-8.2); TRIGLYCERIDES 156 mg/dL (15-150); UREA NITROGEN, BLOOD 14 mg/dL (7-18)
[2019-11-18] MEDS: BusPIRone HCL 10 MG TABLET PO SCH ×3 (08:45→16:21)
[2019-11-18] MEDS: CHOLECALCIFEROL (VIT D3) 1,000 UNITS [25 MCG] TABLET PO SCH (08:45)
[2019-11-18] MEDS: MAGNESIUM OXIDE 400 MG TABLET PO SCH ×3 (08:45→16:21)
[2019-11-18] MEDS: PANTOPRAZOLE SODIUM 40 MG DR TABLET PO SCH (08:45)
[2019-11-18] MEDS: ESCITALOPRAM OXALATE 20 MG TABLET PO SCH (08:46)
[2019-11-18] MEDS: SENNA 187 MG TABLET PO SCH (08:46)
[2019-11-18] MEDS: PSYLLIUM SEED ORANGE SF 5.8 GM/PACKET PO SCH ×2 (08:46→16:21)
[2019-11-18] MEDS: QUEtiapine FUMARATE 200 MG TABLET PO SCH (08:46)
[2019-11-18] MEDS: DOCUSATE SODIUM 250 MG CAPSULE PO SCH (08:46)
[2019-11-18] MEDS: LamoTRIgine 100 MG TABLET PO SCH (08:47)
[2019-11-18] MEDS ORDERED: DOCUSATE SODIUM 250 MG CAPSULE PO SCH (09:00)
[2019-11-18] MEDS ORDERED: CHOLECALCIFEROL (VIT D3) 1,000 UNITS [25 MCG] TABLET PO SCH (09:00)
[2019-11-18] MEDS ORDERED: QUEtiapine FUMARATE 100 MG TABLET PO SCH (09:00)
[2019-11-18 09:41] VITALS: BP 131/79
[2019-11-18 17:11] VITALS: BP 122/78
[2019-11-18] MEDS: DIVALPROEX SODIUM 250 MG ER TABLET PO SCH (20:00)
[2019-11-18] MEDS: QUEtiapine FUMARATE 300 MG TABLET PO SCH (20:01)
[2019-11-19 03:08] VITALS: BP 107/74
[2019-11-19] MEDS: ZOLPIDEM TARTRATE 10 MG TABLET PO PRN ×2 (03:10→23:46)
[2019-11-19] MEDS: OLANZapine 5 MG TABLET PO PRN ×2 (03:10→23:31)
[2019-11-19] MEDS: LEVOTHYROXINE SODIUM 125 MCG TABLET PO SCH (07:01)
[2019-11-19 08:18] VITALS: BP 104/70
[2019-11-19] MEDS: PANTOPRAZOLE SODIUM 40 MG DR TABLET PO SCH (08:38)
[2019-11-19] MEDS: DOCUSATE SODIUM 250 MG CAPSULE PO SCH (08:38)
[2019-11-19] MEDS: QUEtiapine FUMARATE 200 MG TABLET PO SCH (08:38)
[2019-11-19] MEDS: CHOLECALCIFEROL (VIT D3) 1,000 UNITS [25 MCG] TABLET PO SCH (08:38)
[2019-11-19] MEDS: SENNA 187 MG TABLET PO SCH (08:38)
[2019-11-19] MEDS: MAGNESIUM OXIDE 400 MG TABLET PO SCH ×3 (08:38→16:12)
[2019-11-19] MEDS: BusPIRone HCL 10 MG TABLET PO SCH ×3 (08:39→16:12)
[2019-11-19] MEDS: LamoTRIgine 100 MG TABLET PO SCH (08:39)
[2019-11-19] MEDS: ESCITALOPRAM OXALATE 20 MG TABLET PO SCH (08:39)
[2019-11-19] MEDS: PSYLLIUM SEED ORANGE SF 5.8 GM/PACKET PO SCH ×2 (08:39→16:12)
[2019-11-19 17:08] VITALS: BP 136/92
[2019-11-19] MEDS: QUEtiapine FUMARATE 300 MG TABLET PO SCH (20:38)
[2019-11-19] MEDS: DIVALPROEX SODIUM 250 MG ER TABLET PO SCH (20:38)
[2019-11-19] MEDS: LORazepam 2 MG TABLET PO PRN (23:46)
[2019-11-20] MEDS: LEVOTHYROXINE SODIUM 125 MCG TABLET PO SCH (06:55)
[2019-11-20] MEDS: ESCITALOPRAM OXALATE 20 MG TABLET PO SCH (08:07)
[2019-11-20] MEDS: PSYLLIUM SEED ORANGE SF 5.8 GM/PACKET PO SCH ×2 (08:07→16:17)
[2019-11-20] MEDS: LamoTRIgine 100 MG TABLET PO SCH (08:07)
[2019-11-20] MEDS: SENNA 187 MG TABLET PO SCH (08:07)
[2019-11-20] MEDS: DOCUSATE SODIUM 250 MG CAPSULE PO SCH (08:08)
[2019-11-20] MEDS: BusPIRone HCL 10 MG TABLET PO SCH ×3 (08:08→16:18)
[2019-11-20] MEDS: MAGNESIUM OXIDE 400 MG TABLET PO SCH ×3 (08:08→16:17)
[2019-11-20] MEDS: CHOLECALCIFEROL (VIT D3) 1,000 UNITS [25 MCG] TABLET PO SCH (08:09)
[2019-11-20] MEDS: QUEtiapine FUMARATE 200 MG TABLET PO SCH (08:11)
[2019-11-20] MEDS: PANTOPRAZOLE SODIUM 40 MG DR TABLET PO SCH (08:11)
[2019-11-20 11:16] VITALS: BP 102/61
[2019-11-20 16:23] VITALS: BP 117/81
[2019-11-20] MEDS: QUEtiapine FUMARATE 300 MG TABLET PO SCH (21:09)
[2019-11-20] MEDS: DIVALPROEX SODIUM 250 MG ER TABLET PO SCH (21:09)
[2019-11-20] MEDS: ZOLPIDEM TARTRATE 10 MG TABLET PO PRN (22:58)
[2019-11-21] MEDS: LEVOTHYROXINE SODIUM 125 MCG TABLET PO SCH (06:22)
[2019-11-21 08:40] VITALS: BP 103/76
[2019-11-21] MEDS: SENNA 187 MG TABLET PO SCH (08:55)
[2019-11-21] MEDS: LamoTRIgine 100 MG TABLET PO SCH (08:55)
[2019-11-21] MEDS: MAGNESIUM OXIDE 400 MG TABLET PO SCH ×3 (08:56→16:10)
[2019-11-21] MEDS: PANTOPRAZOLE SODIUM 40 MG DR TABLET PO SCH (08:56)
[2019-11-21] MEDS: CHOLECALCIFEROL (VIT D3) 1,000 UNITS [25 MCG] TABLET PO SCH (08:56)
[2019-11-21] MEDS: LORazepam 2 MG TABLET PO PRN (08:56)
[2019-11-21] MEDS: OLANZapine 5 MG TABLET PO PRN (08:56)
[2019-11-21] MEDS: QUEtiapine FUMARATE 200 MG TABLET PO SCH (08:56)
[2019-11-21] MEDS: ESCITALOPRAM OXALATE 20 MG TABLET PO SCH (08:56)
[2019-11-21] MEDS: BusPIRone HCL 10 MG TABLET PO SCH ×3 (08:56→16:11)
[2019-11-21] MEDS: DOCUSATE SODIUM 250 MG CAPSULE PO SCH (08:56)
[2019-11-21] MEDS: PSYLLIUM SEED ORANGE SF 5.8 GM/PACKET PO SCH ×2 (08:56→16:11)
[2019-11-21 16:48] VITALS: BP 154/76
[2019-11-21] MEDS: DIVALPROEX SODIUM 250 MG ER TABLET PO SCH (20:30)
[2019-11-21] MEDS: QUEtiapine FUMARATE 300 MG TABLET PO SCH (20:30)
[2019-11-22] MEDS: LORazepam 2 MG TABLET PO PRN (03:52)
[2019-11-22] MEDS: OLANZapine 5 MG TABLET PO PRN (03:52)
[2019-11-22] MEDS: LEVOTHYROXINE SODIUM 125 MCG TABLET PO SCH (07:02)
[2019-11-22 08:30] VITALS: BP 120/75
[2019-11-22] MEDS: SENNA 187 MG TABLET PO SCH (08:49)
[2019-11-22] MEDS: DOCUSATE SODIUM 250 MG CAPSULE PO SCH (08:49)
[2019-11-22] MEDS: QUEtiapine FUMARATE 200 MG TABLET PO SCH (08:49)
[2019-11-22] MEDS: MAGNESIUM OXIDE 400 MG TABLET PO SCH ×3 (08:49→16:18)
[2019-11-22] MEDS: BusPIRone HCL 10 MG TABLET PO SCH ×3 (08:49→16:18)
[2019-11-22] MEDS: CHOLECALCIFEROL (VIT D3) 1,000 UNITS [25 MCG] TABLET PO SCH (08:49)
[2019-11-22] MEDS: PANTOPRAZOLE SODIUM 40 MG DR TABLET PO SCH (08:49)
[2019-11-22] MEDS: PSYLLIUM SEED ORANGE SF 5.8 GM/PACKET PO SCH ×2 (08:50→16:18)
[2019-11-22] MEDS: LamoTRIgine 100 MG TABLET PO SCH (08:50)
[2019-11-22] MEDS: ESCITALOPRAM OXALATE 20 MG TABLET PO SCH (08:50)
[2019-11-22 16:16] VITALS: BP 108/62
[2019-11-22] MEDS: DIVALPROEX SODIUM 250 MG ER TABLET PO SCH (20:02)
[2019-11-22] MEDS: QUEtiapine FUMARATE 300 MG TABLET PO SCH (20:02)
[2019-11-23] MEDS: LORazepam 2 MG TABLET PO PRN (02:19)
[2019-11-23] MEDS: ZOLPIDEM TARTRATE 10 MG TABLET PO PRN (02:19)
[2019-11-23] MEDS: LEVOTHYROXINE SODIUM 125 MCG TABLET PO SCH (06:42)
[2019-11-23] MEDS: MAGNESIUM OXIDE 400 MG TABLET PO SCH ×3 (08:30→16:27)
[2019-11-23] MEDS: PANTOPRAZOLE SODIUM 40 MG DR TABLET PO SCH (08:31)
[2019-11-23] MEDS: SENNA 187 MG TABLET PO SCH (08:31)
[2019-11-23] MEDS: LamoTRIgine 100 MG TABLET PO SCH (08:31)
[2019-11-23] MEDS: CHOLECALCIFEROL (VIT D3) 1,000 UNITS [25 MCG] TABLET PO SCH (08:31)
[2019-11-23] MEDS: ESCITALOPRAM OXALATE 20 MG TABLET PO SCH (08:31)
[2019-11-23] MEDS: QUEtiapine FUMARATE 200 MG TABLET PO SCH (08:31)
[2019-11-23] MEDS: BusPIRone HCL 10 MG TABLET PO SCH ×3 (08:32→16:27)
[2019-11-23] MEDS: PSYLLIUM SEED ORANGE SF 5.8 GM/PACKET PO SCH ×2 (08:32→16:27)
[2019-11-23] MEDS: DOCUSATE SODIUM 250 MG CAPSULE PO SCH (08:32)
[2019-11-23 10:25] VITALS: BP 107/65
[2019-11-23 16:17] VITALS: BP 132/76
[2019-11-23] MEDS: DIVALPROEX SODIUM 250 MG ER TABLET PO SCH (20:50)
[2019-11-23] MEDS: QUEtiapine FUMARATE 300 MG TABLET PO SCH (20:50)
[2019-11-24] MEDS: OLANZapine 5 MG TABLET PO PRN (01:59)
[2019-11-24] MEDS: LORazepam 2 MG TABLET PO PRN (01:59)
[2019-11-24] MEDS: LEVOTHYROXINE SODIUM 125 MCG TABLET PO SCH (06:35)
[2019-11-24] MEDS: MAGNESIUM OXIDE 400 MG TABLET PO SCH ×3 (09:15→16:13)
[2019-11-24] MEDS: CHOLECALCIFEROL (VIT D3) 1,000 UNITS [25 MCG] TABLET PO SCH (09:15)
[2019-11-24] MEDS: PANTOPRAZOLE SODIUM 40 MG DR TABLET PO SCH (09:16)
[2019-11-24] MEDS: LamoTRIgine 100 MG TABLET PO SCH (09:16)
[2019-11-24] MEDS: QUEtiapine FUMARATE 200 MG TABLET PO SCH (09:16)
[2019-11-24] MEDS: BusPIRone HCL 10 MG TABLET PO SCH ×3 (09:16→16:13)
[2019-11-24] MEDS: SENNA 187 MG TABLET PO SCH (09:16)
[2019-11-24] MEDS: DOCUSATE SODIUM 250 MG CAPSULE PO SCH (09:16)
[2019-11-24] MEDS: ESCITALOPRAM OXALATE 20 MG TABLET PO SCH (09:17)
[2019-11-24] MEDS: PSYLLIUM SEED ORANGE SF 5.8 GM/PACKET PO SCH ×2 (09:18→16:13)
[2019-11-24 12:11] VITALS: BP 105/78
[2019-11-24 16:35] VITALS: BP 119/76
[2019-11-24] MEDS: QUEtiapine FUMARATE 300 MG TABLET PO SCH (20:17)
[2019-11-24] MEDS: DIVALPROEX SODIUM 250 MG ER TABLET PO SCH (20:17)
[2019-11-24] MEDS: ZOLPIDEM TARTRATE 10 MG TABLET PO PRN (21:15)
[2019-11-25] MEDS: LORazepam 2 MG TABLET PO PRN (01:39)
[2019-11-25] MEDS: OLANZapine 5 MG TABLET PO PRN ×2 (01:39→09:07)
[2019-11-25] MEDS: LEVOTHYROXINE SODIUM 125 MCG TABLET PO SCH (06:34)
[2019-11-25 08:11] VITALS: BP 120/75
[2019-11-25] MEDS: CHOLECALCIFEROL (VIT D3) 1,000 UNITS [25 MCG] TABLET PO SCH (09:07)
[2019-11-25] MEDS: ESCITALOPRAM OXALATE 20 MG TABLET PO SCH (09:07)
[2019-11-25] MEDS: MAGNESIUM OXIDE 400 MG TABLET PO SCH ×3 (09:07→16:02)
[2019-11-25] MEDS: DOCUSATE SODIUM 250 MG CAPSULE PO SCH (09:07)
[2019-11-25] MEDS: PANTOPRAZOLE SODIUM 40 MG DR TABLET PO SCH (09:07)
[2019-11-25] MEDS: PSYLLIUM SEED ORANGE SF 5.8 GM/PACKET PO SCH ×2 (09:08→16:02)
[2019-11-25] MEDS: LamoTRIgine 100 MG TABLET PO SCH (09:08)
[2019-11-25] MEDS: SENNA 187 MG TABLET PO SCH (09:08)
[2019-11-25] MEDS: BusPIRone HCL 10 MG TABLET PO SCH ×3 (09:08→16:02)
[2019-11-25] MEDS: QUEtiapine FUMARATE 200 MG TABLET PO SCH (09:08)
[2019-11-25 16:19] VITALS: BP 131/81
[2019-11-25] MEDS: QUEtiapine FUMARATE 300 MG TABLET PO SCH (20:03)
[2019-11-25] MEDS: DIVALPROEX SODIUM 250 MG ER TABLET PO SCH (20:03)
[2019-11-25] MEDS: ZOLPIDEM TARTRATE 10 MG TABLET PO PRN (21:01)
[2019-11-26] MEDS: LORazepam 2 MG TABLET PO PRN (01:04)
[2019-11-26] MEDS: OLANZapine 5 MG TABLET PO PRN (01:04)
[2019-11-26] MEDS: LEVOTHYROXINE SODIUM 125 MCG TABLET PO SCH (06:38)
[2019-11-26 09:11] VITALS: BP 116/65
[2019-11-26] MEDS: ESCITALOPRAM OXALATE 20 MG TABLET PO SCH (09:22)
[2019-11-26] MEDS: PSYLLIUM SEED ORANGE SF 5.8 GM/PACKET PO SCH ×2 (09:22→16:07)
[2019-11-26] MEDS: LamoTRIgine 100 MG TABLET PO SCH (09:22)
[2019-11-26] MEDS: SENNA 187 MG TABLET PO SCH (09:22)
[2019-11-26] MEDS: BusPIRone HCL 10 MG TABLET PO SCH ×3 (09:25→16:06)
[2019-11-26] MEDS: PANTOPRAZOLE SODIUM 40 MG DR TABLET PO SCH (09:25)
[2019-11-26] MEDS: CHOLECALCIFEROL (VIT D3) 1,000 UNITS [25 MCG] TABLET PO SCH (09:25)
[2019-11-26] MEDS: MAGNESIUM OXIDE 400 MG TABLET PO SCH ×3 (09:25→16:06)
[2019-11-26] MEDS: DOCUSATE SODIUM 250 MG CAPSULE PO SCH (09:26)
[2019-11-26] MEDS: QUEtiapine FUMARATE 200 MG TABLET PO SCH (09:26)
[2019-11-26 16:05] VITALS: BP 140/82
[2019-11-26] MEDS: DIVALPROEX SODIUM 250 MG ER TABLET PO SCH (20:06)
[2019-11-26] MEDS: QUEtiapine FUMARATE 300 MG TABLET PO SCH (20:06)
[2019-11-26] MEDS: ZOLPIDEM TARTRATE 10 MG TABLET PO PRN (21:37)
[2019-11-27] MEDS: LORazepam 2 MG TABLET PO PRN (00:26)
[2019-11-27] MEDS: OLANZapine 5 MG TABLET PO PRN (00:26)
[2019-11-27 00:28] VITALS: BP 120/80
[2019-11-27] MEDS: LEVOTHYROXINE SODIUM 125 MCG TABLET PO SCH (06:55)
[2019-11-27] MEDS: DOCUSATE SODIUM 250 MG CAPSULE PO SCH (08:10)
[2019-11-27] MEDS: CHOLECALCIFEROL (VIT D3) 1,000 UNITS [25 MCG] TABLET PO SCH (08:10)
[2019-11-27] MEDS: PSYLLIUM SEED ORANGE SF 5.8 GM/PACKET PO SCH ×2 (08:10→16:28)
[2019-11-27] MEDS: PANTOPRAZOLE SODIUM 40 MG DR TABLET PO SCH (08:11)
[2019-11-27] MEDS: LamoTRIgine 100 MG TABLET PO SCH (08:11)
[2019-11-27] MEDS: BusPIRone HCL 10 MG TABLET PO SCH ×3 (08:11→16:28)
[2019-11-27] MEDS: ESCITALOPRAM OXALATE 20 MG TABLET PO SCH (08:11)
[2019-11-27] MEDS: QUEtiapine FUMARATE 200 MG TABLET PO SCH (08:11)
[2019-11-27] MEDS: SENNA 187 MG TABLET PO SCH (08:11)
[2019-11-27] MEDS: MAGNESIUM OXIDE 400 MG TABLET PO SCH ×3 (08:11→16:27)
[2019-11-27 09:13] VITALS: BP 126/85
[2019-11-27 16:51] VITALS: BP 109/58
[2019-11-27] MEDS: DIVALPROEX SODIUM 250 MG ER TABLET PO SCH (20:00)
[2019-11-27] MEDS: QUEtiapine FUMARATE 300 MG TABLET PO SCH (20:00)
[2019-11-27] MEDS: ZOLPIDEM TARTRATE 10 MG TABLET PO PRN (21:16)
[2019-11-28 01:02] VITALS: BP 117/81
[2019-11-28] MEDS: LORazepam 2 MG TABLET PO PRN (01:07)
[2019-11-28] MEDS: LEVOTHYROXINE SODIUM 125 MCG TABLET PO SCH (07:14)
[2019-11-28] MEDS: CHOLECALCIFEROL (VIT D3) 1,000 UNITS [25 MCG] TABLET PO SCH (08:00)
[2019-11-28] MEDS: DOCUSATE SODIUM 250 MG CAPSULE PO SCH (08:00)
[2019-11-28] MEDS: QUEtiapine FUMARATE 200 MG TABLET PO SCH (08:01)
[2019-11-28] MEDS: ESCITALOPRAM OXALATE 20 MG TABLET PO SCH (08:01)
[2019-11-28] MEDS: MAGNESIUM OXIDE 400 MG TABLET PO SCH ×3 (08:01→17:02)
[2019-11-28] MEDS: PANTOPRAZOLE SODIUM 40 MG DR TABLET PO SCH (08:01)
[2019-11-28] MEDS: BusPIRone HCL 10 MG TABLET PO SCH ×3 (08:01→17:02)
[2019-11-28] MEDS: SENNA 187 MG TABLET PO SCH (08:02)
[2019-11-28] MEDS: PSYLLIUM SEED ORANGE SF 5.8 GM/PACKET PO SCH ×2 (08:02→17:01)
[2019-11-28] MEDS: LamoTRIgine 100 MG TABLET PO SCH (08:02)
[2019-11-28 09:57] VITALS: BP 107/72
[2019-11-28 17:03] VITALS: BP 120/84
[2019-11-28] MEDS: DIVALPROEX SODIUM 250 MG ER TABLET PO SCH (20:24)
[2019-11-28] MEDS: QUEtiapine FUMARATE 300 MG TABLET PO SCH (20:24)
[2019-11-29] MEDS: ZOLPIDEM TARTRATE 10 MG TABLET PO PRN ×2 (00:16→23:23)
[2019-11-29] MEDS: LORazepam 2 MG TABLET PO PRN ×2 (00:16→23:23)
[2019-11-29 00:28] VITALS: BP 116/73
[2019-11-29] MEDS: OLANZapine 5 MG TABLET PO PRN (02:47)
[2019-11-29] MEDS: LEVOTHYROXINE SODIUM 125 MCG TABLET PO SCH (06:48)
[2019-11-29] MEDS: PSYLLIUM SEED ORANGE SF 5.8 GM/PACKET PO SCH ×2 (09:08→17:36)
[2019-11-29] MEDS: ESCITALOPRAM OXALATE 20 MG TABLET PO SCH (09:09)
[2019-11-29] MEDS: BusPIRone HCL 10 MG TABLET PO SCH ×3 (09:09→17:36)
[2019-11-29] MEDS: MAGNESIUM OXIDE 400 MG TABLET PO SCH ×3 (09:09→17:36)
[2019-11-29] MEDS: LamoTRIgine 100 MG TABLET PO SCH (09:09)
[2019-11-29] MEDS: CHOLECALCIFEROL (VIT D3) 1,000 UNITS [25 MCG] TABLET PO SCH (09:09)
[2019-11-29] MEDS: QUEtiapine FUMARATE 200 MG TABLET PO SCH (09:09)
[2019-11-29] MEDS: SENNA 187 MG TABLET PO SCH (09:09)
[2019-11-29] MEDS: PANTOPRAZOLE SODIUM 40 MG DR TABLET PO SCH (09:10)
[2019-11-29] MEDS: DOCUSATE SODIUM 250 MG CAPSULE PO SCH (09:10)
[2019-11-29 10:15] VITALS: BP 137/76
[2019-11-29 17:11] VITALS: BP 135/74
[2019-11-29] MEDS: QUEtiapine FUMARATE 300 MG TABLET PO SCH (20:21)
[2019-11-29] MEDS: DIVALPROEX SODIUM 250 MG ER TABLET PO SCH (20:22)
[2019-11-30] MEDS: OLANZapine 5 MG TABLET PO PRN (04:04)
[2019-11-30] MEDS: LEVOTHYROXINE SODIUM 125 MCG TABLET PO SCH (06:44)
[2019-11-30] MEDS: PSYLLIUM SEED ORANGE SF 5.8 GM/PACKET PO SCH ×2 (08:16→16:39)
[2019-11-30] MEDS: ESCITALOPRAM OXALATE 20 MG TABLET PO SCH (08:16)
[2019-11-30] MEDS: QUEtiapine FUMARATE 200 MG TABLET PO SCH (08:16)
[2019-11-30] MEDS: PANTOPRAZOLE SODIUM 40 MG DR TABLET PO SCH (08:16)
[2019-11-30] MEDS: MAGNESIUM OXIDE 400 MG TABLET PO SCH ×3 (08:16→16:39)
[2019-11-30] MEDS: DOCUSATE SODIUM 250 MG CAPSULE PO SCH (08:16)
[2019-11-30] MEDS: SENNA 187 MG TABLET PO SCH (08:16)
[2019-11-30] MEDS: BusPIRone HCL 10 MG TABLET PO SCH ×3 (08:16→16:39)
[2019-11-30] MEDS: LamoTRIgine 100 MG TABLET PO SCH (08:16)
[2019-11-30] MEDS: CHOLECALCIFEROL (VIT D3) 1,000 UNITS [25 MCG] TABLET PO SCH (08:18)
[2019-11-30 10:54] VITALS: BP 107/56
[2019-11-30 16:00] VITALS: BP 141/78
[2019-11-30] MEDS: DIVALPROEX SODIUM 250 MG ER TABLET PO SCH (20:27)
[2019-11-30] MEDS: QUEtiapine FUMARATE 300 MG TABLET PO SCH (20:27)
[2019-11-30] MEDS: ZOLPIDEM TARTRATE 10 MG TABLET PO PRN (22:32)
[2019-12-01] MEDS: LEVOTHYROXINE SODIUM 125 MCG TABLET PO SCH (06:46)
[2019-12-01] MEDS: QUEtiapine FUMARATE 200 MG TABLET PO SCH (08:12)
[2019-12-01] MEDS: PANTOPRAZOLE SODIUM 40 MG DR TABLET PO SCH (08:12)
[2019-12-01] MEDS: PSYLLIUM SEED ORANGE SF 5.8 GM/PACKET PO SCH ×2 (08:12→16:08)
[2019-12-01] MEDS: MAGNESIUM OXIDE 400 MG TABLET PO SCH ×3 (08:12→16:08)
[2019-12-01] MEDS: SENNA 187 MG TABLET PO SCH (08:12)
[2019-12-01] MEDS: DOCUSATE SODIUM 250 MG CAPSULE PO SCH (08:13)
[2019-12-01] MEDS: ESCITALOPRAM OXALATE 20 MG TABLET PO SCH (08:13)
[2019-12-01] MEDS: CHOLECALCIFEROL (VIT D3) 1,000 UNITS [25 MCG] TABLET PO SCH (08:13)
[2019-12-01] MEDS: BusPIRone HCL 10 MG TABLET PO SCH ×3 (08:13→16:08)
[2019-12-01] MEDS: LamoTRIgine 100 MG TABLET PO SCH (08:17)
[2019-12-01 08:54] VITALS: BP 126/89
[2019-12-01 16:27] VITALS: BP 144/89
[2019-12-01] MEDS: QUEtiapine FUMARATE 300 MG TABLET PO SCH (20:09)
[2019-12-01] MEDS: DIVALPROEX SODIUM 250 MG ER TABLET PO SCH (20:09)
[2019-12-01] MEDS: ZOLPIDEM TARTRATE 10 MG TABLET PO PRN (21:14)
[2019-12-01] MEDS: LORazepam 2 MG TABLET PO PRN (21:34)
[2019-12-02] MEDS: LORazepam 2 MG TABLET PO PRN ×2 (01:48→01:50)
[2019-12-02] MEDS: OLANZapine 5 MG TABLET PO PRN (01:50)
[2019-12-02 01:51] VITALS: BP 139/89
[2019-12-02] MEDS: LEVOTHYROXINE SODIUM 125 MCG TABLET PO SCH (06:58)
[2019-12-02] MEDS: MAGNESIUM OXIDE 400 MG TABLET PO SCH ×3 (08:45→17:00)
[2019-12-02] MEDS: QUEtiapine FUMARATE 200 MG TABLET PO SCH (08:46)
[2019-12-02] MEDS: PSYLLIUM SEED ORANGE SF 5.8 GM/PACKET PO SCH ×2 (08:46→17:00)
[2019-12-02] MEDS: PANTOPRAZOLE SODIUM 40 MG DR TABLET PO SCH (08:46)
[2019-12-02] MEDS: CHOLECALCIFEROL (VIT D3) 1,000 UNITS [25 MCG] TABLET PO SCH (08:46)
[2019-12-02] MEDS: BusPIRone HCL 10 MG TABLET PO SCH ×3 (08:46→17:00)
[2019-12-02] MEDS: ESCITALOPRAM OXALATE 20 MG TABLET PO SCH (08:47)
[2019-12-02] MEDS: LamoTRIgine 100 MG TABLET PO SCH (08:48)
[2019-12-02] MEDS: SENNA 187 MG TABLET PO SCH (08:48)
[2019-12-02] MEDS: DOCUSATE SODIUM 250 MG CAPSULE PO SCH (08:49)
[2019-12-02 09:46] VITALS: BP 133/81
[2019-12-02] MEDS: DIVALPROEX SODIUM 250 MG ER TABLET PO SCH (20:58)
[2019-12-02] MEDS: QUEtiapine FUMARATE 300 MG TABLET PO SCH (20:59)
[2019-12-02] MEDS: ZOLPIDEM TARTRATE 10 MG TABLET PO PRN (21:53)
[2019-12-03 04:17] VITALS: BP 122/82
[2019-12-03] MEDS: LORazepam 2 MG TABLET PO PRN (04:19)
[2019-12-03] MEDS: LEVOTHYROXINE SODIUM 125 MCG TABLET PO SCH (07:00)
[2019-12-03] MEDS: PSYLLIUM SEED ORANGE SF 5.8 GM/PACKET PO SCH ×2 (08:10→16:19)
[2019-12-03] MEDS: DOCUSATE SODIUM 250 MG CAPSULE PO SCH (08:10)
[2019-12-03] MEDS: CHOLECALCIFEROL (VIT D3) 1,000 UNITS [25 MCG] TABLET PO SCH (08:10)
[2019-12-03] MEDS: QUEtiapine FUMARATE 200 MG TABLET PO SCH (08:11)
[2019-12-03] MEDS: BusPIRone HCL 10 MG TABLET PO SCH ×3 (08:11→16:19)
[2019-12-03] MEDS: LamoTRIgine 100 MG TABLET PO SCH (08:11)
[2019-12-03] MEDS: ESCITALOPRAM OXALATE 20 MG TABLET PO SCH (08:11)
[2019-12-03] MEDS: SENNA 187 MG TABLET PO SCH (08:11)
[2019-12-03] MEDS: MAGNESIUM OXIDE 400 MG TABLET PO SCH ×3 (08:11→16:19)
[2019-12-03] MEDS: PANTOPRAZOLE SODIUM 40 MG DR TABLET PO SCH (08:11)
[2019-12-03 08:53] VITALS: BP 117/67
[2019-12-03 16:18] VITALS: BP 132/93
[2019-12-03] MEDS: TEMAZEPAM 15 MG CAPSULE PO SCH (21:30)
[2019-12-03] MEDS: DIVALPROEX SODIUM 250 MG ER TABLET PO SCH (21:30)
[2019-12-03] MEDS: QUEtiapine FUMARATE 300 MG TABLET PO SCH (21:30)
[2019-12-04 05:16] VITALS: BP 126/65
[2019-12-04] MEDS: LEVOTHYROXINE SODIUM 125 MCG TABLET PO SCH (06:57)
[2019-12-04] MEDS: DOCUSATE SODIUM 250 MG CAPSULE PO SCH (08:05)
[2019-12-04] MEDS: SENNA 187 MG TABLET PO SCH (08:05)
[2019-12-04] MEDS: CHOLECALCIFEROL (VIT D3) 1,000 UNITS [25 MCG] TABLET PO SCH (08:05)
[2019-12-04] MEDS: BusPIRone HCL 10 MG TABLET PO SCH ×3 (08:05→15:52)
[2019-12-04] MEDS: MAGNESIUM OXIDE 400 MG TABLET PO SCH ×3 (08:05→15:54)
[2019-12-04] MEDS: PSYLLIUM SEED ORANGE SF 5.8 GM/PACKET PO SCH ×2 (08:05→15:52)
[2019-12-04] MEDS: PANTOPRAZOLE SODIUM 40 MG DR TABLET PO SCH (08:05)
[2019-12-04] MEDS: ESCITALOPRAM OXALATE 20 MG TABLET PO SCH (08:06)
[2019-12-04] MEDS: LamoTRIgine 100 MG TABLET PO SCH (08:06)
[2019-12-04] MEDS: QUEtiapine FUMARATE 200 MG TABLET PO SCH (08:06)
[2019-12-04 09:27] VITALS: BP 125/81
[2019-12-04] MEDS: DIVALPROEX SODIUM 250 MG ER TABLET PO SCH (20:13)
[2019-12-04] MEDS: TEMAZEPAM 15 MG CAPSULE PO SCH (20:13)
[2019-12-04] MEDS: QUEtiapine FUMARATE 300 MG TABLET PO SCH (20:13)
[2019-12-04 20:27] VITALS: BP_SYST 116; BP_SYST 124; BP_DIAS 68; BP_DIAS 78
[2019-12-05] MEDS: LORazepam 2 MG TABLET PO PRN (00:49)
[2019-12-05] MEDS: OLANZapine 5 MG TABLET PO PRN (00:49)
[2019-12-05 00:56] VITALS: BP 108/76
[2019-12-05] MEDS: LEVOTHYROXINE SODIUM 125 MCG TABLET PO SCH (06:54)
[2019-12-05] MEDS: CHOLECALCIFEROL (VIT D3) 1,000 UNITS [25 MCG] TABLET PO SCH (07:47)
[2019-12-05] MEDS: MAGNESIUM OXIDE 400 MG TABLET PO SCH ×3 (07:47→15:58)
[2019-12-05] MEDS: ESCITALOPRAM OXALATE 20 MG TABLET PO SCH (07:47)
[2019-12-05] MEDS: DOCUSATE SODIUM 250 MG CAPSULE PO SCH (07:47)
[2019-12-05] MEDS: QUEtiapine FUMARATE 200 MG TABLET PO SCH (07:47)
[2019-12-05] MEDS: BusPIRone HCL 10 MG TABLET PO SCH ×3 (07:47→15:59)
[2019-12-05] MEDS: PANTOPRAZOLE SODIUM 40 MG DR TABLET PO SCH (07:48)
[2019-12-05] MEDS: PSYLLIUM SEED ORANGE SF 5.8 GM/PACKET PO SCH ×2 (07:48→15:58)
[2019-12-05] MEDS: SENNA 187 MG TABLET PO SCH (07:48)
[2019-12-05] MEDS: LamoTRIgine 100 MG TABLET PO SCH (07:48)
[2019-12-05 08:23] VITALS: BP 109/83
[2019-12-05 16:00] VITALS: BP 136/98
[2019-12-05] MEDS: QUEtiapine FUMARATE 300 MG TABLET PO SCH (20:28)
[2019-12-05] MEDS: DIVALPROEX SODIUM 250 MG ER TABLET PO SCH (20:28)
[2019-12-05] MEDS: TEMAZEPAM 15 MG CAPSULE PO SCH (20:28)
[2019-12-06] MEDS: LEVOTHYROXINE SODIUM 125 MCG TABLET PO SCH (06:09)
[2019-12-06] MEDS: PANTOPRAZOLE SODIUM 40 MG DR TABLET PO SCH (08:05)
[2019-12-06] MEDS: CHOLECALCIFEROL (VIT D3) 1,000 UNITS [25 MCG] TABLET PO SCH (08:05)
[2019-12-06] MEDS: DOCUSATE SODIUM 250 MG CAPSULE PO SCH (08:06)
[2019-12-06] MEDS: BusPIRone HCL 10 MG TABLET PO SCH ×3 (08:06→16:06)
[2019-12-06] MEDS: MAGNESIUM OXIDE 400 MG TABLET PO SCH ×3 (08:06→16:10)
[2019-12-06] MEDS: LamoTRIgine 100 MG TABLET PO SCH (08:06)
[2019-12-06] MEDS: ESCITALOPRAM OXALATE 20 MG TABLET PO SCH (08:07)
[2019-12-06] MEDS: SENNA 187 MG TABLET PO SCH (08:07)
[2019-12-06] MEDS: QUEtiapine FUMARATE 200 MG TABLET PO SCH (08:07)
[2019-12-06] MEDS: PSYLLIUM SEED ORANGE SF 5.8 GM/PACKET PO SCH ×2 (08:08→16:06)
[2019-12-06] MEDS: LORazepam 2 MG TABLET PO PRN (09:09)
[2019-12-06] MEDS: OLANZapine 5 MG TABLET PO PRN (09:09)
[2019-12-06 11:45] VITALS: BP 129/82
[2019-12-06] MEDS: QUEtiapine FUMARATE 300 MG TABLET PO SCH (20:12)
[2019-12-06] MEDS: TEMAZEPAM 15 MG CAPSULE PO SCH (20:12)
[2019-12-06] MEDS: DIVALPROEX SODIUM 250 MG ER TABLET PO SCH (20:14)
[2019-12-06 20:55] VITALS: BP 133/91
[2019-12-06 20:58] VITALS: BP 133/91
[2019-12-06] MEDS: GuaiFENesin/D-METHORPHAN [SUGAR-FREE] 200-20MG/10 ML SYRUP UDCUP PO PRN (23:28)
[2019-12-07] MEDS: LEVOTHYROXINE SODIUM 125 MCG TABLET PO SCH (06:46)
[2019-12-07] MEDS: DOCUSATE SODIUM 250 MG CAPSULE PO SCH (08:18)
[2019-12-07] MEDS: PANTOPRAZOLE SODIUM 40 MG DR TABLET PO SCH (08:18)
[2019-12-07] MEDS: CHOLECALCIFEROL (VIT D3) 1,000 UNITS [25 MCG] TABLET PO SCH (08:18)
[2019-12-07] MEDS: MAGNESIUM OXIDE 400 MG TABLET PO SCH ×3 (08:18→17:38)
[2019-12-07] MEDS: QUEtiapine FUMARATE 200 MG TABLET PO SCH (08:19)
[2019-12-07] MEDS: SENNA 187 MG TABLET PO SCH (08:19)
[2019-12-07] MEDS: ESCITALOPRAM OXALATE 20 MG TABLET PO SCH (08:19)
[2019-12-07] MEDS: BusPIRone HCL 10 MG TABLET PO SCH ×3 (08:19→17:38)
[2019-12-07] MEDS: LamoTRIgine 100 MG TABLET PO SCH (08:20)
[2019-12-07] MEDS: PSYLLIUM SEED ORANGE SF 5.8 GM/PACKET PO SCH ×2 (08:20→17:38)
[2019-12-07 09:09] VITALS: BP 132/76
[2019-12-07] MEDS: LORazepam 2 MG TABLET PO PRN (12:24)
[2019-12-07] MEDS: OLANZapine 5 MG TABLET PO PRN (12:24)
[2019-12-07 18:49] VITALS: BP 128/80
[2019-12-07] MEDS: QUEtiapine FUMARATE 300 MG TABLET PO SCH (21:07)
[2019-12-07] MEDS: TEMAZEPAM 15 MG CAPSULE PO SCH (21:07)
[2019-12-07] MEDS: DIVALPROEX SODIUM 250 MG ER TABLET PO SCH (21:07)
[2019-12-08 02:14] VITALS: BP 130/79
[2019-12-08] MEDS: OLANZapine 5 MG TABLET PO PRN (02:15)
[2019-12-08] MEDS: LORazepam 2 MG TABLET PO PRN (02:15)
[2019-12-08] MEDS: LEVOTHYROXINE SODIUM 125 MCG TABLET PO SCH (07:04)
[2019-12-08] MEDS: ESCITALOPRAM OXALATE 20 MG TABLET PO SCH (09:00)
[2019-12-08] MEDS: LamoTRIgine 100 MG TABLET PO SCH (09:00)
[2019-12-08] MEDS: SENNA 187 MG TABLET PO SCH (09:00)
[2019-12-08] MEDS: PSYLLIUM SEED ORANGE SF 5.8 GM/PACKET PO SCH ×2 (10:28→16:15)
[2019-12-08] MEDS: GuaiFENesin/D-METHORPHAN [SUGAR-FREE] 200-20MG/10 ML SYRUP UDCUP PO PRN (10:28)
[2019-12-08] MEDS: BusPIRone HCL 10 MG TABLET PO SCH ×3 (10:29→16:15)
[2019-12-08] MEDS: MAGNESIUM OXIDE 400 MG TABLET PO SCH ×3 (10:29→16:15)
[2019-12-08] MEDS: DOCUSATE SODIUM 250 MG CAPSULE PO SCH (10:30)
[2019-12-08] MEDS: QUEtiapine FUMARATE 200 MG TABLET PO SCH (10:30)
[2019-12-08] MEDS: PANTOPRAZOLE SODIUM 40 MG DR TABLET PO SCH (10:31)
[2019-12-08] MEDS: CHOLECALCIFEROL (VIT D3) 1,000 UNITS [25 MCG] TABLET PO SCH (10:31)
[2019-12-08 14:30] VITALS: BP 140/85
[2019-12-08 17:04] VITALS: BP 122/73
[2019-12-08] MEDS: DIVALPROEX SODIUM 250 MG ER TABLET PO SCH (20:05)
[2019-12-08] MEDS: TEMAZEPAM 15 MG CAPSULE PO SCH (20:05)
[2019-12-08] MEDS: QUEtiapine FUMARATE 300 MG TABLET PO SCH (20:05)
[2019-12-09 00:55] VITALS: BP 117/85
[2019-12-09] MEDS: LORazepam 2 MG TABLET PO PRN ×3 (00:58→23:17)
[2019-12-09] MEDS: OLANZapine 5 MG TABLET PO PRN ×3 (00:58→23:17)
[2019-12-09] MEDS: LEVOTHYROXINE SODIUM 125 MCG TABLET PO SCH (06:55)
[2019-12-09 08:07] VITALS: BP 108/71
[2019-12-09] MEDS: MAGNESIUM OXIDE 400 MG TABLET PO SCH ×3 (08:29→15:52)
[2019-12-09] MEDS: QUEtiapine FUMARATE 200 MG TABLET PO SCH (08:29)
[2019-12-09] MEDS: SENNA 187 MG TABLET PO SCH (08:29)
[2019-12-09] MEDS: BusPIRone HCL 10 MG TABLET PO SCH ×3 (08:29→15:52)
[2019-12-09] MEDS: LamoTRIgine 100 MG TABLET PO SCH (08:29)
[2019-12-09] MEDS: PSYLLIUM SEED ORANGE SF 5.8 GM/PACKET PO SCH ×2 (08:29→15:52)
[2019-12-09] MEDS: ESCITALOPRAM OXALATE 20 MG TABLET PO SCH (08:29)
[2019-12-09] MEDS: DOCUSATE SODIUM 250 MG CAPSULE PO SCH (08:29)
[2019-12-09] MEDS: CHOLECALCIFEROL (VIT D3) 1,000 UNITS [25 MCG] TABLET PO SCH (08:29)
[2019-12-09] MEDS: PANTOPRAZOLE SODIUM 40 MG DR TABLET PO SCH (08:30)
[2019-12-09 16:28] VITALS: BP 134/87
[2019-12-09] MEDS: GuaiFENesin/D-METHORPHAN [SUGAR-FREE] 200-20MG/10 ML SYRUP UDCUP PO PRN (19:28)
[2019-12-09] MEDS: DIVALPROEX SODIUM 250 MG ER TABLET PO SCH (21:01)
[2019-12-09] MEDS: TEMAZEPAM 15 MG CAPSULE PO SCH (21:01)
[2019-12-09] MEDS: QUEtiapine FUMARATE 300 MG TABLET PO SCH (21:02)
[2019-12-10] MEDS: LEVOTHYROXINE SODIUM 125 MCG TABLET PO SCH (06:50)
[2019-12-10 08:00] VITALS: BP 121/65
[2019-12-10] MEDS: SENNA 187 MG TABLET PO SCH (08:05)
[2019-12-10] MEDS: ESCITALOPRAM OXALATE 20 MG TABLET PO SCH (08:05)
[2019-12-10] MEDS: PANTOPRAZOLE SODIUM 40 MG DR TABLET PO SCH (08:06)
[2019-12-10] MEDS: LamoTRIgine 100 MG TABLET PO SCH (08:06)
[2019-12-10] MEDS: CHOLECALCIFEROL (VIT D3) 1,000 UNITS [25 MCG] TABLET PO SCH (08:06)
[2019-12-10] MEDS: MAGNESIUM OXIDE 400 MG TABLET PO SCH ×3 (08:06→16:02)
[2019-12-10] MEDS: DOCUSATE SODIUM 250 MG CAPSULE PO SCH (08:06)
[2019-12-10] MEDS: BusPIRone HCL 10 MG TABLET PO SCH ×3 (08:06→16:02)
[2019-12-10] MEDS: QUEtiapine FUMARATE 200 MG TABLET PO SCH (08:06)
[2019-12-10] MEDS: PSYLLIUM SEED ORANGE SF 5.8 GM/PACKET PO SCH ×2 (08:06→16:02)
[2019-12-10 16:25] VITALS: BP 136/91
[2019-12-10] MEDS: TEMAZEPAM 15 MG CAPSULE PO SCH (20:58)
[2019-12-10] MEDS: DIVALPROEX SODIUM 250 MG ER TABLET PO SCH (20:58)
[2019-12-10] MEDS: QUEtiapine FUMARATE 300 MG TABLET PO SCH (20:59)
[2019-12-11] MEDS: OLANZapine 5 MG TABLET PO PRN ×3 (01:17→23:59)
[2019-12-11] MEDS: LORazepam 2 MG TABLET PO PRN ×3 (01:18→23:59)
[2019-12-11] MEDS: LEVOTHYROXINE SODIUM 125 MCG TABLET PO SCH (07:01)
[2019-12-11 08:00] VITALS: BP 136/92
[2019-12-11] MEDS: DOCUSATE SODIUM 250 MG CAPSULE PO SCH (08:17)
[2019-12-11] MEDS: LamoTRIgine 100 MG TABLET PO SCH (08:17)
[2019-12-11] MEDS: PSYLLIUM SEED ORANGE SF 5.8 GM/PACKET PO SCH ×2 (08:17→17:19)
[2019-12-11] MEDS: ESCITALOPRAM OXALATE 20 MG TABLET PO SCH (08:17)
[2019-12-11] MEDS: BusPIRone HCL 10 MG TABLET PO SCH ×3 (08:17→17:19)
[2019-12-11] MEDS: SENNA 187 MG TABLET PO SCH (08:17)
[2019-12-11] MEDS: CHOLECALCIFEROL (VIT D3) 1,000 UNITS [25 MCG] TABLET PO SCH (08:17)
[2019-12-11] MEDS: PANTOPRAZOLE SODIUM 40 MG DR TABLET PO SCH (08:17)
[2019-12-11] MEDS: MAGNESIUM OXIDE 400 MG TABLET PO SCH ×3 (08:17→17:19)
[2019-12-11] MEDS: QUEtiapine FUMARATE 200 MG TABLET PO SCH (08:18)
[2019-12-11 16:10] VITALS: BP 132/78
[2019-12-11] MEDS: DIVALPROEX SODIUM 250 MG ER TABLET PO SCH (21:14)
[2019-12-11] MEDS: TEMAZEPAM 15 MG CAPSULE PO SCH (21:14)
[2019-12-11] MEDS: QUEtiapine FUMARATE 300 MG TABLET PO SCH (21:15)
[2019-12-12 00:03] VITALS: BP 106/73
[2019-12-12] MEDS: LEVOTHYROXINE SODIUM 125 MCG TABLET PO SCH (06:48)
[2019-12-12 08:00] VITALS: BP 117/80
[2019-12-12] MEDS: SENNA 187 MG TABLET PO SCH (08:19)
[2019-12-12] MEDS: LamoTRIgine 100 MG TABLET PO SCH (08:19)
[2019-12-12] MEDS: PSYLLIUM SEED ORANGE SF 5.8 GM/PACKET PO SCH ×2 (08:19→16:16)
[2019-12-12] MEDS: ESCITALOPRAM OXALATE 20 MG TABLET PO SCH (08:19)
[2019-12-12] MEDS: CHOLECALCIFEROL (VIT D3) 1,000 UNITS [25 MCG] TABLET PO SCH (08:23)
[2019-12-12] MEDS: PANTOPRAZOLE SODIUM 40 MG DR TABLET PO SCH (08:24)
[2019-12-12] MEDS: QUEtiapine FUMARATE 200 MG TABLET PO SCH (08:24)
[2019-12-12] MEDS: MAGNESIUM OXIDE 400 MG TABLET PO SCH ×3 (08:24→16:16)
[2019-12-12] MEDS: BusPIRone HCL 10 MG TABLET PO SCH ×3 (08:24→16:16)
[2019-12-12] MEDS: DOCUSATE SODIUM 250 MG CAPSULE PO SCH (08:24)
[2019-12-12 16:22] VITALS: BP 135/74
[2019-12-12] MEDS: TEMAZEPAM 15 MG CAPSULE PO SCH (21:07)
[2019-12-12] MEDS: DIVALPROEX SODIUM 250 MG ER TABLET PO SCH (21:07)
[2019-12-12] MEDS: QUEtiapine FUMARATE 300 MG TABLET PO SCH (21:08)
[2019-12-13] MEDS: OLANZapine 5 MG TABLET PO PRN (01:52)
[2019-12-13 01:54] VITALS: BP 125/65
[2019-12-13] MEDS: LEVOTHYROXINE SODIUM 125 MCG TABLET PO SCH (06:38)
[2019-12-13 08:00] VITALS: BP 110/62
[2019-12-13] MEDS: CHOLECALCIFEROL (VIT D3) 1,000 UNITS [25 MCG] TABLET PO SCH (08:09)
[2019-12-13] MEDS: MAGNESIUM OXIDE 400 MG TABLET PO SCH ×3 (08:10→16:41)
[2019-12-13] MEDS: DOCUSATE SODIUM 250 MG CAPSULE PO SCH (08:10)
[2019-12-13] MEDS: SENNA 187 MG TABLET PO SCH (08:10)
[2019-12-13] MEDS: PSYLLIUM SEED ORANGE SF 5.8 GM/PACKET PO SCH ×2 (08:10→16:41)
[2019-12-13] MEDS: ESCITALOPRAM OXALATE 20 MG TABLET PO SCH (08:11)
[2019-12-13] MEDS: LamoTRIgine 100 MG TABLET PO SCH (08:11)
[2019-12-13] MEDS: BusPIRone HCL 10 MG TABLET PO SCH ×3 (08:11→16:41)
[2019-12-13] MEDS: QUEtiapine FUMARATE 200 MG TABLET PO SCH (08:11)
[2019-12-13] MEDS: PANTOPRAZOLE SODIUM 40 MG DR TABLET PO SCH (08:12)
[2019-12-13 16:25] VITALS: BP 148/82
[2019-12-13] MEDS: TEMAZEPAM 15 MG CAPSULE PO SCH (21:02)
[2019-12-13] MEDS: DIVALPROEX SODIUM 250 MG ER TABLET PO SCH (21:02)
[2019-12-13] MEDS: QUEtiapine FUMARATE 300 MG TABLET PO SCH (21:03)
[2019-12-14] MEDS: OLANZapine 5 MG TABLET PO PRN (00:52)
[2019-12-14] MEDS: LORazepam 2 MG TABLET PO PRN (00:52)
[2019-12-14] MEDS: LEVOTHYROXINE SODIUM 125 MCG TABLET PO SCH (06:25)
[2019-12-14 08:30] VITALS: BP 134/78
[2019-12-14] MEDS: CHOLECALCIFEROL (VIT D3) 1,000 UNITS [25 MCG] TABLET PO SCH (08:40)
[2019-12-14] MEDS: DOCUSATE SODIUM 250 MG CAPSULE PO SCH (08:40)
[2019-12-14] MEDS: LamoTRIgine 100 MG TABLET PO SCH (08:40)
[2019-12-14] MEDS: QUEtiapine FUMARATE 200 MG TABLET PO SCH (08:40)
[2019-12-14] MEDS: ESCITALOPRAM OXALATE 20 MG TABLET PO SCH (08:40)
[2019-12-14] MEDS: BusPIRone HCL 10 MG TABLET PO SCH ×3 (08:40→16:22)
[2019-12-14] MEDS: SENNA 187 MG TABLET PO SCH (08:40)
[2019-12-14] MEDS: MAGNESIUM OXIDE 400 MG TABLET PO SCH ×3 (08:40→16:22)
[2019-12-14] MEDS: PANTOPRAZOLE SODIUM 40 MG DR TABLET PO SCH (08:41)
[2019-12-14] MEDS: PSYLLIUM SEED ORANGE SF 5.8 GM/PACKET PO SCH ×2 (08:41→16:23)
[2019-12-14 16:23] VITALS: BP 135/83
[2019-12-14] MEDS: DIVALPROEX SODIUM 250 MG ER TABLET PO SCH (21:13)
[2019-12-14] MEDS: QUEtiapine FUMARATE 300 MG TABLET PO SCH (21:13)
[2019-12-14] MEDS: ZOLPIDEM TARTRATE 10 MG TABLET PO PRN (22:24)
[2019-12-15] MEDS: LEVOTHYROXINE SODIUM 125 MCG TABLET PO SCH (06:36)
[2019-12-15] MEDS: SENNA 187 MG TABLET PO SCH (07:53)
[2019-12-15] MEDS: ESCITALOPRAM OXALATE 20 MG TABLET PO SCH (07:53)
[2019-12-15] MEDS: PSYLLIUM SEED ORANGE SF 5.8 GM/PACKET PO SCH ×2 (07:53→16:14)
[2019-12-15] MEDS: LamoTRIgine 100 MG TABLET PO SCH (07:53)
[2019-12-15] MEDS: DOCUSATE SODIUM 250 MG CAPSULE PO SCH (07:55)
[2019-12-15] MEDS: QUEtiapine FUMARATE 200 MG TABLET PO SCH (07:55)
[2019-12-15] MEDS: BusPIRone HCL 10 MG TABLET PO SCH ×3 (07:56→16:13)
[2019-12-15] MEDS: PANTOPRAZOLE SODIUM 40 MG DR TABLET PO SCH (07:56)
[2019-12-15] MEDS: MAGNESIUM OXIDE 400 MG TABLET PO SCH ×3 (07:58→16:13)
[2019-12-15] MEDS: CHOLECALCIFEROL (VIT D3) 1,000 UNITS [25 MCG] TABLET PO SCH (07:59)
[2019-12-15 08:05] VITALS: BP 125/73
[2019-12-15] MEDS: LORazepam 2 MG TABLET PO PRN (09:08)
[2019-12-15] MEDS: OLANZapine 5 MG TABLET PO PRN (09:08)
[2019-12-15 16:02] VITALS: BP 156/94
[2019-12-15] MEDS: QUEtiapine FUMARATE 300 MG TABLET PO SCH (20:58)
[2019-12-15] MEDS: DIVALPROEX SODIUM 250 MG ER TABLET PO SCH (21:00)
[2019-12-16] MEDS: ZOLPIDEM TARTRATE 10 MG TABLET PO PRN ×2 (00:27→21:51)
[2019-12-16] MEDS: LEVOTHYROXINE SODIUM 125 MCG TABLET PO SCH (06:40)
[2019-12-16] MEDS: PSYLLIUM SEED ORANGE SF 5.8 GM/PACKET PO SCH ×3 (08:26→16:19)
[2019-12-16] MEDS: QUEtiapine FUMARATE 200 MG TABLET PO SCH (08:32)
[2019-12-16] MEDS: CHOLECALCIFEROL (VIT D3) 1,000 UNITS [25 MCG] TABLET PO SCH (08:32)
[2019-12-16] MEDS: DOCUSATE SODIUM 250 MG CAPSULE PO SCH (08:32)
[2019-12-16] MEDS: MAGNESIUM OXIDE 400 MG TABLET PO SCH ×3 (08:32→16:16)
[2019-12-16] MEDS: BusPIRone HCL 10 MG TABLET PO SCH ×3 (08:32→16:16)
[2019-12-16] MEDS: SENNA 187 MG TABLET PO SCH (08:33)
[2019-12-16] MEDS: PANTOPRAZOLE SODIUM 40 MG DR TABLET PO SCH (08:33)
[2019-12-16] MEDS: LamoTRIgine 100 MG TABLET PO SCH (08:33)
[2019-12-16] MEDS: ESCITALOPRAM OXALATE 20 MG TABLET PO SCH (08:33)
[2019-12-16 09:39] VITALS: BP 108/72
[2019-12-16] MEDS: OLANZapine 5 MG TABLET PO PRN (14:59)
[2019-12-16] MEDS: LORazepam 2 MG TABLET PO PRN (14:59)
[2019-12-16 16:27] VITALS: BP 160/90
[2019-12-16] MEDS: DIVALPROEX SODIUM 250 MG ER TABLET PO SCH (20:20)
[2019-12-16] MEDS: QUEtiapine FUMARATE 300 MG TABLET PO SCH (20:21)
[2019-12-17] MEDS: LORazepam 2 MG TABLET PO PRN (01:34)
[2019-12-17] MEDS: LEVOTHYROXINE SODIUM 125 MCG TABLET PO SCH (06:39)
[2019-12-17] MEDS: DOCUSATE SODIUM 250 MG CAPSULE PO SCH (07:58)
[2019-12-17] MEDS: QUEtiapine FUMARATE 200 MG TABLET PO SCH (07:58)
[2019-12-17] MEDS: BusPIRone HCL 10 MG TABLET PO SCH ×3 (07:59→17:07)
[2019-12-17] MEDS: PANTOPRAZOLE SODIUM 40 MG DR TABLET PO SCH (07:59)
[2019-12-17] MEDS: MAGNESIUM OXIDE 400 MG TABLET PO SCH ×3 (08:00→17:07)
[2019-12-17] MEDS: ESCITALOPRAM OXALATE 20 MG TABLET PO SCH (08:00)
[2019-12-17] MEDS: CHOLECALCIFEROL (VIT D3) 1,000 UNITS [25 MCG] TABLET PO SCH (08:00)
[2019-12-17] MEDS: PSYLLIUM SEED ORANGE SF 5.8 GM/PACKET PO SCH ×2 (08:00→17:07)
[2019-12-17] MEDS: LamoTRIgine 100 MG TABLET PO SCH (08:00)
[2019-12-17] MEDS: SENNA 187 MG TABLET PO SCH (08:00)
[2019-12-17 08:14] VITALS: BP 140/78
[2019-12-17 16:11] VITALS: BP 142/80
[2019-12-17] MEDS: DIVALPROEX SODIUM 250 MG ER TABLET PO SCH (21:17)
[2019-12-17] MEDS: QUEtiapine FUMARATE 300 MG TABLET PO SCH (21:17)
[2019-12-17] MEDS: ZOLPIDEM TARTRATE 10 MG TABLET PO PRN (22:11)
[2019-12-18] MEDS: ChlorproMAZINE HCL 100 MG TABLET PO PRN ×2 (03:50→23:49)
[2019-12-18] MEDS: LORazepam 2 MG TABLET PO PRN (03:50)
[2019-12-18 03:53] VITALS: BP 116/67
[2019-12-18] MEDS: LEVOTHYROXINE SODIUM 125 MCG TABLET PO SCH (06:40)
[2019-12-18] MEDS: PSYLLIUM SEED ORANGE SF 5.8 GM/PACKET PO SCH ×2 (07:43→16:35)
[2019-12-18] MEDS: QUEtiapine FUMARATE 200 MG TABLET PO SCH (07:45)
[2019-12-18] MEDS: ESCITALOPRAM OXALATE 20 MG TABLET PO SCH (07:45)
[2019-12-18] MEDS: DOCUSATE SODIUM 250 MG CAPSULE PO SCH (07:45)
[2019-12-18] MEDS: MAGNESIUM OXIDE 400 MG TABLET PO SCH ×3 (07:45→16:35)
[2019-12-18] MEDS: LamoTRIgine 100 MG TABLET PO SCH (07:45)
[2019-12-18] MEDS: CHOLECALCIFEROL (VIT D3) 1,000 UNITS [25 MCG] TABLET PO SCH (07:45)
[2019-12-18] MEDS: SENNA 187 MG TABLET PO SCH (07:45)
[2019-12-18] MEDS: BusPIRone HCL 10 MG TABLET PO SCH ×3 (07:45→16:35)
[2019-12-18] MEDS: PANTOPRAZOLE SODIUM 40 MG DR TABLET PO SCH (07:46)
[2019-12-18 08:37] VITALS: BP 132/67
[2019-12-18 16:29] VITALS: BP 146/68
[2019-12-18] MEDS: DIVALPROEX SODIUM 250 MG ER TABLET PO SCH (20:20)
[2019-12-18] MEDS: QUEtiapine FUMARATE 300 MG TABLET PO SCH (20:20)
[2019-12-18] MEDS: ZOLPIDEM TARTRATE 10 MG TABLET PO PRN (20:23)
[2019-12-19 00:06] VITALS: BP 112/72
[2019-12-19] MEDS: LORazepam 2 MG TABLET PO PRN (01:26)
[2019-12-19] MEDS: LEVOTHYROXINE SODIUM 125 MCG TABLET PO SCH (06:56)
[2019-12-19] MEDS: LamoTRIgine 100 MG TABLET PO SCH (08:01)
[2019-12-19] MEDS: ESCITALOPRAM OXALATE 20 MG TABLET PO SCH (08:01)
[2019-12-19] MEDS: DOCUSATE SODIUM 250 MG CAPSULE PO SCH (08:01)
[2019-12-19] MEDS: BusPIRone HCL 10 MG TABLET PO SCH ×3 (08:01→16:48)
[2019-12-19] MEDS: PSYLLIUM SEED ORANGE SF 5.8 GM/PACKET PO SCH ×2 (08:01→16:53)
[2019-12-19] MEDS: QUEtiapine FUMARATE 200 MG TABLET PO SCH (08:02)
[2019-12-19] MEDS: SENNA 187 MG TABLET PO SCH (08:02)
[2019-12-19] MEDS: CHOLECALCIFEROL (VIT D3) 1,000 UNITS [25 MCG] TABLET PO SCH (08:02)
[2019-12-19] MEDS: PANTOPRAZOLE SODIUM 40 MG DR TABLET PO SCH (08:02)
[2019-12-19] MEDS: MAGNESIUM OXIDE 400 MG TABLET PO SCH ×3 (08:02→16:49)
[2019-12-19 08:38] VITALS: BP 116/70
[2019-12-19 16:29] VITALS: BP 131/86
[2019-12-19] MEDS: DIVALPROEX SODIUM 250 MG ER TABLET PO SCH (20:27)
[2019-12-19] MEDS: QUEtiapine FUMARATE 300 MG TABLET PO SCH (20:27)
[2019-12-19] MEDS: ZOLPIDEM TARTRATE 10 MG TABLET PO PRN (20:29)
[2019-12-20] MEDS: ZOLPIDEM TARTRATE 10 MG TABLET PO PRN ×2 (02:48→20:29)
[2019-12-20] MEDS: ChlorproMAZINE HCL 100 MG TABLET PO PRN (02:54)
[2019-12-20 02:55] VITALS: BP 106/87
[2019-12-20] MEDS: LEVOTHYROXINE SODIUM 125 MCG TABLET PO SCH (06:47)
[2019-12-20] MEDS: LORazepam 2 MG TABLET PO PRN (08:55)
[2019-12-20] MEDS: DOCUSATE SODIUM 250 MG CAPSULE PO SCH (09:13)
[2019-12-20] MEDS: MAGNESIUM OXIDE 400 MG TABLET PO SCH ×3 (09:13→16:52)
[2019-12-20] MEDS: LamoTRIgine 100 MG TABLET PO SCH (09:13)
[2019-12-20] MEDS: ESCITALOPRAM OXALATE 20 MG TABLET PO SCH (09:13)
[2019-12-20] MEDS: PSYLLIUM SEED ORANGE SF 5.8 GM/PACKET PO SCH ×2 (09:13→16:52)
[2019-12-20] MEDS: BusPIRone HCL 10 MG TABLET PO SCH ×3 (09:13→16:53)
[2019-12-20] MEDS: CHOLECALCIFEROL (VIT D3) 1,000 UNITS [25 MCG] TABLET PO SCH (09:14)
[2019-12-20] MEDS: PANTOPRAZOLE SODIUM 40 MG DR TABLET PO SCH (09:14)
[2019-12-20] MEDS: SENNA 187 MG TABLET PO SCH (09:14)
[2019-12-20] MEDS: QUEtiapine FUMARATE 200 MG TABLET PO SCH (09:14)
[2019-12-20 10:55] VITALS: BP 123/75
[2019-12-20 16:49] VITALS: BP 123/87
[2019-12-20] MEDS: QUEtiapine FUMARATE 300 MG TABLET PO SCH (20:28)
[2019-12-20] MEDS: DIVALPROEX SODIUM 250 MG ER TABLET PO SCH (20:28)
[2019-12-21] MEDS: LEVOTHYROXINE SODIUM 125 MCG TABLET PO SCH (06:47)
[2019-12-21] MEDS: BusPIRone HCL 10 MG TABLET PO SCH ×3 (08:50→16:33)
[2019-12-21] MEDS: PANTOPRAZOLE SODIUM 40 MG DR TABLET PO SCH (08:50)
[2019-12-21] MEDS: MAGNESIUM OXIDE 400 MG TABLET PO SCH ×3 (08:50→16:33)
[2019-12-21] MEDS: SENNA 187 MG TABLET PO SCH (08:51)
[2019-12-21] MEDS: ESCITALOPRAM OXALATE 20 MG TABLET PO SCH (08:51)
[2019-12-21] MEDS: CHOLECALCIFEROL (VIT D3) 1,000 UNITS [25 MCG] TABLET PO SCH (08:51)
[2019-12-21] MEDS: QUEtiapine FUMARATE 200 MG TABLET PO SCH (08:51)
[2019-12-21] MEDS: LamoTRIgine 100 MG TABLET PO SCH (08:52)
[2019-12-21] MEDS: DOCUSATE SODIUM 250 MG CAPSULE PO SCH (08:52)
[2019-12-21] MEDS: PSYLLIUM SEED ORANGE SF 5.8 GM/PACKET PO SCH ×2 (08:52→16:33)
[2019-12-21 10:24] VITALS: BP 118/68
[2019-12-21] MEDS: LORazepam 2 MG TABLET PO PRN (12:10)
[2019-12-21 18:13] VITALS: BP 139/69
[2019-12-21] MEDS: DIVALPROEX SODIUM 250 MG ER TABLET PO SCH (22:03)
[2019-12-21] MEDS: QUEtiapine FUMARATE 300 MG TABLET PO SCH (22:05)
[2019-12-22] MEDS: LEVOTHYROXINE SODIUM 125 MCG TABLET PO SCH (06:45)
[2019-12-22 08:00] VITALS: BP 127/88
[2019-12-22] MEDS: CHOLECALCIFEROL (VIT D3) 1,000 UNITS [25 MCG] TABLET PO SCH (09:05)
[2019-12-22] MEDS: QUEtiapine FUMARATE 200 MG TABLET PO SCH (09:05)
[2019-12-22] MEDS: LamoTRIgine 100 MG TABLET PO SCH (09:05)
[2019-12-22] MEDS: SENNA 187 MG TABLET PO SCH (09:05)
[2019-12-22] MEDS: ESCITALOPRAM OXALATE 20 MG TABLET PO SCH (09:05)
[2019-12-22] MEDS: PANTOPRAZOLE SODIUM 40 MG DR TABLET PO SCH (09:05)
[2019-12-22] MEDS: MAGNESIUM OXIDE 400 MG TABLET PO SCH ×3 (09:05→16:13)
[2019-12-22] MEDS: DOCUSATE SODIUM 250 MG CAPSULE PO SCH (09:06)
[2019-12-22] MEDS: PSYLLIUM SEED ORANGE SF 5.8 GM/PACKET PO SCH ×2 (09:06→16:13)
[2019-12-22] MEDS: BusPIRone HCL 10 MG TABLET PO SCH ×3 (09:06→16:14)
[2019-12-22 17:54] VITALS: BP 109/87
[2019-12-22] MEDS: ChlorproMAZINE HCL 100 MG TABLET PO PRN (18:38)
[2019-12-22] MEDS: DIVALPROEX SODIUM 250 MG ER TABLET PO SCH (21:09)
[2019-12-22] MEDS: QUEtiapine FUMARATE 300 MG TABLET PO SCH (21:09)
[2019-12-22] MEDS: ZOLPIDEM TARTRATE 10 MG TABLET PO PRN (21:32)
[2019-12-23] MEDS: LORazepam 2 MG TABLET PO PRN ×2 (04:46→17:08)
[2019-12-23 04:47] VITALS: BP 134/70
[2019-12-23] MEDS: LEVOTHYROXINE SODIUM 125 MCG TABLET PO SCH (06:56)
[2019-12-23 08:00] VITALS: BP 106/71
[2019-12-23] MEDS: MAGNESIUM OXIDE 400 MG TABLET PO SCH ×3 (08:44→17:08)
[2019-12-23] MEDS: PSYLLIUM SEED ORANGE SF 5.8 GM/PACKET PO SCH ×2 (08:44→17:08)
[2019-12-23] MEDS: SENNA 187 MG TABLET PO SCH (08:44)
[2019-12-23] MEDS: BusPIRone HCL 10 MG TABLET PO SCH ×3 (08:44→17:08)
[2019-12-23] MEDS: DOCUSATE SODIUM 250 MG CAPSULE PO SCH (08:45)
[2019-12-23] MEDS: LamoTRIgine 100 MG TABLET PO SCH (08:45)
[2019-12-23] MEDS: PANTOPRAZOLE SODIUM 40 MG DR TABLET PO SCH (08:45)
[2019-12-23] MEDS: CHOLECALCIFEROL (VIT D3) 1,000 UNITS [25 MCG] TABLET PO SCH (08:45)
[2019-12-23] MEDS: ESCITALOPRAM OXALATE 20 MG TABLET PO SCH (08:45)
[2019-12-23] MEDS: QUEtiapine FUMARATE 200 MG TABLET PO SCH (08:45)
[2019-12-23 17:07] VITALS: BP 119/74
[2019-12-23] MEDS: ChlorproMAZINE HCL 100 MG TABLET PO PRN (17:08)
[2019-12-23] MEDS: DIVALPROEX SODIUM 250 MG ER TABLET PO SCH (20:25)
[2019-12-23] MEDS: QUEtiapine FUMARATE 300 MG TABLET PO SCH (20:28)
[2019-12-23] MEDS: ZOLPIDEM TARTRATE 10 MG TABLET PO PRN (21:41)
[2019-12-24] MEDS: LEVOTHYROXINE SODIUM 125 MCG TABLET PO SCH (06:58)
[2019-12-24] MEDS: LamoTRIgine 100 MG TABLET PO SCH (09:17)
[2019-12-24] MEDS: SENNA 187 MG TABLET PO SCH (09:17)
[2019-12-24] MEDS: ESCITALOPRAM OXALATE 20 MG TABLET PO SCH (09:17)
[2019-12-24] MEDS: DOCUSATE SODIUM 250 MG CAPSULE PO SCH (09:22)
[2019-12-24] MEDS: QUEtiapine FUMARATE 200 MG TABLET PO SCH (09:22)
[2019-12-24] MEDS: MAGNESIUM OXIDE 400 MG TABLET PO SCH ×3 (09:22→16:46)
[2019-12-24] MEDS: PSYLLIUM SEED ORANGE SF 5.8 GM/PACKET PO SCH ×2 (09:23→16:46)
[2019-12-24] MEDS: BusPIRone HCL 10 MG TABLET PO SCH ×3 (09:23→16:46)
[2019-12-24] MEDS: CHOLECALCIFEROL (VIT D3) 1,000 UNITS [25 MCG] TABLET PO SCH (09:24)
[2019-12-24] MEDS: PANTOPRAZOLE SODIUM 40 MG DR TABLET PO SCH (09:24)
[2019-12-24 09:57] VITALS: BP 127/85
[2019-12-24 16:24] VITALS: BP 124/77
[2019-12-24] MEDS: DIVALPROEX SODIUM 250 MG ER TABLET PO SCH (20:20)
[2019-12-24] MEDS: QUEtiapine FUMARATE 300 MG TABLET PO SCH (20:22)
[2019-12-24] MEDS: ZOLPIDEM TARTRATE 10 MG TABLET PO PRN (21:02)
[2019-12-25] MEDS: ChlorproMAZINE HCL 100 MG TABLET PO PRN (02:31)
[2019-12-25 02:32] VITALS: BP 117/76
[2019-12-25] MEDS: LEVOTHYROXINE SODIUM 125 MCG TABLET PO SCH (06:47)
[2019-12-25] MEDS: BusPIRone HCL 10 MG TABLET PO SCH ×3 (08:15→16:31)
[2019-12-25] MEDS: PANTOPRAZOLE SODIUM 40 MG DR TABLET PO SCH (08:16)
[2019-12-25] MEDS: DOCUSATE SODIUM 250 MG CAPSULE PO SCH (08:16)
[2019-12-25] MEDS: ESCITALOPRAM OXALATE 20 MG TABLET PO SCH (08:16)
[2019-12-25] MEDS: QUEtiapine FUMARATE 200 MG TABLET PO SCH (08:16)
[2019-12-25] MEDS: MAGNESIUM OXIDE 400 MG TABLET PO SCH ×3 (08:16→16:30)
[2019-12-25] MEDS: SENNA 187 MG TABLET PO SCH (08:16)
[2019-12-25] MEDS: LamoTRIgine 100 MG TABLET PO SCH (08:16)
[2019-12-25] MEDS: PSYLLIUM SEED ORANGE SF 5.8 GM/PACKET PO SCH ×2 (08:17→16:31)
[2019-12-25] MEDS: CHOLECALCIFEROL (VIT D3) 1,000 UNITS [25 MCG] TABLET PO SCH (08:18)
[2019-12-25 09:09] VITALS: BP 109/61
[2019-12-25 16:03] VITALS: BP 115/75
[2019-12-25] MEDS: DIVALPROEX SODIUM 250 MG ER TABLET PO SCH (20:32)
[2019-12-25] MEDS: QUEtiapine FUMARATE 300 MG TABLET PO SCH (20:32)
[2019-12-25] MEDS: ZOLPIDEM TARTRATE 10 MG TABLET PO PRN (22:32)
[2019-12-26] MEDS: LEVOTHYROXINE SODIUM 125 MCG TABLET PO SCH (07:01)
[2019-12-26] MEDS: ESCITALOPRAM OXALATE 20 MG TABLET PO SCH (08:34)
[2019-12-26] MEDS: QUEtiapine FUMARATE 200 MG TABLET PO SCH (08:34)
[2019-12-26] MEDS: BusPIRone HCL 10 MG TABLET PO SCH ×3 (08:34→16:37)
[2019-12-26] MEDS: DOCUSATE SODIUM 250 MG CAPSULE PO SCH (08:34)
[2019-12-26] MEDS: MAGNESIUM OXIDE 400 MG TABLET PO SCH ×3 (08:34→16:38)
[2019-12-26] MEDS: PANTOPRAZOLE SODIUM 40 MG DR TABLET PO SCH (08:34)
[2019-12-26] MEDS: LamoTRIgine 100 MG TABLET PO SCH (08:34)
[2019-12-26] MEDS: PSYLLIUM SEED ORANGE SF 5.8 GM/PACKET PO SCH ×2 (08:34→16:38)
[2019-12-26] MEDS: CHOLECALCIFEROL (VIT D3) 1,000 UNITS [25 MCG] TABLET PO SCH (08:34)
[2019-12-26] MEDS: SENNA 187 MG TABLET PO SCH (08:34)
[2019-12-26 09:13] VITALS: BP 127/86
[2019-12-26 16:59] VITALS: BP 143/86
[2019-12-26] MEDS: DIVALPROEX SODIUM 250 MG ER TABLET PO SCH (21:07)
[2019-12-26] MEDS: QUEtiapine FUMARATE 300 MG TABLET PO SCH (21:08)
[2019-12-26] MEDS: ZOLPIDEM TARTRATE 10 MG TABLET PO PRN (21:56)
[2019-12-27] MEDS: ChlorproMAZINE HCL 100 MG TABLET PO PRN (02:20)
[2019-12-27 02:22] VITALS: BP 125/94
[2019-12-27] MEDS: LORazepam 2 MG TABLET PO PRN (05:07)
[2019-12-27] MEDS: LEVOTHYROXINE SODIUM 125 MCG TABLET PO SCH (07:04)
[2019-12-27] MEDS: PANTOPRAZOLE SODIUM 40 MG DR TABLET PO SCH (09:05)
[2019-12-27] MEDS: BusPIRone HCL 10 MG TABLET PO SCH ×3 (09:05→16:24)
[2019-12-27] MEDS: QUEtiapine FUMARATE 200 MG TABLET PO SCH (09:05)
[2019-12-27] MEDS: DOCUSATE SODIUM 250 MG CAPSULE PO SCH (09:05)
[2019-12-27] MEDS: CHOLECALCIFEROL (VIT D3) 1,000 UNITS [25 MCG] TABLET PO SCH (09:05)
[2019-12-27] MEDS: MAGNESIUM OXIDE 400 MG TABLET PO SCH ×3 (09:05→16:23)
[2019-12-27] MEDS: ESCITALOPRAM OXALATE 20 MG TABLET PO SCH (09:06)
[2019-12-27] MEDS: LamoTRIgine 100 MG TABLET PO SCH (09:06)
[2019-12-27] MEDS: SENNA 187 MG TABLET PO SCH (09:06)
[2019-12-27] MEDS: PSYLLIUM SEED ORANGE SF 5.8 GM/PACKET PO SCH ×2 (09:06→16:24)
[2019-12-27 09:17] VITALS: BP 98/56
[2019-12-27 18:02] VITALS: BP 112/89
[2019-12-27] MEDS: DIVALPROEX SODIUM 250 MG ER TABLET PO SCH (21:12)
[2019-12-27] MEDS: QUEtiapine FUMARATE 300 MG TABLET PO SCH (21:13)
[2019-12-27] MEDS ORDERED: HYDROCORTISONE 2.5% 30 GM CREAM TP PRN (21:15)
[2019-12-27] MEDS: ZOLPIDEM TARTRATE 10 MG TABLET PO PRN (22:01)
[2019-12-28] MEDS: GuaiFENesin/D-METHORPHAN [SUGAR-FREE] 200-20MG/10 ML SYRUP UDCUP PO PRN ×2 (03:00→23:47)
[2019-12-28] MEDS: LORazepam 2 MG TABLET PO PRN ×3 (03:00→23:47)
[2019-12-28 03:01] VITALS: BP 122/75
[2019-12-28] MEDS: LEVOTHYROXINE SODIUM 125 MCG TABLET PO SCH (07:01)
[2019-12-28] MEDS: PSYLLIUM SEED ORANGE SF 5.8 GM/PACKET PO SCH ×2 (09:12→16:45)
[2019-12-28] MEDS: ESCITALOPRAM OXALATE 20 MG TABLET PO SCH (09:12)
[2019-12-28] MEDS: SENNA 187 MG TABLET PO SCH (09:12)
[2019-12-28] MEDS: LamoTRIgine 100 MG TABLET PO SCH (09:13)
[2019-12-28] MEDS: ChlorproMAZINE HCL 100 MG TABLET PO PRN (09:13)
[2019-12-28] MEDS: PANTOPRAZOLE SODIUM 40 MG DR TABLET PO SCH (09:13)
[2019-12-28] MEDS: CHOLECALCIFEROL (VIT D3) 1,000 UNITS [25 MCG] TABLET PO SCH (09:13)
[2019-12-28] MEDS: BusPIRone HCL 10 MG TABLET PO SCH ×3 (09:13→16:46)
[2019-12-28] MEDS: QUEtiapine FUMARATE 200 MG TABLET PO SCH (09:13)
[2019-12-28] MEDS: MAGNESIUM OXIDE 400 MG TABLET PO SCH ×3 (09:13→16:46)
[2019-12-28] MEDS: DOCUSATE SODIUM 250 MG CAPSULE PO SCH (09:14)
[2019-12-28] MEDS: DIVALPROEX SODIUM 250 MG ER TABLET PO SCH (20:54)
[2019-12-28] MEDS: QUEtiapine FUMARATE 300 MG TABLET PO SCH (20:54)
[2019-12-28] MEDS: ZOLPIDEM TARTRATE 10 MG TABLET PO PRN (21:31)
[2019-12-29] MEDS: LEVOTHYROXINE SODIUM 125 MCG TABLET PO SCH (06:51)
[2019-12-29 08:00] VITALS: BP 111/82
[2019-12-29] MEDS: SENNA 187 MG TABLET PO SCH (10:16)
[2019-12-29] MEDS: ESCITALOPRAM OXALATE 20 MG TABLET PO SCH (10:16)
[2019-12-29] MEDS: CHOLECALCIFEROL (VIT D3) 1,000 UNITS [25 MCG] TABLET PO SCH (10:16)
[2019-12-29] MEDS: PSYLLIUM SEED ORANGE SF 5.8 GM/PACKET PO SCH ×2 (10:16→16:41)
[2019-12-29] MEDS: LamoTRIgine 100 MG TABLET PO SCH (10:16)
[2019-12-29] MEDS: DOCUSATE SODIUM 250 MG CAPSULE PO SCH (10:17)
[2019-12-29] MEDS: ChlorproMAZINE HCL 100 MG TABLET PO PRN (10:17)
[2019-12-29] MEDS: QUEtiapine FUMARATE 200 MG TABLET PO SCH (10:17)
[2019-12-29] MEDS: MAGNESIUM OXIDE 400 MG TABLET PO SCH ×3 (10:17→16:41)
[2019-12-29] MEDS: PANTOPRAZOLE SODIUM 40 MG DR TABLET PO SCH (10:17)
[2019-12-29] MEDS: BusPIRone HCL 10 MG TABLET PO SCH ×3 (10:17→16:41)
[2019-12-29 17:18] VITALS: BP 101/76
[2019-12-29] MEDS: QUEtiapine FUMARATE 300 MG TABLET PO SCH (20:26)
[2019-12-29] MEDS: DIVALPROEX SODIUM 250 MG ER TABLET PO SCH (20:26)
[2019-12-29] MEDS: ZOLPIDEM TARTRATE 10 MG TABLET PO PRN (21:01)
[2019-12-30] MEDS: LEVOTHYROXINE SODIUM 125 MCG TABLET PO SCH (06:40)
[2019-12-30 08:00] VITALS: BP 143/69
[2019-12-30] MEDS: PSYLLIUM SEED ORANGE SF 5.8 GM/PACKET PO SCH ×2 (08:48→17:20)
[2019-12-30] MEDS: BusPIRone HCL 10 MG TABLET PO SCH ×3 (08:48→17:20)
[2019-12-30] MEDS: ESCITALOPRAM OXALATE 20 MG TABLET PO SCH (08:49)
[2019-12-30] MEDS: LamoTRIgine 100 MG TABLET PO SCH (08:49)
[2019-12-30] MEDS: SENNA 187 MG TABLET PO SCH (08:49)
[2019-12-30] MEDS: QUEtiapine FUMARATE 200 MG TABLET PO SCH (08:49)
[2019-12-30] MEDS: DOCUSATE SODIUM 250 MG CAPSULE PO SCH (08:49)
[2019-12-30] MEDS: MAGNESIUM OXIDE 400 MG TABLET PO SCH ×3 (08:49→17:20)
[2019-12-30] MEDS: PANTOPRAZOLE SODIUM 40 MG DR TABLET PO SCH (08:51)
[2019-12-30] MEDS: CHOLECALCIFEROL (VIT D3) 1,000 UNITS [25 MCG] TABLET PO SCH (08:51)
[2019-12-30] MEDS: ChlorproMAZINE HCL 100 MG TABLET PO PRN (13:03)
[2019-12-30] MEDS: LORazepam 2 MG TABLET PO PRN (13:03)
[2019-12-30 17:01] VITALS: BP 116/74
[2019-12-30] MEDS: DIVALPROEX SODIUM 250 MG ER TABLET PO SCH (20:18)
[2019-12-30] MEDS: QUEtiapine FUMARATE 300 MG TABLET PO SCH (20:19)
[2019-12-30] MEDS: ZOLPIDEM TARTRATE 10 MG TABLET PO PRN (20:58)
[2019-12-31] MEDS: LORazepam 2 MG TABLET PO PRN (01:39)
[2019-12-31] MEDS: ChlorproMAZINE HCL 100 MG TABLET PO PRN (01:39)
[2019-12-31 05:29] VITALS: BP 127/75
[2019-12-31] MEDS: LEVOTHYROXINE SODIUM 125 MCG TABLET PO SCH (06:52)
[2019-12-31] MEDS: ESCITALOPRAM OXALATE 20 MG TABLET PO SCH (08:17)
[2019-12-31] MEDS: QUEtiapine FUMARATE 200 MG TABLET PO SCH (08:17)
[2019-12-31] MEDS: PANTOPRAZOLE SODIUM 40 MG DR TABLET PO SCH (08:17)
[2019-12-31] MEDS: BusPIRone HCL 10 MG TABLET PO SCH ×3 (08:17→16:24)
[2019-12-31] MEDS: MAGNESIUM OXIDE 400 MG TABLET PO SCH ×3 (08:17→16:24)
[2019-12-31] MEDS: DOCUSATE SODIUM 250 MG CAPSULE PO SCH (08:17)
[2019-12-31] MEDS: CHOLECALCIFEROL (VIT D3) 1,000 UNITS [25 MCG] TABLET PO SCH (08:17)
[2019-12-31] MEDS: LamoTRIgine 100 MG TABLET PO SCH (08:18)
[2019-12-31] MEDS: PSYLLIUM SEED ORANGE SF 5.8 GM/PACKET PO SCH ×2 (08:19→16:24)
[2019-12-31] MEDS: SENNA 187 MG TABLET PO SCH (08:19)
[2019-12-31 09:13] VITALS: BP 120/91
[2019-12-31 16:21] VITALS: BP 126/76
[2019-12-31] MEDS: QUEtiapine FUMARATE 300 MG TABLET PO SCH (20:44)
[2019-12-31] MEDS: DIVALPROEX SODIUM 250 MG ER TABLET PO SCH (20:44)
[2019-12-31] MEDS: ZOLPIDEM TARTRATE 10 MG TABLET PO PRN (21:25)
[2020-01-01] MEDS: LORazepam 2 MG TABLET PO PRN (03:53)
[2020-01-01] MEDS: ChlorproMAZINE HCL 100 MG TABLET PO PRN (03:53)
[2020-01-01 04:04] VITALS: BP 111/76
[2020-01-01] MEDS: LEVOTHYROXINE SODIUM 125 MCG TABLET PO SCH (06:45)
[2020-01-01] MEDS: CHOLECALCIFEROL (VIT D3) 1,000 UNITS [25 MCG] TABLET PO SCH (08:21)
[2020-01-01] MEDS: PANTOPRAZOLE SODIUM 40 MG DR TABLET PO SCH (08:22)
[2020-01-01] MEDS: LamoTRIgine 100 MG TABLET PO SCH (08:22)
[2020-01-01] MEDS: DOCUSATE SODIUM 250 MG CAPSULE PO SCH (08:22)
[2020-01-01] MEDS: PSYLLIUM SEED ORANGE SF 5.8 GM/PACKET PO SCH ×2 (08:22→16:26)
[2020-01-01] MEDS: SENNA 187 MG TABLET PO SCH (08:22)
[2020-01-01] MEDS: MAGNESIUM OXIDE 400 MG TABLET PO SCH ×3 (08:22→16:25)
[2020-01-01] MEDS: BusPIRone HCL 10 MG TABLET PO SCH ×3 (08:22→16:25)
[2020-01-01] MEDS: QUEtiapine FUMARATE 200 MG TABLET PO SCH (08:22)
[2020-01-01] MEDS: ESCITALOPRAM OXALATE 20 MG TABLET PO SCH (08:23)
[2020-01-01 11:04] VITALS: BP 116/56
[2020-01-01] MEDS: QUEtiapine FUMARATE 300 MG TABLET PO SCH (20:46)
[2020-01-01] MEDS: DIVALPROEX SODIUM 250 MG ER TABLET PO SCH (20:46)
[2020-01-01] MEDS: ZOLPIDEM TARTRATE 10 MG TABLET PO PRN (21:43)
[2020-01-02] MEDS: ChlorproMAZINE HCL 100 MG TABLET PO PRN (01:58)
[2020-01-02 02:00] VITALS: BP 104/74
[2020-01-02] MEDS: LEVOTHYROXINE SODIUM 125 MCG TABLET PO SCH (06:50)
[2020-01-02] MEDS: BusPIRone HCL 10 MG TABLET PO SCH ×3 (08:56→16:09)
[2020-01-02] MEDS: QUEtiapine FUMARATE 200 MG TABLET PO SCH (08:56)
[2020-01-02] MEDS: PSYLLIUM SEED ORANGE SF 5.8 GM/PACKET PO SCH ×2 (08:56→16:09)
[2020-01-02] MEDS: DOCUSATE SODIUM 250 MG CAPSULE PO SCH (08:56)
[2020-01-02] MEDS: LamoTRIgine 100 MG TABLET PO SCH (08:57)
[2020-01-02] MEDS: CHOLECALCIFEROL (VIT D3) 1,000 UNITS [25 MCG] TABLET PO SCH (08:57)
[2020-01-02] MEDS: ESCITALOPRAM OXALATE 20 MG TABLET PO SCH (08:57)
[2020-01-02] MEDS: MAGNESIUM OXIDE 400 MG TABLET PO SCH ×3 (08:57→16:09)
[2020-01-02] MEDS: SENNA 187 MG TABLET PO SCH (08:57)
[2020-01-02] MEDS: PANTOPRAZOLE SODIUM 40 MG DR TABLET PO SCH (08:58)
[2020-01-02 11:48] VITALS: BP 129/75
[2020-01-02 16:31] VITALS: BP 110/74
[2020-01-02] MEDS: DIVALPROEX SODIUM 250 MG ER TABLET PO SCH (20:40)
[2020-01-02] MEDS: QUEtiapine FUMARATE 300 MG TABLET PO SCH (20:40)
[2020-01-02] MEDS: ZOLPIDEM TARTRATE 10 MG TABLET PO PRN (21:32)
[2020-01-03] MEDS: LEVOTHYROXINE SODIUM 125 MCG TABLET PO SCH (06:33)
[2020-01-03] MEDS: LORazepam 2 MG TABLET PO PRN (06:59)
[2020-01-03] MEDS: ChlorproMAZINE HCL 100 MG TABLET PO PRN (07:00)
[2020-01-03 08:00] VITALS: BP 127/76
[2020-01-03] MEDS: LamoTRIgine 100 MG TABLET PO SCH (08:55)
[2020-01-03] MEDS: DOCUSATE SODIUM 250 MG CAPSULE PO SCH (08:55)
[2020-01-03] MEDS: BusPIRone HCL 10 MG TABLET PO SCH ×3 (08:55→15:55)
[2020-01-03] MEDS: MAGNESIUM OXIDE 400 MG TABLET PO SCH ×3 (08:55→15:55)
[2020-01-03] MEDS: CHOLECALCIFEROL (VIT D3) 1,000 UNITS [25 MCG] TABLET PO SCH (08:56)
[2020-01-03] MEDS: QUEtiapine FUMARATE 200 MG TABLET PO SCH (08:56)
[2020-01-03] MEDS: ESCITALOPRAM OXALATE 20 MG TABLET PO SCH (08:56)
[2020-01-03] MEDS: PANTOPRAZOLE SODIUM 40 MG DR TABLET PO SCH (08:56)
[2020-01-03] MEDS: SENNA 187 MG TABLET PO SCH (08:56)
[2020-01-03] MEDS: PSYLLIUM SEED ORANGE SF 5.8 GM/PACKET PO SCH ×2 (08:58→15:55)
[2020-01-03 17:05] VITALS: BP 119/78
[2020-01-03] MEDS: QUEtiapine FUMARATE 300 MG TABLET PO SCH (20:44)
[2020-01-03] MEDS: DIVALPROEX SODIUM 250 MG ER TABLET PO SCH (20:44)
[2020-01-03] MEDS: ZOLPIDEM TARTRATE 10 MG TABLET PO PRN (21:08)
[2020-01-04] MEDS: ChlorproMAZINE HCL 100 MG TABLET PO PRN ×2 (02:42→14:27)
[2020-01-04 02:43] VITALS: BP 119/78
[2020-01-04] MEDS: LEVOTHYROXINE SODIUM 125 MCG TABLET PO SCH (06:38)
[2020-01-04 08:00] VITALS: BP 116/74
[2020-01-04] MEDS: MAGNESIUM OXIDE 400 MG TABLET PO SCH ×3 (08:26→16:21)
[2020-01-04] MEDS: ESCITALOPRAM OXALATE 20 MG TABLET PO SCH (08:27)
[2020-01-04] MEDS: BusPIRone HCL 10 MG TABLET PO SCH ×3 (08:27→16:21)
[2020-01-04] MEDS: DOCUSATE SODIUM 250 MG CAPSULE PO SCH (08:27)
[2020-01-04] MEDS: PSYLLIUM SEED ORANGE SF 5.8 GM/PACKET PO SCH ×2 (08:27→16:21)
[2020-01-04] MEDS: LamoTRIgine 100 MG TABLET PO SCH (08:27)
[2020-01-04] MEDS: QUEtiapine FUMARATE 200 MG TABLET PO SCH (08:27)
[2020-01-04] MEDS: PANTOPRAZOLE SODIUM 40 MG DR TABLET PO SCH (08:27)
[2020-01-04] MEDS: SENNA 187 MG TABLET PO SCH (08:28)
[2020-01-04] MEDS: CHOLECALCIFEROL (VIT D3) 1,000 UNITS [25 MCG] TABLET PO SCH (08:31)
[2020-01-04] MEDS: LORazepam 2 MG TABLET PO PRN (14:27)
[2020-01-04 16:53] VITALS: BP 128/81
[2020-01-04] MEDS: DIVALPROEX SODIUM 250 MG ER TABLET PO SCH (20:59)
[2020-01-04] MEDS: QUEtiapine FUMARATE 300 MG TABLET PO SCH (21:12)
[2020-01-04] MEDS: ZOLPIDEM TARTRATE 10 MG TABLET PO PRN (21:51)
[2020-01-05] MEDS: ChlorproMAZINE HCL 100 MG TABLET PO PRN (02:10)
[2020-01-05] MEDS: LEVOTHYROXINE SODIUM 125 MCG TABLET PO SCH (06:49)
[2020-01-05] MEDS: QUEtiapine FUMARATE 200 MG TABLET PO SCH (08:30)
[2020-01-05] MEDS: PSYLLIUM SEED ORANGE SF 5.8 GM/PACKET PO SCH ×2 (08:30→16:03)
[2020-01-05] MEDS: ESCITALOPRAM OXALATE 20 MG TABLET PO SCH (08:31)
[2020-01-05] MEDS: PANTOPRAZOLE SODIUM 40 MG DR TABLET PO SCH (08:31)
[2020-01-05] MEDS: CHOLECALCIFEROL (VIT D3) 1,000 UNITS [25 MCG] TABLET PO SCH (08:31)
[2020-01-05] MEDS: DOCUSATE SODIUM 250 MG CAPSULE PO SCH (08:32)
[2020-01-05] MEDS: MAGNESIUM OXIDE 400 MG TABLET PO SCH ×3 (08:32→16:03)
[2020-01-05] MEDS: BusPIRone HCL 10 MG TABLET PO SCH ×3 (08:32→16:03)
[2020-01-05] MEDS: LamoTRIgine 100 MG TABLET PO SCH (08:32)
[2020-01-05 08:52] VITALS: BP 125/78
[2020-01-05] MEDS: SENNA 187 MG TABLET PO SCH (12:42)
[2020-01-05 16:31] VITALS: BP 111/78
[2020-01-05] MEDS: QUEtiapine FUMARATE 300 MG TABLET PO SCH (20:57)
[2020-01-05] MEDS: DIVALPROEX SODIUM 250 MG ER TABLET PO SCH (20:59)
[2020-01-05] MEDS: ZOLPIDEM TARTRATE 10 MG TABLET PO PRN (21:27)
[2020-01-06] MEDS: LORazepam 2 MG TABLET PO PRN (04:36)
[2020-01-06] MEDS: LEVOTHYROXINE SODIUM 125 MCG TABLET PO SCH (06:51)
[2020-01-06 08:00] VITALS: BP 120/78
[2020-01-06] MEDS: CHOLECALCIFEROL (VIT D3) 1,000 UNITS [25 MCG] TABLET PO SCH (08:16)
[2020-01-06] MEDS: PSYLLIUM SEED ORANGE SF 5.8 GM/PACKET PO SCH ×2 (08:17→15:56)
[2020-01-06] MEDS: QUEtiapine FUMARATE 200 MG TABLET PO SCH (08:17)
[2020-01-06] MEDS: SENNA 187 MG TABLET PO SCH (08:17)
[2020-01-06] MEDS: LamoTRIgine 100 MG TABLET PO SCH (08:17)
[2020-01-06] MEDS: ESCITALOPRAM OXALATE 20 MG TABLET PO SCH (08:17)
[2020-01-06] MEDS: BusPIRone HCL 10 MG TABLET PO SCH ×3 (08:17→15:56)
[2020-01-06] MEDS: MAGNESIUM OXIDE 400 MG TABLET PO SCH ×3 (08:17→15:56)
[2020-01-06] MEDS: DOCUSATE SODIUM 250 MG CAPSULE PO SCH (08:19)
[2020-01-06] MEDS: PANTOPRAZOLE SODIUM 40 MG DR TABLET PO SCH (08:21)
[2020-01-06 18:05] VITALS: BP 123/81
[2020-01-06] MEDS: QUEtiapine FUMARATE 300 MG TABLET PO SCH (21:03)
[2020-01-06] MEDS: DIVALPROEX SODIUM 250 MG ER TABLET PO SCH (21:05)
[2020-01-06] MEDS: ZOLPIDEM TARTRATE 10 MG TABLET PO PRN (21:40)
[2020-01-07] MEDS: LORazepam 2 MG TABLET PO PRN (03:44)
[2020-01-07] MEDS: LEVOTHYROXINE SODIUM 125 MCG TABLET PO SCH (06:48)
[2020-01-07 08:25] VITALS: BP 106/62
[2020-01-07] MEDS: QUEtiapine FUMARATE 200 MG TABLET PO SCH (09:36)
[2020-01-07] MEDS: DOCUSATE SODIUM 250 MG CAPSULE PO SCH (09:36)
[2020-01-07] MEDS: SENNA 187 MG TABLET PO SCH (09:36)
[2020-01-07] MEDS: MAGNESIUM OXIDE 400 MG TABLET PO SCH ×3 (09:36→16:38)
[2020-01-07] MEDS: PANTOPRAZOLE SODIUM 40 MG DR TABLET PO SCH (09:36)
[2020-01-07] MEDS: BusPIRone HCL 10 MG TABLET PO SCH ×3 (09:36→16:38)
[2020-01-07] MEDS: PSYLLIUM SEED ORANGE SF 5.8 GM/PACKET PO SCH ×2 (09:36→16:38)
[2020-01-07] MEDS: ESCITALOPRAM OXALATE 20 MG TABLET PO SCH (09:39)
[2020-01-07] MEDS: LamoTRIgine 100 MG TABLET PO SCH (09:39)
[2020-01-07] MEDS: CHOLECALCIFEROL (VIT D3) 1,000 UNITS [25 MCG] TABLET PO SCH (09:40)
[2020-01-07 18:50] VITALS: BP 114/74
[2020-01-07] MEDS: DIVALPROEX SODIUM 250 MG ER TABLET PO SCH (20:24)
[2020-01-07] MEDS: QUEtiapine FUMARATE 300 MG TABLET PO SCH (20:25)
[2020-01-07] MEDS: ZOLPIDEM TARTRATE 10 MG TABLET PO PRN (21:38)
[2020-01-08] MEDS: LORazepam 2 MG TABLET PO PRN ×2 (01:34→18:37)
[2020-01-08 01:35] VITALS: BP 121/74
[2020-01-08] MEDS: LEVOTHYROXINE SODIUM 125 MCG TABLET PO SCH (06:42)
[2020-01-08] MEDS: BusPIRone HCL 10 MG TABLET PO SCH ×3 (08:24→16:17)
[2020-01-08] MEDS: MAGNESIUM OXIDE 400 MG TABLET PO SCH ×3 (08:25→16:16)
[2020-01-08] MEDS: CHOLECALCIFEROL (VIT D3) 1,000 UNITS [25 MCG] TABLET PO SCH (08:25)
[2020-01-08] MEDS: ESCITALOPRAM OXALATE 20 MG TABLET PO SCH (08:25)
[2020-01-08] MEDS: QUEtiapine FUMARATE 200 MG TABLET PO SCH (08:25)
[2020-01-08] MEDS: PANTOPRAZOLE SODIUM 40 MG DR TABLET PO SCH (08:25)
[2020-01-08] MEDS: SENNA 187 MG TABLET PO SCH (08:25)
[2020-01-08] MEDS: DOCUSATE SODIUM 250 MG CAPSULE PO SCH (08:25)
[2020-01-08] MEDS: PSYLLIUM SEED ORANGE SF 5.8 GM/PACKET PO SCH ×2 (08:26→16:17)
[2020-01-08] MEDS: LamoTRIgine 100 MG TABLET PO SCH (08:26)
[2020-01-08 08:43] VITALS: BP 136/92
[2020-01-08 16:52] VITALS: BP 140/85
[2020-01-08] MEDS: QUEtiapine FUMARATE 300 MG TABLET PO SCH (20:35)
[2020-01-08] MEDS: DIVALPROEX SODIUM 250 MG ER TABLET PO SCH (20:36)
[2020-01-09] MEDS: LEVOTHYROXINE SODIUM 125 MCG TABLET PO SCH (06:45)
[2020-01-09] MEDS: ESCITALOPRAM OXALATE 20 MG TABLET PO SCH (08:39)
[2020-01-09] MEDS: SENNA 187 MG TABLET PO SCH (08:39)
[2020-01-09] MEDS: CHOLECALCIFEROL (VIT D3) 1,000 UNITS [25 MCG] TABLET PO SCH (08:39)
[2020-01-09] MEDS: DOCUSATE SODIUM 250 MG CAPSULE PO SCH (08:39)
[2020-01-09] MEDS: PANTOPRAZOLE SODIUM 40 MG DR TABLET PO SCH (08:39)
[2020-01-09] MEDS: QUEtiapine FUMARATE 200 MG TABLET PO SCH (08:40)
[2020-01-09] MEDS: MAGNESIUM OXIDE 400 MG TABLET PO SCH ×3 (08:40→16:40)
[2020-01-09] MEDS: LamoTRIgine 100 MG TABLET PO SCH (08:40)
[2020-01-09] MEDS: BusPIRone HCL 10 MG TABLET PO SCH ×3 (08:40→16:40)
[2020-01-09] MEDS: PSYLLIUM SEED ORANGE SF 5.8 GM/PACKET PO SCH ×2 (08:40→16:39)
[2020-01-09 09:58] VITALS: BP 116/73
[2020-01-09] MEDS: LORazepam 2 MG TABLET PO PRN (12:52)
[2020-01-09 17:41] VITALS: BP 132/74
[2020-01-09] MEDS: QUEtiapine FUMARATE 300 MG TABLET PO SCH (21:58)
[2020-01-09] MEDS: DIVALPROEX SODIUM 250 MG ER TABLET PO SCH (21:58)
[2020-01-09] MEDS: ZOLPIDEM TARTRATE 10 MG TABLET PO PRN (23:50)
[2020-01-10 00:05] VITALS: BP 111/65
[2020-01-10] MEDS: LEVOTHYROXINE SODIUM 125 MCG TABLET PO SCH (06:48)
[2020-01-10 08:30] VITALS: BP 117/81
[2020-01-10] MEDS: PANTOPRAZOLE SODIUM 40 MG DR TABLET PO SCH (08:56)
[2020-01-10] MEDS: SENNA 187 MG TABLET PO SCH (08:56)
[2020-01-10] MEDS: CHOLECALCIFEROL (VIT D3) 1,000 UNITS [25 MCG] TABLET PO SCH (08:56)
[2020-01-10] MEDS: LamoTRIgine 100 MG TABLET PO SCH (08:56)
[2020-01-10] MEDS: QUEtiapine FUMARATE 200 MG TABLET PO SCH (08:57)
[2020-01-10] MEDS: ESCITALOPRAM OXALATE 20 MG TABLET PO SCH (08:57)
[2020-01-10] MEDS: BusPIRone HCL 10 MG TABLET PO SCH ×3 (08:57→16:16)
[2020-01-10] MEDS: MAGNESIUM OXIDE 400 MG TABLET PO SCH ×3 (08:57→16:16)
[2020-01-10] MEDS: DOCUSATE SODIUM 250 MG CAPSULE PO SCH (08:57)
[2020-01-10] MEDS: PSYLLIUM SEED ORANGE SF 5.8 GM/PACKET PO SCH ×2 (08:58→16:16)
[2020-01-10 16:27] VITALS: BP 124/80
[2020-01-10] MEDS: DIVALPROEX SODIUM 250 MG ER TABLET PO SCH (21:42)
[2020-01-10] MEDS: QUEtiapine FUMARATE 300 MG TABLET PO SCH (21:42)
[2020-01-10] MEDS: ZOLPIDEM TARTRATE 10 MG TABLET PO PRN (22:12)
[2020-01-11] MEDS: LORazepam 2 MG TABLET PO PRN (05:16)
[2020-01-11 05:17] VITALS: BP 114/82
[2020-01-11] MEDS: LEVOTHYROXINE SODIUM 125 MCG TABLET PO SCH (06:52)
[2020-01-11] MEDS: MAGNESIUM OXIDE 400 MG TABLET PO SCH ×3 (07:50→16:09)
[2020-01-11] MEDS: CHOLECALCIFEROL (VIT D3) 1,000 UNITS [25 MCG] TABLET PO SCH (07:51)
[2020-01-11] MEDS: LamoTRIgine 100 MG TABLET PO SCH (07:51)
[2020-01-11] MEDS: SENNA 187 MG TABLET PO SCH (07:51)
[2020-01-11] MEDS: QUEtiapine FUMARATE 200 MG TABLET PO SCH (07:51)
[2020-01-11] MEDS: PSYLLIUM SEED ORANGE SF 5.8 GM/PACKET PO SCH ×2 (07:51→16:09)
[2020-01-11] MEDS: BusPIRone HCL 10 MG TABLET PO SCH ×3 (07:51→16:09)
[2020-01-11] MEDS: ESCITALOPRAM OXALATE 20 MG TABLET PO SCH (07:51)
[2020-01-11] MEDS: PANTOPRAZOLE SODIUM 40 MG DR TABLET PO SCH (07:51)
[2020-01-11] MEDS: DOCUSATE SODIUM 250 MG CAPSULE PO SCH (07:51)
[2020-01-11 08:00] VITALS: BP 127/77
[2020-01-11 16:48] VITALS: BP 124/78
[2020-01-11] MEDS: DIVALPROEX SODIUM 250 MG ER TABLET PO SCH (20:24)
[2020-01-11] MEDS: QUEtiapine FUMARATE 300 MG TABLET PO SCH (20:24)
[2020-01-11] MEDS: ZOLPIDEM TARTRATE 10 MG TABLET PO PRN (21:45)
[2020-01-12] MEDS: LORazepam 2 MG TABLET PO PRN ×2 (04:07→12:11)
[2020-01-12 04:08] VITALS: BP 122/77
[2020-01-12] MEDS: LEVOTHYROXINE SODIUM 125 MCG TABLET PO SCH (06:38)
[2020-01-12] MEDS: MAGNESIUM OXIDE 400 MG TABLET PO SCH ×3 (08:14→16:01)
[2020-01-12] MEDS: QUEtiapine FUMARATE 200 MG TABLET PO SCH ×2 (08:14→21:04)
[2020-01-12] MEDS: DOCUSATE SODIUM 250 MG CAPSULE PO SCH (08:14)
[2020-01-12] MEDS: PANTOPRAZOLE SODIUM 40 MG DR TABLET PO SCH (08:14)
[2020-01-12] MEDS: CHOLECALCIFEROL (VIT D3) 1,000 UNITS [25 MCG] TABLET PO SCH (08:15)
[2020-01-12] MEDS: LamoTRIgine 100 MG TABLET PO SCH (08:15)
[2020-01-12] MEDS: SENNA 187 MG TABLET PO SCH (08:15)
[2020-01-12] MEDS: BusPIRone HCL 10 MG TABLET PO SCH ×3 (08:15→16:01)
[2020-01-12] MEDS: ESCITALOPRAM OXALATE 20 MG TABLET PO SCH (08:15)
[2020-01-12] MEDS: PSYLLIUM SEED ORANGE SF 5.8 GM/PACKET PO SCH ×2 (08:15→16:01)
[2020-01-12 10:49] VITALS: BP 136/95
[2020-01-12 20:32] VITALS: BP 121/90
[2020-01-12] MEDS: TraZODone HCL 100 MG TABLET PO SCH (21:04)
[2020-01-12] MEDS: DIVALPROEX SODIUM 250 MG ER TABLET PO SCH (21:04)
[2020-01-12] MEDS: ZOLPIDEM TARTRATE 10 MG TABLET PO PRN (23:22)
[2020-01-12] MEDS: GuaiFENesin/D-METHORPHAN [SUGAR-FREE] 200-20MG/10 ML SYRUP UDCUP PO PRN (23:22)
[2020-01-13 00:09] VITALS: BP 131/86
[2020-01-13] MEDS: ChlorproMAZINE HCL 100 MG TABLET PO PRN ×2 (04:37→14:42)
[2020-01-13] MEDS: LEVOTHYROXINE SODIUM 125 MCG TABLET PO SCH (06:41)
[2020-01-13] MEDS: BusPIRone HCL 10 MG TABLET PO SCH ×3 (08:33→16:29)
[2020-01-13] MEDS: MAGNESIUM OXIDE 400 MG TABLET PO SCH ×3 (08:34→16:29)
[2020-01-13] MEDS: CHOLECALCIFEROL (VIT D3) 1,000 UNITS [25 MCG] TABLET PO SCH (08:35)
[2020-01-13] MEDS: SENNA 187 MG TABLET PO SCH (08:35)
[2020-01-13] MEDS: PANTOPRAZOLE SODIUM 40 MG DR TABLET PO SCH (08:35)
[2020-01-13] MEDS: PSYLLIUM SEED ORANGE SF 5.8 GM/PACKET PO SCH ×2 (08:35→16:29)
[2020-01-13] MEDS: ESCITALOPRAM OXALATE 20 MG TABLET PO SCH (08:36)
[2020-01-13] MEDS: LamoTRIgine 100 MG TABLET PO SCH (08:37)
[2020-01-13] MEDS: DOCUSATE SODIUM 250 MG CAPSULE PO SCH (08:39)
[2020-01-13 08:58] VITALS: BP 129/98
[2020-01-13] MEDS: LORazepam 2 MG TABLET PO PRN (14:42)
[2020-01-13 17:08] VITALS: BP 123/78
[2020-01-13] MEDS: GuaiFENesin/D-METHORPHAN [SUGAR-FREE] 200-20MG/10 ML SYRUP UDCUP PO PRN (19:04)
[2020-01-13] MEDS: BENZONATATE 100 MG CAPSULE PO PRN (19:05)
[2020-01-13] MEDS: DIVALPROEX SODIUM 250 MG ER TABLET PO SCH (21:20)
[2020-01-13] MEDS: QUEtiapine FUMARATE 200 MG TABLET PO SCH (21:20)
[2020-01-13] MEDS: TraZODone HCL 100 MG TABLET PO SCH (21:21)
[2020-01-14] MEDS: LEVOTHYROXINE SODIUM 125 MCG TABLET PO SCH (06:34)
[2020-01-14] MEDS: PSYLLIUM SEED ORANGE SF 5.8 GM/PACKET PO SCH ×2 (08:22→16:14)
[2020-01-14] MEDS: PANTOPRAZOLE SODIUM 40 MG DR TABLET PO SCH (08:22)
[2020-01-14] MEDS: BusPIRone HCL 10 MG TABLET PO SCH ×3 (08:22→16:13)
[2020-01-14] MEDS: MAGNESIUM OXIDE 400 MG TABLET PO SCH ×3 (08:22→16:14)
[2020-01-14] MEDS: DOCUSATE SODIUM 250 MG CAPSULE PO SCH (08:22)
[2020-01-14] MEDS: CHOLECALCIFEROL (VIT D3) 1,000 UNITS [25 MCG] TABLET PO SCH (08:22)
[2020-01-14] MEDS: ESCITALOPRAM OXALATE 20 MG TABLET PO SCH (08:23)
[2020-01-14] MEDS: LamoTRIgine 100 MG TABLET PO SCH (08:23)
[2020-01-14] MEDS: SENNA 187 MG TABLET PO SCH (08:23)
[2020-01-14 09:30] VITALS: BP 131/90
[2020-01-14] MEDS: LORazepam 2 MG TABLET PO PRN (16:13)
[2020-01-14 16:54] VITALS: BP 131/71
[2020-01-14] MEDS: QUEtiapine FUMARATE 200 MG TABLET PO SCH (20:52)
[2020-01-14] MEDS: TraZODone HCL 100 MG TABLET PO SCH (20:53)
[2020-01-14] MEDS: DIVALPROEX SODIUM 250 MG ER TABLET PO SCH (20:53)
[2020-01-14] MEDS: GuaiFENesin/D-METHORPHAN [SUGAR-FREE] 200-20MG/10 ML SYRUP UDCUP PO PRN (22:05)
[2020-01-15] MEDS: LEVOTHYROXINE SODIUM 125 MCG TABLET PO SCH (06:52)
[2020-01-15] MEDS: BusPIRone HCL 10 MG TABLET PO SCH ×3 (08:54→17:15)
[2020-01-15] MEDS: CHOLECALCIFEROL (VIT D3) 1,000 UNITS [25 MCG] TABLET PO SCH (08:54)
[2020-01-15] MEDS: MAGNESIUM OXIDE 400 MG TABLET PO SCH ×3 (08:54→17:15)
[2020-01-15] MEDS: ESCITALOPRAM OXALATE 20 MG TABLET PO SCH (08:54)
[2020-01-15] MEDS: PANTOPRAZOLE SODIUM 40 MG DR TABLET PO SCH (08:54)
[2020-01-15] MEDS: DOCUSATE SODIUM 250 MG CAPSULE PO SCH (08:54)
[2020-01-15] MEDS: SENNA 187 MG TABLET PO SCH (08:55)
[2020-01-15] MEDS: LamoTRIgine 100 MG TABLET PO SCH (08:55)
[2020-01-15] MEDS: PSYLLIUM SEED ORANGE SF 5.8 GM/PACKET PO SCH ×2 (08:55→17:14)
[2020-01-15 09:34] VITALS: BP 148/72
[2020-01-15] MEDS: LORazepam 2 MG TABLET PO PRN (10:19)
[2020-01-15] MEDS: ChlorproMAZINE HCL 100 MG TABLET PO PRN (10:19)
[2020-01-15] MEDS: GuaiFENesin/D-METHORPHAN [SUGAR-FREE] 200-20MG/10 ML SYRUP UDCUP PO PRN (12:45)
[2020-01-15] MEDS: BENZONATATE 100 MG CAPSULE PO PRN (14:53)
[2020-01-15 16:00] VITALS: BP 106/64
[2020-01-15] MEDS: QUEtiapine FUMARATE 200 MG TABLET PO SCH (21:21)
[2020-01-15] MEDS: TraZODone HCL 100 MG TABLET PO SCH (21:21)
[2020-01-15] MEDS: DIVALPROEX SODIUM 250 MG ER TABLET PO SCH (21:22)
[2020-01-16] MEDS: LEVOTHYROXINE SODIUM 125 MCG TABLET PO SCH (06:24)
[2020-01-16 09:19] VITALS: BP 110/57
[2020-01-16] MEDS: SENNA 187 MG TABLET PO SCH (09:59)
[2020-01-16] MEDS: PSYLLIUM SEED ORANGE SF 5.8 GM/PACKET PO SCH ×2 (09:59→16:28)
[2020-01-16] MEDS: CHOLECALCIFEROL (VIT D3) 1,000 UNITS [25 MCG] TABLET PO SCH (09:59)
[2020-01-16] MEDS: BusPIRone HCL 10 MG TABLET PO SCH ×3 (09:59→16:28)
[2020-01-16] MEDS: MAGNESIUM OXIDE 400 MG TABLET PO SCH ×3 (09:59→16:28)
[2020-01-16] MEDS: DOCUSATE SODIUM 250 MG CAPSULE PO SCH (09:59)
[2020-01-16] MEDS: PANTOPRAZOLE SODIUM 40 MG DR TABLET PO SCH (09:59)
[2020-01-16] MEDS: ESCITALOPRAM OXALATE 20 MG TABLET PO SCH (10:00)
[2020-01-16] MEDS: LamoTRIgine 100 MG TABLET PO SCH (10:04)
[2020-01-16 17:22] VITALS: BP 103/63
[2020-01-16] MEDS: DIVALPROEX SODIUM 250 MG ER TABLET PO SCH (20:59)
[2020-01-16] MEDS: TraZODone HCL 100 MG TABLET PO SCH (21:01)
[2020-01-16] MEDS: QUEtiapine FUMARATE 200 MG TABLET PO SCH (21:02)
[2020-01-16] MEDS: ZOLPIDEM TARTRATE 10 MG TABLET PO PRN (21:38)
[2020-01-17 05:05] VITALS: BP 117/74
[2020-01-17] MEDS: LORazepam 2 MG TABLET PO PRN (05:07)
[2020-01-17] MEDS: LEVOTHYROXINE SODIUM 125 MCG TABLET PO SCH (06:55)
[2020-01-17] MEDS: SENNA 187 MG TABLET PO SCH (08:18)
[2020-01-17] MEDS: MAGNESIUM OXIDE 400 MG TABLET PO SCH ×3 (08:18→16:19)
[2020-01-17] MEDS: PANTOPRAZOLE SODIUM 40 MG DR TABLET PO SCH (08:18)
[2020-01-17] MEDS: CHOLECALCIFEROL (VIT D3) 1,000 UNITS [25 MCG] TABLET PO SCH (08:18)
[2020-01-17] MEDS: DOCUSATE SODIUM 250 MG CAPSULE PO SCH (08:18)
[2020-01-17] MEDS: ESCITALOPRAM OXALATE 20 MG TABLET PO SCH (08:18)
[2020-01-17] MEDS: PSYLLIUM SEED ORANGE SF 5.8 GM/PACKET PO SCH ×2 (08:19→16:19)
[2020-01-17] MEDS: BusPIRone HCL 10 MG TABLET PO SCH ×3 (08:19→16:19)
[2020-01-17] MEDS: LamoTRIgine 100 MG TABLET PO SCH (08:20)
[2020-01-17 08:51] VITALS: BP 100/74
[2020-01-17] MEDS: GuaiFENesin/D-METHORPHAN [SUGAR-FREE] 200-20MG/10 ML SYRUP UDCUP PO PRN (08:59)
[2020-01-17 16:08] VITALS: BP 137/64
[2020-01-17] MEDS: QUEtiapine FUMARATE 200 MG TABLET PO SCH (20:10)
[2020-01-17] MEDS: ZOLPIDEM TARTRATE 10 MG TABLET PO PRN (21:11)
[2020-01-18] MEDS: LORazepam 2 MG TABLET PO PRN (02:54)
[2020-01-18 02:56] VITALS: BP 114/74
[2020-01-18] MEDS: LEVOTHYROXINE SODIUM 125 MCG TABLET PO SCH (06:30)
[2020-01-18 08:00] VITALS: BP 123/97
[2020-01-18] MEDS: CHOLECALCIFEROL (VIT D3) 1,000 UNITS [25 MCG] TABLET PO SCH (08:41)
[2020-01-18] MEDS: DOCUSATE SODIUM 250 MG CAPSULE PO SCH (08:42)
[2020-01-18] MEDS: MAGNESIUM OXIDE 400 MG TABLET PO SCH ×3 (08:42→16:19)
[2020-01-18] MEDS: DIVALPROEX SODIUM 250 MG ER TABLET PO SCH (08:42)
[2020-01-18] MEDS: BusPIRone HCL 10 MG TABLET PO SCH ×3 (08:43→16:19)
[2020-01-18] MEDS: PANTOPRAZOLE SODIUM 40 MG DR TABLET PO SCH (08:43)
[2020-01-18] MEDS: LamoTRIgine 100 MG TABLET PO SCH (08:43)
[2020-01-18] MEDS: SENNA 187 MG TABLET PO SCH (08:43)
[2020-01-18] MEDS: PSYLLIUM SEED ORANGE SF 5.8 GM/PACKET PO SCH ×2 (08:44→16:19)
[2020-01-18] MEDS: ESCITALOPRAM OXALATE 20 MG TABLET PO SCH (08:45)
[2020-01-18] MEDS: DIVALPROEX SODIUM 500 MG ER TABLET PO SCH (16:19)
[2020-01-18 18:01] VITALS: BP 142/82
[2020-01-18] MEDS: QUEtiapine FUMARATE 200 MG TABLET PO SCH (20:55)
[2020-01-18] MEDS: ZOLPIDEM TARTRATE 10 MG TABLET PO PRN (21:49)
[2020-01-19] MEDS: LORazepam 2 MG TABLET PO PRN (01:19)
[2020-01-19 01:26] VITALS: BP 122/80
[2020-01-19] MEDS: LEVOTHYROXINE SODIUM 125 MCG TABLET PO SCH (06:45)
[2020-01-19 08:00] VITALS: BP 120/75
[2020-01-19] MEDS: DIVALPROEX SODIUM 250 MG ER TABLET PO SCH (09:47)
[2020-01-19] MEDS: ESCITALOPRAM OXALATE 20 MG TABLET PO SCH (09:47)
[2020-01-19] MEDS: PANTOPRAZOLE SODIUM 40 MG DR TABLET PO SCH (09:47)
[2020-01-19] MEDS: CHOLECALCIFEROL (VIT D3) 1,000 UNITS [25 MCG] TABLET PO SCH (09:47)
[2020-01-19] MEDS: DOCUSATE SODIUM 250 MG CAPSULE PO SCH (09:48)
[2020-01-19] MEDS: BusPIRone HCL 10 MG TABLET PO SCH ×3 (09:48→16:11)
[2020-01-19] MEDS: MAGNESIUM OXIDE 400 MG TABLET PO SCH ×3 (09:48→16:11)
[2020-01-19] MEDS: SENNA 187 MG TABLET PO SCH (09:48)
[2020-01-19] MEDS: LamoTRIgine 100 MG TABLET PO SCH (09:48)
[2020-01-19] MEDS: PSYLLIUM SEED ORANGE SF 5.8 GM/PACKET PO SCH ×2 (09:48→16:11)
[2020-01-19] MEDS: DIVALPROEX SODIUM 500 MG ER TABLET PO SCH (16:11)
[2020-01-19 16:39] VITALS: BP 141/94
[2020-01-19] MEDS: QUEtiapine FUMARATE 200 MG TABLET PO SCH (20:22)
[2020-01-19] MEDS: ZOLPIDEM TARTRATE 10 MG TABLET PO PRN (21:36)
[2020-01-20] MEDS: LORazepam 2 MG TABLET PO PRN (03:08)
[2020-01-20 03:30] VITALS: BP 128/78
[2020-01-20] MEDS: LEVOTHYROXINE SODIUM 125 MCG TABLET PO SCH (06:14)
[2020-01-20] MEDS: ESCITALOPRAM OXALATE 20 MG TABLET PO SCH (08:19)
[2020-01-20] MEDS: LamoTRIgine 100 MG TABLET PO SCH (08:19)
[2020-01-20] MEDS: MAGNESIUM OXIDE 400 MG TABLET PO SCH ×3 (08:19→16:11)
[2020-01-20] MEDS: DIVALPROEX SODIUM 250 MG ER TABLET PO SCH (08:19)
[2020-01-20] MEDS: SENNA 187 MG TABLET PO SCH (08:19)
[2020-01-20] MEDS: DOCUSATE SODIUM 250 MG CAPSULE PO SCH (08:19)
[2020-01-20] MEDS: PANTOPRAZOLE SODIUM 40 MG DR TABLET PO SCH (08:19)
[2020-01-20] MEDS: CHOLECALCIFEROL (VIT D3) 1,000 UNITS [25 MCG] TABLET PO SCH (08:19)
[2020-01-20] MEDS: BusPIRone HCL 10 MG TABLET PO SCH ×3 (08:20→16:12)
[2020-01-20] MEDS: PSYLLIUM SEED ORANGE SF 5.8 GM/PACKET PO SCH ×2 (08:20→16:11)
[2020-01-20 12:31] VITALS: BP 160/88
[2020-01-20] MEDS: DIVALPROEX SODIUM 500 MG ER TABLET PO SCH (16:12)
[2020-01-20 16:20] VITALS: BP 113/68
[2020-01-20] MEDS: QUEtiapine FUMARATE 200 MG TABLET PO SCH (20:57)
[2020-01-20] MEDS: ZOLPIDEM TARTRATE 10 MG TABLET PO PRN (21:46)
[2020-01-21] MEDS: LORazepam 2 MG TABLET PO PRN (04:19)
[2020-01-21 04:28] VITALS: BP 112/63
[2020-01-21] MEDS: LEVOTHYROXINE SODIUM 125 MCG TABLET PO SCH (06:36)
[2020-01-21 09:09] VITALS: BP 128/78
[2020-01-21] MEDS: DIVALPROEX SODIUM 250 MG ER TABLET PO SCH (09:28)
[2020-01-21] MEDS: ESCITALOPRAM OXALATE 20 MG TABLET PO SCH (09:28)
[2020-01-21] MEDS: PSYLLIUM SEED ORANGE SF 5.8 GM/PACKET PO SCH ×2 (09:29→15:57)
[2020-01-21] MEDS: LamoTRIgine 100 MG TABLET PO SCH (09:29)
[2020-01-21] MEDS: CHOLECALCIFEROL (VIT D3) 1,000 UNITS [25 MCG] TABLET PO SCH (09:29)
[2020-01-21] MEDS: BusPIRone HCL 10 MG TABLET PO SCH ×3 (09:29→15:57)
[2020-01-21] MEDS: SENNA 187 MG TABLET PO SCH (09:30)
[2020-01-21] MEDS: PANTOPRAZOLE SODIUM 40 MG DR TABLET PO SCH (09:30)
[2020-01-21] MEDS: MAGNESIUM OXIDE 400 MG TABLET PO SCH ×3 (09:30→16:06)
[2020-01-21] MEDS: DOCUSATE SODIUM 250 MG CAPSULE PO SCH (09:30)
[2020-01-21] MEDS: DIVALPROEX SODIUM 500 MG ER TABLET PO SCH (15:57)
[2020-01-21 16:00] VITALS: BP 120/69
[2020-01-21] MEDS: QUEtiapine FUMARATE 200 MG TABLET PO SCH (20:26)
[2020-01-21] MEDS: ZOLPIDEM TARTRATE 10 MG TABLET PO PRN (20:55)
[2020-01-22] MEDS: LORazepam 2 MG TABLET PO PRN (02:10)
[2020-01-22] MEDS: LEVOTHYROXINE SODIUM 125 MCG TABLET PO SCH (06:34)
[2020-01-22 08:20] VITALS: BP 97/60
[2020-01-22] MEDS: MAGNESIUM OXIDE 400 MG TABLET PO SCH ×3 (09:08→16:42)
[2020-01-22] MEDS: PANTOPRAZOLE SODIUM 40 MG DR TABLET PO SCH (09:08)
[2020-01-22] MEDS: DOCUSATE SODIUM 250 MG CAPSULE PO SCH (09:08)
[2020-01-22] MEDS: CHOLECALCIFEROL (VIT D3) 1,000 UNITS [25 MCG] TABLET PO SCH (09:08)
[2020-01-22] MEDS: BusPIRone HCL 10 MG TABLET PO SCH ×3 (09:08→16:42)
[2020-01-22] MEDS: DIVALPROEX SODIUM 250 MG ER TABLET PO SCH (09:09)
[2020-01-22] MEDS: SENNA 187 MG TABLET PO SCH (09:09)
[2020-01-22] MEDS: PSYLLIUM SEED ORANGE SF 5.8 GM/PACKET PO SCH ×2 (09:09→16:42)
[2020-01-22] MEDS: LamoTRIgine 100 MG TABLET PO SCH (09:09)
[2020-01-22] MEDS: ESCITALOPRAM OXALATE 20 MG TABLET PO SCH (09:09)
[2020-01-22 13:00] VITALS: BP 108/68
[2020-01-22] MEDS: DIVALPROEX SODIUM 500 MG ER TABLET PO SCH (16:42)
[2020-01-22 17:02] VITALS: BP 136/62
[2020-01-22] MEDS: QUEtiapine FUMARATE 200 MG TABLET PO SCH (20:30)
[2020-01-22] MEDS: ZOLPIDEM TARTRATE 10 MG TABLET PO PRN (21:05)
[2020-01-23] MEDS: LORazepam 2 MG TABLET PO PRN (02:58)
[2020-01-23] MEDS: LEVOTHYROXINE SODIUM 125 MCG TABLET PO SCH (06:46)
[2020-01-23] MEDS: SENNA 187 MG TABLET PO SCH (08:11)
[2020-01-23] MEDS: ESCITALOPRAM OXALATE 20 MG TABLET PO SCH (08:11)
[2020-01-23] MEDS: MAGNESIUM OXIDE 400 MG TABLET PO SCH ×3 (08:11→16:59)
[2020-01-23] MEDS: PSYLLIUM SEED ORANGE SF 5.8 GM/PACKET PO SCH ×2 (08:11→17:00)
[2020-01-23] MEDS: LamoTRIgine 100 MG TABLET PO SCH (08:11)
[2020-01-23] MEDS: DOCUSATE SODIUM 250 MG CAPSULE PO SCH (08:11)
[2020-01-23] MEDS: BusPIRone HCL 10 MG TABLET PO SCH ×3 (08:13→17:00)
[2020-01-23] MEDS: DIVALPROEX SODIUM 250 MG ER TABLET PO SCH (08:13)
[2020-01-23] MEDS: PANTOPRAZOLE SODIUM 40 MG DR TABLET PO SCH (08:14)
[2020-01-23] MEDS: CHOLECALCIFEROL (VIT D3) 1,000 UNITS [25 MCG] TABLET PO SCH (08:14)
[2020-01-23 09:38] VITALS: BP 101/63
[2020-01-23 16:47] VITALS: BP 126/72
[2020-01-23 16:48] VITALS: BP 130/83
[2020-01-23] MEDS: DIVALPROEX SODIUM 500 MG ER TABLET PO SCH (16:59)
[2020-01-23] MEDS: QUEtiapine FUMARATE 200 MG TABLET PO SCH (20:59)
[2020-01-23] MEDS: ZOLPIDEM TARTRATE 10 MG TABLET PO PRN (21:21)
[2020-01-24] MEDS: LEVOTHYROXINE SODIUM 125 MCG TABLET PO SCH (06:47)
[2020-01-24 08:13] VITALS: BP 114/77
[2020-01-24] MEDS: PSYLLIUM SEED ORANGE SF 5.8 GM/PACKET PO SCH ×2 (08:31→17:07)
[2020-01-24] MEDS: LamoTRIgine 100 MG TABLET PO SCH (08:32)
[2020-01-24] MEDS: ESCITALOPRAM OXALATE 20 MG TABLET PO SCH (08:32)
[2020-01-24] MEDS: SENNA 187 MG TABLET PO SCH (08:32)
[2020-01-24] MEDS: DIVALPROEX SODIUM 250 MG ER TABLET PO SCH (08:32)
[2020-01-24] MEDS: CHOLECALCIFEROL (VIT D3) 1,000 UNITS [25 MCG] TABLET PO SCH (08:34)
[2020-01-24] MEDS: BusPIRone HCL 10 MG TABLET PO SCH ×3 (08:34→17:06)
[2020-01-24] MEDS: MAGNESIUM OXIDE 400 MG TABLET PO SCH ×3 (08:34→17:06)
[2020-01-24] MEDS: PANTOPRAZOLE SODIUM 40 MG DR TABLET PO SCH (08:34)
[2020-01-24] MEDS: DOCUSATE SODIUM 250 MG CAPSULE PO SCH (08:35)
[2020-01-24] MEDS: DIVALPROEX SODIUM 500 MG ER TABLET PO SCH (17:07)
[2020-01-24 17:15] VITALS: BP 120/72
[2020-01-24 19:24] VITALS: BP 136/80
[2020-01-24] MEDS: LORazepam 2 MG TABLET PO PRN (19:26)
[2020-01-24] MEDS: QUEtiapine FUMARATE 200 MG TABLET PO SCH (20:51)
[2020-01-25] MEDS: LORazepam 2 MG TABLET PO PRN (04:12)
[2020-01-25] MEDS: LEVOTHYROXINE SODIUM 125 MCG TABLET PO SCH (06:50)
[2020-01-25] MEDS: PSYLLIUM SEED ORANGE SF 5.8 GM/PACKET PO SCH ×2 (08:40→17:05)
[2020-01-25] MEDS: LamoTRIgine 100 MG TABLET PO SCH (08:41)
[2020-01-25] MEDS: BusPIRone HCL 10 MG TABLET PO SCH ×3 (08:41→17:05)
[2020-01-25] MEDS: DIVALPROEX SODIUM 250 MG ER TABLET PO SCH (08:41)
[2020-01-25] MEDS: DOCUSATE SODIUM 250 MG CAPSULE PO SCH (08:41)
[2020-01-25] MEDS: PANTOPRAZOLE SODIUM 40 MG DR TABLET PO SCH (08:42)
[2020-01-25] MEDS: MAGNESIUM OXIDE 400 MG TABLET PO SCH ×3 (08:42→17:05)
[2020-01-25] MEDS: SENNA 187 MG TABLET PO SCH (08:42)
[2020-01-25] MEDS: CHOLECALCIFEROL (VIT D3) 1,000 UNITS [25 MCG] TABLET PO SCH (08:42)
[2020-01-25] MEDS: ESCITALOPRAM OXALATE 20 MG TABLET PO SCH (08:42)
[2020-01-25 13:08] VITALS: BP 131/77
[2020-01-25] MEDS: DIVALPROEX SODIUM 500 MG ER TABLET PO SCH (17:05)
[2020-01-25 17:10] VITALS: BP 122/70
[2020-01-25] MEDS: QUEtiapine FUMARATE 200 MG TABLET PO SCH (20:31)
[2020-01-26] MEDS: LEVOTHYROXINE SODIUM 125 MCG TABLET PO SCH (06:50)
[2020-01-26 08:00] VITALS: BP 126/73
[2020-01-26] MEDS: CHOLECALCIFEROL (VIT D3) 1,000 UNITS [25 MCG] TABLET PO SCH (08:30)
[2020-01-26] MEDS: MAGNESIUM OXIDE 400 MG TABLET PO SCH ×3 (08:30→16:37)
[2020-01-26] MEDS: PSYLLIUM SEED ORANGE SF 5.8 GM/PACKET PO SCH ×2 (08:30→16:38)
[2020-01-26] MEDS: BusPIRone HCL 10 MG TABLET PO SCH ×3 (08:30→16:37)
[2020-01-26] MEDS: DOCUSATE SODIUM 250 MG CAPSULE PO SCH (08:30)
[2020-01-26] MEDS: PANTOPRAZOLE SODIUM 40 MG DR TABLET PO SCH (08:30)
[2020-01-26] MEDS: SENNA 187 MG TABLET PO SCH (08:31)
[2020-01-26] MEDS: ESCITALOPRAM OXALATE 20 MG TABLET PO SCH (08:31)
[2020-01-26] MEDS: DIVALPROEX SODIUM 250 MG ER TABLET PO SCH (08:31)
[2020-01-26] MEDS: LamoTRIgine 100 MG TABLET PO SCH (08:31)
[2020-01-26] MEDS: DIVALPROEX SODIUM 500 MG ER TABLET PO SCH (16:38)
[2020-01-26 17:54] VITALS: BP 132/78
[2020-01-26] MEDS: QUEtiapine FUMARATE 300 MG TABLET PO SCH (20:29)
[2020-01-26] MEDS: ZOLPIDEM TARTRATE 10 MG TABLET PO PRN (21:25)
[2020-01-27 03:35] VITALS: BP 145/80
[2020-01-27] MEDS: LORazepam 2 MG TABLET PO PRN ×2 (03:52→12:41)
[2020-01-27] MEDS: LEVOTHYROXINE SODIUM 125 MCG TABLET PO SCH (06:42)
[2020-01-27 09:09] VITALS: BP 133/76
[2020-01-27] MEDS: ARIPiprazole 10 MG TABLET PO SCH (09:33)
[2020-01-27] MEDS: BusPIRone HCL 10 MG TABLET PO SCH ×3 (09:34→16:34)
[2020-01-27] MEDS: DOCUSATE SODIUM 250 MG CAPSULE PO SCH (09:34)
[2020-01-27] MEDS: CHOLECALCIFEROL (VIT D3) 1,000 UNITS [25 MCG] TABLET PO SCH (09:34)
[2020-01-27] MEDS: PANTOPRAZOLE SODIUM 40 MG DR TABLET PO SCH (09:34)
[2020-01-27] MEDS: SENNA 187 MG TABLET PO SCH (09:34)
[2020-01-27] MEDS: DIVALPROEX SODIUM 250 MG ER TABLET PO SCH (09:34)
[2020-01-27] MEDS: MAGNESIUM OXIDE 400 MG TABLET PO SCH ×3 (09:34→16:37)
[2020-01-27] MEDS: LamoTRIgine 100 MG TABLET PO SCH (09:35)
[2020-01-27] MEDS: ESCITALOPRAM OXALATE 20 MG TABLET PO SCH (09:35)
[2020-01-27] MEDS: PSYLLIUM SEED ORANGE SF 5.8 GM/PACKET PO SCH ×2 (09:35→16:35)
[2020-01-27] MEDS: DIVALPROEX SODIUM 500 MG ER TABLET PO SCH (16:37)
[2020-01-27 17:18] VITALS: BP 135/78
[2020-01-27] MEDS: QUEtiapine FUMARATE 300 MG TABLET PO SCH (20:43)
[2020-01-28] MEDS: LEVOTHYROXINE SODIUM 125 MCG TABLET PO SCH (06:41)
[2020-01-28] MEDS: PSYLLIUM SEED ORANGE SF 5.8 GM/PACKET PO SCH ×2 (08:16→17:01)
[2020-01-28] MEDS: CHOLECALCIFEROL (VIT D3) 1,000 UNITS [25 MCG] TABLET PO SCH (08:16)
[2020-01-28] MEDS: ESCITALOPRAM OXALATE 20 MG TABLET PO SCH (08:16)
[2020-01-28] MEDS: DOCUSATE SODIUM 250 MG CAPSULE PO SCH (08:16)
[2020-01-28] MEDS: MAGNESIUM OXIDE 400 MG TABLET PO SCH ×3 (08:16→17:01)
[2020-01-28] MEDS: PANTOPRAZOLE SODIUM 40 MG DR TABLET PO SCH (08:16)
[2020-01-28] MEDS: ARIPiprazole 10 MG TABLET PO SCH (08:16)
[2020-01-28] MEDS: BusPIRone HCL 10 MG TABLET PO SCH ×3 (08:16→17:01)
[2020-01-28] MEDS: SENNA 187 MG TABLET PO SCH (08:17)
[2020-01-28] MEDS: LamoTRIgine 100 MG TABLET PO SCH (08:17)
[2020-01-28] MEDS: DIVALPROEX SODIUM 250 MG ER TABLET PO SCH (08:17)
[2020-01-28 10:49] VITALS: BP 135/75
[2020-01-28 16:24] VITALS: BP 116/77
[2020-01-28] MEDS: DIVALPROEX SODIUM 500 MG ER TABLET PO SCH (17:01)
[2020-01-28] MEDS: QUEtiapine FUMARATE 300 MG TABLET PO SCH (20:33)
[2020-01-28] MEDS: ZOLPIDEM TARTRATE 10 MG TABLET PO PRN (21:54)
[2020-01-29] MEDS: LORazepam 2 MG TABLET PO PRN (04:29)
[2020-01-29 04:30] VITALS: BP 120/77
[2020-01-29] MEDS: LEVOTHYROXINE SODIUM 125 MCG TABLET PO SCH (06:58)
[2020-01-29] MEDS: PSYLLIUM SEED ORANGE SF 5.8 GM/PACKET PO SCH ×2 (08:19→16:48)
[2020-01-29] MEDS: LamoTRIgine 100 MG TABLET PO SCH (08:20)
[2020-01-29] MEDS: ESCITALOPRAM OXALATE 20 MG TABLET PO SCH (08:20)
[2020-01-29] MEDS: BusPIRone HCL 10 MG TABLET PO SCH ×3 (08:20→16:46)
[2020-01-29] MEDS: SENNA 187 MG TABLET PO SCH (08:20)
[2020-01-29] MEDS: MAGNESIUM OXIDE 400 MG TABLET PO SCH ×3 (08:20→16:46)
[2020-01-29] MEDS: DOCUSATE SODIUM 250 MG CAPSULE PO SCH (08:21)
[2020-01-29] MEDS: PANTOPRAZOLE SODIUM 40 MG DR TABLET PO SCH (08:21)
[2020-01-29] MEDS: DIVALPROEX SODIUM 250 MG ER TABLET PO SCH (08:21)
[2020-01-29] MEDS: ARIPiprazole 10 MG TABLET PO SCH (08:22)
[2020-01-29] MEDS: CHOLECALCIFEROL (VIT D3) 1,000 UNITS [25 MCG] TABLET PO SCH (08:22)
[2020-01-29 12:26] VITALS: BP 116/76
[2020-01-29] MEDS: DIVALPROEX SODIUM 500 MG ER TABLET PO SCH (16:47)
[2020-01-29 17:18] VITALS: BP 143/93
[2020-01-29] MEDS: QUEtiapine FUMARATE 300 MG TABLET PO SCH (20:34)
[2020-01-30] MEDS: LORazepam 2 MG TABLET PO PRN (03:05)
[2020-01-30] MEDS: LEVOTHYROXINE SODIUM 125 MCG TABLET PO SCH (06:52)
[2020-01-30 10:14] VITALS: BP 118/90
[2020-01-30] MEDS: DIVALPROEX SODIUM 250 MG ER TABLET PO SCH (10:18)
[2020-01-30] MEDS: ESCITALOPRAM OXALATE 20 MG TABLET PO SCH (10:18)
[2020-01-30] MEDS: PSYLLIUM SEED ORANGE SF 5.8 GM/PACKET PO SCH ×2 (10:18→16:40)
[2020-01-30] MEDS: LamoTRIgine 100 MG TABLET PO SCH (10:18)
[2020-01-30] MEDS: SENNA 187 MG TABLET PO SCH (10:19)
[2020-01-30] MEDS: DOCUSATE SODIUM 250 MG CAPSULE PO SCH (10:19)
[2020-01-30] MEDS: BusPIRone HCL 10 MG TABLET PO SCH ×3 (10:19→16:39)
[2020-01-30] MEDS: MAGNESIUM OXIDE 400 MG TABLET PO SCH ×3 (10:19→16:39)
[2020-01-30] MEDS: CHOLECALCIFEROL (VIT D3) 1,000 UNITS [25 MCG] TABLET PO SCH (10:19)
[2020-01-30] MEDS: ARIPiprazole 10 MG TABLET PO SCH (10:19)
[2020-01-30] MEDS: PANTOPRAZOLE SODIUM 40 MG DR TABLET PO SCH (10:20)
[2020-01-30] MEDS: DIVALPROEX SODIUM 500 MG ER TABLET PO SCH (16:41)
[2020-01-30 16:43] VITALS: BP 121/77
[2020-01-30] MEDS ORDERED: ARIPiprazole ER SUSPENSION 400 MG PRE-FILLED DUAL CHAMBER SYRINGE IM ONE (20:15)
[2020-01-30] MEDS: QUEtiapine FUMARATE 300 MG TABLET PO SCH (20:25)
[2020-01-30 21:11] VITALS: BP 120/76
[2020-01-30 22:15] VITALS: BP 108/74
[2020-01-31] MEDS: LORazepam 2 MG TABLET PO PRN ×2 (03:27→13:06)
[2020-01-31 03:29] VITALS: BP 124/81
[2020-01-31] MEDS: LEVOTHYROXINE SODIUM 125 MCG TABLET PO SCH (06:43)
[2020-01-31 08:00] VITALS: BP 117/70
[2020-01-31] MEDS: ESCITALOPRAM OXALATE 20 MG TABLET PO SCH (08:25)
[2020-01-31] MEDS: PSYLLIUM SEED ORANGE SF 5.8 GM/PACKET PO SCH ×2 (08:25→15:52)
[2020-01-31] MEDS: DIVALPROEX SODIUM 250 MG ER TABLET PO SCH (08:25)
[2020-01-31] MEDS: LamoTRIgine 100 MG TABLET PO SCH (08:26)
[2020-01-31] MEDS: BusPIRone HCL 10 MG TABLET PO SCH ×3 (08:30→15:52)
[2020-01-31] MEDS: DOCUSATE SODIUM 250 MG CAPSULE PO SCH (08:30)
[2020-01-31] MEDS: ARIPiprazole 10 MG TABLET PO SCH (08:30)
[2020-01-31] MEDS: MAGNESIUM OXIDE 400 MG TABLET PO SCH ×3 (08:30→15:52)
[2020-01-31] MEDS: SENNA 187 MG TABLET PO SCH (08:31)
[2020-01-31] MEDS: PANTOPRAZOLE SODIUM 40 MG DR TABLET PO SCH (08:31)
[2020-01-31] MEDS: CHOLECALCIFEROL (VIT D3) 1,000 UNITS [25 MCG] TABLET PO SCH (08:34)
[2020-01-31] MEDS: DIVALPROEX SODIUM 500 MG ER TABLET PO SCH (15:52)
[2020-01-31] MEDS: QUEtiapine FUMARATE 300 MG TABLET PO SCH (20:02)
[2020-01-31 21:13] VITALS: BP 125/69
[2020-02-01] MEDS: LORazepam 2 MG TABLET PO PRN ×2 (03:22→20:55)
[2020-02-01 03:24] VITALS: BP 120/78
[2020-02-01] MEDS: LEVOTHYROXINE SODIUM 125 MCG TABLET PO SCH (06:51)
[2020-02-01 08:00] VITALS: BP 123/73
[2020-02-01] MEDS: CHOLECALCIFEROL (VIT D3) 1,000 UNITS [25 MCG] TABLET PO SCH (09:02)
[2020-02-01] MEDS: ESCITALOPRAM OXALATE 20 MG TABLET PO SCH (09:02)
[2020-02-01] MEDS: MAGNESIUM OXIDE 400 MG TABLET PO SCH ×3 (09:02→16:21)
[2020-02-01] MEDS: BusPIRone HCL 10 MG TABLET PO SCH ×3 (09:03→16:21)
[2020-02-01] MEDS: ARIPiprazole 10 MG TABLET PO SCH (09:03)
[2020-02-01] MEDS: PANTOPRAZOLE SODIUM 40 MG DR TABLET PO SCH (09:03)
[2020-02-01] MEDS: PSYLLIUM SEED ORANGE SF 5.8 GM/PACKET PO SCH ×2 (09:03→16:22)
[2020-02-01] MEDS: DIVALPROEX SODIUM 250 MG ER TABLET PO SCH (09:03)
[2020-02-01] MEDS: LamoTRIgine 100 MG TABLET PO SCH (09:03)
[2020-02-01] MEDS: DOCUSATE SODIUM 250 MG CAPSULE PO SCH (09:03)
[2020-02-01] MEDS: SENNA 187 MG TABLET PO SCH (09:04)
[2020-02-01] MEDS: DIVALPROEX SODIUM 500 MG ER TABLET PO SCH (16:21)
[2020-02-01 19:02] VITALS: BP 124/72
[2020-02-01] MEDS: ZOLPIDEM TARTRATE 10 MG TABLET PO PRN (20:30)
[2020-02-01] MEDS ORDERED: QUEtiapine FUMARATE 200 MG TABLET PO SCH (21:00)
[2020-02-01] MEDS ORDERED: QUEtiapine FUMARATE 25 MG TABLET PO SCH (21:00)
[2020-02-02] MEDS: LORazepam 2 MG TABLET PO PRN (03:31)
[2020-02-02 03:32] VITALS: BP 108/63
[2020-02-02] MEDS: LEVOTHYROXINE SODIUM 125 MCG TABLET PO SCH (06:43)
[2020-02-02] MEDS: CHOLECALCIFEROL (VIT D3) 1,000 UNITS [25 MCG] TABLET PO SCH (08:34)
[2020-02-02] MEDS: ARIPiprazole 10 MG TABLET PO SCH (08:35)
[2020-02-02] MEDS: BusPIRone HCL 10 MG TABLET PO SCH ×3 (08:35→16:54)
[2020-02-02] MEDS: MAGNESIUM OXIDE 400 MG TABLET PO SCH ×3 (08:35→16:54)
[2020-02-02] MEDS: SENNA 187 MG TABLET PO SCH (08:36)
[2020-02-02] MEDS: DOCUSATE SODIUM 250 MG CAPSULE PO SCH (08:36)
[2020-02-02] MEDS: LamoTRIgine 100 MG TABLET PO SCH (08:36)
[2020-02-02] MEDS: PSYLLIUM SEED ORANGE SF 5.8 GM/PACKET PO SCH ×2 (08:37→16:54)
[2020-02-02] MEDS: ESCITALOPRAM OXALATE 20 MG TABLET PO SCH (08:37)
[2020-02-02] MEDS: DIVALPROEX SODIUM 250 MG ER TABLET PO SCH (08:37)
[2020-02-02] MEDS: PANTOPRAZOLE SODIUM 40 MG DR TABLET PO SCH (08:38)
[2020-02-02 16:50] VITALS: BP 121/85
[2020-02-02] MEDS: DIVALPROEX SODIUM 500 MG ER TABLET PO SCH (16:54)
[2020-02-02] MEDS: QUEtiapine FUMARATE 300 MG TABLET PO SCH (20:38)
[2020-02-03] MEDS: LEVOTHYROXINE SODIUM 125 MCG TABLET PO SCH (06:51)
[2020-02-03 08:01] VITALS: BP 120/87
[2020-02-03] MEDS: DIVALPROEX SODIUM 250 MG ER TABLET PO SCH (08:07)
[2020-02-03] MEDS: ESCITALOPRAM OXALATE 20 MG TABLET PO SCH (08:07)
[2020-02-03] MEDS: DOCUSATE SODIUM 250 MG CAPSULE PO SCH (08:07)
[2020-02-03] MEDS: LamoTRIgine 100 MG TABLET PO SCH (08:07)
[2020-02-03] MEDS: CHOLECALCIFEROL (VIT D3) 1,000 UNITS [25 MCG] TABLET PO SCH (08:07)
[2020-02-03] MEDS: SENNA 187 MG TABLET PO SCH (08:07)
[2020-02-03] MEDS: MAGNESIUM OXIDE 400 MG TABLET PO SCH ×3 (08:08→18:32)
[2020-02-03] MEDS: BusPIRone HCL 10 MG TABLET PO SCH ×3 (08:08→18:32)
[2020-02-03] MEDS: PSYLLIUM SEED ORANGE SF 5.8 GM/PACKET PO SCH ×2 (08:08→18:33)
[2020-02-03] MEDS: ARIPiprazole 10 MG TABLET PO SCH (08:08)
[2020-02-03] MEDS: PANTOPRAZOLE SODIUM 40 MG DR TABLET PO SCH (08:10)
[2020-02-03 16:00] VITALS: BP 123/75
[2020-02-03] MEDS: DIVALPROEX SODIUM 500 MG ER TABLET PO SCH (18:32)
[2020-02-03] MEDS: QUEtiapine FUMARATE 300 MG TABLET PO SCH (20:10)
[2020-02-03] MEDS: ZOLPIDEM TARTRATE 10 MG TABLET PO PRN (21:14)
[2020-02-04] MEDS: LORazepam 2 MG TABLET PO PRN ×2 (04:16→12:50)
[2020-02-04 04:18] VITALS: BP 100/67
[2020-02-04] MEDS: LEVOTHYROXINE SODIUM 125 MCG TABLET PO SCH (06:44)
[2020-02-04] MEDS: CHOLECALCIFEROL (VIT D3) 1,000 UNITS [25 MCG] TABLET PO SCH (08:32)
[2020-02-04] MEDS: ARIPiprazole 10 MG TABLET PO SCH (08:32)
[2020-02-04] MEDS: DIVALPROEX SODIUM 250 MG ER TABLET PO SCH (08:32)
[2020-02-04] MEDS: ESCITALOPRAM OXALATE 20 MG TABLET PO SCH (08:32)
[2020-02-04] MEDS: SENNA 187 MG TABLET PO SCH (08:32)
[2020-02-04] MEDS: DOCUSATE SODIUM 250 MG CAPSULE PO SCH (08:32)
[2020-02-04] MEDS: BusPIRone HCL 10 MG TABLET PO SCH ×3 (08:32→16:40)
[2020-02-04] MEDS: MAGNESIUM OXIDE 400 MG TABLET PO SCH ×3 (08:32→16:40)
[2020-02-04] MEDS: PSYLLIUM SEED ORANGE SF 5.8 GM/PACKET PO SCH ×2 (08:33→16:42)
[2020-02-04] MEDS: LamoTRIgine 100 MG TABLET PO SCH (08:33)
[2020-02-04] MEDS: PANTOPRAZOLE SODIUM 40 MG DR TABLET PO SCH (08:33)
[2020-02-04 09:05] VITALS: BP 130/82
[2020-02-04] MEDS: DIVALPROEX SODIUM 500 MG ER TABLET PO SCH (16:40)
[2020-02-04 16:56] VITALS: BP 102/60
[2020-02-04] MEDS: QUEtiapine FUMARATE 300 MG TABLET PO SCH (20:22)
[2020-02-04] MEDS: ZOLPIDEM TARTRATE 10 MG TABLET PO PRN (20:49)
[2020-02-05] MEDS: LORazepam 2 MG TABLET PO PRN (03:32)
[2020-02-05] MEDS: LEVOTHYROXINE SODIUM 125 MCG TABLET PO SCH (06:37)
[2020-02-05 08:00] VITALS: BP 130/75
[2020-02-05] MEDS: SENNA 187 MG TABLET PO SCH (08:58)
[2020-02-05] MEDS: BusPIRone HCL 10 MG TABLET PO SCH ×3 (08:58→17:01)
[2020-02-05] MEDS: PANTOPRAZOLE SODIUM 40 MG DR TABLET PO SCH (08:58)
[2020-02-05] MEDS: MAGNESIUM OXIDE 400 MG TABLET PO SCH ×3 (08:59→17:01)
[2020-02-05] MEDS: LamoTRIgine 100 MG TABLET PO SCH (08:59)
[2020-02-05] MEDS: ESCITALOPRAM OXALATE 20 MG TABLET PO SCH (08:59)
[2020-02-05] MEDS: CHOLECALCIFEROL (VIT D3) 1,000 UNITS [25 MCG] TABLET PO SCH (08:59)
[2020-02-05] MEDS: ARIPiprazole 10 MG TABLET PO SCH (08:59)
[2020-02-05] MEDS: DOCUSATE SODIUM 250 MG CAPSULE PO SCH (08:59)
[2020-02-05] MEDS: PSYLLIUM SEED ORANGE SF 5.8 GM/PACKET PO SCH ×2 (08:59→17:01)
[2020-02-05] MEDS: DIVALPROEX SODIUM 250 MG ER TABLET PO SCH (09:00)
[2020-02-05 17:00] VITALS: BP 134/80
[2020-02-05] MEDS: DIVALPROEX SODIUM 500 MG ER TABLET PO SCH (17:01)
[2020-02-05] MEDS: QUEtiapine FUMARATE 300 MG TABLET PO SCH (21:00)
[2020-02-05] MEDS: ZOLPIDEM TARTRATE 10 MG TABLET PO PRN (22:00)
[2020-02-06 00:30] VITALS: BP 114/68
[2020-02-06] MEDS: LORazepam 2 MG TABLET PO PRN (00:32)
[2020-02-06] MEDS: GuaiFENesin/D-METHORPHAN [SUGAR-FREE] 200-20MG/10 ML SYRUP UDCUP PO PRN (00:32)
[2020-02-06] MEDS: LEVOTHYROXINE SODIUM 125 MCG TABLET PO SCH (06:55)
[2020-02-06] MEDS: ARIPiprazole 10 MG TABLET PO SCH (09:39)
[2020-02-06] MEDS: ESCITALOPRAM OXALATE 20 MG TABLET PO SCH (09:39)
[2020-02-06] MEDS: SENNA 187 MG TABLET PO SCH (09:39)
[2020-02-06] MEDS: CHOLECALCIFEROL (VIT D3) 1,000 UNITS [25 MCG] TABLET PO SCH (09:39)
[2020-02-06] MEDS: LamoTRIgine 100 MG TABLET PO SCH (09:39)
[2020-02-06] MEDS: DIVALPROEX SODIUM 250 MG ER TABLET PO SCH (09:39)
[2020-02-06] MEDS: BusPIRone HCL 10 MG TABLET PO SCH ×3 (09:40→16:30)
[2020-02-06] MEDS: PSYLLIUM SEED ORANGE SF 5.8 GM/PACKET PO SCH ×2 (09:40→16:30)
[2020-02-06] MEDS: DOCUSATE SODIUM 250 MG CAPSULE PO SCH (09:40)
[2020-02-06] MEDS: MAGNESIUM OXIDE 400 MG TABLET PO SCH ×3 (09:42→16:30)
[2020-02-06] MEDS: PANTOPRAZOLE SODIUM 40 MG DR TABLET PO SCH (09:42)
[2020-02-06 10:04] VITALS: BP 134/86
[2020-02-06] MEDS: DIVALPROEX SODIUM 500 MG ER TABLET PO SCH (16:31)
[2020-02-06] MEDS: QUEtiapine FUMARATE 300 MG TABLET PO SCH (20:42)
[2020-02-06] MEDS: ZOLPIDEM TARTRATE 10 MG TABLET PO PRN (21:03)
[2020-02-07 04:24] VITALS: BP 100/70
[2020-02-07] MEDS: LORazepam 2 MG TABLET PO PRN (04:25)
[2020-02-07] MEDS: LEVOTHYROXINE SODIUM 125 MCG TABLET PO SCH (06:59)
[2020-02-07] MEDS: DIVALPROEX SODIUM 250 MG ER TABLET PO SCH (08:25)
[2020-02-07] MEDS: MAGNESIUM OXIDE 400 MG TABLET PO SCH ×3 (08:25→17:10)
[2020-02-07] MEDS: DOCUSATE SODIUM 250 MG CAPSULE PO SCH (08:25)
[2020-02-07] MEDS: LamoTRIgine 100 MG TABLET PO SCH (08:25)
[2020-02-07] MEDS: CHOLECALCIFEROL (VIT D3) 1,000 UNITS [25 MCG] TABLET PO SCH (08:25)
[2020-02-07] MEDS: ESCITALOPRAM OXALATE 20 MG TABLET PO SCH (08:26)
[2020-02-07] MEDS: PSYLLIUM SEED ORANGE SF 5.8 GM/PACKET PO SCH ×2 (08:26→17:10)
[2020-02-07] MEDS: SENNA 187 MG TABLET PO SCH (08:26)
[2020-02-07] MEDS: PANTOPRAZOLE SODIUM 40 MG DR TABLET PO SCH (08:26)
[2020-02-07] MEDS: ARIPiprazole 10 MG TABLET PO SCH (08:26)
[2020-02-07] MEDS: BusPIRone HCL 10 MG TABLET PO SCH ×3 (08:26→17:11)
[2020-02-07] MEDS: DIVALPROEX SODIUM 500 MG ER TABLET PO SCH (17:10)
[2020-02-07] MEDS: QUEtiapine FUMARATE 300 MG TABLET PO SCH (20:38)
[2020-02-08] MEDS: LORazepam 2 MG TABLET PO PRN ×2 (01:51→09:46)
[2020-02-08] MEDS: LEVOTHYROXINE SODIUM 125 MCG TABLET PO SCH (06:22)
[2020-02-08] MEDS: DOCUSATE SODIUM 250 MG CAPSULE PO SCH (08:48)
[2020-02-08] MEDS: PSYLLIUM SEED ORANGE SF 5.8 GM/PACKET PO SCH ×2 (08:48→17:09)
[2020-02-08] MEDS: LamoTRIgine 100 MG TABLET PO SCH (08:48)
[2020-02-08] MEDS: PANTOPRAZOLE SODIUM 40 MG DR TABLET PO SCH (08:49)
[2020-02-08] MEDS: CHOLECALCIFEROL (VIT D3) 1,000 UNITS [25 MCG] TABLET PO SCH (08:49)
[2020-02-08] MEDS: ESCITALOPRAM OXALATE 20 MG TABLET PO SCH (08:49)
[2020-02-08] MEDS: SENNA 187 MG TABLET PO SCH (08:49)
[2020-02-08] MEDS: ARIPiprazole 10 MG TABLET PO SCH (08:49)
[2020-02-08] MEDS: MAGNESIUM OXIDE 400 MG TABLET PO SCH ×3 (08:49→17:09)
[2020-02-08] MEDS: BusPIRone HCL 10 MG TABLET PO SCH ×3 (08:49→17:08)
[2020-02-08] MEDS: DIVALPROEX SODIUM 250 MG ER TABLET PO SCH (08:49)
[2020-02-08 09:16] VITALS: BP 143/83
[2020-02-08] MEDS ORDERED: HALOPERIDOL LACTATE 5 MG/ML VIAL IM ONE (14:15)
[2020-02-08] MEDS ORDERED: LORazepam 2 MG/ML VIAL IM ONE (14:15)
[2020-02-08] MEDS ORDERED: DiphenhydrAMINE HCL 50 MG/ML VIAL IM ONE (14:15)
[2020-02-08] MEDS: DIVALPROEX SODIUM 500 MG ER TABLET PO SCH (17:09)
[2020-02-08] MEDS: QUEtiapine FUMARATE 300 MG TABLET PO SCH (21:17)
[2020-02-09 04:00] VITALS: BP 121/71
[2020-02-09] MEDS: LORazepam 2 MG TABLET PO PRN (04:04)
[2020-02-09] MEDS: LEVOTHYROXINE SODIUM 125 MCG TABLET PO SCH (06:50)
[2020-02-09] MEDS: BusPIRone HCL 10 MG TABLET PO SCH ×3 (07:50→16:13)
[2020-02-09] MEDS: ESCITALOPRAM OXALATE 20 MG TABLET PO SCH (07:51)
[2020-02-09] MEDS: MAGNESIUM OXIDE 400 MG TABLET PO SCH ×3 (07:51→16:14)
[2020-02-09] MEDS: LamoTRIgine 100 MG TABLET PO SCH (07:51)
[2020-02-09] MEDS: PSYLLIUM SEED ORANGE SF 5.8 GM/PACKET PO SCH ×2 (07:51→16:13)
[2020-02-09] MEDS: SENNA 187 MG TABLET PO SCH (07:51)
[2020-02-09] MEDS: CHOLECALCIFEROL (VIT D3) 1,000 UNITS [25 MCG] TABLET PO SCH (07:51)
[2020-02-09] MEDS: DIVALPROEX SODIUM 250 MG ER TABLET PO SCH (07:52)
[2020-02-09] MEDS: DOCUSATE SODIUM 250 MG CAPSULE PO SCH (07:52)
[2020-02-09] MEDS: ARIPiprazole 10 MG TABLET PO SCH (07:52)
[2020-02-09] MEDS: PANTOPRAZOLE SODIUM 40 MG DR TABLET PO SCH (07:53)
[2020-02-09 08:02] VITALS: BP 128/76
[2020-02-09 16:00] VITALS: BP 126/71
[2020-02-09] MEDS: DIVALPROEX SODIUM 500 MG ER TABLET PO SCH (16:13)
[2020-02-09] MEDS: QUEtiapine FUMARATE 300 MG TABLET PO SCH (20:45)
[2020-02-09] MEDS: ZOLPIDEM TARTRATE 10 MG TABLET PO PRN (21:22)
[2020-02-10] MEDS: LEVOTHYROXINE SODIUM 125 MCG TABLET PO SCH (06:55)
[2020-02-10] MEDS: DOCUSATE SODIUM 250 MG CAPSULE PO SCH (08:17)
[2020-02-10] MEDS: ARIPiprazole 10 MG TABLET PO SCH (08:17)
[2020-02-10] MEDS: MAGNESIUM OXIDE 400 MG TABLET PO SCH ×3 (08:17→16:38)
[2020-02-10] MEDS: BusPIRone HCL 10 MG TABLET PO SCH ×3 (08:17→16:38)
[2020-02-10] MEDS: CHOLECALCIFEROL (VIT D3) 1,000 UNITS [25 MCG] TABLET PO SCH (08:17)
[2020-02-10] MEDS: PSYLLIUM SEED ORANGE SF 5.8 GM/PACKET PO SCH ×2 (08:18→16:39)
[2020-02-10] MEDS: PANTOPRAZOLE SODIUM 40 MG DR TABLET PO SCH (08:18)
[2020-02-10] MEDS: LamoTRIgine 100 MG TABLET PO SCH (08:18)
[2020-02-10] MEDS: DIVALPROEX SODIUM 250 MG ER TABLET PO SCH (08:18)
[2020-02-10] MEDS: SENNA 187 MG TABLET PO SCH (08:18)
[2020-02-10] MEDS: ESCITALOPRAM OXALATE 20 MG TABLET PO SCH (08:19)
[2020-02-10] MEDS: LORazepam 2 MG TABLET PO PRN (14:42)
[2020-02-10 15:17] VITALS: BP 133/82
[2020-02-10] MEDS: DIVALPROEX SODIUM 500 MG ER TABLET PO SCH (16:38)
[2020-02-10 18:06] VITALS: BP 131/84
[2020-02-10] MEDS: QUEtiapine FUMARATE 300 MG TABLET PO SCH (20:27)
[2020-02-11] MEDS: LEVOTHYROXINE SODIUM 125 MCG TABLET PO SCH (06:54)
[2020-02-11] MEDS: DOCUSATE SODIUM 250 MG CAPSULE PO SCH (08:17)
[2020-02-11] MEDS: ARIPiprazole 10 MG TABLET PO SCH (08:17)
[2020-02-11] MEDS: BusPIRone HCL 10 MG TABLET PO SCH ×3 (08:17→16:55)
[2020-02-11] MEDS: LamoTRIgine 100 MG TABLET PO SCH (08:18)
[2020-02-11] MEDS: CHOLECALCIFEROL (VIT D3) 1,000 UNITS [25 MCG] TABLET PO SCH (08:18)
[2020-02-11] MEDS: DIVALPROEX SODIUM 250 MG ER TABLET PO SCH (08:18)
[2020-02-11] MEDS: MAGNESIUM OXIDE 400 MG TABLET PO SCH ×3 (08:18→16:56)
[2020-02-11] MEDS: PANTOPRAZOLE SODIUM 40 MG DR TABLET PO SCH (08:18)
[2020-02-11] MEDS: SENNA 187 MG TABLET PO SCH (08:18)
[2020-02-11] MEDS: ESCITALOPRAM OXALATE 20 MG TABLET PO SCH (08:18)
[2020-02-11] MEDS: PSYLLIUM SEED ORANGE SF 5.8 GM/PACKET PO SCH ×2 (08:19→16:56)
[2020-02-11 08:53] VITALS: BP 133/60
[2020-02-11] MEDS: LORazepam 2 MG TABLET PO PRN (13:53)
[2020-02-11] MEDS: DIVALPROEX SODIUM 500 MG ER TABLET PO SCH (16:56)
[2020-02-11 18:18] VITALS: BP 147/88
[2020-02-11] MEDS: QUEtiapine FUMARATE 300 MG TABLET PO SCH (20:37)
[2020-02-12] MEDS: LORazepam 2 MG TABLET PO PRN ×2 (03:41→12:41)
[2020-02-12 03:48] VITALS: BP 105/71
[2020-02-12] MEDS: LEVOTHYROXINE SODIUM 125 MCG TABLET PO SCH (06:48)
[2020-02-12] MEDS: ESCITALOPRAM OXALATE 20 MG TABLET PO SCH (08:20)
[2020-02-12] MEDS: BusPIRone HCL 10 MG TABLET PO SCH ×3 (08:20→16:32)
[2020-02-12] MEDS: MAGNESIUM OXIDE 400 MG TABLET PO SCH ×3 (08:20→16:32)
[2020-02-12] MEDS: CHOLECALCIFEROL (VIT D3) 1,000 UNITS [25 MCG] TABLET PO SCH (08:20)
[2020-02-12] MEDS: DOCUSATE SODIUM 250 MG CAPSULE PO SCH (08:21)
[2020-02-12] MEDS: PANTOPRAZOLE SODIUM 40 MG DR TABLET PO SCH (08:21)
[2020-02-12] MEDS: ARIPiprazole 10 MG TABLET PO SCH (08:21)
[2020-02-12] MEDS: PSYLLIUM SEED ORANGE SF 5.8 GM/PACKET PO SCH ×2 (08:22→16:32)
[2020-02-12] MEDS: SENNA 187 MG TABLET PO SCH (08:22)
[2020-02-12] MEDS: LamoTRIgine 100 MG TABLET PO SCH (08:23)
[2020-02-12] MEDS: DIVALPROEX SODIUM 250 MG ER TABLET PO SCH (08:23)
[2020-02-12 09:53] VITALS: BP 137/88
[2020-02-12 16:28] VITALS: BP 127/78
[2020-02-12] MEDS: DIVALPROEX SODIUM 500 MG ER TABLET PO SCH (16:32)
[2020-02-12] MEDS: QUEtiapine FUMARATE 300 MG TABLET PO SCH (20:46)
[2020-02-12] MEDS: ZOLPIDEM TARTRATE 10 MG TABLET PO PRN (21:17)
[2020-02-12] MEDS: GuaiFENesin/D-METHORPHAN [SUGAR-FREE] 200-20MG/10 ML SYRUP UDCUP PO PRN (22:59)
[2020-02-13] MEDS: LEVOTHYROXINE SODIUM 125 MCG TABLET PO SCH (07:02)
[2020-02-13] MEDS: ESCITALOPRAM OXALATE 20 MG TABLET PO SCH (08:26)
[2020-02-13] MEDS: SENNA 187 MG TABLET PO SCH (08:26)
[2020-02-13] MEDS: LamoTRIgine 100 MG TABLET PO SCH (08:26)
[2020-02-13] MEDS: CHOLECALCIFEROL (VIT D3) 1,000 UNITS [25 MCG] TABLET PO SCH (08:26)
[2020-02-13] MEDS: PANTOPRAZOLE SODIUM 40 MG DR TABLET PO SCH (08:26)
[2020-02-13] MEDS: DIVALPROEX SODIUM 250 MG ER TABLET PO SCH (08:26)
[2020-02-13] MEDS: PSYLLIUM SEED ORANGE SF 5.8 GM/PACKET PO SCH ×2 (08:26→16:20)
[2020-02-13] MEDS: ARIPiprazole 10 MG TABLET PO SCH (08:26)
[2020-02-13] MEDS: MAGNESIUM OXIDE 400 MG TABLET PO SCH ×3 (08:26→16:20)
[2020-02-13] MEDS: BusPIRone HCL 10 MG TABLET PO SCH ×3 (08:26→16:19)
[2020-02-13] MEDS: DOCUSATE SODIUM 250 MG CAPSULE PO SCH (08:26)
[2020-02-13] MEDS: LORazepam 2 MG TABLET PO PRN (08:26)
[2020-02-13 13:14] VITALS: BP 133/75
[2020-02-13] MEDS: DIVALPROEX SODIUM 500 MG ER TABLET PO SCH (16:19)
[2020-02-13 17:23] VITALS: BP 112/78
[2020-02-13] MEDS: QUEtiapine FUMARATE 300 MG TABLET PO SCH (20:34)
[2020-02-13] MEDS: HALOPERIDOL 1 MG TABLET PO PRN (20:51)
[2020-02-14] MEDS: HALOPERIDOL 1 MG TABLET PO PRN ×5 (02:31→20:40)
[2020-02-14] MEDS: LEVOTHYROXINE SODIUM 125 MCG TABLET PO SCH (06:46)
[2020-02-14] MEDS: PANTOPRAZOLE SODIUM 40 MG DR TABLET PO SCH (08:39)
[2020-02-14] MEDS: PSYLLIUM SEED ORANGE SF 5.8 GM/PACKET PO SCH ×2 (08:39→16:16)
[2020-02-14] MEDS: SENNA 187 MG TABLET PO SCH (08:40)
[2020-02-14] MEDS: ESCITALOPRAM OXALATE 20 MG TABLET PO SCH (08:40)
[2020-02-14] MEDS: MAGNESIUM OXIDE 400 MG TABLET PO SCH ×3 (08:40→16:15)
[2020-02-14] MEDS: DIVALPROEX SODIUM 250 MG ER TABLET PO SCH (08:40)
[2020-02-14] MEDS: ARIPiprazole 10 MG TABLET PO SCH (08:40)
[2020-02-14] MEDS: BusPIRone HCL 10 MG TABLET PO SCH ×3 (08:40→16:15)
[2020-02-14] MEDS: LamoTRIgine 100 MG TABLET PO SCH (08:40)
[2020-02-14] MEDS: CHOLECALCIFEROL (VIT D3) 1,000 UNITS [25 MCG] TABLET PO SCH (08:40)
[2020-02-14] MEDS: DOCUSATE SODIUM 250 MG CAPSULE PO SCH (08:42)
[2020-02-14 08:50] VITALS: BP 150/66
[2020-02-14] MEDS: DIVALPROEX SODIUM 500 MG ER TABLET PO SCH (16:15)
[2020-02-14 20:06] VITALS: BP 125/87
[2020-02-14] MEDS: QUEtiapine FUMARATE 300 MG TABLET PO SCH (20:10)
[2020-02-14] MEDS: ZOLPIDEM TARTRATE 10 MG TABLET PO PRN (20:47)
[2020-02-15] MEDS: HALOPERIDOL 1 MG TABLET PO PRN ×4 (03:42→20:16)
[2020-02-15] MEDS: LEVOTHYROXINE SODIUM 125 MCG TABLET PO SCH (06:42)
[2020-02-15] MEDS: MAGNESIUM OXIDE 400 MG TABLET PO SCH ×3 (08:02→16:40)
[2020-02-15] MEDS: PANTOPRAZOLE SODIUM 40 MG DR TABLET PO SCH (08:02)
[2020-02-15] MEDS: ARIPiprazole 10 MG TABLET PO SCH (08:02)
[2020-02-15] MEDS: CHOLECALCIFEROL (VIT D3) 1,000 UNITS [25 MCG] TABLET PO SCH (08:02)
[2020-02-15] MEDS: PSYLLIUM SEED ORANGE SF 5.8 GM/PACKET PO SCH ×2 (08:03→16:39)
[2020-02-15] MEDS: BusPIRone HCL 10 MG TABLET PO SCH ×3 (08:03→16:40)
[2020-02-15] MEDS: LamoTRIgine 100 MG TABLET PO SCH (08:03)
[2020-02-15] MEDS: DOCUSATE SODIUM 250 MG CAPSULE PO SCH (08:03)
[2020-02-15] MEDS: ESCITALOPRAM OXALATE 20 MG TABLET PO SCH (08:03)
[2020-02-15] MEDS: SENNA 187 MG TABLET PO SCH (08:03)
[2020-02-15] MEDS: DIVALPROEX SODIUM 250 MG ER TABLET PO SCH (08:03)
[2020-02-15 13:04] VITALS: BP 136/96
[2020-02-15] MEDS: DIVALPROEX SODIUM 500 MG ER TABLET PO SCH (16:40)
[2020-02-15 17:46] VITALS: BP 150/96
[2020-02-15] MEDS: QUEtiapine FUMARATE 300 MG TABLET PO SCH (20:11)
[2020-02-16] MEDS: ZOLPIDEM TARTRATE 10 MG TABLET PO PRN ×2 (02:46→20:54)
[2020-02-16] MEDS: HALOPERIDOL 1 MG TABLET PO PRN ×4 (02:47→16:22)
[2020-02-16] MEDS: LEVOTHYROXINE SODIUM 125 MCG TABLET PO SCH (06:51)
[2020-02-16] MEDS: CHOLECALCIFEROL (VIT D3) 1,000 UNITS [25 MCG] TABLET PO SCH (07:48)
[2020-02-16] MEDS: ESCITALOPRAM OXALATE 20 MG TABLET PO SCH (07:48)
[2020-02-16] MEDS: PANTOPRAZOLE SODIUM 40 MG DR TABLET PO SCH (07:48)
[2020-02-16] MEDS: PSYLLIUM SEED ORANGE SF 5.8 GM/PACKET PO SCH ×2 (07:48→16:43)
[2020-02-16] MEDS: DOCUSATE SODIUM 250 MG CAPSULE PO SCH (07:48)
[2020-02-16] MEDS: LamoTRIgine 100 MG TABLET PO SCH (07:49)
[2020-02-16] MEDS: SENNA 187 MG TABLET PO SCH (07:49)
[2020-02-16] MEDS: DIVALPROEX SODIUM 250 MG ER TABLET PO SCH (07:49)
[2020-02-16] MEDS: ARIPiprazole 10 MG TABLET PO SCH (07:49)
[2020-02-16] MEDS: BusPIRone HCL 10 MG TABLET PO SCH ×3 (07:49→16:42)
[2020-02-16] MEDS: MAGNESIUM OXIDE 400 MG TABLET PO SCH ×3 (07:49→16:43)
[2020-02-16 08:00] VITALS: BP 136/85
[2020-02-16] MEDS: DIVALPROEX SODIUM 500 MG ER TABLET PO SCH (16:43)
[2020-02-16 18:52] VITALS: BP 137/78
[2020-02-16] MEDS: QUEtiapine FUMARATE 200 MG TABLET PO SCH (20:05)
[2020-02-17] MEDS: HALOPERIDOL 1 MG TABLET PO PRN ×3 (04:34→13:49)
[2020-02-17] MEDS: LEVOTHYROXINE SODIUM 125 MCG TABLET PO SCH (06:15)
[2020-02-17] MEDS: LamoTRIgine 100 MG TABLET PO SCH (08:36)
[2020-02-17] MEDS: DIVALPROEX SODIUM 250 MG ER TABLET PO SCH (08:36)
[2020-02-17] MEDS: ESCITALOPRAM OXALATE 20 MG TABLET PO SCH (08:36)
[2020-02-17] MEDS: BusPIRone HCL 10 MG TABLET PO SCH ×3 (08:36→16:18)
[2020-02-17] MEDS: SENNA 187 MG TABLET PO SCH (08:39)
[2020-02-17] MEDS: PANTOPRAZOLE SODIUM 40 MG DR TABLET PO SCH (08:39)
[2020-02-17] MEDS: MAGNESIUM OXIDE 400 MG TABLET PO SCH ×3 (08:39→16:19)
[2020-02-17] MEDS: PSYLLIUM SEED ORANGE SF 5.8 GM/PACKET PO SCH ×2 (08:39→16:19)
[2020-02-17] MEDS: DOCUSATE SODIUM 250 MG CAPSULE PO SCH (08:39)
[2020-02-17] MEDS: CHOLECALCIFEROL (VIT D3) 1,000 UNITS [25 MCG] TABLET PO SCH (08:39)
[2020-02-17 15:27] VITALS: BP 118/90
[2020-02-17 16:00] VITALS: BP 142/76
[2020-02-17] MEDS: DIVALPROEX SODIUM 500 MG ER TABLET PO SCH (16:19)
[2020-02-17] MEDS: QUEtiapine FUMARATE 200 MG TABLET PO SCH (20:56)
[2020-02-17] MEDS: ZOLPIDEM TARTRATE 10 MG TABLET PO PRN (21:01)
[2020-02-18] MEDS: HALOPERIDOL 1 MG TABLET PO PRN ×3 (02:33→12:33)
[2020-02-18] MEDS: LEVOTHYROXINE SODIUM 125 MCG TABLET PO SCH (06:18)
[2020-02-18 06:47] LABS: GLUCOMETER DEV NAME(LOC) 3E.C; GLUCOSE,POINT OF CARE 122 MG/DL (70-110)
[2020-02-18] MEDS: MAGNESIUM OXIDE 400 MG TABLET PO SCH ×3 (08:32→16:14)
[2020-02-18] MEDS: BusPIRone HCL 10 MG TABLET PO SCH ×3 (08:32→16:14)
[2020-02-18] MEDS: DOCUSATE SODIUM 250 MG CAPSULE PO SCH (08:32)
[2020-02-18] MEDS: PANTOPRAZOLE SODIUM 40 MG DR TABLET PO SCH (08:32)
[2020-02-18] MEDS: SENNA 187 MG TABLET PO SCH (08:33)
[2020-02-18] MEDS: CHOLECALCIFEROL (VIT D3) 1,000 UNITS [25 MCG] TABLET PO SCH (08:33)
[2020-02-18] MEDS: PSYLLIUM SEED ORANGE SF 5.8 GM/PACKET PO SCH ×2 (08:33→16:15)
[2020-02-18] MEDS: DIVALPROEX SODIUM 250 MG ER TABLET PO SCH (08:33)
[2020-02-18] MEDS: LamoTRIgine 100 MG TABLET PO SCH (08:34)
[2020-02-18] MEDS: ESCITALOPRAM OXALATE 20 MG TABLET PO SCH (08:34)
[2020-02-18 10:39] VITALS: BP 116/71
[2020-02-18] MEDS: DIVALPROEX SODIUM 500 MG ER TABLET PO SCH (16:14)
[2020-02-18 16:47] VITALS: BP 134/82
[2020-02-18] MEDS: QUEtiapine FUMARATE 200 MG TABLET PO SCH (20:29)
[2020-02-19] MEDS: ZOLPIDEM TARTRATE 10 MG TABLET PO PRN (02:15)
[2020-02-19 02:18] VITALS: BP 122/82
[2020-02-19] MEDS: LEVOTHYROXINE SODIUM 125 MCG TABLET PO SCH (06:34)
[2020-02-19] MEDS: MAGNESIUM OXIDE 400 MG TABLET PO SCH ×3 (08:32→16:26)
[2020-02-19] MEDS: CHOLECALCIFEROL (VIT D3) 1,000 UNITS [25 MCG] TABLET PO SCH (08:32)
[2020-02-19] MEDS: BusPIRone HCL 10 MG TABLET PO SCH ×3 (08:32→16:26)
[2020-02-19] MEDS: DOCUSATE SODIUM 250 MG CAPSULE PO SCH (08:32)
[2020-02-19] MEDS: PANTOPRAZOLE SODIUM 40 MG DR TABLET PO SCH (08:33)
[2020-02-19] MEDS: SENNA 187 MG TABLET PO SCH (08:33)
[2020-02-19] MEDS: DIVALPROEX SODIUM 250 MG ER TABLET PO SCH (08:33)
[2020-02-19] MEDS: PSYLLIUM SEED ORANGE SF 5.8 GM/PACKET PO SCH ×2 (08:34→16:26)
[2020-02-19] MEDS: ESCITALOPRAM OXALATE 20 MG TABLET PO SCH (08:34)
[2020-02-19] MEDS: LamoTRIgine 100 MG TABLET PO SCH (08:34)
[2020-02-19 13:38] VITALS: BP 132/72
[2020-02-19] MEDS: DIVALPROEX SODIUM 500 MG ER TABLET PO SCH (16:26)
[2020-02-19 17:05] VITALS: BP 159/98
[2020-02-19] MEDS: QUEtiapine FUMARATE 200 MG TABLET PO SCH (20:22)
[2020-02-20] MEDS: ZOLPIDEM TARTRATE 10 MG TABLET PO PRN ×2 (01:58→20:59)
[2020-02-20 01:59] VITALS: BP 124/77
[2020-02-20] MEDS: LEVOTHYROXINE SODIUM 125 MCG TABLET PO SCH (06:37)
[2020-02-20] MEDS: SENNA 187 MG TABLET PO SCH (07:52)
[2020-02-20] MEDS: PSYLLIUM SEED ORANGE SF 5.8 GM/PACKET PO SCH ×2 (07:52→16:33)
[2020-02-20] MEDS: DIVALPROEX SODIUM 250 MG ER TABLET PO SCH (07:52)
[2020-02-20] MEDS: LamoTRIgine 100 MG TABLET PO SCH (07:52)
[2020-02-20] MEDS: ESCITALOPRAM OXALATE 20 MG TABLET PO SCH (07:52)
[2020-02-20] MEDS: PANTOPRAZOLE SODIUM 40 MG DR TABLET PO SCH (07:54)
[2020-02-20] MEDS: MAGNESIUM OXIDE 400 MG TABLET PO SCH ×3 (07:54→16:33)
[2020-02-20] MEDS: BusPIRone HCL 10 MG TABLET PO SCH ×3 (07:54→16:33)
[2020-02-20] MEDS: CHOLECALCIFEROL (VIT D3) 1,000 UNITS [25 MCG] TABLET PO SCH (07:54)
[2020-02-20] MEDS: DOCUSATE SODIUM 250 MG CAPSULE PO SCH (07:56)
[2020-02-20 08:00] VITALS: BP 126/97
[2020-02-20] MEDS: DIVALPROEX SODIUM 500 MG ER TABLET PO SCH (16:33)
[2020-02-20 16:55] VITALS: BP 140/88
[2020-02-20] MEDS: QUEtiapine FUMARATE 200 MG TABLET PO SCH (20:34)
[2020-02-20] MEDS: HALOPERIDOL 1 MG TABLET PO PRN (20:59)
[2020-02-21] MEDS: LEVOTHYROXINE SODIUM 125 MCG TABLET PO SCH (06:38)
[2020-02-21] MEDS: LamoTRIgine 100 MG TABLET PO SCH (08:07)
[2020-02-21] MEDS: BusPIRone HCL 10 MG TABLET PO SCH ×3 (08:07→17:44)
[2020-02-21] MEDS: PSYLLIUM SEED ORANGE SF 5.8 GM/PACKET PO SCH ×2 (08:07→17:44)
[2020-02-21] MEDS: ESCITALOPRAM OXALATE 20 MG TABLET PO SCH (08:07)
[2020-02-21] MEDS: DIVALPROEX SODIUM 250 MG ER TABLET PO SCH (08:07)
[2020-02-21] MEDS: DOCUSATE SODIUM 250 MG CAPSULE PO SCH (08:07)
[2020-02-21] MEDS: SENNA 187 MG TABLET PO SCH (08:07)
[2020-02-21] MEDS: PANTOPRAZOLE SODIUM 40 MG DR TABLET PO SCH (08:07)
[2020-02-21] MEDS: MAGNESIUM OXIDE 400 MG TABLET PO SCH ×3 (08:07→17:44)
[2020-02-21] MEDS: CHOLECALCIFEROL (VIT D3) 1,000 UNITS [25 MCG] TABLET PO SCH (08:07)
[2020-02-21 08:14] VITALS: BP 126/72
[2020-02-21 08:22] VITALS: BP 126/72
[2020-02-21] MEDS ORDERED: HALOPERIDOL LACTATE 5 MG/ML VIAL ONE (09:45)
[2020-02-21] MEDS ORDERED: DiphenhydrAMINE HCL 50 MG/ML VIAL ONE (09:46)
[2020-02-21] MEDS ORDERED: HALOPERIDOL LACTATE 5 MG/ML VIAL IM ONE (10:00)
[2020-02-21] MEDS ORDERED: LORazepam 2 MG/ML VIAL IM ONE (10:00)
[2020-02-21] MEDS ORDERED: DiphenhydrAMINE HCL 50 MG/ML VIAL IM ONE (10:00)
[2020-02-21] MEDS: DIVALPROEX SODIUM 500 MG ER TABLET PO SCH (17:44)
[2020-02-21 17:49] VITALS: BP 110/70
[2020-02-21] MEDS: QUEtiapine FUMARATE 200 MG TABLET PO SCH (20:47)
[2020-02-22] MEDS: ZOLPIDEM TARTRATE 10 MG TABLET PO PRN ×2 (03:26→21:02)
[2020-02-22] MEDS: HALOPERIDOL 1 MG TABLET PO PRN (03:27)
[2020-02-22] MEDS: LEVOTHYROXINE SODIUM 125 MCG TABLET PO SCH (06:26)
[2020-02-22] MEDS: SENNA 187 MG TABLET PO SCH (08:23)
[2020-02-22] MEDS: ESCITALOPRAM OXALATE 20 MG TABLET PO SCH (08:23)
[2020-02-22] MEDS: LamoTRIgine 100 MG TABLET PO SCH (08:23)
[2020-02-22] MEDS: DIVALPROEX SODIUM 250 MG ER TABLET PO SCH (08:23)
[2020-02-22] MEDS: DOCUSATE SODIUM 250 MG CAPSULE PO SCH (08:24)
[2020-02-22] MEDS: PSYLLIUM SEED ORANGE SF 5.8 GM/PACKET PO SCH ×2 (08:24→16:26)
[2020-02-22] MEDS: BusPIRone HCL 10 MG TABLET PO SCH ×3 (08:24→16:26)
[2020-02-22] MEDS: MAGNESIUM OXIDE 400 MG TABLET PO SCH ×3 (08:24→16:26)
[2020-02-22] MEDS: PANTOPRAZOLE SODIUM 40 MG DR TABLET PO SCH (08:24)
[2020-02-22] MEDS: CHOLECALCIFEROL (VIT D3) 1,000 UNITS [25 MCG] TABLET PO SCH (08:24)
[2020-02-22] MEDS: DIVALPROEX SODIUM 500 MG ER TABLET PO SCH (16:26)
[2020-02-22 16:30] VITALS: BP 121/73
[2020-02-22] MEDS: QUEtiapine FUMARATE 200 MG TABLET PO SCH (21:01)
[2020-02-23] MEDS: HALOPERIDOL 1 MG TABLET PO PRN (01:23)
[2020-02-23 01:26] VITALS: BP 130/85
[2020-02-23] MEDS: LEVOTHYROXINE SODIUM 125 MCG TABLET PO SCH (06:44)
[2020-02-23 08:24] VITALS: BP 123/71
[2020-02-23] MEDS: CHOLECALCIFEROL (VIT D3) 1,000 UNITS [25 MCG] TABLET PO SCH (08:57)
[2020-02-23] MEDS: DIVALPROEX SODIUM 250 MG ER TABLET PO SCH (08:57)
[2020-02-23] MEDS: BusPIRone HCL 10 MG TABLET PO SCH ×3 (08:57→16:28)
[2020-02-23] MEDS: ESCITALOPRAM OXALATE 20 MG TABLET PO SCH (08:58)
[2020-02-23] MEDS: DOCUSATE SODIUM 250 MG CAPSULE PO SCH (08:58)
[2020-02-23] MEDS: SENNA 187 MG TABLET PO SCH (08:58)
[2020-02-23] MEDS: LamoTRIgine 100 MG TABLET PO SCH (08:58)
[2020-02-23] MEDS: MAGNESIUM OXIDE 400 MG TABLET PO SCH ×3 (08:58→16:28)
[2020-02-23] MEDS: PANTOPRAZOLE SODIUM 40 MG DR TABLET PO SCH (08:58)
[2020-02-23] MEDS: PSYLLIUM SEED ORANGE SF 5.8 GM/PACKET PO SCH ×2 (08:59→16:28)
[2020-02-23 16:27] VITALS: BP 125/63
[2020-02-23] MEDS: DIVALPROEX SODIUM 500 MG ER TABLET PO SCH (16:28)
[2020-02-23] MEDS: QUEtiapine FUMARATE 200 MG TABLET PO SCH (20:08)
[2020-02-23] MEDS: ZOLPIDEM TARTRATE 10 MG TABLET PO PRN (20:09)
[2020-02-24 06:03] VITALS: BP 126/78
[2020-02-24] MEDS: LEVOTHYROXINE SODIUM 125 MCG TABLET PO SCH (06:47)
[2020-02-24] MEDS: CHOLECALCIFEROL (VIT D3) 1,000 UNITS [25 MCG] TABLET PO SCH (08:44)
[2020-02-24] MEDS: SENNA 187 MG TABLET PO SCH (08:44)
[2020-02-24] MEDS: PSYLLIUM SEED ORANGE SF 5.8 GM/PACKET PO SCH ×2 (08:44→16:33)
[2020-02-24] MEDS: DIVALPROEX SODIUM 250 MG ER TABLET PO SCH (08:45)
[2020-02-24] MEDS: PANTOPRAZOLE SODIUM 40 MG DR TABLET PO SCH (08:45)
[2020-02-24] MEDS: DOCUSATE SODIUM 250 MG CAPSULE PO SCH (08:45)
[2020-02-24] MEDS: ESCITALOPRAM OXALATE 20 MG TABLET PO SCH (08:45)
[2020-02-24] MEDS: BusPIRone HCL 10 MG TABLET PO SCH ×3 (08:45→16:34)
[2020-02-24] MEDS: MAGNESIUM OXIDE 400 MG TABLET PO SCH ×3 (08:45→16:34)
[2020-02-24] MEDS: LamoTRIgine 100 MG TABLET PO SCH (08:45)
[2020-02-24 16:17] VITALS: BP 118/80
[2020-02-24] MEDS: DIVALPROEX SODIUM 500 MG ER TABLET PO SCH (16:34)
[2020-02-24] MEDS: QUEtiapine FUMARATE 200 MG TABLET PO SCH (20:46)
[2020-02-24] MEDS: ZOLPIDEM TARTRATE 10 MG TABLET PO PRN (21:21)
[2020-02-25] MEDS: HALOPERIDOL 1 MG TABLET PO PRN ×2 (03:03→12:39)
[2020-02-25] MEDS: LEVOTHYROXINE SODIUM 125 MCG TABLET PO SCH (06:58)
[2020-02-25] MEDS: BusPIRone HCL 10 MG TABLET PO SCH ×3 (08:31→16:33)
[2020-02-25] MEDS: MAGNESIUM OXIDE 400 MG TABLET PO SCH ×3 (08:35→16:33)
[2020-02-25] MEDS: ESCITALOPRAM OXALATE 20 MG TABLET PO SCH (08:35)
[2020-02-25] MEDS: PANTOPRAZOLE SODIUM 40 MG DR TABLET PO SCH (08:35)
[2020-02-25] MEDS: DOCUSATE SODIUM 250 MG CAPSULE PO SCH (08:35)
[2020-02-25] MEDS: CHOLECALCIFEROL (VIT D3) 1,000 UNITS [25 MCG] TABLET PO SCH (08:35)
[2020-02-25] MEDS: SENNA 187 MG TABLET PO SCH (08:35)
[2020-02-25] MEDS: DIVALPROEX SODIUM 250 MG ER TABLET PO SCH (08:36)
[2020-02-25] MEDS: PSYLLIUM SEED ORANGE SF 5.8 GM/PACKET PO SCH ×2 (08:36→16:32)
[2020-02-25] MEDS: LamoTRIgine 100 MG TABLET PO SCH (08:37)
[2020-02-25 08:53] VITALS: BP 131/87
[2020-02-25 16:15] VITALS: BP 130/89
[2020-02-25] MEDS: DIVALPROEX SODIUM 500 MG ER TABLET PO SCH (16:33)
[2020-02-25] MEDS: QUEtiapine FUMARATE 200 MG TABLET PO SCH (20:36)
[2020-02-25] MEDS: ZOLPIDEM TARTRATE 10 MG TABLET PO PRN (20:36)
[2020-02-26 00:40] VITALS: BP 118/71
[2020-02-26] MEDS: HALOPERIDOL 1 MG TABLET PO PRN (00:40)
[2020-02-26] MEDS: LEVOTHYROXINE SODIUM 125 MCG TABLET PO SCH (06:50)
[2020-02-26] MEDS: MAGNESIUM OXIDE 400 MG TABLET PO SCH ×3 (08:37→16:39)
[2020-02-26] MEDS: CHOLECALCIFEROL (VIT D3) 1,000 UNITS [25 MCG] TABLET PO SCH (08:37)
[2020-02-26] MEDS: ESCITALOPRAM OXALATE 20 MG TABLET PO SCH (08:38)
[2020-02-26] MEDS: PANTOPRAZOLE SODIUM 40 MG DR TABLET PO SCH (08:38)
[2020-02-26] MEDS: BusPIRone HCL 10 MG TABLET PO SCH ×3 (08:38→16:39)
[2020-02-26] MEDS: DOCUSATE SODIUM 250 MG CAPSULE PO SCH (08:38)
[2020-02-26] MEDS: PSYLLIUM SEED ORANGE SF 5.8 GM/PACKET PO SCH ×2 (08:38→16:38)
[2020-02-26] MEDS: LamoTRIgine 100 MG TABLET PO SCH (08:38)
[2020-02-26] MEDS: DIVALPROEX SODIUM 250 MG ER TABLET PO SCH (08:38)
[2020-02-26] MEDS: SENNA 187 MG TABLET PO SCH (08:38)
[2020-02-26 09:47] VITALS: BP 106/71
[2020-02-26 16:05] VITALS: BP 152/96
[2020-02-26] MEDS: DIVALPROEX SODIUM 500 MG ER TABLET PO SCH (16:39)
[2020-02-26] MEDS: QUEtiapine FUMARATE 200 MG TABLET PO SCH (20:38)
[2020-02-26] MEDS: ZOLPIDEM TARTRATE 10 MG TABLET PO PRN (20:52)
[2020-02-27] MEDS: HALOPERIDOL 1 MG TABLET PO PRN (01:21)
[2020-02-27 01:23] VITALS: BP 120/66
[2020-02-27] MEDS: LEVOTHYROXINE SODIUM 125 MCG TABLET PO SCH (06:45)
[2020-02-27 08:20] VITALS: BP 126/73
[2020-02-27] MEDS: CHOLECALCIFEROL (VIT D3) 1,000 UNITS [25 MCG] TABLET PO SCH (08:47)
[2020-02-27] MEDS: BusPIRone HCL 10 MG TABLET PO SCH ×3 (08:47→16:44)
[2020-02-27] MEDS: DOCUSATE SODIUM 250 MG CAPSULE PO SCH (08:47)
[2020-02-27] MEDS: MAGNESIUM OXIDE 400 MG TABLET PO SCH ×3 (08:47→16:44)
[2020-02-27] MEDS: PANTOPRAZOLE SODIUM 40 MG DR TABLET PO SCH (08:47)
[2020-02-27] MEDS: DIVALPROEX SODIUM 250 MG ER TABLET PO SCH (08:49)
[2020-02-27] MEDS: PSYLLIUM SEED ORANGE SF 5.8 GM/PACKET PO SCH ×2 (08:50→16:45)
[2020-02-27] MEDS: SENNA 187 MG TABLET PO SCH (08:50)
[2020-02-27] MEDS: LamoTRIgine 100 MG TABLET PO SCH (09:12)
[2020-02-27] MEDS: ESCITALOPRAM OXALATE 20 MG TABLET PO SCH (09:22)
[2020-02-27] MEDS: ARIPiprazole ER SUSPENSION 400 MG PRE-FILLED DUAL CHAMBER SYRINGE IM SCH (09:43)
[2020-02-27 16:35] VITALS: BP 129/89
[2020-02-27] MEDS: DIVALPROEX SODIUM 500 MG ER TABLET PO SCH (16:44)
[2020-02-27] MEDS: QUEtiapine FUMARATE 200 MG TABLET PO SCH (20:47)
[2020-02-27] MEDS: ZOLPIDEM TARTRATE 10 MG TABLET PO PRN (20:47)
[2020-02-28] MEDS: HALOPERIDOL 1 MG TABLET PO PRN ×2 (04:13→08:55)
[2020-02-28] MEDS: LEVOTHYROXINE SODIUM 125 MCG TABLET PO SCH (06:54)
[2020-02-28] MEDS: MAGNESIUM OXIDE 400 MG TABLET PO SCH ×3 (08:54→15:58)
[2020-02-28] MEDS: SENNA 187 MG TABLET PO SCH (08:54)
[2020-02-28] MEDS: DIVALPROEX SODIUM 250 MG ER TABLET PO SCH (08:54)
[2020-02-28] MEDS: DOCUSATE SODIUM 250 MG CAPSULE PO SCH (08:54)
[2020-02-28] MEDS: CHOLECALCIFEROL (VIT D3) 1,000 UNITS [25 MCG] TABLET PO SCH (08:54)
[2020-02-28] MEDS: PANTOPRAZOLE SODIUM 40 MG DR TABLET PO SCH (08:55)
[2020-02-28] MEDS: BusPIRone HCL 10 MG TABLET PO SCH ×3 (08:55→15:58)
[2020-02-28] MEDS: ESCITALOPRAM OXALATE 20 MG TABLET PO SCH (08:55)
[2020-02-28] MEDS: PSYLLIUM SEED ORANGE SF 5.8 GM/PACKET PO SCH ×2 (08:55→15:58)
[2020-02-28] MEDS: LamoTRIgine 100 MG TABLET PO SCH (08:55)
[2020-02-28 11:00] VITALS: BP 152/92
[2020-02-28] MEDS: DIVALPROEX SODIUM 500 MG ER TABLET PO SCH (15:58)
[2020-02-28 16:00] VITALS: BP 105/79
[2020-02-28] MEDS ORDERED: TUBERCULIN, PURIFIED PROTEIN DERIVATIVE 5 TU/0.1 ML SYRINGE ID ONE (19:30)
[2020-02-28 20:04] VITALS: BP 135/88
[2020-02-28] MEDS: QUEtiapine FUMARATE 200 MG TABLET PO SCH (22:42)
[2020-02-28] MEDS: ZOLPIDEM TARTRATE 10 MG TABLET PO PRN (22:45)
[2020-02-29] MEDS: HALOPERIDOL 1 MG TABLET PO PRN (05:29)
[2020-02-29 05:46] VITALS: BP 121/90
[2020-02-29] MEDS: LEVOTHYROXINE SODIUM 125 MCG TABLET PO SCH (06:32)
[2020-02-29 07:41] LABS: HEMOGLOBIN A1C 5.3 % (3.8-5.6)
[2020-02-29 07:47] LABS: ALANINE AMINOTRANSFERASE 21 U/L (12-78); ALBUMIN 3.6 g/dL (3.4-5.0); ALKALINE PHOSPHATASE 44 U/L (46-116); ANION GAP 5 mmol/L (8-16); ASPARTATE AMINOTRANSFERASE 18 U/L (15-37); BILIRUBIN,TOTAL 0.5 mg/dL (0.1-1.0); CARBON DIOXIDE 33 mmol/L (22-29); CHLORIDE 103 mmol/L (98-107); CHOL/HDL RATIO 3.5 (4.2-7.3); CHOLESTEROL 190 mg/dL (131-200); GLOMERULAR FILTR. RATE CALC > 60 mL/min (>60); GLUCOSE,RANDOM 90 mg/dL (70-110); HDL CHOLESTEROL 54 mg/dL (40-60); LDL CHOL (CALC.) 120 mg/dL (0-130); POTASSIUM 3.9 mmol/L (3.5-5.1); SODIUM SERUM 141 mmol/L (136-145); TOTAL PROTEIN, SERUM 7.1 g/dL (6.4-8.2); TRIGLYCERIDES 79 mg/dL (15-150); UREA NITROGEN, BLOOD 11 mg/dL (7-18); VALPROIC ACID 80 mcg/mL (50-100)
[2020-02-29 08:40] VITALS: BP 124/78
[2020-02-29] MEDS: SENNA 187 MG TABLET PO SCH (08:45)
[2020-02-29] MEDS: CHOLECALCIFEROL (VIT D3) 1,000 UNITS [25 MCG] TABLET PO SCH (08:45)
[2020-02-29] MEDS: MAGNESIUM OXIDE 400 MG TABLET PO SCH ×3 (08:45→16:25)
[2020-02-29] MEDS: ESCITALOPRAM OXALATE 20 MG TABLET PO SCH (08:45)
[2020-02-29] MEDS: DIVALPROEX SODIUM 250 MG ER TABLET PO SCH (08:45)
[2020-02-29] MEDS: LamoTRIgine 100 MG TABLET PO SCH (08:45)
[2020-02-29] MEDS: PANTOPRAZOLE SODIUM 40 MG DR TABLET PO SCH (08:45)
[2020-02-29] MEDS: DOCUSATE SODIUM 250 MG CAPSULE PO SCH (08:45)
[2020-02-29] MEDS: BusPIRone HCL 10 MG TABLET PO SCH ×3 (08:46→16:24)
[2020-02-29] MEDS: PSYLLIUM SEED ORANGE SF 5.8 GM/PACKET PO SCH ×2 (08:46→16:25)
[2020-02-29 16:00] VITALS: BP 132/97
[2020-02-29] MEDS: DIVALPROEX SODIUM 500 MG ER TABLET PO SCH (16:26)
[2020-02-29] MEDS: QUEtiapine FUMARATE 200 MG TABLET PO SCH (20:50)
[2020-02-29] MEDS: ZOLPIDEM TARTRATE 10 MG TABLET PO PRN (20:53)
[2020-03-01] MEDS: LEVOTHYROXINE SODIUM 125 MCG TABLET PO SCH (06:49)
[2020-03-01 08:01] VITALS: BP 137/83
[2020-03-01] MEDS: MAGNESIUM OXIDE 400 MG TABLET PO SCH ×3 (09:41→16:25)
[2020-03-01] MEDS: PSYLLIUM SEED ORANGE SF 5.8 GM/PACKET PO SCH ×2 (09:41→16:24)
[2020-03-01] MEDS: BusPIRone HCL 10 MG TABLET PO SCH ×3 (09:41→16:25)
[2020-03-01] MEDS: DOCUSATE SODIUM 250 MG CAPSULE PO SCH (09:41)
[2020-03-01] MEDS: PANTOPRAZOLE SODIUM 40 MG DR TABLET PO SCH (09:42)
[2020-03-01] MEDS: DIVALPROEX SODIUM 250 MG ER TABLET PO SCH (09:42)
[2020-03-01] MEDS: ESCITALOPRAM OXALATE 20 MG TABLET PO SCH (09:42)
[2020-03-01] MEDS: CHOLECALCIFEROL (VIT D3) 1,000 UNITS [25 MCG] TABLET PO SCH (09:42)
[2020-03-01] MEDS: SENNA 187 MG TABLET PO SCH (09:42)
[2020-03-01] MEDS: LamoTRIgine 100 MG TABLET PO SCH (09:47)
[2020-03-01 16:15] VITALS: BP 125/81
[2020-03-01] MEDS: DIVALPROEX SODIUM 500 MG ER TABLET PO SCH (16:25)
[2020-03-01] MEDS: QUEtiapine FUMARATE 200 MG TABLET PO SCH (20:16)
[2020-03-01] MEDS: ZOLPIDEM TARTRATE 10 MG TABLET PO PRN (21:12)
[2020-03-02] MEDS: LEVOTHYROXINE SODIUM 125 MCG TABLET PO SCH (06:48)
[2020-03-02 08:00] VITALS: BP 136/76
[2020-03-02] MEDS: PSYLLIUM SEED ORANGE SF 5.8 GM/PACKET PO SCH ×2 (10:27→17:27)
[2020-03-02] MEDS: CHOLECALCIFEROL (VIT D3) 1,000 UNITS [25 MCG] TABLET PO SCH (10:27)
[2020-03-02] MEDS: MAGNESIUM OXIDE 400 MG TABLET PO SCH ×3 (10:28→17:26)
[2020-03-02] MEDS: LamoTRIgine 100 MG TABLET PO SCH (10:29)
[2020-03-02] MEDS: PANTOPRAZOLE SODIUM 40 MG DR TABLET PO SCH (10:29)
[2020-03-02] MEDS: SENNA 187 MG TABLET PO SCH (10:29)
[2020-03-02] MEDS: DOCUSATE SODIUM 250 MG CAPSULE PO SCH (10:29)
[2020-03-02] MEDS: ESCITALOPRAM OXALATE 20 MG TABLET PO SCH (10:29)
[2020-03-02] MEDS: DIVALPROEX SODIUM 250 MG ER TABLET PO SCH (10:29)
[2020-03-02] MEDS: BusPIRone HCL 10 MG TABLET PO SCH ×3 (10:29→17:26)
[2020-03-02] MEDS: IBUPROFEN 400 MG TABLET PO PRN (12:17)
[2020-03-02 16:41] VITALS: BP 115/79
[2020-03-02] MEDS: DIVALPROEX SODIUM 500 MG ER TABLET PO SCH (17:27)
[2020-03-02] MEDS: QUEtiapine FUMARATE 200 MG TABLET PO SCH (20:52)
[2020-03-02] MEDS: ZOLPIDEM TARTRATE 10 MG TABLET PO PRN (21:17)
[2020-03-03] MEDS: HALOPERIDOL 1 MG TABLET PO PRN (04:51)
[2020-03-03 04:53] VITALS: BP 112/81
[2020-03-03] MEDS: LEVOTHYROXINE SODIUM 125 MCG TABLET PO SCH (06:07)
[2020-03-03 08:00] VITALS: BP 152/75
[2020-03-03] MEDS: MAGNESIUM OXIDE 400 MG TABLET PO SCH ×3 (09:14→16:28)
[2020-03-03] MEDS: ESCITALOPRAM OXALATE 20 MG TABLET PO SCH (09:14)
[2020-03-03] MEDS: DIVALPROEX SODIUM 250 MG ER TABLET PO SCH (09:14)
[2020-03-03] MEDS: LamoTRIgine 100 MG TABLET PO SCH (09:14)
[2020-03-03] MEDS: BusPIRone HCL 10 MG TABLET PO SCH ×3 (09:14→16:27)
[2020-03-03] MEDS: PANTOPRAZOLE SODIUM 40 MG DR TABLET PO SCH (09:14)
[2020-03-03] MEDS: DOCUSATE SODIUM 250 MG CAPSULE PO SCH (09:14)
[2020-03-03] MEDS: CHOLECALCIFEROL (VIT D3) 1,000 UNITS [25 MCG] TABLET PO SCH (09:14)
[2020-03-03] MEDS: SENNA 187 MG TABLET PO SCH (09:14)
[2020-03-03] MEDS: PSYLLIUM SEED ORANGE SF 5.8 GM/PACKET PO SCH ×2 (09:19→16:30)
[2020-03-03] MEDS: DIVALPROEX SODIUM 500 MG ER TABLET PO SCH (16:28)
[2020-03-03 16:59] VITALS: BP 117/80
[2020-03-03] MEDS: QUEtiapine FUMARATE 200 MG TABLET PO SCH (20:05)
[2020-03-03] MEDS: ZOLPIDEM TARTRATE 10 MG TABLET PO PRN (20:48)
[2020-03-04] MEDS: HALOPERIDOL 1 MG TABLET PO PRN (03:22)
[2020-03-04 04:13] VITALS: BP 126/82
[2020-03-04] MEDS: LEVOTHYROXINE SODIUM 125 MCG TABLET PO SCH (06:43)
[2020-03-04 08:35] VITALS: BP 133/69
[2020-03-04] MEDS: PSYLLIUM SEED ORANGE SF 5.8 GM/PACKET PO SCH ×2 (09:01→16:08)
[2020-03-04] MEDS: MAGNESIUM OXIDE 400 MG TABLET PO SCH ×3 (09:02→16:09)
[2020-03-04] MEDS: CHOLECALCIFEROL (VIT D3) 1,000 UNITS [25 MCG] TABLET PO SCH (09:02)
[2020-03-04] MEDS: PANTOPRAZOLE SODIUM 40 MG DR TABLET PO SCH (09:03)
[2020-03-04] MEDS: DOCUSATE SODIUM 250 MG CAPSULE PO SCH (09:03)
[2020-03-04] MEDS: LamoTRIgine 100 MG TABLET PO SCH (09:03)
[2020-03-04] MEDS: SENNA 187 MG TABLET PO SCH (09:03)
[2020-03-04] MEDS: DIVALPROEX SODIUM 250 MG ER TABLET PO SCH (09:03)
[2020-03-04] MEDS: BusPIRone HCL 10 MG TABLET PO SCH ×3 (09:03→16:09)
[2020-03-04] MEDS: ESCITALOPRAM OXALATE 20 MG TABLET PO SCH (09:03)
[2020-03-04] MEDS: DIVALPROEX SODIUM 500 MG ER TABLET PO SCH (16:09)
[2020-03-04 16:35] VITALS: BP 137/73
[2020-03-04] MEDS: QUEtiapine FUMARATE 200 MG TABLET PO SCH (20:25)
[2020-03-04] MEDS: ZOLPIDEM TARTRATE 10 MG TABLET PO PRN (20:59)
[2020-03-05] MEDS: HALOPERIDOL 1 MG TABLET PO PRN (03:26)
[2020-03-05 03:33] VITALS: BP 114/77
[2020-03-05] MEDS: LEVOTHYROXINE SODIUM 125 MCG TABLET PO SCH (06:45)
[2020-03-05] MEDS: LamoTRIgine 100 MG TABLET PO SCH (07:50)
[2020-03-05] MEDS: DIVALPROEX SODIUM 250 MG ER TABLET PO SCH (07:50)
[2020-03-05] MEDS: PSYLLIUM SEED ORANGE SF 5.8 GM/PACKET PO SCH ×2 (07:50→16:18)
[2020-03-05] MEDS: SENNA 187 MG TABLET PO SCH (07:50)
[2020-03-05] MEDS: DOCUSATE SODIUM 250 MG CAPSULE PO SCH (07:50)
[2020-03-05] MEDS: PANTOPRAZOLE SODIUM 40 MG DR TABLET PO SCH (07:50)
[2020-03-05] MEDS: MAGNESIUM OXIDE 400 MG TABLET PO SCH ×3 (07:50→16:19)
[2020-03-05] MEDS: BusPIRone HCL 10 MG TABLET PO SCH ×3 (07:50→16:18)
[2020-03-05] MEDS: ESCITALOPRAM OXALATE 20 MG TABLET PO SCH (07:50)
[2020-03-05] MEDS: CHOLECALCIFEROL (VIT D3) 1,000 UNITS [25 MCG] TABLET PO SCH (07:50)
[2020-03-05 09:00] VITALS: BP 117/77
[2020-03-05] MEDS: DIVALPROEX SODIUM 500 MG ER TABLET PO SCH (16:18)
[2020-03-05 16:28] VITALS: BP 136/85
[2020-03-05] MEDS: QUEtiapine FUMARATE 200 MG TABLET PO SCH (21:05)
[2020-03-05] MEDS: ZOLPIDEM TARTRATE 10 MG TABLET PO PRN (21:45)
[2020-03-06] MEDS: HALOPERIDOL 1 MG TABLET PO PRN (05:10)
[2020-03-06] MEDS: LEVOTHYROXINE SODIUM 125 MCG TABLET PO SCH (06:44)
[2020-03-06] MEDS: BusPIRone HCL 10 MG TABLET PO SCH ×3 (08:44→16:06)
[2020-03-06] MEDS: PSYLLIUM SEED ORANGE SF 5.8 GM/PACKET PO SCH ×2 (08:44→16:04)
[2020-03-06] MEDS: SENNA 187 MG TABLET PO SCH (08:44)
[2020-03-06] MEDS: CHOLECALCIFEROL (VIT D3) 1,000 UNITS [25 MCG] TABLET PO SCH (08:45)
[2020-03-06] MEDS: PANTOPRAZOLE SODIUM 40 MG DR TABLET PO SCH (08:45)
[2020-03-06] MEDS: DIVALPROEX SODIUM 250 MG ER TABLET PO SCH (08:45)
[2020-03-06] MEDS: ESCITALOPRAM OXALATE 20 MG TABLET PO SCH (08:45)
[2020-03-06] MEDS: MAGNESIUM OXIDE 400 MG TABLET PO SCH ×3 (08:45→16:06)
[2020-03-06] MEDS: LamoTRIgine 100 MG TABLET PO SCH (08:45)
[2020-03-06] MEDS: DOCUSATE SODIUM 250 MG CAPSULE PO SCH (08:45)
[2020-03-06 09:46] VITALS: BP 113/77
[2020-03-06] MEDS: DIVALPROEX SODIUM 500 MG ER TABLET PO SCH (16:06)
[2020-03-06 17:02] VITALS: BP 142/72
[2020-03-06] MEDS: QUEtiapine FUMARATE 200 MG TABLET PO SCH (21:14)
[2020-03-06] MEDS: ZOLPIDEM TARTRATE 10 MG TABLET PO PRN (21:16)
[2020-03-07] MEDS: LEVOTHYROXINE SODIUM 125 MCG TABLET PO SCH (06:30)
[2020-03-07] MEDS: DIVALPROEX SODIUM 250 MG ER TABLET PO SCH (08:30)
[2020-03-07] MEDS: ESCITALOPRAM OXALATE 20 MG TABLET PO SCH (08:31)
[2020-03-07] MEDS: CHOLECALCIFEROL (VIT D3) 1,000 UNITS [25 MCG] TABLET PO SCH (08:31)
[2020-03-07] MEDS: SENNA 187 MG TABLET PO SCH (08:31)
[2020-03-07] MEDS: BusPIRone HCL 10 MG TABLET PO SCH ×3 (08:31→16:30)
[2020-03-07] MEDS: LamoTRIgine 100 MG TABLET PO SCH (08:31)
[2020-03-07] MEDS: PANTOPRAZOLE SODIUM 40 MG DR TABLET PO SCH (08:31)
[2020-03-07] MEDS: MAGNESIUM OXIDE 400 MG TABLET PO SCH ×3 (08:31→16:30)
[2020-03-07] MEDS: PSYLLIUM SEED ORANGE SF 5.8 GM/PACKET PO SCH ×2 (08:31→16:30)
[2020-03-07] MEDS: DOCUSATE SODIUM 250 MG CAPSULE PO SCH (08:32)
[2020-03-07 09:53] VITALS: BP 139/78
[2020-03-07 10:23] VITALS: BP 139/78
[2020-03-07] MEDS: PETROLATUM,WHITE 28 GM JELLY TP PRN (14:39)
[2020-03-07 16:00] VITALS: BP 129/89
[2020-03-07] MEDS: DIVALPROEX SODIUM 500 MG ER TABLET PO SCH (16:30)
[2020-03-07] MEDS: QUEtiapine FUMARATE 200 MG TABLET PO SCH (21:08)
[2020-03-07] MEDS: ZOLPIDEM TARTRATE 10 MG TABLET PO PRN (21:08)
[2020-03-08] MEDS: LEVOTHYROXINE SODIUM 125 MCG TABLET PO SCH (06:39)
[2020-03-08] MEDS: BusPIRone HCL 10 MG TABLET PO SCH ×3 (09:46→16:10)
[2020-03-08] MEDS: MAGNESIUM OXIDE 400 MG TABLET PO SCH ×3 (09:46→16:11)
[2020-03-08] MEDS: CHOLECALCIFEROL (VIT D3) 1,000 UNITS [25 MCG] TABLET PO SCH (09:46)
[2020-03-08] MEDS: PSYLLIUM SEED ORANGE SF 5.8 GM/PACKET PO SCH ×2 (09:46→16:11)
[2020-03-08] MEDS: DOCUSATE SODIUM 250 MG CAPSULE PO SCH (09:46)
[2020-03-08] MEDS: LamoTRIgine 100 MG TABLET PO SCH (09:47)
[2020-03-08] MEDS: DIVALPROEX SODIUM 250 MG ER TABLET PO SCH (09:47)
[2020-03-08] MEDS: PANTOPRAZOLE SODIUM 40 MG DR TABLET PO SCH (09:47)
[2020-03-08] MEDS: ESCITALOPRAM OXALATE 20 MG TABLET PO SCH (09:47)
[2020-03-08] MEDS: SENNA 187 MG TABLET PO SCH (09:47)
[2020-03-08 09:58] VITALS: BP 126/81
[2020-03-08] MEDS: DIVALPROEX SODIUM 500 MG ER TABLET PO SCH (16:10)
[2020-03-08 16:19] VITALS: BP 153/88
[2020-03-08] MEDS: ZOLPIDEM TARTRATE 10 MG TABLET PO PRN (21:20)
[2020-03-08] MEDS: QUEtiapine FUMARATE 200 MG TABLET PO SCH (21:21)
[2020-03-09] MEDS: LEVOTHYROXINE SODIUM 125 MCG TABLET PO SCH (06:41)
[2020-03-09 08:28] VITALS: BP 133/95
[2020-03-09] MEDS: BusPIRone HCL 10 MG TABLET PO SCH ×3 (09:09→17:12)
[2020-03-09] MEDS: DIVALPROEX SODIUM 250 MG ER TABLET PO SCH (09:09)
[2020-03-09] MEDS: DOCUSATE SODIUM 250 MG CAPSULE PO SCH (09:09)
[2020-03-09] MEDS: PANTOPRAZOLE SODIUM 40 MG DR TABLET PO SCH (09:10)
[2020-03-09] MEDS: MAGNESIUM OXIDE 400 MG TABLET PO SCH ×3 (09:10→17:12)
[2020-03-09] MEDS: CHOLECALCIFEROL (VIT D3) 1,000 UNITS [25 MCG] TABLET PO SCH (09:10)
[2020-03-09] MEDS: PSYLLIUM SEED ORANGE SF 5.8 GM/PACKET PO SCH ×2 (09:10→16:09)
[2020-03-09] MEDS: SENNA 187 MG TABLET PO SCH (09:10)
[2020-03-09] MEDS: LamoTRIgine 100 MG TABLET PO SCH (09:11)
[2020-03-09] MEDS: ESCITALOPRAM OXALATE 20 MG TABLET PO SCH (09:11)
[2020-03-09] MEDS: DIVALPROEX SODIUM 500 MG ER TABLET PO SCH (17:12)
[2020-03-09 18:18] VITALS: BP 131/91
[2020-03-09] MEDS: QUEtiapine FUMARATE 200 MG TABLET PO SCH (20:28)
[2020-03-10] MEDS: HALOPERIDOL 1 MG TABLET PO PRN (04:08)
[2020-03-10 05:21] VITALS: BP 134/84
[2020-03-10] MEDS: LEVOTHYROXINE SODIUM 125 MCG TABLET PO SCH (06:42)
[2020-03-10] MEDS: CHOLECALCIFEROL (VIT D3) 1,000 UNITS [25 MCG] TABLET PO SCH (08:02)
[2020-03-10] MEDS: DOCUSATE SODIUM 250 MG CAPSULE PO SCH (08:02)
[2020-03-10] MEDS: BusPIRone HCL 10 MG TABLET PO SCH ×3 (08:02→16:04)
[2020-03-10] MEDS: MAGNESIUM OXIDE 400 MG TABLET PO SCH ×3 (08:02→16:03)
[2020-03-10] MEDS: DIVALPROEX SODIUM 250 MG ER TABLET PO SCH (08:03)
[2020-03-10] MEDS: LamoTRIgine 100 MG TABLET PO SCH (08:03)
[2020-03-10] MEDS: SENNA 187 MG TABLET PO SCH (08:03)
[2020-03-10] MEDS: PSYLLIUM SEED ORANGE SF 5.8 GM/PACKET PO SCH ×2 (08:03→16:03)
[2020-03-10] MEDS: ESCITALOPRAM OXALATE 20 MG TABLET PO SCH (08:03)
[2020-03-10] MEDS: PANTOPRAZOLE SODIUM 40 MG DR TABLET PO SCH (08:04)
[2020-03-10 09:11] VITALS: BP 119/90
[2020-03-10] MEDS: DIVALPROEX SODIUM 500 MG ER TABLET PO SCH (16:05)
[2020-03-10 17:06] VITALS: BP 131/85
[2020-03-10] MEDS: QUEtiapine FUMARATE 200 MG TABLET PO SCH (20:35)
[2020-03-10] MEDS: ZOLPIDEM TARTRATE 10 MG TABLET PO PRN (21:16)
[2020-03-11] MEDS: HALOPERIDOL 1 MG TABLET PO PRN (05:01)
[2020-03-11 05:03] VITALS: BP 118/83
[2020-03-11] MEDS: LEVOTHYROXINE SODIUM 125 MCG TABLET PO SCH (06:51)
[2020-03-11] MEDS: DOCUSATE SODIUM 250 MG CAPSULE PO SCH (08:16)
[2020-03-11] MEDS: DIVALPROEX SODIUM 250 MG ER TABLET PO SCH (08:16)
[2020-03-11] MEDS: CHOLECALCIFEROL (VIT D3) 1,000 UNITS [25 MCG] TABLET PO SCH (08:16)
[2020-03-11] MEDS: MAGNESIUM OXIDE 400 MG TABLET PO SCH ×3 (08:16→16:15)
[2020-03-11] MEDS: BusPIRone HCL 10 MG TABLET PO SCH ×3 (08:16→16:16)
[2020-03-11] MEDS: PANTOPRAZOLE SODIUM 40 MG DR TABLET PO SCH (08:16)
[2020-03-11] MEDS: PSYLLIUM SEED ORANGE SF 5.8 GM/PACKET PO SCH ×2 (08:17→16:22)
[2020-03-11] MEDS: SENNA 187 MG TABLET PO SCH (08:17)
[2020-03-11] MEDS: ESCITALOPRAM OXALATE 20 MG TABLET PO SCH (08:17)
[2020-03-11] MEDS: LamoTRIgine 100 MG TABLET PO SCH (08:17)
[2020-03-11 08:54] VITALS: BP 112/65
[2020-03-11] MEDS: DIVALPROEX SODIUM 500 MG ER TABLET PO SCH (16:16)
[2020-03-11] MEDS: QUEtiapine FUMARATE 200 MG TABLET PO SCH (21:13)
[2020-03-11] MEDS: ZOLPIDEM TARTRATE 10 MG TABLET PO PRN (21:29)
[2020-03-12 06:01] VITALS: BP 106/73
[2020-03-12] MEDS: LEVOTHYROXINE SODIUM 125 MCG TABLET PO SCH (06:38)
[2020-03-12] MEDS: CHOLECALCIFEROL (VIT D3) 1,000 UNITS [25 MCG] TABLET PO SCH (08:17)
[2020-03-12] MEDS: DIVALPROEX SODIUM 250 MG ER TABLET PO SCH (08:17)
[2020-03-12] MEDS: PANTOPRAZOLE SODIUM 40 MG DR TABLET PO SCH (08:17)
[2020-03-12] MEDS: PSYLLIUM SEED ORANGE SF 5.8 GM/PACKET PO SCH ×2 (08:17→16:36)
[2020-03-12] MEDS: MAGNESIUM OXIDE 400 MG TABLET PO SCH ×3 (08:17→16:35)
[2020-03-12] MEDS: SENNA 187 MG TABLET PO SCH (08:17)
[2020-03-12] MEDS: ESCITALOPRAM OXALATE 20 MG TABLET PO SCH (08:17)
[2020-03-12] MEDS: BusPIRone HCL 10 MG TABLET PO SCH ×3 (08:17→16:35)
[2020-03-12] MEDS: LamoTRIgine 100 MG TABLET PO SCH (08:17)
[2020-03-12] MEDS: DOCUSATE SODIUM 250 MG CAPSULE PO SCH (08:18)
[2020-03-12 08:22] VITALS: BP 111/69
[2020-03-12 16:23] VITALS: BP 131/81
[2020-03-12] MEDS: DIVALPROEX SODIUM 500 MG ER TABLET PO SCH (16:35)
[2020-03-12] MEDS: ZOLPIDEM TARTRATE 10 MG TABLET PO PRN (21:23)
[2020-03-12] MEDS: QUEtiapine FUMARATE 200 MG TABLET PO SCH (21:24)
[2020-03-13] MEDS: HALOPERIDOL 1 MG TABLET PO PRN (03:46)
[2020-03-13] MEDS: LEVOTHYROXINE SODIUM 125 MCG TABLET PO SCH (06:15)
[2020-03-13] MEDS: CHOLECALCIFEROL (VIT D3) 1,000 UNITS [25 MCG] TABLET PO SCH (08:12)
[2020-03-13] MEDS: ESCITALOPRAM OXALATE 20 MG TABLET PO SCH (08:13)
[2020-03-13] MEDS: DOCUSATE SODIUM 100 MG CAPSULE PO PRN (08:13)
[2020-03-13] MEDS: PANTOPRAZOLE SODIUM 40 MG DR TABLET PO SCH (08:13)
[2020-03-13] MEDS: SENNA 187 MG TABLET PO SCH (08:13)
[2020-03-13] MEDS: MAGNESIUM OXIDE 400 MG TABLET PO SCH ×3 (08:13→16:02)
[2020-03-13] MEDS: BusPIRone HCL 10 MG TABLET PO SCH ×3 (08:13→16:02)
[2020-03-13] MEDS: PSYLLIUM SEED ORANGE SF 5.8 GM/PACKET PO SCH ×2 (08:13→16:03)
[2020-03-13] MEDS: LamoTRIgine 100 MG TABLET PO SCH (08:13)
[2020-03-13] MEDS: DIVALPROEX SODIUM 250 MG ER TABLET PO SCH (08:13)
[2020-03-13] MEDS: DOCUSATE SODIUM 250 MG CAPSULE PO SCH (08:14)
[2020-03-13 09:29] VITALS: BP 123/82
[2020-03-13] MEDS: DIVALPROEX SODIUM 500 MG ER TABLET PO SCH (16:03)
[2020-03-13] MEDS: QUEtiapine FUMARATE 200 MG TABLET PO SCH (21:01)
[2020-03-13] MEDS: ZOLPIDEM TARTRATE 10 MG TABLET PO PRN (21:01)
[2020-03-14] MEDS: LEVOTHYROXINE SODIUM 125 MCG TABLET PO SCH (06:42)
[2020-03-14 08:03] VITALS: BP 117/80
[2020-03-14] MEDS: SENNA 187 MG TABLET PO SCH (08:28)
[2020-03-14] MEDS: LamoTRIgine 100 MG TABLET PO SCH (08:29)
[2020-03-14] MEDS: DOCUSATE SODIUM 250 MG CAPSULE PO SCH (08:29)
[2020-03-14] MEDS: BusPIRone HCL 10 MG TABLET PO SCH ×3 (08:29→16:41)
[2020-03-14] MEDS: PANTOPRAZOLE SODIUM 40 MG DR TABLET PO SCH (08:29)
[2020-03-14] MEDS: CHOLECALCIFEROL (VIT D3) 1,000 UNITS [25 MCG] TABLET PO SCH (08:29)
[2020-03-14] MEDS: DIVALPROEX SODIUM 250 MG ER TABLET PO SCH (08:29)
[2020-03-14] MEDS: ESCITALOPRAM OXALATE 20 MG TABLET PO SCH (08:29)
[2020-03-14] MEDS: MAGNESIUM OXIDE 400 MG TABLET PO SCH ×3 (08:29→16:42)
[2020-03-14] MEDS: PSYLLIUM SEED ORANGE SF 5.8 GM/PACKET PO SCH ×2 (08:30→16:41)
[2020-03-14 16:22] VITALS: BP 101/63
[2020-03-14] MEDS: DIVALPROEX SODIUM 500 MG ER TABLET PO SCH (16:41)
[2020-03-14] MEDS: QUEtiapine FUMARATE 200 MG TABLET PO SCH (21:07)
[2020-03-14] MEDS: ZOLPIDEM TARTRATE 10 MG TABLET PO PRN (21:29)
[2020-03-15] MEDS: LEVOTHYROXINE SODIUM 125 MCG TABLET PO SCH (06:42)
[2020-03-15 08:00] VITALS: BP 107/54
[2020-03-15] MEDS: LamoTRIgine 100 MG TABLET PO SCH (08:52)
[2020-03-15] MEDS: PSYLLIUM SEED ORANGE SF 5.8 GM/PACKET PO SCH ×2 (08:52→16:36)
[2020-03-15] MEDS: DIVALPROEX SODIUM 250 MG ER TABLET PO SCH (08:52)
[2020-03-15] MEDS: CHOLECALCIFEROL (VIT D3) 1,000 UNITS [25 MCG] TABLET PO SCH (08:52)
[2020-03-15] MEDS: BusPIRone HCL 10 MG TABLET PO SCH ×3 (08:53→16:36)
[2020-03-15] MEDS: DOCUSATE SODIUM 250 MG CAPSULE PO SCH (08:53)
[2020-03-15] MEDS: ESCITALOPRAM OXALATE 20 MG TABLET PO SCH (08:53)
[2020-03-15] MEDS: MAGNESIUM OXIDE 400 MG TABLET PO SCH ×3 (08:53→16:36)
[2020-03-15] MEDS: PANTOPRAZOLE SODIUM 40 MG DR TABLET PO SCH (08:53)
[2020-03-15] MEDS: SENNA 187 MG TABLET PO SCH (08:54)
[2020-03-15 16:30] VITALS: BP 117/82
[2020-03-15] MEDS: DIVALPROEX SODIUM 500 MG ER TABLET PO SCH (16:36)
[2020-03-15] MEDS: QUEtiapine FUMARATE 200 MG TABLET PO SCH (20:43)
[2020-03-15] MEDS: ZOLPIDEM TARTRATE 10 MG TABLET PO PRN (21:29)
[2020-03-16] MEDS: HALOPERIDOL 1 MG TABLET PO PRN (05:11)
[2020-03-16] MEDS: LEVOTHYROXINE SODIUM 125 MCG TABLET PO SCH (06:56)
[2020-03-16 09:19] VITALS: BP 105/63
[2020-03-16] MEDS: CHOLECALCIFEROL (VIT D3) 1,000 UNITS [25 MCG] TABLET PO SCH (10:00)
[2020-03-16] MEDS: ESCITALOPRAM OXALATE 20 MG TABLET PO SCH (10:00)
[2020-03-16] MEDS: PANTOPRAZOLE SODIUM 40 MG DR TABLET PO SCH (10:00)
[2020-03-16] MEDS: PSYLLIUM SEED ORANGE SF 5.8 GM/PACKET PO SCH ×2 (10:00→16:13)
[2020-03-16] MEDS: MAGNESIUM OXIDE 400 MG TABLET PO SCH ×3 (10:00→16:13)
[2020-03-16] MEDS: DIVALPROEX SODIUM 250 MG ER TABLET PO SCH (10:00)
[2020-03-16] MEDS: SENNA 187 MG TABLET PO SCH (10:00)
[2020-03-16] MEDS: LamoTRIgine 100 MG TABLET PO SCH (10:00)
[2020-03-16] MEDS: DOCUSATE SODIUM 250 MG CAPSULE PO SCH (10:00)
[2020-03-16] MEDS: BusPIRone HCL 10 MG TABLET PO SCH ×3 (10:00→16:13)
[2020-03-16] MEDS: DIVALPROEX SODIUM 500 MG ER TABLET PO SCH (16:13)
[2020-03-16 16:23] VITALS: BP 111/78
[2020-03-16] MEDS: QUEtiapine FUMARATE 200 MG TABLET PO SCH (21:21)
[2020-03-17] MEDS: LEVOTHYROXINE SODIUM 125 MCG TABLET PO SCH (06:45)
[2020-03-17 08:40] VITALS: BP 114/82
[2020-03-17] MEDS: DIVALPROEX SODIUM 250 MG ER TABLET PO SCH (08:54)
[2020-03-17] MEDS: SENNA 187 MG TABLET PO SCH (08:54)
[2020-03-17] MEDS: PSYLLIUM SEED ORANGE SF 5.8 GM/PACKET PO SCH ×2 (08:54→15:58)
[2020-03-17] MEDS: LamoTRIgine 100 MG TABLET PO SCH (08:54)
[2020-03-17] MEDS: CHOLECALCIFEROL (VIT D3) 1,000 UNITS [25 MCG] TABLET PO SCH (08:54)
[2020-03-17] MEDS: BusPIRone HCL 10 MG TABLET PO SCH ×3 (08:54→15:58)
[2020-03-17] MEDS: ESCITALOPRAM OXALATE 20 MG TABLET PO SCH (08:54)
[2020-03-17] MEDS: PANTOPRAZOLE SODIUM 40 MG DR TABLET PO SCH (08:54)
[2020-03-17] MEDS: DOCUSATE SODIUM 250 MG CAPSULE PO SCH (08:54)
[2020-03-17] MEDS: MAGNESIUM OXIDE 400 MG TABLET PO SCH ×3 (08:54→15:58)
[2020-03-17] MEDS: DIVALPROEX SODIUM 500 MG ER TABLET PO SCH (15:58)
[2020-03-17 18:30] VITALS: BP 136/78
[2020-03-17] MEDS: QUEtiapine FUMARATE 200 MG TABLET PO SCH (20:56)
[2020-03-18] MEDS: ZOLPIDEM TARTRATE 10 MG TABLET PO PRN ×2 (03:02→21:06)
[2020-03-18] MEDS: LEVOTHYROXINE SODIUM 125 MCG TABLET PO SCH (06:45)
[2020-03-18] MEDS: BusPIRone HCL 10 MG TABLET PO SCH ×3 (08:29→16:32)
[2020-03-18] MEDS: DIVALPROEX SODIUM 250 MG ER TABLET PO SCH (08:29)
[2020-03-18] MEDS: SENNA 187 MG TABLET PO SCH (08:29)
[2020-03-18] MEDS: PSYLLIUM SEED ORANGE SF 5.8 GM/PACKET PO SCH ×2 (08:29→16:31)
[2020-03-18] MEDS: CHOLECALCIFEROL (VIT D3) 1,000 UNITS [25 MCG] TABLET PO SCH (08:29)
[2020-03-18 08:30] VITALS: BP 108/71
[2020-03-18] MEDS: PANTOPRAZOLE SODIUM 40 MG DR TABLET PO SCH (08:30)
[2020-03-18] MEDS: LamoTRIgine 100 MG TABLET PO SCH (08:30)
[2020-03-18] MEDS: ESCITALOPRAM OXALATE 20 MG TABLET PO SCH (08:30)
[2020-03-18] MEDS: MAGNESIUM OXIDE 400 MG TABLET PO SCH ×3 (08:30→16:32)
[2020-03-18] MEDS: DOCUSATE SODIUM 250 MG CAPSULE PO SCH (08:30)
[2020-03-18 16:14] VITALS: BP 127/75
[2020-03-18] MEDS: DIVALPROEX SODIUM 500 MG ER TABLET PO SCH (16:33)
[2020-03-18] MEDS: QUEtiapine FUMARATE 200 MG TABLET PO SCH (20:12)
[2020-03-19] MEDS: LEVOTHYROXINE SODIUM 125 MCG TABLET PO SCH (06:47)
[2020-03-19 08:06] VITALS: BP 112/70
[2020-03-19] MEDS: CHOLECALCIFEROL (VIT D3) 1,000 UNITS [25 MCG] TABLET PO SCH (08:43)
[2020-03-19] MEDS: ESCITALOPRAM OXALATE 20 MG TABLET PO SCH (08:43)
[2020-03-19] MEDS: DOCUSATE SODIUM 250 MG CAPSULE PO SCH (08:43)
[2020-03-19] MEDS: MAGNESIUM OXIDE 400 MG TABLET PO SCH ×3 (08:43→16:04)
[2020-03-19] MEDS: BusPIRone HCL 10 MG TABLET PO SCH ×3 (08:43→16:04)
[2020-03-19] MEDS: DIVALPROEX SODIUM 250 MG ER TABLET PO SCH (08:43)
[2020-03-19] MEDS: SENNA 187 MG TABLET PO SCH (08:43)
[2020-03-19] MEDS: PANTOPRAZOLE SODIUM 40 MG DR TABLET PO SCH (08:44)
[2020-03-19] MEDS: LamoTRIgine 100 MG TABLET PO SCH (08:44)
[2020-03-19] MEDS: PSYLLIUM SEED ORANGE SF 5.8 GM/PACKET PO SCH ×2 (08:44→16:03)
[2020-03-19] MEDS: DIVALPROEX SODIUM 500 MG ER TABLET PO SCH (16:04)
[2020-03-19 16:13] VITALS: BP 132/85
[2020-03-19] MEDS: QUEtiapine FUMARATE 200 MG TABLET PO SCH (20:09)
[2020-03-20] MEDS: LEVOTHYROXINE SODIUM 125 MCG TABLET PO SCH (06:47)
[2020-03-20] MEDS: DIVALPROEX SODIUM 250 MG ER TABLET PO SCH (08:08)
[2020-03-20] MEDS: CHOLECALCIFEROL (VIT D3) 1,000 UNITS [25 MCG] TABLET PO SCH (08:08)
[2020-03-20] MEDS: BusPIRone HCL 10 MG TABLET PO SCH ×3 (08:08→16:01)
[2020-03-20] MEDS: LamoTRIgine 100 MG TABLET PO SCH (08:08)
[2020-03-20] MEDS: ESCITALOPRAM OXALATE 20 MG TABLET PO SCH (08:08)
[2020-03-20] MEDS: SENNA 187 MG TABLET PO SCH (08:08)
[2020-03-20] MEDS: MAGNESIUM OXIDE 400 MG TABLET PO SCH ×3 (08:08→16:01)
[2020-03-20] MEDS: DOCUSATE SODIUM 250 MG CAPSULE PO SCH (08:08)
[2020-03-20] MEDS: PANTOPRAZOLE SODIUM 40 MG DR TABLET PO SCH (08:09)
[2020-03-20] MEDS: PSYLLIUM SEED ORANGE SF 5.8 GM/PACKET PO SCH ×2 (08:09→16:02)
[2020-03-20 09:07] VITALS: BP 121/83
[2020-03-20] MEDS: HALOPERIDOL 1 MG TABLET PO PRN (13:34)
[2020-03-20] MEDS: DIVALPROEX SODIUM 500 MG ER TABLET PO SCH (16:01)
[2020-03-20 16:03] VITALS: BP 125/79
[2020-03-20] MEDS: QUEtiapine FUMARATE 200 MG TABLET PO SCH (20:32)
[2020-03-21] MEDS: HALOPERIDOL 1 MG TABLET PO PRN (04:39)
[2020-03-21] MEDS: LEVOTHYROXINE SODIUM 125 MCG TABLET PO SCH (07:00)
[2020-03-21 08:00] VITALS: BP 119/81
[2020-03-21] MEDS: MAGNESIUM OXIDE 400 MG TABLET PO SCH ×3 (08:09→16:10)
[2020-03-21] MEDS: LamoTRIgine 100 MG TABLET PO SCH (08:10)
[2020-03-21] MEDS: PANTOPRAZOLE SODIUM 40 MG DR TABLET PO SCH (08:10)
[2020-03-21] MEDS: DOCUSATE SODIUM 250 MG CAPSULE PO SCH (08:10)
[2020-03-21] MEDS: DIVALPROEX SODIUM 250 MG ER TABLET PO SCH (08:10)
[2020-03-21] MEDS: CHOLECALCIFEROL (VIT D3) 1,000 UNITS [25 MCG] TABLET PO SCH (08:10)
[2020-03-21] MEDS: ESCITALOPRAM OXALATE 20 MG TABLET PO SCH (08:10)
[2020-03-21] MEDS: SENNA 187 MG TABLET PO SCH (08:10)
[2020-03-21] MEDS: BusPIRone HCL 10 MG TABLET PO SCH ×3 (08:10→16:10)
[2020-03-21] MEDS: PSYLLIUM SEED ORANGE SF 5.8 GM/PACKET PO SCH ×2 (08:11→16:10)
[2020-03-21 16:10] VITALS: BP 113/75
[2020-03-21] MEDS: DIVALPROEX SODIUM 500 MG ER TABLET PO SCH (16:10)
[2020-03-21] MEDS: QUEtiapine FUMARATE 200 MG TABLET PO SCH (20:43)
[2020-03-22] MEDS: LEVOTHYROXINE SODIUM 125 MCG TABLET PO SCH (06:52)
[2020-03-22] MEDS: CHOLECALCIFEROL (VIT D3) 1,000 UNITS [25 MCG] TABLET PO SCH (08:32)
[2020-03-22] MEDS: MAGNESIUM OXIDE 400 MG TABLET PO SCH ×3 (08:32→16:39)
[2020-03-22] MEDS: DOCUSATE SODIUM 250 MG CAPSULE PO SCH (08:32)
[2020-03-22] MEDS: BusPIRone HCL 10 MG TABLET PO SCH ×3 (08:32→16:39)
[2020-03-22] MEDS: PANTOPRAZOLE SODIUM 40 MG DR TABLET PO SCH (08:32)
[2020-03-22] MEDS: ESCITALOPRAM OXALATE 20 MG TABLET PO SCH (08:33)
[2020-03-22] MEDS: PSYLLIUM SEED ORANGE SF 5.8 GM/PACKET PO SCH ×2 (08:33→16:39)
[2020-03-22] MEDS: LamoTRIgine 100 MG TABLET PO SCH (08:33)
[2020-03-22] MEDS: DIVALPROEX SODIUM 250 MG ER TABLET PO SCH (08:33)
[2020-03-22] MEDS: SENNA 187 MG TABLET PO SCH (08:33)
[2020-03-22 08:47] VITALS: BP 115/78
[2020-03-22 16:19] VITALS: BP_SYST 123; BP_SYST 140; BP_DIAS 77; BP_DIAS 89
[2020-03-22] MEDS: DIVALPROEX SODIUM 500 MG ER TABLET PO SCH (16:39)
[2020-03-22] MEDS: QUEtiapine FUMARATE 200 MG TABLET PO SCH (20:37)
[2020-03-23] MEDS: HALOPERIDOL 1 MG TABLET PO PRN (03:29)
[2020-03-23] MEDS: LEVOTHYROXINE SODIUM 125 MCG TABLET PO SCH (06:59)
[2020-03-23] MEDS: DOCUSATE SODIUM 250 MG CAPSULE PO SCH (08:25)
[2020-03-23] MEDS: CHOLECALCIFEROL (VIT D3) 1,000 UNITS [25 MCG] TABLET PO SCH (08:25)
[2020-03-23] MEDS: PANTOPRAZOLE SODIUM 40 MG DR TABLET PO SCH (08:25)
[2020-03-23] MEDS: MAGNESIUM OXIDE 400 MG TABLET PO SCH ×3 (08:25→17:01)
[2020-03-23] MEDS: BusPIRone HCL 10 MG TABLET PO SCH ×3 (08:25→17:00)
[2020-03-23] MEDS: DIVALPROEX SODIUM 250 MG ER TABLET PO SCH (08:26)
[2020-03-23] MEDS: LamoTRIgine 100 MG TABLET PO SCH (08:26)
[2020-03-23] MEDS: SENNA 187 MG TABLET PO SCH (08:26)
[2020-03-23] MEDS: ESCITALOPRAM OXALATE 20 MG TABLET PO SCH (08:26)
[2020-03-23] MEDS: PSYLLIUM SEED ORANGE SF 5.8 GM/PACKET PO SCH ×2 (08:26→17:00)
[2020-03-23 10:44] VITALS: BP 139/83
[2020-03-23] MEDS: PETROLATUM,WHITE 28 GM JELLY TP PRN (11:34)
[2020-03-23 16:23] VITALS: BP 148/74
[2020-03-23] MEDS: DIVALPROEX SODIUM 500 MG ER TABLET PO SCH (17:00)
[2020-03-23] MEDS: QUEtiapine FUMARATE 200 MG TABLET PO SCH (20:49)
[2020-03-24] MEDS: LEVOTHYROXINE SODIUM 125 MCG TABLET PO SCH (07:00)
[2020-03-24] MEDS: DOCUSATE SODIUM 250 MG CAPSULE PO SCH (08:17)
[2020-03-24] MEDS: ESCITALOPRAM OXALATE 20 MG TABLET PO SCH (08:18)
[2020-03-24] MEDS: MAGNESIUM OXIDE 400 MG TABLET PO SCH ×3 (08:18→16:37)
[2020-03-24] MEDS: DIVALPROEX SODIUM 250 MG ER TABLET PO SCH (08:18)
[2020-03-24] MEDS: BusPIRone HCL 10 MG TABLET PO SCH ×3 (08:18→16:37)
[2020-03-24] MEDS: PSYLLIUM SEED ORANGE SF 5.8 GM/PACKET PO SCH ×2 (08:18→16:37)
[2020-03-24] MEDS: SENNA 187 MG TABLET PO SCH (08:18)
[2020-03-24] MEDS: PANTOPRAZOLE SODIUM 40 MG DR TABLET PO SCH (08:18)
[2020-03-24] MEDS: CHOLECALCIFEROL (VIT D3) 1,000 UNITS [25 MCG] TABLET PO SCH (08:18)
[2020-03-24] MEDS: LamoTRIgine 100 MG TABLET PO SCH (08:19)
[2020-03-24 09:29] VITALS: BP 104/72
[2020-03-24 16:15] VITALS: BP 122/79
[2020-03-24] MEDS: DIVALPROEX SODIUM 500 MG ER TABLET PO SCH (16:37)
[2020-03-24] MEDS: QUEtiapine FUMARATE 200 MG TABLET PO SCH (21:15)
[2020-03-25] MEDS: LEVOTHYROXINE SODIUM 125 MCG TABLET PO SCH (06:33)
[2020-03-25 08:00] VITALS: BP 142/87
[2020-03-25] MEDS: MAGNESIUM OXIDE 400 MG TABLET PO SCH ×3 (08:16→16:38)
[2020-03-25] MEDS: PANTOPRAZOLE SODIUM 40 MG DR TABLET PO SCH (08:17)
[2020-03-25] MEDS: SENNA 187 MG TABLET PO SCH (08:17)
[2020-03-25] MEDS: BusPIRone HCL 10 MG TABLET PO SCH ×3 (08:17→16:38)
[2020-03-25] MEDS: DOCUSATE SODIUM 250 MG CAPSULE PO SCH (08:17)
[2020-03-25] MEDS: CHOLECALCIFEROL (VIT D3) 1,000 UNITS [25 MCG] TABLET PO SCH (08:17)
[2020-03-25] MEDS: ESCITALOPRAM OXALATE 20 MG TABLET PO SCH (08:18)
[2020-03-25] MEDS: DIVALPROEX SODIUM 250 MG ER TABLET PO SCH (08:18)
[2020-03-25] MEDS: PSYLLIUM SEED ORANGE SF 5.8 GM/PACKET PO SCH ×2 (08:18→16:38)
[2020-03-25] MEDS: LamoTRIgine 100 MG TABLET PO SCH (08:19)
[2020-03-25 16:37] VITALS: BP 132/74
[2020-03-25] MEDS: DIVALPROEX SODIUM 500 MG ER TABLET PO SCH (16:38)
[2020-03-25] MEDS: QUEtiapine FUMARATE 200 MG TABLET PO SCH (20:30)
[2020-03-26] MEDS: LEVOTHYROXINE SODIUM 125 MCG TABLET PO SCH (06:28)
[2020-03-26] MEDS: MAGNESIUM OXIDE 400 MG TABLET PO SCH ×3 (08:09→16:21)
[2020-03-26] MEDS: PANTOPRAZOLE SODIUM 40 MG DR TABLET PO SCH (08:10)
[2020-03-26] MEDS: BusPIRone HCL 10 MG TABLET PO SCH ×3 (08:10→16:21)
[2020-03-26] MEDS: CHOLECALCIFEROL (VIT D3) 1,000 UNITS [25 MCG] TABLET PO SCH (08:10)
[2020-03-26] MEDS: PSYLLIUM SEED ORANGE SF 5.8 GM/PACKET PO SCH ×2 (08:11→16:21)
[2020-03-26] MEDS: DOCUSATE SODIUM 250 MG CAPSULE PO SCH (08:11)
[2020-03-26] MEDS: SENNA 187 MG TABLET PO SCH (08:11)
[2020-03-26] MEDS: ESCITALOPRAM OXALATE 20 MG TABLET PO SCH (08:12)
[2020-03-26] MEDS: DIVALPROEX SODIUM 250 MG ER TABLET PO SCH (08:12)
[2020-03-26] MEDS: LamoTRIgine 100 MG TABLET PO SCH (08:13)
[2020-03-26 09:15] VITALS: BP 125/90
[2020-03-26] MEDS: ARIPiprazole ER SUSPENSION 400 MG PRE-FILLED DUAL CHAMBER SYRINGE IM SCH (10:00)
[2020-03-26 12:35] VITALS: BP 126/76
[2020-03-26] MEDS: DIVALPROEX SODIUM 500 MG ER TABLET PO SCH (16:21)
[2020-03-26 16:39] VITALS: BP 124/82
[2020-03-26] MEDS: QUEtiapine FUMARATE 200 MG TABLET PO SCH (21:32)
[2020-03-27] MEDS: LEVOTHYROXINE SODIUM 125 MCG TABLET PO SCH (06:51)
[2020-03-27] MEDS: PSYLLIUM SEED ORANGE SF 5.8 GM/PACKET PO SCH ×2 (09:05→16:23)
[2020-03-27] MEDS: SENNA 187 MG TABLET PO SCH (09:05)
[2020-03-27] MEDS: PANTOPRAZOLE SODIUM 40 MG DR TABLET PO SCH (09:05)
[2020-03-27] MEDS: BusPIRone HCL 10 MG TABLET PO SCH ×3 (09:05→16:23)
[2020-03-27] MEDS: DOCUSATE SODIUM 250 MG CAPSULE PO SCH (09:05)
[2020-03-27] MEDS: MAGNESIUM OXIDE 400 MG TABLET PO SCH ×3 (09:05→16:23)
[2020-03-27] MEDS: CHOLECALCIFEROL (VIT D3) 1,000 UNITS [25 MCG] TABLET PO SCH (09:05)
[2020-03-27] MEDS: DIVALPROEX SODIUM 250 MG ER TABLET PO SCH (09:05)
[2020-03-27] MEDS: ESCITALOPRAM OXALATE 20 MG TABLET PO SCH (09:05)
[2020-03-27] MEDS: LamoTRIgine 100 MG TABLET PO SCH (09:05)
[2020-03-27 10:07] VITALS: BP 111/73
[2020-03-27 16:22] VITALS: BP 127/72
[2020-03-27] MEDS: DIVALPROEX SODIUM 500 MG ER TABLET PO SCH (16:23)
[2020-03-27] MEDS: QUEtiapine FUMARATE 200 MG TABLET PO SCH (20:45)
[2020-03-28] MEDS: LEVOTHYROXINE SODIUM 125 MCG TABLET PO SCH (06:42)
[2020-03-28] MEDS: CHOLECALCIFEROL (VIT D3) 1,000 UNITS [25 MCG] TABLET PO SCH (08:21)
[2020-03-28] MEDS: BusPIRone HCL 10 MG TABLET PO SCH ×3 (08:21→16:13)
[2020-03-28] MEDS: ESCITALOPRAM OXALATE 20 MG TABLET PO SCH (08:21)
[2020-03-28] MEDS: PANTOPRAZOLE SODIUM 40 MG DR TABLET PO SCH (08:21)
[2020-03-28] MEDS: MAGNESIUM OXIDE 400 MG TABLET PO SCH ×3 (08:21→16:14)
[2020-03-28] MEDS: LamoTRIgine 100 MG TABLET PO SCH (08:21)
[2020-03-28] MEDS: PSYLLIUM SEED ORANGE SF 5.8 GM/PACKET PO SCH ×2 (08:21→16:13)
[2020-03-28] MEDS: DOCUSATE SODIUM 250 MG CAPSULE PO SCH (08:21)
[2020-03-28] MEDS: SENNA 187 MG TABLET PO SCH (08:21)
[2020-03-28] MEDS: DIVALPROEX SODIUM 250 MG ER TABLET PO SCH (08:22)
[2020-03-28 08:45] VITALS: BP 104/68
[2020-03-28 16:00] VITALS: BP 128/63
[2020-03-28] MEDS: DIVALPROEX SODIUM 500 MG ER TABLET PO SCH (16:13)
[2020-03-28] MEDS: QUEtiapine FUMARATE 200 MG TABLET PO SCH (20:37)
[2020-03-29] MEDS: LEVOTHYROXINE SODIUM 125 MCG TABLET PO SCH (06:42)
[2020-03-29] MEDS: DIVALPROEX SODIUM 250 MG ER TABLET PO SCH (08:33)
[2020-03-29] MEDS: SENNA 187 MG TABLET PO SCH (08:33)
[2020-03-29] MEDS: BusPIRone HCL 10 MG TABLET PO SCH ×3 (08:33→16:35)
[2020-03-29] MEDS: DOCUSATE SODIUM 250 MG CAPSULE PO SCH (08:33)
[2020-03-29] MEDS: MAGNESIUM OXIDE 400 MG TABLET PO SCH ×3 (08:34→16:35)
[2020-03-29] MEDS: ESCITALOPRAM OXALATE 20 MG TABLET PO SCH (08:34)
[2020-03-29] MEDS: LamoTRIgine 100 MG TABLET PO SCH (08:34)
[2020-03-29] MEDS: PSYLLIUM SEED ORANGE SF 5.8 GM/PACKET PO SCH ×2 (08:34→16:34)
[2020-03-29] MEDS: CHOLECALCIFEROL (VIT D3) 1,000 UNITS [25 MCG] TABLET PO SCH (08:34)
[2020-03-29] MEDS: PANTOPRAZOLE SODIUM 40 MG DR TABLET PO SCH (08:34)
[2020-03-29 09:01] VITALS: BP 128/63
[2020-03-29 16:22] VITALS: BP 129/81
[2020-03-29] MEDS: DIVALPROEX SODIUM 500 MG ER TABLET PO SCH (16:35)
[2020-03-29] MEDS: QUEtiapine FUMARATE 200 MG TABLET PO SCH (21:05)
[2020-03-30] MEDS: LEVOTHYROXINE SODIUM 125 MCG TABLET PO SCH (06:37)
[2020-03-30 08:03] VITALS: BP 110/69
[2020-03-30] MEDS: CHOLECALCIFEROL (VIT D3) 1,000 UNITS [25 MCG] TABLET PO SCH (08:43)
[2020-03-30] MEDS: DOCUSATE SODIUM 250 MG CAPSULE PO SCH (08:43)
[2020-03-30] MEDS: MAGNESIUM OXIDE 400 MG TABLET PO SCH ×3 (08:44→16:00)
[2020-03-30] MEDS: PSYLLIUM SEED ORANGE SF 5.8 GM/PACKET PO SCH ×2 (08:44→16:01)
[2020-03-30] MEDS: PANTOPRAZOLE SODIUM 40 MG DR TABLET PO SCH (08:44)
[2020-03-30] MEDS: BusPIRone HCL 10 MG TABLET PO SCH ×3 (08:44→16:00)
[2020-03-30] MEDS: DIVALPROEX SODIUM 250 MG ER TABLET PO SCH (08:45)
[2020-03-30] MEDS: SENNA 187 MG TABLET PO SCH (08:46)
[2020-03-30] MEDS: ESCITALOPRAM OXALATE 20 MG TABLET PO SCH (08:46)
[2020-03-30] MEDS: LamoTRIgine 100 MG TABLET PO SCH (08:46)
[2020-03-30] MEDS: DIVALPROEX SODIUM 500 MG ER TABLET PO SCH (16:01)
[2020-03-30 16:11] VITALS: BP 99/66
[2020-03-30] MEDS: QUEtiapine FUMARATE 200 MG TABLET PO SCH (21:03)
[2020-03-31] MEDS: LEVOTHYROXINE SODIUM 125 MCG TABLET PO SCH (06:46)
[2020-03-31 08:11] VITALS: BP 115/65
[2020-03-31] MEDS: ESCITALOPRAM OXALATE 20 MG TABLET PO SCH (08:24)
[2020-03-31] MEDS: PSYLLIUM SEED ORANGE SF 5.8 GM/PACKET PO SCH ×2 (08:24→16:04)
[2020-03-31] MEDS: SENNA 187 MG TABLET PO SCH (08:24)
[2020-03-31] MEDS: DIVALPROEX SODIUM 250 MG ER TABLET PO SCH (08:24)
[2020-03-31] MEDS: LamoTRIgine 100 MG TABLET PO SCH (08:24)
[2020-03-31] MEDS: DOCUSATE SODIUM 250 MG CAPSULE PO SCH (08:26)
[2020-03-31] MEDS: BusPIRone HCL 10 MG TABLET PO SCH ×3 (08:26→16:04)
[2020-03-31] MEDS: CHOLECALCIFEROL (VIT D3) 1,000 UNITS [25 MCG] TABLET PO SCH (08:26)
[2020-03-31] MEDS: MAGNESIUM OXIDE 400 MG TABLET PO SCH ×3 (08:26→16:04)
[2020-03-31] MEDS: PANTOPRAZOLE SODIUM 40 MG DR TABLET PO SCH (08:27)
[2020-03-31] MEDS: DIVALPROEX SODIUM 500 MG ER TABLET PO SCH (16:04)
[2020-03-31 16:21] VITALS: BP 128/78
[2020-03-31] MEDS: QUEtiapine FUMARATE 200 MG TABLET PO SCH (20:18)
[2020-03-31] MEDS: ZOLPIDEM TARTRATE 10 MG TABLET PO PRN (21:46)
[2020-04-01] MEDS: LEVOTHYROXINE SODIUM 125 MCG TABLET PO SCH (06:51)
[2020-04-01] MEDS ORDERED: ZOLPIDEM TARTRATE 5 MG TABLET PO PRN (07:10)
[2020-04-01] MEDS: DOCUSATE SODIUM 250 MG CAPSULE PO SCH (09:20)
[2020-04-01] MEDS: PANTOPRAZOLE SODIUM 40 MG DR TABLET PO SCH (09:21)
[2020-04-01] MEDS: LamoTRIgine 100 MG TABLET PO SCH (09:21)
[2020-04-01] MEDS: ESCITALOPRAM OXALATE 20 MG TABLET PO SCH (09:21)
[2020-04-01] MEDS: CHOLECALCIFEROL (VIT D3) 1,000 UNITS [25 MCG] TABLET PO SCH (09:21)
[2020-04-01] MEDS: SENNA 187 MG TABLET PO SCH (09:21)
[2020-04-01] MEDS: PSYLLIUM SEED ORANGE SF 5.8 GM/PACKET PO SCH ×2 (09:21→17:04)
[2020-04-01] MEDS: DIVALPROEX SODIUM 250 MG ER TABLET PO SCH (09:21)
[2020-04-01] MEDS: MAGNESIUM OXIDE 400 MG TABLET PO SCH ×3 (09:21→17:04)
[2020-04-01] MEDS: BusPIRone HCL 10 MG TABLET PO SCH ×3 (09:21→17:04)
[2020-04-01] MEDS: DIVALPROEX SODIUM 500 MG ER TABLET PO SCH (17:03)
[2020-04-01] MEDS: QUEtiapine FUMARATE 200 MG TABLET PO SCH (20:25)
[2020-04-01 20:36] VITALS: BP 124/77
[2020-04-01] MEDS: ZOLPIDEM TARTRATE 10 MG TABLET PO PRN (20:47)
[2020-04-02] MEDS: HALOPERIDOL 1 MG TABLET PO PRN (04:02)
[2020-04-02] MEDS: LEVOTHYROXINE SODIUM 125 MCG TABLET PO SCH (06:44)
[2020-04-02] MEDS: PANTOPRAZOLE SODIUM 40 MG DR TABLET PO SCH (08:03)
[2020-04-02] MEDS: MAGNESIUM OXIDE 400 MG TABLET PO SCH ×3 (08:03→16:49)
[2020-04-02] MEDS: DOCUSATE SODIUM 250 MG CAPSULE PO SCH (08:03)
[2020-04-02] MEDS: CHOLECALCIFEROL (VIT D3) 1,000 UNITS [25 MCG] TABLET PO SCH (08:03)
[2020-04-02] MEDS: BusPIRone HCL 10 MG TABLET PO SCH ×3 (08:03→16:49)
[2020-04-02] MEDS: DIVALPROEX SODIUM 250 MG ER TABLET PO SCH (08:04)
[2020-04-02] MEDS: PSYLLIUM SEED ORANGE SF 5.8 GM/PACKET PO SCH ×2 (08:04→16:50)
[2020-04-02] MEDS: LamoTRIgine 100 MG TABLET PO SCH (08:04)
[2020-04-02] MEDS: ESCITALOPRAM OXALATE 20 MG TABLET PO SCH (08:04)
[2020-04-02] MEDS: SENNA 187 MG TABLET PO SCH (08:04)
[2020-04-02 08:33] VITALS: BP 125/76
[2020-04-02 16:32] VITALS: BP 121/82
[2020-04-02] MEDS: DIVALPROEX SODIUM 500 MG ER TABLET PO SCH (16:50)
[2020-04-02] MEDS: QUEtiapine FUMARATE 200 MG TABLET PO SCH (20:34)
[2020-04-02] MEDS: ZOLPIDEM TARTRATE 10 MG TABLET PO PRN (21:24)
[2020-04-03] MEDS: LEVOTHYROXINE SODIUM 125 MCG TABLET PO SCH (06:46)
[2020-04-03] MEDS: CHOLECALCIFEROL (VIT D3) 1,000 UNITS [25 MCG] TABLET PO SCH (08:14)
[2020-04-03] MEDS: DOCUSATE SODIUM 250 MG CAPSULE PO SCH (08:15)
[2020-04-03] MEDS: PANTOPRAZOLE SODIUM 40 MG DR TABLET PO SCH (08:15)
[2020-04-03] MEDS: MAGNESIUM OXIDE 400 MG TABLET PO SCH ×3 (08:15→16:55)
[2020-04-03] MEDS: BusPIRone HCL 10 MG TABLET PO SCH ×3 (08:15→16:55)
[2020-04-03] MEDS: PSYLLIUM SEED ORANGE SF 5.8 GM/PACKET PO SCH ×2 (08:16→16:55)
[2020-04-03] MEDS: SENNA 187 MG TABLET PO SCH (08:16)
[2020-04-03] MEDS: DIVALPROEX SODIUM 250 MG ER TABLET PO SCH (08:16)
[2020-04-03] MEDS: LamoTRIgine 100 MG TABLET PO SCH (08:17)
[2020-04-03] MEDS: ESCITALOPRAM OXALATE 20 MG TABLET PO SCH (08:17)
[2020-04-03 09:22] VITALS: BP 119/78
[2020-04-03 16:14] VITALS: BP 120/79
[2020-04-03] MEDS: DIVALPROEX SODIUM 500 MG ER TABLET PO SCH (16:55)
[2020-04-03] MEDS: QUEtiapine FUMARATE 200 MG TABLET PO SCH (20:35)
[2020-04-04] MEDS: LEVOTHYROXINE SODIUM 125 MCG TABLET PO SCH (06:17)
[2020-04-04] MEDS: PANTOPRAZOLE SODIUM 40 MG DR TABLET PO SCH (08:15)
[2020-04-04] MEDS: BusPIRone HCL 10 MG TABLET PO SCH ×3 (08:15→16:30)
[2020-04-04] MEDS: CHOLECALCIFEROL (VIT D3) 1,000 UNITS [25 MCG] TABLET PO SCH (08:15)
[2020-04-04] MEDS: DOCUSATE SODIUM 250 MG CAPSULE PO SCH (08:16)
[2020-04-04] MEDS: DIVALPROEX SODIUM 250 MG ER TABLET PO SCH (08:16)
[2020-04-04] MEDS: MAGNESIUM OXIDE 400 MG TABLET PO SCH ×3 (08:16→16:30)
[2020-04-04] MEDS: LamoTRIgine 100 MG TABLET PO SCH (08:17)
[2020-04-04] MEDS: ESCITALOPRAM OXALATE 20 MG TABLET PO SCH (08:17)
[2020-04-04] MEDS: SENNA 187 MG TABLET PO SCH (08:17)
[2020-04-04] MEDS: PSYLLIUM SEED ORANGE SF 5.8 GM/PACKET PO SCH ×2 (08:18→16:30)
[2020-04-04 09:10] VITALS: BP 100/67
[2020-04-04] MEDS: DIVALPROEX SODIUM 500 MG ER TABLET PO SCH (16:31)
[2020-04-04 19:09] VITALS: BP 124/78
[2020-04-04] MEDS: QUEtiapine FUMARATE 200 MG TABLET PO SCH (20:35)
[2020-04-05] MEDS: LEVOTHYROXINE SODIUM 125 MCG TABLET PO SCH (06:48)
[2020-04-05 08:39] VITALS: BP 100/67
[2020-04-05] MEDS: DOCUSATE SODIUM 250 MG CAPSULE PO SCH (08:55)
[2020-04-05] MEDS: CHOLECALCIFEROL (VIT D3) 1,000 UNITS [25 MCG] TABLET PO SCH (08:55)
[2020-04-05] MEDS: ESCITALOPRAM OXALATE 20 MG TABLET PO SCH (08:55)
[2020-04-05] MEDS: BusPIRone HCL 10 MG TABLET PO SCH ×3 (08:55→17:32)
[2020-04-05] MEDS: PANTOPRAZOLE SODIUM 40 MG DR TABLET PO SCH (08:55)
[2020-04-05] MEDS: DIVALPROEX SODIUM 250 MG ER TABLET PO SCH (08:55)
[2020-04-05] MEDS: SENNA 187 MG TABLET PO SCH (08:55)
[2020-04-05] MEDS: MAGNESIUM OXIDE 400 MG TABLET PO SCH ×3 (08:55→17:32)
[2020-04-05] MEDS: LamoTRIgine 100 MG TABLET PO SCH (08:56)
[2020-04-05] MEDS: PSYLLIUM SEED ORANGE SF 5.8 GM/PACKET PO SCH ×2 (08:56→17:33)
[2020-04-05 16:01] VITALS: BP 130/86
[2020-04-05] MEDS: DIVALPROEX SODIUM 500 MG ER TABLET PO SCH (17:33)
[2020-04-05] MEDS: QUEtiapine FUMARATE 200 MG TABLET PO SCH (20:23)
[2020-04-06] MEDS: LEVOTHYROXINE SODIUM 125 MCG TABLET PO SCH (06:46)
[2020-04-06] MEDS: DIVALPROEX SODIUM 250 MG ER TABLET PO SCH (08:44)
[2020-04-06] MEDS: MAGNESIUM OXIDE 400 MG TABLET PO SCH ×3 (08:44→16:30)
[2020-04-06] MEDS: CHOLECALCIFEROL (VIT D3) 1,000 UNITS [25 MCG] TABLET PO SCH (08:44)
[2020-04-06] MEDS: PANTOPRAZOLE SODIUM 40 MG DR TABLET PO SCH (08:44)
[2020-04-06] MEDS: BusPIRone HCL 10 MG TABLET PO SCH ×3 (08:44→16:30)
[2020-04-06] MEDS: DOCUSATE SODIUM 250 MG CAPSULE PO SCH (08:47)
[2020-04-06] MEDS: PSYLLIUM SEED ORANGE SF 5.8 GM/PACKET PO SCH ×2 (08:48→16:30)
[2020-04-06] MEDS: SENNA 187 MG TABLET PO SCH (08:48)
[2020-04-06] MEDS: LamoTRIgine 100 MG TABLET PO SCH (08:48)
[2020-04-06] MEDS: ESCITALOPRAM OXALATE 20 MG TABLET PO SCH (08:48)
[2020-04-06 10:36] VITALS: BP 124/84
[2020-04-06 16:06] VITALS: BP 126/81
[2020-04-06] MEDS: DIVALPROEX SODIUM 500 MG ER TABLET PO SCH (16:31)
[2020-04-06] MEDS: QUEtiapine FUMARATE 200 MG TABLET PO SCH (20:34)
[2020-04-07] MEDS: LEVOTHYROXINE SODIUM 125 MCG TABLET PO SCH (06:54)
[2020-04-07 08:18] VITALS: BP 100/63
[2020-04-07] MEDS: PANTOPRAZOLE SODIUM 40 MG DR TABLET PO SCH (08:56)
[2020-04-07] MEDS: SENNA 187 MG TABLET PO SCH (08:56)
[2020-04-07] MEDS: PSYLLIUM SEED ORANGE SF 5.8 GM/PACKET PO SCH ×2 (08:56→16:42)
[2020-04-07] MEDS: CHOLECALCIFEROL (VIT D3) 1,000 UNITS [25 MCG] TABLET PO SCH (08:56)
[2020-04-07] MEDS: LamoTRIgine 100 MG TABLET PO SCH (08:56)
[2020-04-07] MEDS: ESCITALOPRAM OXALATE 20 MG TABLET PO SCH (08:56)
[2020-04-07] MEDS: DOCUSATE SODIUM 250 MG CAPSULE PO SCH (08:57)
[2020-04-07] MEDS: DIVALPROEX SODIUM 250 MG ER TABLET PO SCH (08:57)
[2020-04-07] MEDS: BusPIRone HCL 10 MG TABLET PO SCH ×3 (08:57→16:42)
[2020-04-07] MEDS: MAGNESIUM OXIDE 400 MG TABLET PO SCH ×3 (08:57→16:42)
[2020-04-07 16:14] VITALS: BP 121/78
[2020-04-07] MEDS: DIVALPROEX SODIUM 500 MG ER TABLET PO SCH (16:42)
[2020-04-07] MEDS: QUEtiapine FUMARATE 200 MG TABLET PO SCH (20:48)
[2020-04-08] MEDS: LEVOTHYROXINE SODIUM 125 MCG TABLET PO SCH (07:00)
[2020-04-08 08:23] VITALS: BP 105/77
[2020-04-08] MEDS: MAGNESIUM OXIDE 400 MG TABLET PO SCH ×3 (08:47→17:14)
[2020-04-08] MEDS: CHOLECALCIFEROL (VIT D3) 1,000 UNITS [25 MCG] TABLET PO SCH (08:47)
[2020-04-08] MEDS: LamoTRIgine 100 MG TABLET PO SCH (08:48)
[2020-04-08] MEDS: BusPIRone HCL 10 MG TABLET PO SCH ×3 (08:48→17:14)
[2020-04-08] MEDS: PANTOPRAZOLE SODIUM 40 MG DR TABLET PO SCH (08:48)
[2020-04-08] MEDS: SENNA 187 MG TABLET PO SCH (08:48)
[2020-04-08] MEDS: DIVALPROEX SODIUM 250 MG ER TABLET PO SCH (08:48)
[2020-04-08] MEDS: DOCUSATE SODIUM 250 MG CAPSULE PO SCH (08:48)
[2020-04-08] MEDS: PSYLLIUM SEED ORANGE SF 5.8 GM/PACKET PO SCH ×2 (08:48→17:15)
[2020-04-08] MEDS: ESCITALOPRAM OXALATE 20 MG TABLET PO SCH (08:48)
[2020-04-08 16:35] VITALS: BP 140/80
[2020-04-08 16:55] VITALS: BP 123/80
[2020-04-08] MEDS: DIVALPROEX SODIUM 500 MG ER TABLET PO SCH (17:14)
[2020-04-08] MEDS: QUEtiapine FUMARATE 200 MG TABLET PO SCH (20:01)
[2020-04-08] MEDS: ZOLPIDEM TARTRATE 10 MG TABLET PO PRN (20:56)
[2020-04-09] MEDS: LEVOTHYROXINE SODIUM 125 MCG TABLET PO SCH (06:56)
[2020-04-09 08:03] VITALS: BP 117/78
[2020-04-09] MEDS: DIVALPROEX SODIUM 250 MG ER TABLET PO SCH (08:15)
[2020-04-09] MEDS: ESCITALOPRAM OXALATE 20 MG TABLET PO SCH (08:15)
[2020-04-09] MEDS: DOCUSATE SODIUM 250 MG CAPSULE PO SCH (08:15)
[2020-04-09] MEDS: LamoTRIgine 100 MG TABLET PO SCH (08:15)
[2020-04-09] MEDS: BusPIRone HCL 10 MG TABLET PO SCH ×3 (08:15→15:56)
[2020-04-09] MEDS: MAGNESIUM OXIDE 400 MG TABLET PO SCH ×3 (08:15→15:56)
[2020-04-09] MEDS: SENNA 187 MG TABLET PO SCH (08:15)
[2020-04-09] MEDS: PSYLLIUM SEED ORANGE SF 5.8 GM/PACKET PO SCH ×2 (08:16→15:56)
[2020-04-09] MEDS: CHOLECALCIFEROL (VIT D3) 1,000 UNITS [25 MCG] TABLET PO SCH (08:16)
[2020-04-09] MEDS: PANTOPRAZOLE SODIUM 40 MG DR TABLET PO SCH (08:17)
[2020-04-09] MEDS: HALOPERIDOL 1 MG TABLET PO PRN (13:08)
[2020-04-09] MEDS: DIVALPROEX SODIUM 500 MG ER TABLET PO SCH (15:56)
[2020-04-09 16:04] VITALS: BP 105/76
[2020-04-09] MEDS: QUEtiapine FUMARATE 200 MG TABLET PO SCH (20:12)
[2020-04-10] MEDS: ZOLPIDEM TARTRATE 10 MG TABLET PO PRN (03:09)
[2020-04-10] MEDS: LEVOTHYROXINE SODIUM 125 MCG TABLET PO SCH (06:47)
[2020-04-10 08:16] VITALS: BP 113/70
[2020-04-10] MEDS: PANTOPRAZOLE SODIUM 40 MG DR TABLET PO SCH (08:25)
[2020-04-10] MEDS: PSYLLIUM SEED ORANGE SF 5.8 GM/PACKET PO SCH ×2 (08:25→16:04)
[2020-04-10] MEDS: SENNA 187 MG TABLET PO SCH (08:25)
[2020-04-10] MEDS: DIVALPROEX SODIUM 250 MG ER TABLET PO SCH (08:26)
[2020-04-10] MEDS: DOCUSATE SODIUM 250 MG CAPSULE PO SCH (08:26)
[2020-04-10] MEDS: ESCITALOPRAM OXALATE 20 MG TABLET PO SCH (08:26)
[2020-04-10] MEDS: BusPIRone HCL 10 MG TABLET PO SCH ×3 (08:26→16:04)
[2020-04-10] MEDS: LamoTRIgine 100 MG TABLET PO SCH (08:26)
[2020-04-10] MEDS: CHOLECALCIFEROL (VIT D3) 1,000 UNITS [25 MCG] TABLET PO SCH (08:27)
[2020-04-10] MEDS: MAGNESIUM OXIDE 400 MG TABLET PO SCH ×3 (08:27→16:04)
[2020-04-10] MEDS: DIVALPROEX SODIUM 500 MG ER TABLET PO SCH (16:04)
[2020-04-10 16:52] VITALS: BP 128/75
[2020-04-10] MEDS: QUEtiapine FUMARATE 200 MG TABLET PO SCH (20:17)
[2020-04-11] MEDS: LEVOTHYROXINE SODIUM 125 MCG TABLET PO SCH (06:49)
[2020-04-11] MEDS: LamoTRIgine 100 MG TABLET PO SCH (08:18)
[2020-04-11] MEDS: MAGNESIUM OXIDE 400 MG TABLET PO SCH ×3 (08:18→16:46)
[2020-04-11] MEDS: CHOLECALCIFEROL (VIT D3) 1,000 UNITS [25 MCG] TABLET PO SCH (08:18)
[2020-04-11] MEDS: ESCITALOPRAM OXALATE 20 MG TABLET PO SCH (08:18)
[2020-04-11] MEDS: DOCUSATE SODIUM 250 MG CAPSULE PO SCH (08:18)
[2020-04-11] MEDS: BusPIRone HCL 10 MG TABLET PO SCH ×3 (08:19→16:46)
[2020-04-11] MEDS: DIVALPROEX SODIUM 250 MG ER TABLET PO SCH (08:19)
[2020-04-11] MEDS: SENNA 187 MG TABLET PO SCH (08:19)
[2020-04-11] MEDS: PANTOPRAZOLE SODIUM 40 MG DR TABLET PO SCH (08:19)
[2020-04-11] MEDS: PSYLLIUM SEED ORANGE SF 5.8 GM/PACKET PO SCH ×2 (08:19→16:45)
[2020-04-11 08:33] VITALS: BP 121/64
[2020-04-11] MEDS: HALOPERIDOL 1 MG TABLET PO PRN (13:01)
[2020-04-11] MEDS: DIVALPROEX SODIUM 500 MG ER TABLET PO SCH (16:46)
[2020-04-11 17:10] VITALS: BP 125/71
[2020-04-11] MEDS: QUEtiapine FUMARATE 200 MG TABLET PO SCH (20:45)
[2020-04-11] MEDS: ZOLPIDEM TARTRATE 10 MG TABLET PO PRN (21:35)
[2020-04-12] MEDS: LEVOTHYROXINE SODIUM 125 MCG TABLET PO SCH (07:09)
[2020-04-12] MEDS: PSYLLIUM SEED ORANGE SF 5.8 GM/PACKET PO SCH ×2 (08:00→16:30)
[2020-04-12] MEDS: PANTOPRAZOLE SODIUM 40 MG DR TABLET PO SCH (08:00)
[2020-04-12] MEDS: DIVALPROEX SODIUM 250 MG ER TABLET PO SCH (08:01)
[2020-04-12] MEDS: SENNA 187 MG TABLET PO SCH (08:01)
[2020-04-12] MEDS: BusPIRone HCL 10 MG TABLET PO SCH ×3 (08:01→16:30)
[2020-04-12] MEDS: DIVALPROEX SODIUM 500 MG ER TABLET PO SCH ×2 (08:01→16:30)
[2020-04-12] MEDS: LamoTRIgine 100 MG TABLET PO SCH (08:02)
[2020-04-12] MEDS: DOCUSATE SODIUM 250 MG CAPSULE PO SCH (08:14)
[2020-04-12] MEDS: ESCITALOPRAM OXALATE 20 MG TABLET PO SCH (08:21)
[2020-04-12] MEDS: MAGNESIUM OXIDE 400 MG TABLET PO SCH ×3 (08:23→16:30)
[2020-04-12] MEDS: CHOLECALCIFEROL (VIT D3) 1,000 UNITS [25 MCG] TABLET PO SCH (08:24)
[2020-04-12 08:46] VITALS: BP 119/80
[2020-04-12 16:00] VITALS: BP 116/77
[2020-04-12] MEDS: PRAZOSIN HCL 1 MG CAPSULE PO SCH (20:27)
[2020-04-12] MEDS: QUEtiapine FUMARATE 200 MG TABLET PO SCH (20:28)
[2020-04-12 20:30] VITALS: BP 123/70
[2020-04-12] MEDS: ZOLPIDEM TARTRATE 10 MG TABLET PO PRN (21:01)
[2020-04-13] MEDS: HALOPERIDOL 1 MG TABLET PO PRN (04:27)
[2020-04-13] MEDS: LEVOTHYROXINE SODIUM 125 MCG TABLET PO SCH (06:56)
[2020-04-13 08:03] VITALS: BP 130/76
[2020-04-13] MEDS: BusPIRone HCL 10 MG TABLET PO SCH ×3 (08:25→16:19)
[2020-04-13] MEDS: MAGNESIUM OXIDE 400 MG TABLET PO SCH ×3 (08:26→16:19)
[2020-04-13] MEDS: ESCITALOPRAM OXALATE 20 MG TABLET PO SCH (08:26)
[2020-04-13] MEDS: PANTOPRAZOLE SODIUM 40 MG DR TABLET PO SCH (08:26)
[2020-04-13] MEDS: PSYLLIUM SEED ORANGE SF 5.8 GM/PACKET PO SCH ×2 (08:26→16:18)
[2020-04-13] MEDS: SENNA 187 MG TABLET PO SCH (08:26)
[2020-04-13] MEDS: CHOLECALCIFEROL (VIT D3) 1,000 UNITS [25 MCG] TABLET PO SCH (08:26)
[2020-04-13] MEDS: LamoTRIgine 100 MG TABLET PO SCH (08:26)
[2020-04-13] MEDS: DIVALPROEX SODIUM 250 MG ER TABLET PO SCH (08:26)
[2020-04-13] MEDS: DOCUSATE SODIUM 250 MG CAPSULE PO SCH (08:28)
[2020-04-13 16:00] VITALS: BP 144/65
[2020-04-13] MEDS: DIVALPROEX SODIUM 500 MG ER TABLET PO SCH (16:19)
[2020-04-13] MEDS: QUEtiapine FUMARATE 200 MG TABLET PO SCH (21:06)
[2020-04-13] MEDS: PRAZOSIN HCL 1 MG CAPSULE PO SCH (21:06)
[2020-04-14] MEDS: LEVOTHYROXINE SODIUM 125 MCG TABLET PO SCH (06:45)
[2020-04-14 08:39] VITALS: BP 107/74
[2020-04-14] MEDS: PANTOPRAZOLE SODIUM 40 MG DR TABLET PO SCH (08:49)
[2020-04-14] MEDS: MAGNESIUM OXIDE 400 MG TABLET PO SCH ×3 (08:50→16:25)
[2020-04-14] MEDS: CHOLECALCIFEROL (VIT D3) 1,000 UNITS [25 MCG] TABLET PO SCH (08:50)
[2020-04-14] MEDS: DOCUSATE SODIUM 250 MG CAPSULE PO SCH (08:50)
[2020-04-14] MEDS: DIVALPROEX SODIUM 500 MG ER TABLET PO SCH ×3 (08:51→16:25)
[2020-04-14] MEDS: BusPIRone HCL 10 MG TABLET PO SCH ×3 (08:51→16:25)
[2020-04-14] MEDS: LamoTRIgine 100 MG TABLET PO SCH (08:53)
[2020-04-14] MEDS: SENNA 187 MG TABLET PO SCH (08:53)
[2020-04-14] MEDS: ESCITALOPRAM OXALATE 20 MG TABLET PO SCH (08:59)
[2020-04-14] MEDS: PSYLLIUM SEED ORANGE SF 5.8 GM/PACKET PO SCH ×2 (09:00→16:27)
[2020-04-14] MEDS: DIVALPROEX SODIUM 250 MG ER TABLET PO SCH (10:01)
[2020-04-14 16:05] VITALS: BP 113/70
[2020-04-14] MEDS: PRAZOSIN HCL 1 MG CAPSULE PO SCH (20:13)
[2020-04-14] MEDS: QUEtiapine FUMARATE 200 MG TABLET PO SCH (20:13)
[2020-04-15] MEDS: LEVOTHYROXINE SODIUM 125 MCG TABLET PO SCH (06:37)
[2020-04-15 08:42] VITALS: BP 122/68
[2020-04-15] MEDS: DIVALPROEX SODIUM 250 MG ER TABLET PO SCH (08:46)
[2020-04-15] MEDS: PSYLLIUM SEED ORANGE SF 5.8 GM/PACKET PO SCH ×2 (08:46→16:31)
[2020-04-15] MEDS: DOCUSATE SODIUM 250 MG CAPSULE PO SCH (08:46)
[2020-04-15] MEDS: BusPIRone HCL 10 MG TABLET PO SCH ×3 (08:46→16:32)
[2020-04-15] MEDS: ESCITALOPRAM OXALATE 20 MG TABLET PO SCH (08:47)
[2020-04-15] MEDS: LamoTRIgine 100 MG TABLET PO SCH (08:47)
[2020-04-15] MEDS: MAGNESIUM OXIDE 400 MG TABLET PO SCH ×3 (08:47→16:31)
[2020-04-15] MEDS: SENNA 187 MG TABLET PO SCH (08:47)
[2020-04-15] MEDS: CHOLECALCIFEROL (VIT D3) 1,000 UNITS [25 MCG] TABLET PO SCH (08:47)
[2020-04-15] MEDS: PANTOPRAZOLE SODIUM 40 MG DR TABLET PO SCH (08:49)
[2020-04-15 16:02] VITALS: BP 105/71
[2020-04-15] MEDS: DIVALPROEX SODIUM 500 MG ER TABLET PO SCH (16:32)
[2020-04-15] MEDS: QUEtiapine FUMARATE 200 MG TABLET PO SCH (20:44)
[2020-04-15 21:02] VITALS: BP 131/70
[2020-04-15] MEDS: PRAZOSIN HCL 1 MG CAPSULE PO SCH (21:02)
[2020-04-16] MEDS: LEVOTHYROXINE SODIUM 125 MCG TABLET PO SCH (06:15)
[2020-04-16] MEDS: PANTOPRAZOLE SODIUM 40 MG DR TABLET PO SCH (08:05)
[2020-04-16] MEDS: SENNA 187 MG TABLET PO SCH (08:05)
[2020-04-16] MEDS: BusPIRone HCL 10 MG TABLET PO SCH ×3 (08:05→16:51)
[2020-04-16] MEDS: LamoTRIgine 100 MG TABLET PO SCH (08:05)
[2020-04-16] MEDS: CHOLECALCIFEROL (VIT D3) 1,000 UNITS [25 MCG] TABLET PO SCH (08:05)
[2020-04-16] MEDS: ESCITALOPRAM OXALATE 20 MG TABLET PO SCH (08:05)
[2020-04-16] MEDS: DIVALPROEX SODIUM 250 MG ER TABLET PO SCH (08:05)
[2020-04-16] MEDS: DOCUSATE SODIUM 250 MG CAPSULE PO SCH (08:05)
[2020-04-16] MEDS: PSYLLIUM SEED ORANGE SF 5.8 GM/PACKET PO SCH ×2 (08:06→16:51)
[2020-04-16] MEDS: MAGNESIUM OXIDE 400 MG TABLET PO SCH ×3 (08:06→16:51)
[2020-04-16 08:25] VITALS: BP 124/82
[2020-04-16 16:32] VITALS: BP 147/90
[2020-04-16] MEDS: DIVALPROEX SODIUM 500 MG ER TABLET PO SCH (16:51)
[2020-04-16 20:33] VITALS: BP 140/89
[2020-04-16] MEDS: PRAZOSIN HCL 2 MG CAPSULE PO SCH (20:33)
[2020-04-16] MEDS: QUEtiapine FUMARATE 200 MG TABLET PO SCH (20:33)
[2020-04-17] MEDS: LEVOTHYROXINE SODIUM 125 MCG TABLET PO SCH (06:20)
[2020-04-17] MEDS: DIVALPROEX SODIUM 250 MG ER TABLET PO SCH (08:32)
[2020-04-17] MEDS: SENNA 187 MG TABLET PO SCH (08:32)
[2020-04-17] MEDS: MAGNESIUM OXIDE 400 MG TABLET PO SCH ×3 (08:32→16:19)
[2020-04-17] MEDS: LamoTRIgine 100 MG TABLET PO SCH (08:32)
[2020-04-17] MEDS: CHOLECALCIFEROL (VIT D3) 1,000 UNITS [25 MCG] TABLET PO SCH (08:32)
[2020-04-17] MEDS: PSYLLIUM SEED ORANGE SF 5.8 GM/PACKET PO SCH ×2 (08:32→16:19)
[2020-04-17] MEDS: BusPIRone HCL 10 MG TABLET PO SCH ×3 (08:32→16:19)
[2020-04-17] MEDS: PANTOPRAZOLE SODIUM 40 MG DR TABLET PO SCH (08:32)
[2020-04-17] MEDS: ESCITALOPRAM OXALATE 20 MG TABLET PO SCH (08:32)
[2020-04-17] MEDS: DOCUSATE SODIUM 250 MG CAPSULE PO SCH (08:32)
[2020-04-17 09:31] VITALS: BP 121/78
[2020-04-17] MEDS: DIVALPROEX SODIUM 500 MG ER TABLET PO SCH (16:19)
[2020-04-17 20:32] VITALS: BP 131/87
[2020-04-17] MEDS: PRAZOSIN HCL 2 MG CAPSULE PO SCH (20:42)
[2020-04-17] MEDS: QUEtiapine FUMARATE 200 MG TABLET PO SCH (20:45)
[2020-04-18] MEDS: LEVOTHYROXINE SODIUM 125 MCG TABLET PO SCH (06:20)
[2020-04-18] MEDS: ESCITALOPRAM OXALATE 20 MG TABLET PO SCH (08:02)
[2020-04-18] MEDS: MAGNESIUM OXIDE 400 MG TABLET PO SCH ×3 (08:02→16:56)
[2020-04-18] MEDS: CHOLECALCIFEROL (VIT D3) 1,000 UNITS [25 MCG] TABLET PO SCH (08:02)
[2020-04-18] MEDS: DIVALPROEX SODIUM 250 MG ER TABLET PO SCH (08:02)
[2020-04-18] MEDS: BusPIRone HCL 10 MG TABLET PO SCH ×3 (08:02→16:56)
[2020-04-18] MEDS: PANTOPRAZOLE SODIUM 40 MG DR TABLET PO SCH (08:03)
[2020-04-18] MEDS: SENNA 187 MG TABLET PO SCH (08:03)
[2020-04-18] MEDS: DOCUSATE SODIUM 250 MG CAPSULE PO SCH (08:03)
[2020-04-18] MEDS: PSYLLIUM SEED ORANGE SF 5.8 GM/PACKET PO SCH ×2 (08:03→16:56)
[2020-04-18] MEDS: LamoTRIgine 100 MG TABLET PO SCH (08:03)
[2020-04-18 08:20] VITALS: BP 122/72
[2020-04-18] MEDS ORDERED: LORazepam 2 MG/ML VIAL IM ONE (15:00)
[2020-04-18] MEDS ORDERED: HALOPERIDOL LACTATE 5 MG/ML VIAL IM ONE (15:00)
[2020-04-18] MEDS ORDERED: DiphenhydrAMINE HCL 50 MG/ML VIAL IM ONE (15:00)
[2020-04-18] MEDS ORDERED: DiphenhydrAMINE HCL 50 MG/ML VIAL ONE (15:01)
[2020-04-18] MEDS ORDERED: LORazepam 2 MG/ML VIAL ONE (15:01)
[2020-04-18] MEDS ORDERED: HALOPERIDOL LACTATE 5 MG/ML VIAL ONE (15:01)
[2020-04-18 16:35] VITALS: BP 106/71
[2020-04-18] MEDS: DIVALPROEX SODIUM 500 MG ER TABLET PO SCH (16:56)
[2020-04-18] MEDS: QUEtiapine FUMARATE 200 MG TABLET PO SCH (20:49)
[2020-04-18 20:56] VITALS: BP 92/62
[2020-04-18] MEDS: PRAZOSIN HCL 2 MG CAPSULE PO SCH (20:56)
[2020-04-19] MEDS: LEVOTHYROXINE SODIUM 125 MCG TABLET PO SCH (06:25)
[2020-04-19 08:21] VITALS: BP 121/82
[2020-04-19] MEDS: MAGNESIUM OXIDE 400 MG TABLET PO SCH ×3 (08:40→16:46)
[2020-04-19] MEDS: ESCITALOPRAM OXALATE 20 MG TABLET PO SCH (08:40)
[2020-04-19] MEDS: PANTOPRAZOLE SODIUM 40 MG DR TABLET PO SCH (08:40)
[2020-04-19] MEDS: DOCUSATE SODIUM 250 MG CAPSULE PO SCH (08:40)
[2020-04-19] MEDS: LamoTRIgine 100 MG TABLET PO SCH (08:40)
[2020-04-19] MEDS: SENNA 187 MG TABLET PO SCH (08:40)
[2020-04-19] MEDS: CHOLECALCIFEROL (VIT D3) 1,000 UNITS [25 MCG] TABLET PO SCH (08:40)
[2020-04-19] MEDS: BusPIRone HCL 10 MG TABLET PO SCH ×3 (08:40→16:44)
[2020-04-19] MEDS: DIVALPROEX SODIUM 250 MG ER TABLET PO SCH (08:40)
[2020-04-19] MEDS: PSYLLIUM SEED ORANGE SF 5.8 GM/PACKET PO SCH ×2 (08:41→16:46)
[2020-04-19 16:31] VITALS: BP 118/76
[2020-04-19] MEDS: DIVALPROEX SODIUM 500 MG ER TABLET PO SCH (16:45)
[2020-04-19] MEDS: PRAZOSIN HCL 2 MG CAPSULE PO SCH (20:52)
[2020-04-19] MEDS: QUEtiapine FUMARATE 200 MG TABLET PO SCH (20:53)
[2020-04-20] MEDS: LEVOTHYROXINE SODIUM 125 MCG TABLET PO SCH (06:44)
[2020-04-20] MEDS: LamoTRIgine 100 MG TABLET PO SCH (07:54)
[2020-04-20] MEDS: MAGNESIUM OXIDE 400 MG TABLET PO SCH ×3 (07:54→16:47)
[2020-04-20] MEDS: BusPIRone HCL 10 MG TABLET PO SCH ×3 (07:54→16:48)
[2020-04-20] MEDS: DOCUSATE SODIUM 250 MG CAPSULE PO SCH (07:54)
[2020-04-20] MEDS: PSYLLIUM SEED ORANGE SF 5.8 GM/PACKET PO SCH ×2 (07:54→16:48)
[2020-04-20] MEDS: ESCITALOPRAM OXALATE 20 MG TABLET PO SCH (07:55)
[2020-04-20] MEDS: DIVALPROEX SODIUM 250 MG ER TABLET PO SCH (07:55)
[2020-04-20] MEDS: PANTOPRAZOLE SODIUM 40 MG DR TABLET PO SCH (07:55)
[2020-04-20] MEDS: SENNA 187 MG TABLET PO SCH (07:55)
[2020-04-20] MEDS: CHOLECALCIFEROL (VIT D3) 1,000 UNITS [25 MCG] TABLET PO SCH (07:55)
[2020-04-20 16:18] VITALS: BP 123/80
[2020-04-20] MEDS: DIVALPROEX SODIUM 500 MG ER TABLET PO SCH (16:47)
[2020-04-20] MEDS: QUEtiapine FUMARATE 200 MG TABLET PO SCH (20:41)
[2020-04-20] MEDS: PRAZOSIN HCL 2 MG CAPSULE PO SCH (20:47)
[2020-04-21] MEDS: LEVOTHYROXINE SODIUM 125 MCG TABLET PO SCH (07:08)
[2020-04-21] MEDS: PANTOPRAZOLE SODIUM 40 MG DR TABLET PO SCH (08:01)
[2020-04-21] MEDS: BusPIRone HCL 10 MG TABLET PO SCH ×3 (08:01→16:20)
[2020-04-21] MEDS: DOCUSATE SODIUM 250 MG CAPSULE PO SCH (08:01)
[2020-04-21] MEDS: SENNA 187 MG TABLET PO SCH (08:02)
[2020-04-21] MEDS: CHOLECALCIFEROL (VIT D3) 1,000 UNITS [25 MCG] TABLET PO SCH (08:02)
[2020-04-21] MEDS: PSYLLIUM SEED ORANGE SF 5.8 GM/PACKET PO SCH ×2 (08:02→16:20)
[2020-04-21] MEDS: MAGNESIUM OXIDE 400 MG TABLET PO SCH ×3 (08:02→16:20)
[2020-04-21] MEDS: DIVALPROEX SODIUM 250 MG ER TABLET PO SCH (08:02)
[2020-04-21] MEDS: LamoTRIgine 100 MG TABLET PO SCH (08:03)
[2020-04-21] MEDS: ESCITALOPRAM OXALATE 20 MG TABLET PO SCH (08:03)
[2020-04-21 08:09] VITALS: BP 118/73
[2020-04-21 16:05] VITALS: BP 125/77
[2020-04-21] MEDS: DIVALPROEX SODIUM 500 MG ER TABLET PO SCH (16:21)
[2020-04-21] MEDS: QUEtiapine FUMARATE 200 MG TABLET PO SCH (21:32)
[2020-04-21] MEDS: PRAZOSIN HCL 2 MG CAPSULE PO SCH (21:32)
[2020-04-22] MEDS: LEVOTHYROXINE SODIUM 125 MCG TABLET PO SCH (06:21)
[2020-04-22 08:07] VITALS: BP 128/77
[2020-04-22 08:08] VITALS: BP 128/77
[2020-04-22] MEDS: CHOLECALCIFEROL (VIT D3) 1,000 UNITS [25 MCG] TABLET PO SCH (08:59)
[2020-04-22] MEDS: DOCUSATE SODIUM 250 MG CAPSULE PO SCH (08:59)
[2020-04-22] MEDS: MAGNESIUM OXIDE 400 MG TABLET PO SCH ×3 (08:59→16:04)
[2020-04-22] MEDS: LamoTRIgine 100 MG TABLET PO SCH (08:59)
[2020-04-22] MEDS: BusPIRone HCL 10 MG TABLET PO SCH ×3 (08:59→16:04)
[2020-04-22] MEDS: ESCITALOPRAM OXALATE 20 MG TABLET PO SCH (08:59)
[2020-04-22] MEDS: SENNA 187 MG TABLET PO SCH (08:59)
[2020-04-22] MEDS: DIVALPROEX SODIUM 250 MG ER TABLET PO SCH (09:00)
[2020-04-22] MEDS: PSYLLIUM SEED ORANGE SF 5.8 GM/PACKET PO SCH ×2 (09:00→16:03)
[2020-04-22] MEDS: PANTOPRAZOLE SODIUM 40 MG DR TABLET PO SCH (09:01)
[2020-04-22] MEDS: MAG HYDROX/AL HYDROX/SIMETH ES 30 ML SUSPENSION UDCUP PO PRN ×2 (14:05→19:16)
[2020-04-22] MEDS: DIVALPROEX SODIUM 500 MG ER TABLET PO SCH (16:04)
[2020-04-22 16:14] VITALS: BP 124/78
[2020-04-22] MEDS: PRAZOSIN HCL 2 MG CAPSULE PO SCH (20:29)
[2020-04-22] MEDS: QUEtiapine FUMARATE 200 MG TABLET PO SCH (20:30)
[2020-04-22] MEDS: ZOLPIDEM TARTRATE 10 MG TABLET PO PRN (23:47)
[2020-04-23] MEDS: LEVOTHYROXINE SODIUM 125 MCG TABLET PO SCH (06:44)
[2020-04-23 08:00] VITALS: BP 133/57
[2020-04-23] MEDS: CHOLECALCIFEROL (VIT D3) 1,000 UNITS [25 MCG] TABLET PO SCH (09:14)
[2020-04-23] MEDS: BusPIRone HCL 10 MG TABLET PO SCH ×3 (09:14→16:09)
[2020-04-23] MEDS: MAGNESIUM OXIDE 400 MG TABLET PO SCH ×3 (09:14→16:09)
[2020-04-23] MEDS: PSYLLIUM SEED ORANGE SF 5.8 GM/PACKET PO SCH ×2 (09:14→16:09)
[2020-04-23] MEDS: DOCUSATE SODIUM 250 MG CAPSULE PO SCH (09:14)
[2020-04-23] MEDS: PANTOPRAZOLE SODIUM 40 MG DR TABLET PO SCH (09:15)
[2020-04-23] MEDS: SENNA 187 MG TABLET PO SCH (09:15)
[2020-04-23] MEDS: DIVALPROEX SODIUM 250 MG ER TABLET PO SCH (09:15)
[2020-04-23] MEDS: ESCITALOPRAM OXALATE 20 MG TABLET PO SCH (09:15)
[2020-04-23] MEDS: LamoTRIgine 100 MG TABLET PO SCH (09:16)
[2020-04-23] MEDS: MAG HYDROX/AL HYDROX/SIMETH ES 30 ML SUSPENSION UDCUP PO PRN (09:25)
[2020-04-23] MEDS: DIVALPROEX SODIUM 500 MG ER TABLET PO SCH (16:09)
[2020-04-23 16:14] VITALS: BP 106/65
[2020-04-23] MEDS: PRAZOSIN HCL 2 MG CAPSULE PO SCH (20:34)
[2020-04-23] MEDS: QUEtiapine FUMARATE 200 MG TABLET PO SCH (20:34)
[2020-04-24] MEDS: LEVOTHYROXINE SODIUM 125 MCG TABLET PO SCH (06:46)
[2020-04-24 08:10] VITALS: BP 110/75
[2020-04-24] MEDS: ESCITALOPRAM OXALATE 20 MG TABLET PO SCH (08:21)
[2020-04-24] MEDS: MAGNESIUM OXIDE 400 MG TABLET PO SCH ×3 (08:21→17:08)
[2020-04-24] MEDS: CHOLECALCIFEROL (VIT D3) 1,000 UNITS [25 MCG] TABLET PO SCH (08:21)
[2020-04-24] MEDS: SENNA 187 MG TABLET PO SCH (08:21)
[2020-04-24] MEDS: PSYLLIUM SEED ORANGE SF 5.8 GM/PACKET PO SCH ×2 (08:22→17:08)
[2020-04-24] MEDS: PANTOPRAZOLE SODIUM 40 MG DR TABLET PO SCH (08:22)
[2020-04-24] MEDS: BusPIRone HCL 10 MG TABLET PO SCH ×3 (08:22→17:07)
[2020-04-24] MEDS: LamoTRIgine 100 MG TABLET PO SCH (08:22)
[2020-04-24] MEDS: DIVALPROEX SODIUM 250 MG ER TABLET PO SCH (08:22)
[2020-04-24] MEDS: DOCUSATE SODIUM 250 MG CAPSULE PO SCH (08:22)
[2020-04-24 16:10] VITALS: BP 107/66
[2020-04-24] MEDS: DIVALPROEX SODIUM 500 MG ER TABLET PO SCH (17:08)
[2020-04-24] MEDS: PRAZOSIN HCL 2 MG CAPSULE PO SCH (21:00)
[2020-04-24] MEDS: QUEtiapine FUMARATE 200 MG TABLET PO SCH (21:00)
[2020-04-25] MEDS: LEVOTHYROXINE SODIUM 125 MCG TABLET PO SCH (06:44)
[2020-04-25 08:00] VITALS: BP 117/83
[2020-04-25] MEDS: BusPIRone HCL 10 MG TABLET PO SCH ×3 (08:11→16:24)
[2020-04-25] MEDS: CHOLECALCIFEROL (VIT D3) 1,000 UNITS [25 MCG] TABLET PO SCH (08:11)
[2020-04-25] MEDS: DIVALPROEX SODIUM 250 MG ER TABLET PO SCH (08:11)
[2020-04-25] MEDS: ESCITALOPRAM OXALATE 20 MG TABLET PO SCH (08:11)
[2020-04-25] MEDS: MAGNESIUM OXIDE 400 MG TABLET PO SCH ×3 (08:11→16:24)
[2020-04-25] MEDS: PANTOPRAZOLE SODIUM 40 MG DR TABLET PO SCH (08:11)
[2020-04-25] MEDS: LamoTRIgine 100 MG TABLET PO SCH (08:11)
[2020-04-25] MEDS: SENNA 187 MG TABLET PO SCH (08:11)
[2020-04-25] MEDS: DOCUSATE SODIUM 250 MG CAPSULE PO SCH (08:11)
[2020-04-25] MEDS: PSYLLIUM SEED ORANGE SF 5.8 GM/PACKET PO SCH ×2 (08:12→16:25)
[2020-04-25] MEDS: DIVALPROEX SODIUM 500 MG ER TABLET PO SCH (16:24)
[2020-04-25 16:37] VITALS: BP 141/89
[2020-04-25 20:23] VITALS: BP 138/87
[2020-04-25] MEDS: QUEtiapine FUMARATE 200 MG TABLET PO SCH (20:48)
[2020-04-25] MEDS: PRAZOSIN HCL 2 MG CAPSULE PO SCH (20:48)
[2020-04-25] MEDS: ZOLPIDEM TARTRATE 10 MG TABLET PO PRN (21:41)
[2020-04-26] MEDS: LEVOTHYROXINE SODIUM 125 MCG TABLET PO SCH (06:43)
[2020-04-26 08:12] VITALS: BP 121/72
[2020-04-26] MEDS: PSYLLIUM SEED ORANGE SF 5.8 GM/PACKET PO SCH ×2 (08:49→17:23)
[2020-04-26] MEDS: MAGNESIUM OXIDE 400 MG TABLET PO SCH ×3 (08:49→17:23)
[2020-04-26] MEDS: CHOLECALCIFEROL (VIT D3) 1,000 UNITS [25 MCG] TABLET PO SCH (08:50)
[2020-04-26] MEDS: ESCITALOPRAM OXALATE 20 MG TABLET PO SCH (08:50)
[2020-04-26] MEDS: PANTOPRAZOLE SODIUM 40 MG DR TABLET PO SCH (08:50)
[2020-04-26] MEDS: DIVALPROEX SODIUM 250 MG ER TABLET PO SCH (08:50)
[2020-04-26] MEDS: LamoTRIgine 100 MG TABLET PO SCH (08:51)
[2020-04-26] MEDS: DOCUSATE SODIUM 250 MG CAPSULE PO SCH (08:51)
[2020-04-26] MEDS: BusPIRone HCL 10 MG TABLET PO SCH ×3 (08:51→17:23)
[2020-04-26] MEDS: SENNA 187 MG TABLET PO SCH (08:52)
[2020-04-26] MEDS ORDERED: HALOPERIDOL LACTATE 5 MG/ML VIAL ONE (14:08)
[2020-04-26] MEDS ORDERED: DiphenhydrAMINE HCL 50 MG/ML VIAL ONE (14:08)
[2020-04-26] MEDS ORDERED: LORazepam 2 MG/ML VIAL ONE (14:08)
[2020-04-26] MEDS ORDERED: LORazepam 2 MG/ML VIAL IM ONE ×2 (14:15→15:00)
[2020-04-26] MEDS ORDERED: DiphenhydrAMINE HCL 50 MG/ML VIAL IM ONE ×2 (14:15→15:00)
[2020-04-26] MEDS ORDERED: HALOPERIDOL LACTATE 5 MG/ML VIAL IM ONE ×2 (14:15→15:00)
[2020-04-26] MEDS: DIVALPROEX SODIUM 500 MG ER TABLET PO SCH (17:23)
[2020-04-26] MEDS: PRAZOSIN HCL 2 MG CAPSULE PO SCH (21:46)
[2020-04-26] MEDS: QUEtiapine FUMARATE 200 MG TABLET PO SCH (21:46)
[2020-04-27] MEDS: LEVOTHYROXINE SODIUM 125 MCG TABLET PO SCH (06:59)
[2020-04-27 08:00] VITALS: BP 100/65
[2020-04-27] MEDS: LamoTRIgine 100 MG TABLET PO SCH (08:39)
[2020-04-27] MEDS: CHOLECALCIFEROL (VIT D3) 1,000 UNITS [25 MCG] TABLET PO SCH (08:40)
[2020-04-27] MEDS: PSYLLIUM SEED ORANGE SF 5.8 GM/PACKET PO SCH ×2 (08:40→16:49)
[2020-04-27] MEDS: SENNA 187 MG TABLET PO SCH (08:40)
[2020-04-27] MEDS: BusPIRone HCL 10 MG TABLET PO SCH ×3 (08:40→16:49)
[2020-04-27] MEDS: ESCITALOPRAM OXALATE 20 MG TABLET PO SCH (08:40)
[2020-04-27] MEDS: PANTOPRAZOLE SODIUM 40 MG DR TABLET PO SCH (08:40)
[2020-04-27] MEDS: DOCUSATE SODIUM 250 MG CAPSULE PO SCH (08:40)
[2020-04-27] MEDS: DIVALPROEX SODIUM 250 MG ER TABLET PO SCH (08:40)
[2020-04-27] MEDS: MAGNESIUM OXIDE 400 MG TABLET PO SCH ×3 (08:40→16:50)
[2020-04-27 16:00] VITALS: BP 106/69
[2020-04-27] MEDS: DIVALPROEX SODIUM 500 MG ER TABLET PO SCH (16:49)
[2020-04-27] MEDS: QUEtiapine FUMARATE 200 MG TABLET PO SCH (20:30)
[2020-04-27 20:40] VITALS: BP 101/65
[2020-04-27] MEDS: PRAZOSIN HCL 2 MG CAPSULE PO SCH (20:42)
[2020-04-28] MEDS: LEVOTHYROXINE SODIUM 125 MCG TABLET PO SCH (06:38)
[2020-04-28 08:13] VITALS: BP 116/71
[2020-04-28] MEDS: CHOLECALCIFEROL (VIT D3) 1,000 UNITS [25 MCG] TABLET PO SCH (08:32)
[2020-04-28] MEDS: MAGNESIUM OXIDE 400 MG TABLET PO SCH ×3 (08:32→16:01)
[2020-04-28] MEDS: DOCUSATE SODIUM 250 MG CAPSULE PO SCH (08:33)
[2020-04-28] MEDS: LamoTRIgine 100 MG TABLET PO SCH (08:33)
[2020-04-28] MEDS: PANTOPRAZOLE SODIUM 40 MG DR TABLET PO SCH (08:33)
[2020-04-28] MEDS: SENNA 187 MG TABLET PO SCH (08:33)
[2020-04-28] MEDS: DIVALPROEX SODIUM 250 MG ER TABLET PO SCH (08:33)
[2020-04-28] MEDS: PSYLLIUM SEED ORANGE SF 5.8 GM/PACKET PO SCH ×2 (08:33→16:01)
[2020-04-28] MEDS: ESCITALOPRAM OXALATE 20 MG TABLET PO SCH (08:33)
[2020-04-28] MEDS: BusPIRone HCL 10 MG TABLET PO SCH ×3 (08:33→16:01)
[2020-04-28] MEDS: DIVALPROEX SODIUM 500 MG ER TABLET PO SCH (16:01)
[2020-04-28 17:50] VITALS: BP 128/79
[2020-04-28] MEDS: QUEtiapine FUMARATE 200 MG TABLET PO SCH (20:15)
[2020-04-28] MEDS: PRAZOSIN HCL 2 MG CAPSULE PO SCH (20:15)
[2020-04-29] MEDS: ZOLPIDEM TARTRATE 10 MG TABLET PO PRN (02:23)
[2020-04-29] MEDS: LEVOTHYROXINE SODIUM 125 MCG TABLET PO SCH (06:43)
[2020-04-29 08:40] VITALS: BP 123/82
[2020-04-29] MEDS: MAGNESIUM OXIDE 400 MG TABLET PO SCH ×3 (09:15→16:45)
[2020-04-29] MEDS: DOCUSATE SODIUM 250 MG CAPSULE PO SCH (09:15)
[2020-04-29] MEDS: PANTOPRAZOLE SODIUM 40 MG DR TABLET PO SCH (09:15)
[2020-04-29] MEDS: CHOLECALCIFEROL (VIT D3) 1,000 UNITS [25 MCG] TABLET PO SCH (09:15)
[2020-04-29] MEDS: BusPIRone HCL 10 MG TABLET PO SCH ×3 (09:15→16:45)
[2020-04-29] MEDS: LamoTRIgine 100 MG TABLET PO SCH (09:16)
[2020-04-29] MEDS: PSYLLIUM SEED ORANGE SF 5.8 GM/PACKET PO SCH ×2 (09:16→16:45)
[2020-04-29] MEDS: ESCITALOPRAM OXALATE 20 MG TABLET PO SCH (09:16)
[2020-04-29] MEDS: SENNA 187 MG TABLET PO SCH (09:16)
[2020-04-29] MEDS: DIVALPROEX SODIUM 250 MG ER TABLET PO SCH (09:16)
[2020-04-29 16:22] VITALS: BP 134/85
[2020-04-29] MEDS: DIVALPROEX SODIUM 500 MG ER TABLET PO SCH (16:45)
[2020-04-29] MEDS: PRAZOSIN HCL 2 MG CAPSULE PO SCH (20:33)
[2020-04-29] MEDS: QUEtiapine FUMARATE 200 MG TABLET PO SCH (20:33)
[2020-04-30] MEDS: ZOLPIDEM TARTRATE 10 MG TABLET PO PRN ×2 (00:45→21:55)
[2020-04-30] MEDS: LEVOTHYROXINE SODIUM 125 MCG TABLET PO SCH (06:57)
[2020-04-30] MEDS: SENNA 187 MG TABLET PO SCH (08:09)
[2020-04-30] MEDS: MAGNESIUM OXIDE 400 MG TABLET PO SCH ×3 (08:09→16:48)
[2020-04-30] MEDS: ESCITALOPRAM OXALATE 20 MG TABLET PO SCH (08:09)
[2020-04-30] MEDS: PANTOPRAZOLE SODIUM 40 MG DR TABLET PO SCH (08:10)
[2020-04-30] MEDS: CHOLECALCIFEROL (VIT D3) 1,000 UNITS [25 MCG] TABLET PO SCH (08:10)
[2020-04-30] MEDS: DIVALPROEX SODIUM 250 MG ER TABLET PO SCH (08:10)
[2020-04-30] MEDS: LamoTRIgine 100 MG TABLET PO SCH (08:10)
[2020-04-30] MEDS: BusPIRone HCL 10 MG TABLET PO SCH ×3 (08:10→16:48)
[2020-04-30] MEDS: PSYLLIUM SEED ORANGE SF 5.8 GM/PACKET PO SCH ×2 (08:11→16:48)
[2020-04-30] MEDS: DOCUSATE SODIUM 100 MG CAPSULE PO PRN (08:12)
[2020-04-30] MEDS: DOCUSATE SODIUM 250 MG CAPSULE PO SCH (08:13)
[2020-04-30 08:15] VITALS: BP 117/68
[2020-04-30 16:24] VITALS: BP 120/73
[2020-04-30] MEDS: DIVALPROEX SODIUM 500 MG ER TABLET PO SCH (16:49)
[2020-04-30] MEDS: PRAZOSIN HCL 2 MG CAPSULE PO SCH (21:00)
[2020-04-30] MEDS: QUEtiapine FUMARATE 200 MG TABLET PO SCH (21:01)
[2020-05-01] MEDS: LEVOTHYROXINE SODIUM 125 MCG TABLET PO SCH (06:41)
[2020-05-01 08:20] VITALS: BP 118/65
[2020-05-01] MEDS: PANTOPRAZOLE SODIUM 40 MG DR TABLET PO SCH (08:51)
[2020-05-01] MEDS: SENNA 187 MG TABLET PO SCH (08:51)
[2020-05-01] MEDS: LamoTRIgine 100 MG TABLET PO SCH (08:51)
[2020-05-01] MEDS: MAGNESIUM OXIDE 400 MG TABLET PO SCH ×3 (08:51→16:32)
[2020-05-01] MEDS: CHOLECALCIFEROL (VIT D3) 1,000 UNITS [25 MCG] TABLET PO SCH (08:51)
[2020-05-01] MEDS: ESCITALOPRAM OXALATE 20 MG TABLET PO SCH (08:51)
[2020-05-01] MEDS: DOCUSATE SODIUM 250 MG CAPSULE PO SCH (08:51)
[2020-05-01] MEDS: BusPIRone HCL 10 MG TABLET PO SCH ×3 (08:51→16:32)
[2020-05-01] MEDS: DIVALPROEX SODIUM 250 MG ER TABLET PO SCH (08:52)
[2020-05-01] MEDS: PSYLLIUM SEED ORANGE SF 5.8 GM/PACKET PO SCH ×2 (08:52→16:31)
[2020-05-01] MEDS: DIVALPROEX SODIUM 500 MG ER TABLET PO SCH (16:32)
[2020-05-01 16:33] VITALS: BP 110/81
[2020-05-01] MEDS: QUEtiapine FUMARATE 200 MG TABLET PO SCH (20:40)
[2020-05-01] MEDS: PRAZOSIN HCL 2 MG CAPSULE PO SCH (20:40)
[2020-05-02] MEDS: ZOLPIDEM TARTRATE 10 MG TABLET PO PRN ×2 (01:58→21:54)
[2020-05-02] MEDS: LEVOTHYROXINE SODIUM 125 MCG TABLET PO SCH (06:48)
[2020-05-02 08:53] VITALS: BP 107/75
[2020-05-02] MEDS: ESCITALOPRAM OXALATE 20 MG TABLET PO SCH (08:56)
[2020-05-02] MEDS: PANTOPRAZOLE SODIUM 40 MG DR TABLET PO SCH (08:56)
[2020-05-02] MEDS: PSYLLIUM SEED ORANGE SF 5.8 GM/PACKET PO SCH ×2 (08:56→16:34)
[2020-05-02] MEDS: DIVALPROEX SODIUM 250 MG ER TABLET PO SCH (08:56)
[2020-05-02] MEDS: CHOLECALCIFEROL (VIT D3) 1,000 UNITS [25 MCG] TABLET PO SCH (08:56)
[2020-05-02] MEDS: BusPIRone HCL 10 MG TABLET PO SCH ×3 (08:56→16:34)
[2020-05-02] MEDS: SENNA 187 MG TABLET PO SCH (08:56)
[2020-05-02] MEDS: LamoTRIgine 100 MG TABLET PO SCH (08:57)
[2020-05-02] MEDS: MAGNESIUM OXIDE 400 MG TABLET PO SCH ×3 (08:57→16:34)
[2020-05-02] MEDS: DOCUSATE SODIUM 250 MG CAPSULE PO SCH (08:57)
[2020-05-02 16:24] VITALS: BP 111/78
[2020-05-02] MEDS: DIVALPROEX SODIUM 500 MG ER TABLET PO SCH (16:34)
[2020-05-02] MEDS: QUEtiapine FUMARATE 200 MG TABLET PO SCH (20:17)
[2020-05-02] MEDS: PRAZOSIN HCL 2 MG CAPSULE PO SCH (20:17)
[2020-05-03] MEDS: LEVOTHYROXINE SODIUM 125 MCG TABLET PO SCH (06:42)
[2020-05-03] MEDS: DIVALPROEX SODIUM 250 MG ER TABLET PO SCH (09:00)
[2020-05-03] MEDS: BusPIRone HCL 10 MG TABLET PO SCH ×3 (09:00→15:58)
[2020-05-03] MEDS: ESCITALOPRAM OXALATE 20 MG TABLET PO SCH (09:00)
[2020-05-03] MEDS: DOCUSATE SODIUM 250 MG CAPSULE PO SCH (09:28)
[2020-05-03] MEDS: LamoTRIgine 100 MG TABLET PO SCH (09:28)
[2020-05-03] MEDS: PSYLLIUM SEED ORANGE SF 5.8 GM/PACKET PO SCH ×2 (09:29→15:58)
[2020-05-03] MEDS: PANTOPRAZOLE SODIUM 40 MG DR TABLET PO SCH (09:29)
[2020-05-03] MEDS: SENNA 187 MG TABLET PO SCH (09:29)
[2020-05-03] MEDS: CHOLECALCIFEROL (VIT D3) 1,000 UNITS [25 MCG] TABLET PO SCH (09:29)
[2020-05-03] MEDS: MAGNESIUM OXIDE 400 MG TABLET PO SCH ×3 (09:29→15:57)
[2020-05-03 10:33] VITALS: BP 126/76
[2020-05-03] MEDS: DIVALPROEX SODIUM 500 MG ER TABLET PO SCH (15:57)
[2020-05-03] MEDS: HALOPERIDOL 1 MG TABLET PO PRN (16:27)
[2020-05-03 16:29] VITALS: BP 129/67
[2020-05-03] MEDS: QUEtiapine FUMARATE 200 MG TABLET PO SCH (20:24)
[2020-05-04] MEDS: ZOLPIDEM TARTRATE 10 MG TABLET PO PRN ×2 (00:05→21:53)
[2020-05-04] MEDS: LEVOTHYROXINE SODIUM 125 MCG TABLET PO SCH (07:01)
[2020-05-04] MEDS: SENNA 187 MG TABLET PO SCH (08:19)
[2020-05-04] MEDS: DOCUSATE SODIUM 250 MG CAPSULE PO SCH (08:19)
[2020-05-04] MEDS: LamoTRIgine 100 MG TABLET PO SCH (08:19)
[2020-05-04] MEDS: MAGNESIUM OXIDE 400 MG TABLET PO SCH ×3 (08:20→16:57)
[2020-05-04] MEDS: DIVALPROEX SODIUM 250 MG ER TABLET PO SCH (08:20)
[2020-05-04] MEDS: PANTOPRAZOLE SODIUM 40 MG DR TABLET PO SCH (08:20)
[2020-05-04] MEDS: CHOLECALCIFEROL (VIT D3) 1,000 UNITS [25 MCG] TABLET PO SCH (08:20)
[2020-05-04] MEDS: BusPIRone HCL 10 MG TABLET PO SCH ×3 (08:20→16:57)
[2020-05-04] MEDS: PSYLLIUM SEED ORANGE SF 5.8 GM/PACKET PO SCH ×2 (08:21→16:57)
[2020-05-04] MEDS: ESCITALOPRAM OXALATE 20 MG TABLET PO SCH (08:21)
[2020-05-04 08:38] VITALS: BP 111/54
[2020-05-04 16:33] VITALS: BP 122/84
[2020-05-04] MEDS: DIVALPROEX SODIUM 500 MG ER TABLET PO SCH (16:58)
[2020-05-04] MEDS: QUEtiapine FUMARATE 200 MG TABLET PO SCH (20:22)
[2020-05-05] MEDS: LEVOTHYROXINE SODIUM 125 MCG TABLET PO SCH (06:54)
[2020-05-05] MEDS: DIVALPROEX SODIUM 250 MG ER TABLET PO SCH (08:31)
[2020-05-05] MEDS: PSYLLIUM SEED ORANGE SF 5.8 GM/PACKET PO SCH ×2 (08:31→16:37)
[2020-05-05] MEDS: DOCUSATE SODIUM 250 MG CAPSULE PO SCH (08:31)
[2020-05-05] MEDS: CHOLECALCIFEROL (VIT D3) 1,000 UNITS [25 MCG] TABLET PO SCH (08:31)
[2020-05-05] MEDS: BusPIRone HCL 10 MG TABLET PO SCH ×3 (08:31→16:37)
[2020-05-05] MEDS: MAGNESIUM OXIDE 400 MG TABLET PO SCH ×3 (08:32→16:37)
[2020-05-05] MEDS: PANTOPRAZOLE SODIUM 40 MG DR TABLET PO SCH (08:32)
[2020-05-05] MEDS: SENNA 187 MG TABLET PO SCH (08:32)
[2020-05-05] MEDS: LamoTRIgine 100 MG TABLET PO SCH (08:32)
[2020-05-05] MEDS: ESCITALOPRAM OXALATE 20 MG TABLET PO SCH (08:32)
[2020-05-05 09:35] VITALS: BP 112/71
[2020-05-05] MEDS: DIVALPROEX SODIUM 500 MG ER TABLET PO SCH (16:37)
[2020-05-05] MEDS: QUEtiapine FUMARATE 200 MG TABLET PO SCH (20:07)
[2020-05-06] MEDS: ZOLPIDEM TARTRATE 10 MG TABLET PO PRN (01:27)
[2020-05-06] MEDS: LEVOTHYROXINE SODIUM 125 MCG TABLET PO SCH (06:43)
[2020-05-06 08:02] VITALS: BP 121/85
[2020-05-06] MEDS: DOCUSATE SODIUM 250 MG CAPSULE PO SCH (09:11)
[2020-05-06] MEDS: CHOLECALCIFEROL (VIT D3) 1,000 UNITS [25 MCG] TABLET PO SCH (09:11)
[2020-05-06] MEDS: BusPIRone HCL 10 MG TABLET PO SCH ×3 (09:11→16:42)
[2020-05-06] MEDS: MAGNESIUM OXIDE 400 MG TABLET PO SCH ×3 (09:11→16:42)
[2020-05-06] MEDS: DIVALPROEX SODIUM 250 MG ER TABLET PO SCH (09:12)
[2020-05-06] MEDS: LamoTRIgine 100 MG TABLET PO SCH (09:12)
[2020-05-06] MEDS: PSYLLIUM SEED ORANGE SF 5.8 GM/PACKET PO SCH ×2 (09:12→16:43)
[2020-05-06] MEDS: ESCITALOPRAM OXALATE 20 MG TABLET PO SCH (09:12)
[2020-05-06] MEDS: PANTOPRAZOLE SODIUM 40 MG DR TABLET PO SCH (09:12)
[2020-05-06] MEDS: SENNA 187 MG TABLET PO SCH (09:12)
[2020-05-06 16:20] VITALS: BP 134/88
[2020-05-06] MEDS: DIVALPROEX SODIUM 500 MG ER TABLET PO SCH (16:42)
[2020-05-06] MEDS: QUEtiapine FUMARATE 200 MG TABLET PO SCH (20:40)
[2020-05-06] MEDS ORDERED: ZOLPIDEM TARTRATE 5 MG TABLET PO ONE (22:15)
[2020-05-07] MEDS: LEVOTHYROXINE SODIUM 125 MCG TABLET PO SCH (06:42)
[2020-05-07 08:00] VITALS: BP 140/76
[2020-05-07] MEDS: BusPIRone HCL 10 MG TABLET PO SCH ×3 (08:08→16:07)
[2020-05-07] MEDS: PSYLLIUM SEED ORANGE SF 5.8 GM/PACKET PO SCH ×2 (08:08→16:06)
[2020-05-07] MEDS: SENNA 187 MG TABLET PO SCH (08:09)
[2020-05-07] MEDS: CHOLECALCIFEROL (VIT D3) 1,000 UNITS [25 MCG] TABLET PO SCH (08:09)
[2020-05-07] MEDS: PANTOPRAZOLE SODIUM 40 MG DR TABLET PO SCH (08:09)
[2020-05-07] MEDS: LamoTRIgine 100 MG TABLET PO SCH (08:09)
[2020-05-07] MEDS: DIVALPROEX SODIUM 250 MG ER TABLET PO SCH (08:09)
[2020-05-07] MEDS: DOCUSATE SODIUM 250 MG CAPSULE PO SCH (08:09)
[2020-05-07] MEDS: MAGNESIUM OXIDE 400 MG TABLET PO SCH ×3 (08:10→16:07)
[2020-05-07] MEDS: ESCITALOPRAM OXALATE 20 MG TABLET PO SCH (08:10)
[2020-05-07] MEDS: DIVALPROEX SODIUM 500 MG ER TABLET PO SCH (16:07)
[2020-05-07 16:31] VITALS: BP 132/72
[2020-05-07] MEDS: QUEtiapine FUMARATE 200 MG TABLET PO SCH (20:46)
[2020-05-07] MEDS ORDERED: ZALEPLON 5 MG CAPSULE PO SCH (21:00)
[2020-05-07] MEDS ORDERED: GABAPENTIN 400 MG CAPSULE PO SCH (21:00)
[2020-05-08] MEDS: LEVOTHYROXINE SODIUM 125 MCG TABLET PO SCH (06:47)
[2020-05-08] MEDS: LamoTRIgine 100 MG TABLET PO SCH (08:09)
[2020-05-08] MEDS: CHOLECALCIFEROL (VIT D3) 1,000 UNITS [25 MCG] TABLET PO SCH (08:09)
[2020-05-08] MEDS: ESCITALOPRAM OXALATE 20 MG TABLET PO SCH (08:09)
[2020-05-08] MEDS: MAGNESIUM OXIDE 400 MG TABLET PO SCH ×3 (08:09→16:04)
[2020-05-08] MEDS: SENNA 187 MG TABLET PO SCH (08:09)
[2020-05-08] MEDS: BusPIRone HCL 10 MG TABLET PO SCH ×3 (08:10→16:04)
[2020-05-08] MEDS: DIVALPROEX SODIUM 250 MG ER TABLET PO SCH (08:10)
[2020-05-08] MEDS: DOCUSATE SODIUM 250 MG CAPSULE PO SCH (08:10)
[2020-05-08] MEDS: PSYLLIUM SEED ORANGE SF 5.8 GM/PACKET PO SCH ×2 (08:10→16:04)
[2020-05-08] MEDS: PANTOPRAZOLE SODIUM 40 MG DR TABLET PO SCH (08:10)
[2020-05-08 09:46] VITALS: BP 122/56
[2020-05-08 16:00] VITALS: BP 103/65
[2020-05-08] MEDS: DIVALPROEX SODIUM 500 MG ER TABLET PO SCH (16:04)
[2020-05-08] MEDS: ZOLPIDEM TARTRATE 10 MG TABLET PO SCH (21:17)
[2020-05-08] MEDS: QUEtiapine FUMARATE 200 MG TABLET PO SCH (21:18)
[2020-05-09] MEDS: LEVOTHYROXINE SODIUM 125 MCG TABLET PO SCH (06:43)
[2020-05-09] MEDS: SENNA 187 MG TABLET PO SCH (08:39)
[2020-05-09] MEDS: DOCUSATE SODIUM 250 MG CAPSULE PO SCH (08:39)
[2020-05-09] MEDS: BusPIRone HCL 10 MG TABLET PO SCH ×3 (08:39→16:09)
[2020-05-09] MEDS: CHOLECALCIFEROL (VIT D3) 1,000 UNITS [25 MCG] TABLET PO SCH (08:39)
[2020-05-09] MEDS: MAGNESIUM OXIDE 400 MG TABLET PO SCH ×3 (08:39→16:09)
[2020-05-09] MEDS: DIVALPROEX SODIUM 250 MG ER TABLET PO SCH (08:39)
[2020-05-09] MEDS: ESCITALOPRAM OXALATE 20 MG TABLET PO SCH (08:39)
[2020-05-09] MEDS: PANTOPRAZOLE SODIUM 40 MG DR TABLET PO SCH (08:39)
[2020-05-09] MEDS: LamoTRIgine 100 MG TABLET PO SCH (08:39)
[2020-05-09] MEDS: PSYLLIUM SEED ORANGE SF 5.8 GM/PACKET PO SCH ×2 (08:40→16:09)
[2020-05-09 09:30] VITALS: BP 109/64
[2020-05-09] MEDS: DIVALPROEX SODIUM 500 MG ER TABLET PO SCH (16:09)
[2020-05-09 17:45] VITALS: BP 114/68
[2020-05-09] MEDS: QUEtiapine FUMARATE 200 MG TABLET PO SCH (20:50)
[2020-05-09] MEDS: ZOLPIDEM TARTRATE 10 MG TABLET PO SCH (20:50)
[2020-05-10] MEDS: LEVOTHYROXINE SODIUM 125 MCG TABLET PO SCH (07:19)
[2020-05-10] MEDS: ESCITALOPRAM OXALATE 20 MG TABLET PO SCH (08:06)
[2020-05-10] MEDS: DIVALPROEX SODIUM 250 MG ER TABLET PO SCH (08:06)
[2020-05-10] MEDS: LamoTRIgine 100 MG TABLET PO SCH (08:06)
[2020-05-10] MEDS: MAGNESIUM OXIDE 400 MG TABLET PO SCH ×3 (08:06→17:01)
[2020-05-10] MEDS: PANTOPRAZOLE SODIUM 40 MG DR TABLET PO SCH (08:06)
[2020-05-10] MEDS: DOCUSATE SODIUM 250 MG CAPSULE PO SCH (08:06)
[2020-05-10] MEDS: BusPIRone HCL 10 MG TABLET PO SCH ×3 (08:06→17:01)
[2020-05-10] MEDS: CHOLECALCIFEROL (VIT D3) 1,000 UNITS [25 MCG] TABLET PO SCH (08:06)
[2020-05-10] MEDS: PSYLLIUM SEED ORANGE SF 5.8 GM/PACKET PO SCH ×2 (08:07→17:01)
[2020-05-10] MEDS: SENNA 187 MG TABLET PO SCH (08:08)
[2020-05-10 09:04] VITALS: BP 109/77
[2020-05-10 16:47] VITALS: BP 135/84
[2020-05-10] MEDS: DIVALPROEX SODIUM 500 MG ER TABLET PO SCH (17:01)
[2020-05-10] MEDS: QUEtiapine FUMARATE 200 MG TABLET PO SCH (20:50)
[2020-05-10] MEDS: ZOLPIDEM TARTRATE 10 MG TABLET PO SCH (20:50)
[2020-05-10] MEDS: IBUPROFEN 400 MG TABLET PO PRN (21:04)
[2020-05-11] MEDS: LEVOTHYROXINE SODIUM 125 MCG TABLET PO SCH (06:30)
[2020-05-11 06:45] VITALS: BP 121/73
[2020-05-11] MEDS: IBUPROFEN 400 MG TABLET PO PRN (06:45)
[2020-05-11 07:45] VITALS: BP 122/70
[2020-05-11 08:22] VITALS: BP 122/70
[2020-05-11] MEDS: PANTOPRAZOLE SODIUM 40 MG DR TABLET PO SCH (09:11)
[2020-05-11] MEDS: CHOLECALCIFEROL (VIT D3) 1,000 UNITS [25 MCG] TABLET PO SCH (09:11)
[2020-05-11] MEDS: LamoTRIgine 100 MG TABLET PO SCH (09:11)
[2020-05-11] MEDS: BusPIRone HCL 10 MG TABLET PO SCH ×3 (09:11→16:11)
[2020-05-11] MEDS: MAGNESIUM OXIDE 400 MG TABLET PO SCH ×3 (09:11→16:11)
[2020-05-11] MEDS: ESCITALOPRAM OXALATE 20 MG TABLET PO SCH (09:11)
[2020-05-11] MEDS: DOCUSATE SODIUM 250 MG CAPSULE PO SCH (09:11)
[2020-05-11] MEDS: DIVALPROEX SODIUM 250 MG ER TABLET PO SCH (09:12)
[2020-05-11] MEDS: PSYLLIUM SEED ORANGE SF 5.8 GM/PACKET PO SCH ×2 (09:13→16:11)
[2020-05-11] MEDS: SENNA 187 MG TABLET PO SCH (09:24)
[2020-05-11] MEDS: HALOPERIDOL 1 MG TABLET PO PRN (12:33)
[2020-05-11] MEDS: DIVALPROEX SODIUM 500 MG ER TABLET PO SCH (16:11)
[2020-05-11 16:28] VITALS: BP 115/78
[2020-05-11] MEDS: ZOLPIDEM TARTRATE 10 MG TABLET PO SCH (20:36)
[2020-05-11] MEDS: QUEtiapine FUMARATE 200 MG TABLET PO SCH (20:36)
[2020-05-12] MEDS: LEVOTHYROXINE SODIUM 125 MCG TABLET PO SCH (06:12)
[2020-05-12 08:24] VITALS: BP 111/70
[2020-05-12] MEDS: BusPIRone HCL 10 MG TABLET PO SCH ×3 (08:41→16:11)
[2020-05-12] MEDS: CHOLECALCIFEROL (VIT D3) 1,000 UNITS [25 MCG] TABLET PO SCH (08:41)
[2020-05-12] MEDS: DOCUSATE SODIUM 250 MG CAPSULE PO SCH (08:41)
[2020-05-12] MEDS: PANTOPRAZOLE SODIUM 40 MG DR TABLET PO SCH (08:41)
[2020-05-12] MEDS: MAGNESIUM OXIDE 400 MG TABLET PO SCH ×3 (08:41→16:11)
[2020-05-12] MEDS: PSYLLIUM SEED ORANGE SF 5.8 GM/PACKET PO SCH ×2 (08:41→16:11)
[2020-05-12] MEDS: ESCITALOPRAM OXALATE 20 MG TABLET PO SCH (08:42)
[2020-05-12] MEDS: LamoTRIgine 100 MG TABLET PO SCH (08:42)
[2020-05-12] MEDS: SENNA 187 MG TABLET PO SCH (08:42)
[2020-05-12] MEDS: DIVALPROEX SODIUM 250 MG ER TABLET PO SCH (08:42)
[2020-05-12] MEDS: HALOPERIDOL 1 MG TABLET PO PRN (15:15)
[2020-05-12] MEDS: DIVALPROEX SODIUM 500 MG ER TABLET PO SCH (16:11)
[2020-05-12 16:42] VITALS: BP 125/85
[2020-05-12] MEDS: ZOLPIDEM TARTRATE 10 MG TABLET PO SCH (20:55)
[2020-05-12] MEDS: QUEtiapine FUMARATE 200 MG TABLET PO SCH (20:57)
[2020-05-13] MEDS: HALOPERIDOL 1 MG TABLET PO PRN (02:42)
[2020-05-13] MEDS: LEVOTHYROXINE SODIUM 125 MCG TABLET PO SCH (06:44)
[2020-05-13] MEDS: DIVALPROEX SODIUM 250 MG ER TABLET PO SCH (08:11)
[2020-05-13] MEDS: CHOLECALCIFEROL (VIT D3) 1,000 UNITS [25 MCG] TABLET PO SCH (08:11)
[2020-05-13] MEDS: MAGNESIUM OXIDE 400 MG TABLET PO SCH ×3 (08:11→17:13)
[2020-05-13] MEDS: DOCUSATE SODIUM 250 MG CAPSULE PO SCH (08:11)
[2020-05-13] MEDS: SENNA 187 MG TABLET PO SCH (08:12)
[2020-05-13] MEDS: ESCITALOPRAM OXALATE 20 MG TABLET PO SCH (08:12)
[2020-05-13] MEDS: LamoTRIgine 100 MG TABLET PO SCH (08:12)
[2020-05-13] MEDS: PANTOPRAZOLE SODIUM 40 MG DR TABLET PO SCH (08:12)
[2020-05-13] MEDS: BusPIRone HCL 10 MG TABLET PO SCH ×3 (08:12→17:13)
[2020-05-13] MEDS: PSYLLIUM SEED ORANGE SF 5.8 GM/PACKET PO SCH ×2 (08:13→17:13)
[2020-05-13 08:28] VITALS: BP 116/74
[2020-05-13] MEDS: DIVALPROEX SODIUM 500 MG ER TABLET PO SCH (17:13)
[2020-05-13 17:15] VITALS: BP 113/85
[2020-05-13] MEDS: ZOLPIDEM TARTRATE 10 MG TABLET PO SCH (21:30)
[2020-05-13] MEDS: QUEtiapine FUMARATE 200 MG TABLET PO SCH (21:30)
[2020-05-14] MEDS: LEVOTHYROXINE SODIUM 125 MCG TABLET PO SCH (06:47)
[2020-05-14] MEDS: DOCUSATE SODIUM 250 MG CAPSULE PO SCH (08:10)
[2020-05-14] MEDS: PANTOPRAZOLE SODIUM 40 MG DR TABLET PO SCH (08:10)
[2020-05-14] MEDS: MAGNESIUM OXIDE 400 MG TABLET PO SCH ×3 (08:10→16:26)
[2020-05-14] MEDS: CHOLECALCIFEROL (VIT D3) 1,000 UNITS [25 MCG] TABLET PO SCH (08:10)
[2020-05-14] MEDS: BusPIRone HCL 10 MG TABLET PO SCH ×3 (08:10→16:26)
[2020-05-14] MEDS: ESCITALOPRAM OXALATE 20 MG TABLET PO SCH (08:10)
[2020-05-14] MEDS: DIVALPROEX SODIUM 250 MG ER TABLET PO SCH (08:11)
[2020-05-14] MEDS: PSYLLIUM SEED ORANGE SF 5.8 GM/PACKET PO SCH ×2 (08:11→16:25)
[2020-05-14] MEDS: LamoTRIgine 100 MG TABLET PO SCH (08:11)
[2020-05-14] MEDS: SENNA 187 MG TABLET PO SCH (08:11)
[2020-05-14 08:14] VITALS: BP 127/74
[2020-05-14] MEDS: DIVALPROEX SODIUM 500 MG ER TABLET PO SCH (16:26)
[2020-05-14 16:53] VITALS: BP 109/68
[2020-05-14] MEDS: QUEtiapine FUMARATE 200 MG TABLET PO SCH (20:30)
[2020-05-14] MEDS: ZOLPIDEM TARTRATE 10 MG TABLET PO SCH (20:30)
[2020-05-15] MEDS: HALOPERIDOL 1 MG TABLET PO PRN (04:56)
[2020-05-15] MEDS: LEVOTHYROXINE SODIUM 125 MCG TABLET PO SCH (06:40)
[2020-05-15] MEDS: BusPIRone HCL 10 MG TABLET PO SCH ×3 (08:49→16:30)
[2020-05-15] MEDS: CHOLECALCIFEROL (VIT D3) 1,000 UNITS [25 MCG] TABLET PO SCH (08:49)
[2020-05-15] MEDS: SENNA 187 MG TABLET PO SCH (08:50)
[2020-05-15] MEDS: ESCITALOPRAM OXALATE 20 MG TABLET PO SCH (08:50)
[2020-05-15] MEDS: PANTOPRAZOLE SODIUM 40 MG DR TABLET PO SCH (08:50)
[2020-05-15] MEDS: MAGNESIUM OXIDE 400 MG TABLET PO SCH ×3 (08:50→16:30)
[2020-05-15] MEDS: PSYLLIUM SEED ORANGE SF 5.8 GM/PACKET PO SCH ×2 (08:50→16:30)
[2020-05-15] MEDS: DOCUSATE SODIUM 250 MG CAPSULE PO SCH (08:50)
[2020-05-15] MEDS: DIVALPROEX SODIUM 250 MG ER TABLET PO SCH (08:51)
[2020-05-15] MEDS: LamoTRIgine 100 MG TABLET PO SCH (08:52)
[2020-05-15 09:07] VITALS: BP 115/74
[2020-05-15 16:25] VITALS: BP 112/75
[2020-05-15] MEDS: DIVALPROEX SODIUM 500 MG ER TABLET PO SCH (16:30)
[2020-05-15] MEDS: ZOLPIDEM TARTRATE 10 MG TABLET PO SCH (20:55)
[2020-05-15] MEDS: QUEtiapine FUMARATE 200 MG TABLET PO SCH (20:55)
[2020-05-16] MEDS: LEVOTHYROXINE SODIUM 125 MCG TABLET PO SCH (06:43)
[2020-05-16] MEDS: MAGNESIUM OXIDE 400 MG TABLET PO SCH ×3 (08:12→16:22)
[2020-05-16] MEDS: SENNA 187 MG TABLET PO SCH (08:12)
[2020-05-16] MEDS: PANTOPRAZOLE SODIUM 40 MG DR TABLET PO SCH (08:12)
[2020-05-16] MEDS: BusPIRone HCL 10 MG TABLET PO SCH ×3 (08:12→16:23)
[2020-05-16] MEDS: ESCITALOPRAM OXALATE 20 MG TABLET PO SCH (08:13)
[2020-05-16] MEDS: DIVALPROEX SODIUM 250 MG ER TABLET PO SCH (08:13)
[2020-05-16] MEDS: LamoTRIgine 100 MG TABLET PO SCH (08:13)
[2020-05-16] MEDS: PSYLLIUM SEED ORANGE SF 5.8 GM/PACKET PO SCH ×2 (08:13→16:23)
[2020-05-16] MEDS: DOCUSATE SODIUM 100 MG CAPSULE PO PRN ×2 (08:15→08:16)
[2020-05-16] MEDS: CHOLECALCIFEROL (VIT D3) 1,000 UNITS [25 MCG] TABLET PO SCH (08:15)
[2020-05-16] MEDS: DOCUSATE SODIUM 250 MG CAPSULE PO SCH ×2 (08:17→08:22)
[2020-05-16 09:18] VITALS: BP 105/66
[2020-05-16] MEDS: DIVALPROEX SODIUM 500 MG ER TABLET PO SCH (16:23)
[2020-05-16 16:30] VITALS: BP 117/75
[2020-05-16] MEDS: QUEtiapine FUMARATE 200 MG TABLET PO SCH (21:03)
[2020-05-16] MEDS: ZOLPIDEM TARTRATE 10 MG TABLET PO SCH (21:04)
[2020-05-17] MEDS: LEVOTHYROXINE SODIUM 125 MCG TABLET PO SCH (06:44)
[2020-05-17] MEDS: BusPIRone HCL 10 MG TABLET PO SCH ×3 (09:16→16:16)
[2020-05-17] MEDS: SENNA 187 MG TABLET PO SCH (09:17)
[2020-05-17] MEDS: CHOLECALCIFEROL (VIT D3) 1,000 UNITS [25 MCG] TABLET PO SCH (09:17)
[2020-05-17] MEDS: DIVALPROEX SODIUM 250 MG ER TABLET PO SCH (09:17)
[2020-05-17] MEDS: ESCITALOPRAM OXALATE 20 MG TABLET PO SCH (09:17)
[2020-05-17] MEDS: LamoTRIgine 100 MG TABLET PO SCH (09:17)
[2020-05-17] MEDS: DOCUSATE SODIUM 250 MG CAPSULE PO SCH (09:17)
[2020-05-17] MEDS: MAGNESIUM OXIDE 400 MG TABLET PO SCH ×3 (09:17→16:16)
[2020-05-17] MEDS: PANTOPRAZOLE SODIUM 40 MG DR TABLET PO SCH (09:17)
[2020-05-17] MEDS: PSYLLIUM SEED ORANGE SF 5.8 GM/PACKET PO SCH ×2 (09:18→16:17)
[2020-05-17 09:29] VITALS: BP 128/75
[2020-05-17] MEDS: DIVALPROEX SODIUM 500 MG ER TABLET PO SCH (16:16)
[2020-05-17 16:18] VITALS: BP 114/77
[2020-05-17] MEDS: QUEtiapine FUMARATE 200 MG TABLET PO SCH (20:42)
[2020-05-17] MEDS: ZOLPIDEM TARTRATE 10 MG TABLET PO SCH (20:42)
[2020-05-18] MEDS: LEVOTHYROXINE SODIUM 125 MCG TABLET PO SCH (06:54)
[2020-05-18] MEDS: PANTOPRAZOLE SODIUM 40 MG DR TABLET PO SCH (09:01)
[2020-05-18] MEDS: MAGNESIUM OXIDE 400 MG TABLET PO SCH ×3 (09:01→17:23)
[2020-05-18] MEDS: ESCITALOPRAM OXALATE 20 MG TABLET PO SCH (09:01)
[2020-05-18] MEDS: DIVALPROEX SODIUM 250 MG ER TABLET PO SCH (09:01)
[2020-05-18] MEDS: CHOLECALCIFEROL (VIT D3) 1,000 UNITS [25 MCG] TABLET PO SCH (09:01)
[2020-05-18] MEDS: SENNA 187 MG TABLET PO SCH (09:01)
[2020-05-18] MEDS: BusPIRone HCL 10 MG TABLET PO SCH ×3 (09:01→17:23)
[2020-05-18] MEDS: LamoTRIgine 100 MG TABLET PO SCH (09:02)
[2020-05-18] MEDS: DOCUSATE SODIUM 250 MG CAPSULE PO SCH (09:02)
[2020-05-18] MEDS: PSYLLIUM SEED ORANGE SF 5.8 GM/PACKET PO SCH ×2 (09:02→17:22)
[2020-05-18 09:15] VITALS: BP 101/67
[2020-05-18 17:11] VITALS: BP 93/63
[2020-05-18] MEDS: DIVALPROEX SODIUM 500 MG ER TABLET PO SCH (17:23)
[2020-05-18] MEDS: QUEtiapine FUMARATE 200 MG TABLET PO SCH (20:43)
[2020-05-18] MEDS: ZOLPIDEM TARTRATE 10 MG TABLET PO SCH (20:43)
[2020-05-19] MEDS: LEVOTHYROXINE SODIUM 125 MCG TABLET PO SCH (06:29)
[2020-05-19 09:00] VITALS: BP 91/58
[2020-05-19] MEDS: BusPIRone HCL 10 MG TABLET PO SCH ×3 (10:03→16:38)
[2020-05-19] MEDS: CHOLECALCIFEROL (VIT D3) 1,000 UNITS [25 MCG] TABLET PO SCH (10:04)
[2020-05-19] MEDS: DIVALPROEX SODIUM 250 MG ER TABLET PO SCH (10:04)
[2020-05-19] MEDS: MAGNESIUM OXIDE 400 MG TABLET PO SCH ×3 (10:04→16:38)
[2020-05-19] MEDS: LamoTRIgine 100 MG TABLET PO SCH (10:04)
[2020-05-19] MEDS: PANTOPRAZOLE SODIUM 40 MG DR TABLET PO SCH (10:04)
[2020-05-19] MEDS: SENNA 187 MG TABLET PO SCH (10:04)
[2020-05-19] MEDS: DOCUSATE SODIUM 250 MG CAPSULE PO SCH (10:04)
[2020-05-19] MEDS: ESCITALOPRAM OXALATE 20 MG TABLET PO SCH (10:04)
[2020-05-19] MEDS: PSYLLIUM SEED ORANGE SF 5.8 GM/PACKET PO SCH ×2 (10:14→16:37)
[2020-05-19] MEDS: DIVALPROEX SODIUM 500 MG ER TABLET PO SCH (16:37)
[2020-05-19 16:42] VITALS: BP 101/64
[2020-05-19] MEDS: ZOLPIDEM TARTRATE 10 MG TABLET PO SCH (20:58)
[2020-05-19] MEDS: QUEtiapine FUMARATE 200 MG TABLET PO SCH (20:58)
[2020-05-20] MEDS: LEVOTHYROXINE SODIUM 125 MCG TABLET PO SCH (06:47)
[2020-05-20] MEDS: CHOLECALCIFEROL (VIT D3) 1,000 UNITS [25 MCG] TABLET PO SCH (08:30)
[2020-05-20] MEDS: BusPIRone HCL 10 MG TABLET PO SCH ×3 (08:30→16:26)
[2020-05-20] MEDS: MAGNESIUM OXIDE 400 MG TABLET PO SCH ×3 (08:30→16:27)
[2020-05-20] MEDS: DOCUSATE SODIUM 250 MG CAPSULE PO SCH (08:31)
[2020-05-20] MEDS: LamoTRIgine 100 MG TABLET PO SCH (08:31)
[2020-05-20] MEDS: DIVALPROEX SODIUM 250 MG ER TABLET PO SCH (08:31)
[2020-05-20] MEDS: ESCITALOPRAM OXALATE 20 MG TABLET PO SCH (08:31)
[2020-05-20] MEDS: SENNA 187 MG TABLET PO SCH (08:31)
[2020-05-20] MEDS: PSYLLIUM SEED ORANGE SF 5.8 GM/PACKET PO SCH ×2 (08:31→16:25)
[2020-05-20] MEDS: PANTOPRAZOLE SODIUM 40 MG DR TABLET PO SCH (08:32)
[2020-05-20 08:42] VITALS: BP 133/70
[2020-05-20 16:18] VITALS: BP 119/76
[2020-05-20] MEDS: DIVALPROEX SODIUM 500 MG ER TABLET PO SCH (16:27)
[2020-05-20] MEDS: ZOLPIDEM TARTRATE 10 MG TABLET PO SCH (21:40)
[2020-05-20] MEDS: QUEtiapine FUMARATE 200 MG TABLET PO SCH (21:41)
[2020-05-21] MEDS: LEVOTHYROXINE SODIUM 125 MCG TABLET PO SCH (06:48)
[2020-05-21 08:22] VITALS: BP 122/71
[2020-05-21] MEDS: CHOLECALCIFEROL (VIT D3) 1,000 UNITS [25 MCG] TABLET PO SCH (08:47)
[2020-05-21] MEDS: BusPIRone HCL 10 MG TABLET PO SCH ×3 (08:47→16:54)
[2020-05-21] MEDS: PANTOPRAZOLE SODIUM 40 MG DR TABLET PO SCH (08:47)
[2020-05-21] MEDS: DOCUSATE SODIUM 250 MG CAPSULE PO SCH (08:47)
[2020-05-21] MEDS: MAGNESIUM OXIDE 400 MG TABLET PO SCH ×3 (08:47→16:54)
[2020-05-21] MEDS: ESCITALOPRAM OXALATE 20 MG TABLET PO SCH (08:47)
[2020-05-21] MEDS: SENNA 187 MG TABLET PO SCH (08:47)
[2020-05-21] MEDS: PSYLLIUM SEED ORANGE SF 5.8 GM/PACKET PO SCH ×2 (08:48→16:54)
[2020-05-21] MEDS: DIVALPROEX SODIUM 250 MG ER TABLET PO SCH (08:48)
[2020-05-21] MEDS: LamoTRIgine 100 MG TABLET PO SCH (08:48)
[2020-05-21 16:15] VITALS: BP 127/76
[2020-05-21] MEDS: DIVALPROEX SODIUM 500 MG ER TABLET PO SCH (16:53)
[2020-05-21] MEDS: ZOLPIDEM TARTRATE 10 MG TABLET PO SCH (21:31)
[2020-05-21] MEDS: QUEtiapine FUMARATE 200 MG TABLET PO SCH (21:32)
[2020-05-22] MEDS: LEVOTHYROXINE SODIUM 125 MCG TABLET PO SCH (06:52)
[2020-05-22] MEDS: PSYLLIUM SEED ORANGE SF 5.8 GM/PACKET PO SCH ×2 (08:54→16:46)
[2020-05-22] MEDS: CHOLECALCIFEROL (VIT D3) 1,000 UNITS [25 MCG] TABLET PO SCH (08:54)
[2020-05-22] MEDS: MAGNESIUM OXIDE 400 MG TABLET PO SCH ×3 (08:54→16:46)
[2020-05-22] MEDS: DIVALPROEX SODIUM 250 MG ER TABLET PO SCH (08:55)
[2020-05-22] MEDS: DOCUSATE SODIUM 250 MG CAPSULE PO SCH (08:55)
[2020-05-22] MEDS: SENNA 187 MG TABLET PO SCH (08:55)
[2020-05-22] MEDS: ESCITALOPRAM OXALATE 20 MG TABLET PO SCH (08:55)
[2020-05-22] MEDS: BusPIRone HCL 15 MG TABLET PO SCH ×2 (08:55→20:40)
[2020-05-22] MEDS: PANTOPRAZOLE SODIUM 40 MG DR TABLET PO SCH (08:55)
[2020-05-22] MEDS: LamoTRIgine 100 MG TABLET PO SCH (08:55)
[2020-05-22 09:10] VITALS: BP 101/66
[2020-05-22 16:38] VITALS: BP 123/76
[2020-05-22] MEDS: DIVALPROEX SODIUM 500 MG ER TABLET PO SCH (20:40)
[2020-05-22] MEDS: ZOLPIDEM TARTRATE 10 MG TABLET PO SCH (20:40)
[2020-05-22] MEDS: QUEtiapine FUMARATE 200 MG TABLET PO SCH (20:41)
[2020-05-23] MEDS: LEVOTHYROXINE SODIUM 125 MCG TABLET PO SCH (06:47)
[2020-05-23] MEDS: CHOLECALCIFEROL (VIT D3) 1,000 UNITS [25 MCG] TABLET PO SCH (08:39)
[2020-05-23] MEDS: PANTOPRAZOLE SODIUM 40 MG DR TABLET PO SCH (08:39)
[2020-05-23] MEDS: ESCITALOPRAM OXALATE 20 MG TABLET PO SCH (08:39)
[2020-05-23] MEDS: BusPIRone HCL 15 MG TABLET PO SCH ×2 (08:39→21:19)
[2020-05-23] MEDS: DOCUSATE SODIUM 250 MG CAPSULE PO SCH (08:40)
[2020-05-23] MEDS: PSYLLIUM SEED ORANGE SF 5.8 GM/PACKET PO SCH ×2 (08:40→16:14)
[2020-05-23] MEDS: MAGNESIUM OXIDE 400 MG TABLET PO SCH ×3 (08:40→16:14)
[2020-05-23] MEDS: LamoTRIgine 100 MG TABLET PO SCH (08:40)
[2020-05-23] MEDS: DIVALPROEX SODIUM 250 MG ER TABLET PO SCH (08:40)
[2020-05-23] MEDS: SENNA 187 MG TABLET PO SCH (08:40)
[2020-05-23 08:48] VITALS: BP 122/71
[2020-05-23 16:10] VITALS: BP 126/82
[2020-05-23] MEDS: QUEtiapine FUMARATE 200 MG TABLET PO SCH (21:19)
[2020-05-23] MEDS: DIVALPROEX SODIUM 500 MG ER TABLET PO SCH (21:19)
[2020-05-23] MEDS: ZOLPIDEM TARTRATE 10 MG TABLET PO SCH (21:19)
[2020-05-24] MEDS: HALOPERIDOL 1 MG TABLET PO PRN (02:55)
[2020-05-24] MEDS: LEVOTHYROXINE SODIUM 125 MCG TABLET PO SCH (06:43)
[2020-05-24 08:33] VITALS: BP 119/73
[2020-05-24] MEDS: PANTOPRAZOLE SODIUM 40 MG DR TABLET PO SCH (08:41)
[2020-05-24] MEDS: CHOLECALCIFEROL (VIT D3) 1,000 UNITS [25 MCG] TABLET PO SCH (08:41)
[2020-05-24] MEDS: DOCUSATE SODIUM 250 MG CAPSULE PO SCH (08:41)
[2020-05-24] MEDS: BusPIRone HCL 15 MG TABLET PO SCH ×2 (08:42→20:44)
[2020-05-24] MEDS: MAGNESIUM OXIDE 400 MG TABLET PO SCH ×3 (08:42→17:06)
[2020-05-24] MEDS: ESCITALOPRAM OXALATE 20 MG TABLET PO SCH (08:42)
[2020-05-24] MEDS: LamoTRIgine 100 MG TABLET PO SCH (08:42)
[2020-05-24] MEDS: DIVALPROEX SODIUM 250 MG ER TABLET PO SCH (08:42)
[2020-05-24] MEDS: PSYLLIUM SEED ORANGE SF 5.8 GM/PACKET PO SCH ×2 (08:42→17:06)
[2020-05-24] MEDS: SENNA 187 MG TABLET PO SCH (08:43)
[2020-05-24 16:39] VITALS: BP 121/71
[2020-05-24] MEDS: DIVALPROEX SODIUM 500 MG ER TABLET PO SCH (20:37)
[2020-05-24] MEDS: ZOLPIDEM TARTRATE 10 MG TABLET PO SCH (20:37)
[2020-05-24] MEDS: QUEtiapine FUMARATE 200 MG TABLET PO SCH (20:37)
[2020-05-25] MEDS: LEVOTHYROXINE SODIUM 125 MCG TABLET PO SCH (06:53)
[2020-05-25 08:06] VITALS: BP 107/72
[2020-05-25] MEDS: BusPIRone HCL 15 MG TABLET PO SCH ×2 (09:02→20:59)
[2020-05-25] MEDS: MAGNESIUM OXIDE 400 MG TABLET PO SCH ×3 (09:02→15:56)
[2020-05-25] MEDS: DIVALPROEX SODIUM 250 MG ER TABLET PO SCH (09:02)
[2020-05-25] MEDS: PANTOPRAZOLE SODIUM 40 MG DR TABLET PO SCH (09:02)
[2020-05-25] MEDS: CHOLECALCIFEROL (VIT D3) 1,000 UNITS [25 MCG] TABLET PO SCH (09:02)
[2020-05-25] MEDS: DOCUSATE SODIUM 250 MG CAPSULE PO SCH (09:02)
[2020-05-25] MEDS: ESCITALOPRAM OXALATE 20 MG TABLET PO SCH (09:02)
[2020-05-25] MEDS: SENNA 187 MG TABLET PO SCH (09:03)
[2020-05-25] MEDS: PSYLLIUM SEED ORANGE SF 5.8 GM/PACKET PO SCH ×2 (09:03→15:56)
[2020-05-25] MEDS: LamoTRIgine 100 MG TABLET PO SCH (09:03)
[2020-05-25 16:06] VITALS: BP 95/60
[2020-05-25] MEDS: QUEtiapine FUMARATE 200 MG TABLET PO SCH (20:59)
[2020-05-25] MEDS: ZOLPIDEM TARTRATE 10 MG TABLET PO SCH (20:59)
[2020-05-25] MEDS: DIVALPROEX SODIUM 500 MG ER TABLET PO SCH (20:59)
[2020-05-26] MEDS: LEVOTHYROXINE SODIUM 125 MCG TABLET PO SCH (06:41)
[2020-05-26] MEDS: LamoTRIgine 100 MG TABLET PO SCH (08:59)
[2020-05-26] MEDS: DIVALPROEX SODIUM 250 MG ER TABLET PO SCH (08:59)
[2020-05-26] MEDS: CHOLECALCIFEROL (VIT D3) 1,000 UNITS [25 MCG] TABLET PO SCH (08:59)
[2020-05-26] MEDS: PANTOPRAZOLE SODIUM 40 MG DR TABLET PO SCH (08:59)
[2020-05-26] MEDS: BusPIRone HCL 15 MG TABLET PO SCH ×2 (08:59→21:04)
[2020-05-26] MEDS: MAGNESIUM OXIDE 400 MG TABLET PO SCH ×3 (08:59→16:05)
[2020-05-26] MEDS: DOCUSATE SODIUM 250 MG CAPSULE PO SCH (08:59)
[2020-05-26] MEDS: ESCITALOPRAM OXALATE 20 MG TABLET PO SCH (08:59)
[2020-05-26] MEDS: PSYLLIUM SEED ORANGE SF 5.8 GM/PACKET PO SCH ×2 (09:00→16:02)
[2020-05-26] MEDS: SENNA 187 MG TABLET PO SCH (09:00)
[2020-05-26 09:44] VITALS: BP 92/55
[2020-05-26] MEDS: HALOPERIDOL 1 MG TABLET PO PRN (13:31)
[2020-05-26] MEDS: ACETAMINOPHEN 325 MG TABLET PO PRN ×2 (16:38→22:42)
[2020-05-26 16:39] VITALS: BP 129/82
[2020-05-26] MEDS ORDERED: HydrOXYzine PAMOATE 25 MG CAPSULE PO PRN (17:00)
[2020-05-26] MEDS ORDERED: HydrOXYzine PAMOATE 50 MG CAPSULE PO PRN (17:15)
[2020-05-26] MEDS ORDERED: ACETAMINOPHEN 325 MG TABLET PO PRN (20:45)
[2020-05-26] MEDS ORDERED: IBUPROFEN 400 MG TABLET PO PRN (20:45)
[2020-05-26] MEDS: ZOLPIDEM TARTRATE 10 MG TABLET PO SCH (21:04)
[2020-05-26] MEDS: QUEtiapine FUMARATE 200 MG TABLET PO SCH (21:04)
[2020-05-26] MEDS: DIVALPROEX SODIUM 500 MG ER TABLET PO SCH (21:04)
[2020-05-26 23:59] VITALS: BP 100/70
[2020-06-04] MEDS ORDERED: PANT-31 PO (12:53)
== END 2020-05-27 00:56 | disposition short-term general hospital (02) | DRG 885 ==
LOC: 3EC 23:15 → 3EI 01-15 19:00 → 3EC 01-21 15:02 → 3EI 02-28 21:30 → 3EC 03-04 09:00
PROVIDERS: ADMIT Psychiatry & Neurology Psychiatry; ATTEND Psychiatry & Neurology Psychiatry
DX: F31.74 Bipolar disorder, in full remission, most recent episode manic (principal); U07.1 COVID-19; F43.10 Post-traumatic stress disorder, unspecified; E03.9 Hypothyroidism, unspecified; E55.9 Vitamin D deficiency, unspecified; K59.00 Constipation, unspecified; K21.9 Gastro-esophageal reflux disease without esophagitis; F60.3 Borderline personality disorder; G47.00 Insomnia, unspecified; Z79.899 Other long term (current) drug therapy; Z91.19 Patient's noncompliance with other medical treatment and regimen; Z91.5 Personal history of self-harm
CPT/HCPCS: 83036; 87081; 93930; J0401; J1200; J1630; J2060; Q0162